=== PATIENT | female | born 1940 | race Caucasian/White ===

== ENCOUNTER 2016-06-05 07:55 | Day surgery (SDC) | payer MEDICARE, BC ==
[~2016-06-05] VITALS: Ht 157.5 cm; Wt 59.1 kg
[~2016-06-05 07:55] MED LIST: ADVA250A INH; ALBU0.08 NEB; ALPR1TAB3 PO; AMLO5TAB2 PO; BUPR150T3 PO; CILO100T PO; ESZO1TAB4 PO; MIRTA15 PO; NEBULIZER1 MI1; OXYC-395 PO; PRED10PA PO; SYMB160A INH; VENTAER INH; WOMETAB5 PO; ZITH250T PO
[2016-06-05 08:30] VITALS: BP 146/83; PULSE 117; RESP 20; TEMP 97.9; O2SAT 91
[2016-06-05] MEDS ORDERED: QUET5TAB PO (08:38)
[2016-06-05] MEDS ORDERED: ceFAZolin 2 GM PREMIX 50 ML - implanted port/tunneled catheter insertion IV SCH (09:00)
[2016-06-05] MEDS ORDERED: SODIUM CHLORIDE 0.9% 1000 ML IV SCH (09:00)
[2016-06-05] MEDS ORDERED: CHLORHEXIDINE GLUCONATE 2 % 1 PACK (2 CLOTHS) TOPICAL SCH (09:00)
[2016-06-05] MEDS ORDERED: VANCOMYCIN 1000 MG/NS 250 ML - implanted port/tunneled catheter IV SCH ×2 (09:00)
[2016-06-05] MEDS ORDERED: POVIDONE IODINE 5% (ANTISEPSIS KIT) 4 APPLICATIONS EACH NARE SCH (09:00)
[2016-06-05] MEDS ORDERED: fentaNYL CITRATE 250 MCG/5 ML AMP ONE (10:23)
[2016-06-05] MEDS ORDERED: MIDAZOLAM HCL 5 MG/5 ML VIAL ONE (10:23)
[2016-06-05] MEDS ORDERED: LIDOCAINE 1%/EPINEPHrine 1:100,000 SOLN 20 ML VIAL ONE (10:47)
--- NOTE | 2016-06-05 11:29 | PD.RAD ---
Post Procedure Progress Note Pre Procedure Diagnosis: (1) Ovarian cancer Post Procedure Diagnosis: (1) Ovarian cancer Procedure Date: Jun 05, 2016 Supervising Radiologist: Lucio Camarena Anesthesia: Local, Conscious Sedation Plan of Activity Patient to Unit: ROPU Patient Condition: Fair Additional Comments: Port placed via the right IJ. Port in good position OK for use See PACS Report for procedural detail/treatment Lucio Camarena MD Jun 05, 2016 11:29
[2016-06-05] MEDS ORDERED: SODIUM CHLORIDE 0.9% FLUSH 5 ML FLUSH IVF PRN (11:30)
[2016-06-05 11:40] VITALS: BP 111/91; PULSE 90; RESP 16; TEMP 98; O2SAT 94
[2016-06-05 11:55] VITALS: BP 117/70; PULSE 101; RESP 18; O2SAT 96
[2016-06-05 12:25] VITALS: BP 108/70; PULSE 100; RESP 18; O2SAT 92
[2016-06-05 12:55] VITALS: BP 113/70; PULSE 98; RESP 18; O2SAT 90
[2016-06-05] MEDS ORDERED: ONDANSETRON HCL 4 MG/2 ML VIAL IV PUSH ONE (13:00)
[2016-06-05 13:25] VITALS: BP 116/70; PULSE 98; RESP 18; O2SAT 90
--- NOTE | 2016-06-05 13:26 | RADRPT ---
EXAM DATE/TIME: 06/05/2016 10:45 [facility] COMPARISON: No previous studies available for comparison. INDICATIONS : Patient with history of ovarian cancer in need of port placement. MEDICAL HISTORY : Hypertension Anxiety/depression COPD Stage I ovarian cancer-on conservative management with her [employer] doctor. Opted not to undergo exten sive surgical staging/chemotherapy/radiation therapy. Status post bilateral salpingo-oophorectomy on September 07, 2015. History of incarcerated hernia post bilateral izgbtxsp-pkhbwpmzczgn-eigiwg post surgical repair SURGICAL HISTORY : Left elbow surgery Shoulder surgery Cataract surgery Hernia repair Bilateral salpingo-oophorectomy Hysterectomy ENCOUNTER: Initial ACUITY: 7-11 months PAIN SCORE: 0/10 FLUORO TIME: 0.5 minutes SEDATION TIME: 30 minutes ACCESS: Right internal jugular vein SEDATION: 1.) 5 mg midazolam (Versed) IV 2.) 250 mcg fentanyl (Sublimaze) IV Prophylactic antibiotics were administered with appropriate pre-procedure timing. Vancomycin within 2 hours of procedure, Ancef (or alternative) within 1 hour of procedure. DEVICE: 1. 8 Slovenian single lumen Bard Power Port PROCEDURE : 1. Continuous pulse oximetry and EKG monitoring. 2. Intravenous conscious sedation. 3. Ultrasound guidance for venous access. 4. Fluoroscopic guided implantable central venous port placement. The patient was placed supine. The neck was prepped in sterile fashion. Full sterile technique was u sed, including cap, mask, sterile gloves and gown, and a large sterile sheet. Hand hygiene and 2% ch lorhexidine Betadine was utilized per protocol for cutaneous antisepsis with appropriate dry time for site. The skin and subcutaneous tissues were infiltrated with local anesthetic solution. Under direct ultrasound guidance, central venous access was accomplished in the targeted vessel. The ultrasound images depicting access guidance were stored and saved to PACS for permanent record. A s ubcutaneous pocket was created using blunt dissection. The port was introduced to the pocket. The c atheter tubing was fed through a subcutaneous tunnel to the venotomy site. The catheter tubing was c ut to a suitable length and then was introduced through a valved Peel-Away sheath and positioned with catheter tubing tip at the cavo-atrial junction level. The pocket incision was closed with subcutic ular Vicryl suture. Steri-Strips were applied. The port was flushed and locked with heparin solutio n per protocol. Sterile dressing was applied to the site. The patient tolerated the procedure well. Conscious sedation was performed with the prescribed dosages and duration as above. The patient gisselle ated the procedure well and there were no complications. EKG and oximetry remained stable throughout the procedure. The patient was sent to post anesthesia recovery in stable condition. CONCLUSION: Uncomplicated ultrasound and fluoroscopic guided implanted central venous port catheter placement as described in detail above. An 8 Slovenian Power port was placed. Lucio Camarena MD on June 05, 2016 at 13:25 Board Certified Radiologist. This report was verified electronically.
== END 2016-06-05 13:55 | disposition home or self-care (01) ==
LOC: HROP 07:55 → HRIP 07:56 → HROP 13:55
PROVIDERS: ATTEND Obstetrics & Gynecology Gynecologic Oncology
DX: Z45.2 Encounter for adjustment and management of vascular access device (principal); C56.9 Malignant neoplasm of unspecified ovary; Z90.722 Acquired absence of ovaries, bilateral; Z90.710 Acquired absence of both cervix and uterus
CPT/HCPCS: 36561; 76937; 77001; 99152; 99153; C1788; J0690; J1642; J2250; J3010; J3370; J7030; J7050

== ENCOUNTER 2016-06-25 14:00 | Inpatient (IN) | payer MEDICARE, BC ==
[~2016-06-25] VITALS: Ht 157.5 cm; Wt 58.4 kg
[~2016-06-25 14:00] MED LIST changes: +QUET5TAB PO; -ZITH250T PO
[2016-06-25 14:03] VITALS: BP 110/56; PULSE 103; RESP 14; TEMP 97.7; O2SAT 88
--- NOTE | 2016-06-25 18:42 | PD ---
HPI Chief Complaint: Respiratory Symptoms Time Seen by Provider: 18:36 Travel History International Travel<30 days: No Contact w/Intl Traveler<30days: No Traveled to known affect area: No History of Present Illness HPI 75-year-old female presents to the emergency department for evaluation of shortness of breath. Patient states her shortness of breath started on Thursday. It did improve yesterday, but worsened again last night. The patient is undergoing chemotherapy for ovarian cancer by Dr. Arevalo. She reports congestion, no cough. No known fevers. Patient states she has been very fatigued and weak. She states that she was anemic and received 2 units of PRBCs on Thursday. She states she heard, hemoglobin was up to 10. The patient denies any history of congestive heart failure. She denies any abdominal pain. No vomiting. PFSH Past Medical History Arthritis: Yes (Neck, shoulder, back) Anxiety: Yes Depression: Yes Cancer: Yes (Ovarian Cancer) Chemotherapy: Yes COPD: Yes (mild) Diminished Hearing: No Gastrointestinal Disorders: Yes Headaches: Yes Hypertension: Yes Psychiatric: Yes Reproductive: No Respiratory: Yes Migraines: Yes Radiation Therapy: No Renal Failure: Yes (elevated labs) Sickle Cell Disease: No : 3 Para: 3 Past Surgical History Abdominal Surgery: Yes (ruptured stomach) AICD: No Appendectomy: Yes Arteriovenous Shunt: No Eye Surgery: Yes (cataract monica) Gynecologic Surgery: Yes (hysterectomy, tubes tied, ovaries removed) Hysterectomy: Yes Insulin Pump: No Joint Replacement: No Pacemaker: No Other Surgery: Yes Social History Alcohol Use: Yes (OCCASIONALLY) Tobacco Use: No (QUIT 7 MONTHS AGO) Substance Use: No Allergies-Medications (Allergen,Severity, Reaction): Coded Allergies: Motrin (Verified Adverse Reaction, Intermediate, Nausea/Vomiting, 03/24/16 ) Reported Meds & Prescriptions Reported Meds & Active Scripts Active Ventolin Hfa 18 GM Inh (Albuterol Sulfate) 90 Mcg/Act Aer 2 Puff INH Q6H PRN Albuterol Neb (Albuterol Sulfate) 2.5 Mg/3 Ml Neb 2.5 Mg NEB Q4HR NEB PRN Nebulizer 1 Mis Mis 1 Ea .ROUTE DIRECTED Advair Diskus Inh (Fluticasone-Salmeterol Inh) 250-50 Mcg/Blist Aer 1 Puff INH BID Rinse mouth after use. Prednisone (21) 10 mg tab Dose Pack (Prednisone) 10 Mg Pack 10 Mg PO DIRECTED Ventolin Hfa 18 GM Inh (Albuterol Sulfate) 90 Mcg/Act Aer 2 Puff INH Q6H PRN Symbicort Inh (Budesonide/Formoterol Fumarate) 160-4.5 Mcg/Act Aero 2 Puff INH Q12HR Reported Quetiapine (Quetiapine Fumarate) 50 Mg Tab 50 Mg PO BID Oxycodone (Oxycodone HCl) 10 Mg Tab 10 Mg PO Q8H PRN Eszopiclone 3 Mg Tab 3 Mg PO HS PRN Mirtazapine 15 Mg Tab 15 Mg PO HS Alprazolam 1 Mg Tab 1 Mg PO Q8H PRN Womens One Daily (Multiple Vitamins W/ Minerals) 1 Tab Tab 1 Tab PO DAILY Amlodipine (Amlodipine Besylate) 5 Mg Tab 5 Mg PO DAILY Bupropion HCl ER 24 HR (Bupropion HCl) 150 Mg Tab 150 Mg PO DAILY Cilostazol 100 Mg Tab 100 Mg PO BID Review of Systems Except as stated in HPI: all other systems reviewed are Neg Physical Exam Narrative GENERAL: Well-developed well-nourished elderly female patient, afebrile. Patient is pale. SKIN: Warm and dry. HEAD: Normocephalic. Atraumatic. EYES: No scleral icterus. No injection or drainage. NECK: Supple, trachea midline. No JVD or lymphadenopathy. CARDIOVASCULAR: Regular rate and rhythm without murmurs, gallops, or rubs. RESPIRATORY: Breath sounds equal bilaterally. No accessory muscle use. Lungs sounds are diminished, but clear. GASTROINTESTINAL: Abdomen soft, non-tender, nondistended. MUSCULOSKELETAL: No cyanosis, or edema. BACK: Nontender without obvious deformity. No CVA tenderness. Data Data Last Documented VS Vital Signs Date Time Temp Pulse Resp B/P Pulse Ox O2 Delivery O2 Flow Rate FiO2 06/25/16 19:23 Room Air 06/25/16 14:03 97.7 103 14 110/56 88 Orders Complete Blood Count With Diff (06/25/16 18:33) Magnesium (Mg) (06/25/16 18:33) Ckmb (Isoenzyme) Profile (06/25/16 18:33) Troponin I (06/25/16 18:33) Urinalysis - C+S If Indicated (06/25/16 18:33) Blood Culture (06/25/16 18:33) Electrocardiogram (06/25/16 18:33) Chest, Single Ap (06/25/16 18:33) Sodium Chloride 0.9% Flush (Ns Flush) (06/25/16 18:45) Lactic Acid Sepsis Protocol (06/25/16 18:33) Type And Screen (06/25/16 18:33) Comprehensive Metabolic Panel (06/25/16 18:33) Vancomycin Inj (Vancomycin Inj) (06/25/16 20:00) Piperacil-Tazo 3.375 Gm Premix (Zosyn 3. (06/25/16 20:00) Ct Pulmonary Angiogram (06/25/16 ) Arterial Blood Gas (Abg) (06/25/16 19:46) Methylprednisolone So Succ Inj (Solumedr (06/25/16 20:00) Albuterol-Ipratropium Neb (Duoneb Neb) (06/25/16 20:00) Labs Laboratory Tests Test 06/25/16 18:50 White Blood Count 6.5 TH/MM3 Red Blood Count 3.61 MIL/MM3 Hemoglobin 9.5 GM/DL Hematocrit 29.1 % Mean Corpuscular Volume 80.6 FL Mean Corpuscular Hemoglobin 26.4 PG Mean Corpuscular Hemoglobin 32.7 % Concent Red Cell Distribution Width 18.2 % Platelet Count 234 TH/MM3 Mean Platelet Volume 6.8 FL Neutrophils (%) (Auto) 78.0 % Lymphocytes (%) (Auto) 11.6 % Monocytes (%) (Auto) 10.0 % Eosinophils (%) (Auto) 0.3 % Basophils (%) (Auto) 0.1 % Neutrophils # (Auto) 5.1 TH/MM3 Lymphocytes # (Auto) 0.8 TH/MM3 Monocytes # (Auto) 0.7 TH/MM3 Eosinophils # (Auto) 0.0 TH/MM3 Basophils # (Auto) 0.0 TH/MM3 CBC Comment DIFF FINAL Differential Comment MDM Medical Decision Making Medical Screen Exam Complete: Yes Emergency Medical Condition: Yes Medical Record Reviewed: Yes Differential Diagnosis Symptomatic anemia versus COPD exacerbation versus pneumonia versus sepsis versus UTI versus electrolyte abnormality Narrative Course 75-year-old female undergoing chemotherapy for ovarian cancer presents to the emergency department for evaluation of weakness, fatigue, shortness of breath. Oxygen saturation is rechecked in the triage room she is found to be 92% on room air. EKG, CBC, CMP, CK-MB, troponin, magnesium, blood cultures 2, lactic acid, UA, type and screen, chest x-ray are ordered and pending. Workup is initiated in triage. Once a medical bed becomes available, patient will be transferred and care assumed by that provider. Iwona Rhodes Jun 25, 2016 18:42
[2016-06-25] MEDS ORDERED: SODIUM CHLORIDE 0.9% FLUSH 5 ML FLUSH IVF PRN (18:45)
[2016-06-25 19:23] VITALS: BP 113/64; PULSE 95; RESP 18; O2SAT 95
[2016-06-25 19:25] LABS: AUTOMATED NEUTROPHIL # 5.1 TH/MM3 (1.8-7.7); BASOPHIL % 0.1 % (0.0-2.0); EOSINOPHIL % 0.3 % (0.0-4.0); HEMATOCRIT 29.1 % (35.0-46.0); HEMO FLAGS DIFF FINAL; LYMPH % 11.6 % (9.0-44.0); LYMPHOCYTE # 0.8 TH/MM3 (1.0-4.8); MEAN CELL VOLUME 80.6 FL (80.0-100.0); MEAN CORPUSCULAR HEMOGLOBIN 26.4 PG (27.0-34.0); MEAN CORPUSCULAR HGB CONC 32.7 % (32.0-36.0); PLATELET COUNT 234 TH/MM3 (150-450); RED BLOOD COUNT 3.61 MIL/MM3 (4.00-5.30); RED CELL DISTRIBUTION WIDTH 18.2 % (11.6-17.2); WHITE BLOOD COUNT 6.5 TH/MM3 (4.0-11.0)
--- NOTE | 2016-06-25 19:29 | RADRPT ---
EXAM DATE/TIME: 06/25/2016 19:00 [facility] COMPARISON: CHEST SINGLE AP, March 24, 2016, 16:28. INDICATIONS : Weakness and short of breath for a few days. MEDICAL HISTORY : Chronic obstructive pulmonary disease. Hypertension. Ovarian cancer. Chemotherapy. SURGICAL HISTORY : Appendectomy. Hysterectomy. Zchtut-F-Ryim. ENCOUNTER: Initial ACUITY: 3 days PAIN SCORE: 0/10 LOCATION: Bilateral chest FINDINGS: There is a CT compatible Nfimzu-b-Hcyd in place from the right internal jugular approach with the tip overlying the SVC. The heart size is normal. There is some mild increased density at the left base . The right lung appears clear. A pneumothorax is not seen. There is a dextrocurvature of the thor acic spine. CONCLUSION: Suspected mild area of consolidation or atelectasis at the left lung base. Sal Hurst MD on June 25, 2016 at 19:13 Board Certified Radiologist. This report was verified electronically.
--- NOTE | 2016-06-25 19:51 | PD ---
Physical Exam Narrative I, Dr. Handy, have reviewed the advance practice practitioner's documentation and am in agreement, met with the patient face to face, made the diagnosis, and the medical decision making was done by me. *My assessment and Findings: electrolyte abnormality vs. UTI vs. PE vs. COPD exacerbation vs. Pneumonia vs. symptomatic anemia 75yo F with PMH of ovarian cancer on chemotherapy (follows with Dr. Arevalo) presents to the ED with c/o sob for 2 days. Pt states walking makes the breathing worst. Pt is saturating at 93% on RA. Pt is not wheezing on exam but has history of COPD so will give duonebs and methylprednisolone. Pt is also complaining of generalized weakness. Pt had 2 units of blood transfusion about 5 days ago at oncology center. Denies any chest pain, fever, cough, n/v, focal weakness or numbness. Labs reviewed, no leukocytosis. H/H 9.5/29.1 at baseline. Hypokalemia at 2.8. Replaced with 20mEq IV KCl and 60mEq KCl PO. BUN/creatinine is acutely elevated at 40/2.67 from 24/1.78 on 06/23/16. Troponin negative. CXR showed suspected mild area of consolidation or atelectasis at the left lung base. Empirically given vancomycin and zosyn. Although I have a low suspicion for PE, will still obtain VQ scan since unable to do CTA due to acute kidney injury. VQ scan show low probability for PE. Discussed with Dr. Romo and accepted. Data Data Last Documented VS Vital Signs Date Time Temp Pulse Resp B/P Pulse Ox O2 Delivery O2 Flow Rate FiO2 06/25/16 20:34 95 Nasal Cannula 2.00 06/25/16 19:23 95 18 113/64 06/25/16 14:03 97.7 Orders Complete Blood Count With Diff (06/25/16 18:33) Magnesium (Mg) (06/25/16 18:33) Ckmb (Isoenzyme) Profile (06/25/16 18:33) Troponin I (06/25/16 18:33) Urinalysis - C+S If Indicated (06/25/16 18:33) Blood Culture (06/25/16 18:33) Electrocardiogram (06/25/16 18:33) Chest, Single Ap (06/25/16 18:33) Sodium Chloride 0.9% Flush (Ns Flush) (06/25/16 18:45) Lactic Acid Sepsis Protocol (06/25/16 18:33) Type And Screen (06/25/16 18:33) Comprehensive Metabolic Panel (06/25/16 18:33) Vancomycin Inj (Vancomycin Inj) (06/25/16 20:00) Piperacil-Tazo 3.375 Gm Premix (Zosyn 3. (06/25/16 20:00) Arterial Blood Gas (Abg) (06/25/16 19:46) Methylprednisolone So Succ Inj (Solumedr (06/25/16 20:00) Albuterol-Ipratropium Neb (Duoneb Neb) (06/25/16 20:00) Ventilation & Perfusion Scan (06/25/16 ) Potassium Chlor 20 Meq Premix (Kcl 20 Me (06/25/16 20:15) Potassium Chloride (Kcl) (06/25/16 20:15) Sodium Chlorid 0.9% 500 Ml Inj (Ns 500 M (06/25/16 20:15) Admit Order (Ed Use Only) (06/25/16 20:58) Labs Laboratory Tests Test 06/25/16 06/25/16 06/25/16 18:45 18:50 20:00 Lactic Acid Level 1.2 mmol/L White Blood Count 6.5 TH/MM3 Red Blood Count 3.61 MIL/MM3 Hemoglobin 9.5 GM/DL Hematocrit 29.1 % Mean Corpuscular Volume 80.6 FL Mean Corpuscular Hemoglobin 26.4 PG Mean Corpuscular Hemoglobin 32.7 % Concent Red Cell Distribution Width 18.2 % Platelet Count 234 TH/MM3 Mean Platelet Volume 6.8 FL Neutrophils (%) (Auto) 78.0 % Lymphocytes (%) (Auto) 11.6 % Monocytes (%) (Auto) 10.0 % Eosinophils (%) (Auto) 0.3 % Basophils (%) (Auto) 0.1 % Neutrophils # (Auto) 5.1 TH/MM3 Lymphocytes # (Auto) 0.8 TH/MM3 Monocytes # (Auto) 0.7 TH/MM3 Eosinophils # (Auto) 0.0 TH/MM3 Basophils # (Auto) 0.0 TH/MM3 CBC Comment DIFF FINAL Differential Comment Sodium Level 131 MEQ/L Potassium Level 2.8 MEQ/L Chloride Level 98 MEQ/L Carbon Dioxide Level 20.6 MEQ/L Anion Gap 12 MEQ/L Blood Urea Nitrogen 40 MG/DL Creatinine 2.67 MG/DL Estimat Glomerular Filtration 17 ML/MIN Rate Random Glucose 115 MG/DL Calcium Level 8.4 MG/DL Magnesium Level 2.0 MG/DL Total Bilirubin 0.3 MG/DL Aspartate Amino Transf 58 U/L (AST/SGOT) Alanine Aminotransferase 48 U/L (ALT/SGPT) Alkaline Phosphatase 102 U/L Total Creatine Kinase 79 U/L Troponin I LESS THAN 0.02 NG/ML Total Protein 7.3 GM/DL Albumin 2.9 GM/DL Blood Type O NEGATIVE Antibody Screen NEGATIVE Blood Gas Puncture Site RT RADIAL Blood Gas Patient Temperature 98.6 Blood Gas HCO3 17 mmol/L Blood Gas Base Excess -6.2 mmol/L Blood Gas Oxygen Saturation 92 % Arterial Blood pH 7.44 Arterial Blood Partial 25 mmHg Pressure CO2 Arterial Blood Partial 65 mmHG Pressure O2 Arterial Blood Oxygen Content 11.6 Vol % Arterial Blood 2.3 % Carboxyhemoglobin Arterial Blood Methemoglobin 1.4 % Blood Gas Hemoglobin 8.9 G/DL Oxygen Delivery Device ROOM AIR Blood Gas Inspired Oxygen 21 % MDM Supervised Visit with PATI: Yes Interpretation(s) EKG: Sinus tachycardia at 100bpm. Normal axis. No ST segment elevation or depression. Diagnosis Primary Impression: COPD (chronic obstructive pulmonary disease) Qualified Code: J42 - Chronic bronchitis, unspecified chronic bronchitis type Additional Impression: PNA (pneumonia) Qualified Code: J18.1 - Pneumonia of left lower lobe due to infectious organism Admitting Information Admitting Physician Requests: Admit Marisol Handy DO Jun 25, 2016 19:51
[2016-06-25] MEDS ORDERED: methylPREDNISolone SOD SUCC 125 MG/2 ML VIAL IVP ONE (20:00)
[2016-06-25] MEDS ORDERED: PIPERACIL-TAZO 3.375 GM PREMIX 50 ML IV ONE (20:00)
[2016-06-25] MEDS ORDERED: VANCOMYCIN INJ 1,000 MG in SODIUM CHLOR 0.9% 250 ML INJ 250 ML IV ONE (20:00)
[2016-06-25 20:11] LABS: ALKALINE PHOSPHATASE 102 U/L (45-117); ALT (GPT) 48 U/L (10-53); ANION GAP 12 MEQ/L (5-15); AST (GOT) 58 U/L (15-37); BICARBONATE 20.6 MEQ/L (21.0-32.0); BLOOD UREA NITROGEN 40 MG/DL (7-18); CHLORIDE 98 MEQ/L (98-107); CREATINE KINASE 79 U/L (26-192); GLOMERULAR FILTRATION RATE 17 ML/MIN (>89); SODIUM (NA) 131 MEQ/L (136-145); TOTAL BILIRUBIN ADULT 0.3 MG/DL (0.2-1.0)
[2016-06-25 20:12] LABS: POTASSIUM 2.8 MEQ/L (3.5-5.1)
[2016-06-25] MEDS ORDERED: POTASSIUM CHLOR 20 MEQ PREMIX 100 ML IV ONE (20:15)
[2016-06-25] MEDS ORDERED: POTASSIUM CHLORIDE 20 MEQ CONTROLLED RELEASE TAB PO ONE (20:15)
[2016-06-25] MEDS ORDERED: SODIUM CHLORID 0.9% 500 ML INJ 500 ML IV ONE (20:15)
[2016-06-25 20:21] LABS: BLOOD GAS BASE EXCESS -6.2 mmol/L (-2-2); BLOOD GAS CARBOXYHEMOGLOBIN 2.3 % (0-4); BLOOD GAS HCO3 17 mmol/L (22-26); BLOOD GAS METHEMOGLOBIN 1.4 % (0-2); BLOOD GAS O2 HGB SATURATION 92 % (90-100); BLOOD GAS OXYGEN CONTENT 11.6 Vol % (12.0-20.0); BLOOD GAS PCO2 25 mmHg (38-42); BLOOD GAS PO2 65 mmHG (61-120); BLOOD GAS TOTAL HGB 8.9 G/DL (12.0-16.0); CRITICAL VALUE NO; DRAW SITE RT RADIAL; FIO2 21 %; NUMBER OF ARTERIAL PUNCTURES 1; OXYGEN DEVICE ROOM AIR; STAT YES; TEMP CORR TO 98.6; ULNAR PULSE PRESENT
[2016-06-25 20:34] VITALS: O2SAT 95
[2016-06-25] MEDS: RESP: ALBUTEROL 2.5 MG/IPRATROPIUM 0.5 MG NEB (SCH) INH (20:36)
[2016-06-25] MEDS ORDERED: ONDANSETRON HCL 4 MG/2 ML VIAL IVP PRN (21:15)
[2016-06-25] MEDS ORDERED: BISACODYL 10 MG SUPP PR PRN (21:15)
[2016-06-25] MEDS ORDERED: SODIUM CHLORIDE 0.9% FLUSH 5 ML FLUSH FLUSH PRN (21:15)
[2016-06-25] MEDS ORDERED: RESP: ALBUTEROL 2.5 MG/IPRATROPIUM 0.5 MG NEB (PRN) NEB (21:15)
[2016-06-25] MEDS ORDERED: Vancomycin Consult Pharmacy 1 EA OTHER SCH (21:15)
[2016-06-25] MEDS ORDERED: ACETAMINOPHEN 325 MG TAB PO PRN (21:15)
--- NOTE | 2016-06-25 21:17 | HHI.HP ---
[facility] Diana Salgado MD Admission Diagnosis KAMRYN Diagnoses: (1) COPD (chronic obstructive pulmonary disease) Diagnosis: Principal (2) PNA (pneumonia) Diagnosis: Principal (3) Hypoxia Diagnosis: Principal (4) KAMRYN (acute kidney injury) Diagnosis: Principal (5) Hypokalemia Diagnosis: Principal (6) Ovarian cancer Diagnosis: Principal Travel History International Travel<30 Days: No Contact w/Intl Traveler <30 Da: No Traveled to Known Affected Are: No History of Present Illness This is a 75-year-old female with PMH of HTN, Anxiety, Depression, COPD, Ovarian CA on Chemotherapy and Chronic Pain who was brought to the ER for c/o SOB x2 days. Recent transfusion of 2u pRBC on 06/18/16 for Hgb 7.7, currently Hgb 9.5. Reports associated non-productive cough and generalized weakness but denies fever, chills, nausea, vomiting or diarrhea. On arrival, BP 110/56, HR 103, O2 sat 88% on RA, Afebrile. WBC 6.5. K+ 2.8. Creatinine 2.67, previously 1.78 on 06/23/16. U/a pending. CXR w/ LLL consolidation. V/Q Scan low probability for PE. S/p Blood Cultures, Vanc/Zosyn in ER. ABG w/ pH 7.44, PCO2 25, PO2 65, O2 sat 92% on RA. Review of Systems Except as stated in HPI: all other systems reviewed are Neg ROS: 14 point review of systems otherwise negative. Past Family Social History Past Medical History PMH: HTN, Anxiety, Depression, COPD, Ovarian CA on Chemotherapy and Chronic Pain Past Surgical History PAST SURGICAL HISTORY: Appendectomy, Bilateral Cataract Surgery, Hysterectomy Allergies: Coded Allergies: Motrin (Verified Adverse Reaction, Intermediate, Nausea/Vomiting, 03/24/16 ) Family History PAST FAMILY HISTORY: Reviewed. No h/o DM or CAD Social History PAST SOCIAL HISTORY: Occasional alcohol. History of tobacco abuse, quit 7 months ago. Negative for substance abuse. Physical Exam Vital Signs Vital Signs Date Time Temp Pulse Resp B/P Pulse Ox O2 Delivery O2 Flow Rate FiO2 06/25/16 20:34 95 Nasal Cannula 2.00 06/25/16 19:23 Room Air 06/25/16 14:03 97.7 103 14 110/56 88 Room Air Physical Exam PE: GENERAL: Elderly white female in no acute distress. HEENT: PERRLA, EOMI. No scleral icterus or conjunctival pallor. No lid lag or facial droop. CARDIOVASCULAR: Regular rate and rhythm. No obvious murmurs to auscultation. No chest tenderness to palpation. RESPIRATORY: No obvious rhonchi or wheezing. Clear to auscultation. Decreased at bases bilaterally. GASTROINTESTINAL: Abdomen soft, non-tender, nondistended. BS normal. MUSCULOSKELETAL: Extremities without clubbing, cyanosis, or edema. No obvious deformities. NEUROLOGICAL: Awake, alert and oriented x4. No focal neurologic deficits. Moving both upper and lower extremities spontaneously. Laboratory Laboratory Tests Test 06/25/16 06/25/16 06/25/16 18:45 18:50 20:00 Lactic Acid Level 1.2 White Blood Count 6.5 Red Blood Count 3.61 Hemoglobin 9.5 Hematocrit 29.1 Mean Corpuscular Volume 80.6 Mean Corpuscular Hemoglobin 26.4 Mean Corpuscular Hemoglobin 32.7 Concent Red Cell Distribution Width 18.2 Platelet Count 234 Mean Platelet Volume 6.8 Neutrophils (%) (Auto) 78.0 Lymphocytes (%) (Auto) 11.6 Monocytes (%) (Auto) 10.0 Eosinophils (%) (Auto) 0.3 Basophils (%) (Auto) 0.1 Neutrophils # (Auto) 5.1 Lymphocytes # (Auto) 0.8 Monocytes # (Auto) 0.7 Eosinophils # (Auto) 0.0 Basophils # (Auto) 0.0 CBC Comment DIFF FINAL Differential Comment Sodium Level 131 Potassium Level 2.8 Chloride Level 98 Carbon Dioxide Level 20.6 Anion Gap 12 Blood Urea Nitrogen 40 Creatinine 2.67 Estimat Glomerular Filtration 17 Rate Random Glucose 115 Calcium Level 8.4 Magnesium Level 2.0 Total Bilirubin 0.3 Aspartate Amino Transf 58 (AST/SGOT) Alanine Aminotransferase 48 (ALT/SGPT) Alkaline Phosphatase 102 Total Creatine Kinase 79 Troponin I LESS THAN 0.02 Total Protein 7.3 Albumin 2.9 Blood Type O NEGATIVE Antibody Screen NEGATIVE Blood Gas Puncture Site RT RADIAL Blood Gas Patient Temperature 98.6 Blood Gas HCO3 17 Blood Gas Base Excess -6.2 Blood Gas Oxygen Saturation 92 Arterial Blood pH 7.44 Arterial Blood Partial 25 Pressure CO2 Arterial Blood Partial 65 Pressure O2 Arterial Blood Oxygen Content 11.6 Arterial Blood 2.3 Carboxyhemoglobin Arterial Blood Methemoglobin 1.4 Blood Gas Hemoglobin 8.9 Oxygen Delivery Device ROOM AIR Blood Gas Inspired Oxygen 21 Date/Time Procedure Status Source Growth 06/25/16 18:50 Aerobic Blood Culture Received Blood Peripheral Pending 06/25/16 18:50 Anaerobic Blood Culture Received Blood Peripheral Pending Result Diagram: 06/25/[id number]/25/161849 Assessment and Plan Problem List: (1) COPD (chronic obstructive pulmonary disease) ICD Code: J44.9 Status: Acute (2) PNA (pneumonia) ICD Code: J18.9 Status: Acute (3) Hypoxia ICD Code: R09.02 Status: Acute (4) KAMRYN (acute kidney injury) ICD Code: N17.9 Status: Acute (5) Hypokalemia ICD Code: E87.6 Status: Acute (6) Ovarian cancer ICD Code: C56.9 Status: Acute Assessment and Plan A/P: 1. COPD: Chronic Respiratory Failure w/ Acute Exacerbation. O2 sat 88% on RA upon arrival, currently 95% on RA. S/p Solu-Medrol and DuoNeb in ER, will continue w/ Solu-Medrol, DuoNeb q4h and q2h prn, Mucinex, Symbicort, continue O2 as needed. 2. PNA: CXR w/ LLL consolidation, images reviewed by me. S/p Blood Cultures, Vanc/Zosyn in ER, immunocompromised on Chemotherapy, will continue broad spectrum antibiotics. Follow up cultures. 3. Hypoxia: O2 sat 88% on arrival, now resolved after Solu-Medrol and DuoNeb. Continue to monitor. 4. KAMRYN: Acute on Chronic Renal Insufficiency. Creatinine 2.67, previous and 1.78 on 06/23/16. U/a pending. IVF, repeat labs in am. 5. Hypokalemia: K+ 2.8, s/p replacement in ER. Will recheck and replace in am as needed. 6. Ovarian CA: Currently on Chemotherapy, following w/ Dr. Arevalo, will consult for further recommendations. 7. DVT Prophylaxis: SCD/Teds. 8. Social work for d/c planning as needed. 9. Case discussed w/ ER physician at length. Physician Certification 2 Midnight Certification Type: Admission for Inpatient Services Order for Inpatient Services The services are ordered in accordance with Medicare regulations or non- Medicare payer requirements, as applicable. In the case of services not specified as inpatient-only, they are appropriately provided as inpatient services in accordance with the 2-midnight benchmark. Estimated LOS (days): 2 days is the estimated time the patient will need to remain in the hospital, assuming treatment plan goals are met and no additional complications. Post-Hospital Plan: Not yet determined Cecily Romo MD Jun 25, 2016 21:17
--- NOTE | 2016-06-25 22:50 | RADRPT ---
EXAM DATE/TIME: 06/25/2016 21:56 [facility] COMPARISON: CHEST SINGLE AP, June 25, 2016, 19:00. LUNG VENTILATION & PERFUSION SCAN, March 24, 2016, 18: 15. INDICATIONS : Shortness of breath for two days. DOSE: 8.7 mCi Tc99m MAA IV 0.62 mCi Tc99m DTPA aerosol MEDICAL HISTORY : Chronic obstructive pulmonary disease. Hypertension. Ovarian cancer. SURGICAL HISTORY : Hysterectomy. Appendectomy. Tubal ligation. ENCOUNTER: Initial ACUITY: 2 days PAIN SCALE: 0/10 LOCATION: chest TECHNIQUE: Following five minutes of tidal breathing of DTPA aerosol, planar images of the lungs were performed in eight projections. The patient was then injected with MAA, and eight-view perfusion scan was perf ormed. FINDINGS: There is a homogeneous pattern of aerosol delivery to the periphery of both lungs. No focal ventilat ory defects are seen. The perfusion lung scan demonstrates a homogenous pattern of uptake in both lungs. No segmental or s ubsegmental defects are seen. CONCLUSION: Low probability for pulmonary embolus. Sal Hurst MD on June 25, 2016 at 22:48 Board Certified Radiologist. This report was verified electronically.
[2016-06-25] MEDS: SODIUM CHLOR 0.9% 1000 ML INJ 1,000 ML IV SCH (23:18)
[2016-06-25 23:30] VITALS: BP 126/75; PULSE 107; RESP 18; TEMP 97; O2SAT 94
[2016-06-26] VITALS (8 sets, daily range): BP systolic 108–142; BP diastolic 68–82; PULSE 87–109; RESP 17–24; TEMP 95.6–97.8; O2SAT 93–98
[2016-06-26] MEDS: ALPRAZolam 0.5 MG TAB PO PRN ×2 (00:16→21:05)
[2016-06-26] MEDS: methylPREDNISolone SOD SUCC 40 MG/1 ML VIAL IV PUSH SCH ×4 (02:00→21:05)
[2016-06-26] MEDS: SODIUM CHLOR 0.9% 1000 ML INJ 1,000 ML IV SCH ×2 (07:14→21:12)
[2016-06-26 08:02] LABS: AUTOMATED NEUTROPHIL # 3.3 TH/MM3 (1.8-7.7); BASOPHIL % 0.2 % (0.0-2.0); HEMATOCRIT 25.6 % (35.0-46.0); HEMO FLAGS DIFF FINAL; LYMPH % 8.3 % (9.0-44.0); LYMPHOCYTE # 0.3 TH/MM3 (1.0-4.8); MEAN CELL VOLUME 79.4 FL (80.0-100.0); MEAN CORPUSCULAR HEMOGLOBIN 26.5 PG (27.0-34.0); MEAN CORPUSCULAR HGB CONC 33.4 % (32.0-36.0); MONO % 1.5 % (0.0-8.0); PLATELET COUNT 241 TH/MM3 (150-450); RED BLOOD COUNT 3.22 MIL/MM3 (4.00-5.30); RED CELL DISTRIBUTION WIDTH 17.6 % (11.6-17.2); WHITE BLOOD COUNT 3.6 TH/MM3 (4.0-11.0)
--- NOTE | 2016-06-26 08:44 | EKG ---
Date Performed: 06/25/2016 Time Performed: 18:44:42 PTAGE: 75 years EKG: SINUS TACHYCARDIA POSSIBLE LEFT ATRIAL ENLARGEMENT NONSPECIFIC ST & T-WAVE ABNORMALITY ABNO RMAL RHYTHM ECG PREVIOUS TRACING : 03/24/2016 22.37 DOCTOR: Jason Varghese Interpretating Date/Time 06/26/2016 08:41:09
[2016-06-26] MEDS: QUEtiapine FUMARATE 25 MG TAB PO SCH ×2 (08:46→21:05)
[2016-06-26] MEDS: CEFEPIME INJ 1,000 MG in SODIUM CHLORIDE 0.9% INJ 100 ML IV SCH (08:46)
[2016-06-26] MEDS: guaiFENesin E.R. 600 MG TAB PO SCH ×2 (08:46→21:05)
[2016-06-26] MEDS: buPROPion HCL 150 MG EXTENDED RELEASE TAB PO SCH (08:46)
[2016-06-26] MEDS: CILOSTAZOL 100 MG TAB PO SCH ×2 (08:46→21:05)
[2016-06-26 08:50] LABS: ALKALINE PHOSPHATASE 95 U/L (45-117); ALT (GPT) 46 U/L (10-53); ANION GAP 10 MEQ/L (5-15); AST (GOT) 46 U/L (15-37); BICARBONATE 17.1 MEQ/L (21.0-32.0); BLOOD UREA NITROGEN 38 MG/DL (7-18); CHLORIDE 108 MEQ/L (98-107); GLOMERULAR FILTRATION RATE 22 ML/MIN (>89); SODIUM (NA) 135 MEQ/L (136-145); TOTAL BILIRUBIN ADULT 0.3 MG/DL (0.2-1.0)
[2016-06-26] MEDS: ACETAMINOPHEN/HYDROcodone 325 MG/5 MG TAB PO PRN ×2 (08:55→15:30)
[2016-06-26] MEDS: SODIUM CHLORIDE 0.9% FLUSH 5 ML FLUSH FLUSH SCH ×2 (08:58→21:00)
[2016-06-26] MEDS ORDERED: VANCOMYCIN 500 MG/NS 100 ML IV ONE ×2 (10:00)
--- NOTE | 2016-06-26 11:26 | HHI.PR ---
Subjective Remarks Patient in bed. Says sob and wheezing improving. No fever or chills. Doesn't have any pain at this time. No cp, sob, n/v/d/c. Objective Vitals Vital Signs Date Time Temp Pulse Resp B/P Pulse Ox O2 Delivery O2 Flow Rate FiO2 06/26/16 07:39 96.8 87 17 108/68 96 06/26/16 04:00 90 17 119/73 93 06/25/16 23:30 97.0 107 18 126/75 94 06/25/16 20:34 95 Nasal Cannula 2.00 06/25/16 19:23 95 18 113/64 95 Nasal Cannula 2 06/25/16 19:23 Room Air 06/25/16 14:03 97.7 103 14 110/56 88 Room Air Result Diagram: 06/26/16 0650 06/26/16 0630 Imaging Last Impressions Chest X-Ray 06/25/16 1833 Signed Impressions: Service Date/Time: Saturday, June 25, 2016 19:00 - CONCLUSION: Suspected mild area of consolidation or atelectasis at the left lung base. Sal Hurst MD Lung Scan-V Nuclear Medicine 06/25/16 0000 Signed Impressions: Service Date/Time: Saturday, June 25, 2016 21:56 - CONCLUSION: Low probability for pulmonary embolus. Sal Hurst MD Objective Remarks GENERAL: Elderly white female in no acute distress. HEENT: PERRLA, EOMI. No scleral icterus or conjunctival pallor. No lid lag or facial droop. CARDIOVASCULAR: Regular rate and rhythm. No obvious murmurs to auscultation. No chest tenderness to palpation. RESPIRATORY: No obvious rhonchi or wheezing. Clear to auscultation. Decreased at bases bilaterally. GASTROINTESTINAL: Abdomen soft, non-tender, nondistended. BS normal. MUSCULOSKELETAL: Extremities without clubbing, cyanosis, or edema. No obvious deformities. NEUROLOGICAL: Awake, alert and oriented x4. No focal neurologic deficits. Moving both upper and lower extremities spontaneously. A/P Problem List: (1) COPD (chronic obstructive pulmonary disease) ICD Code: J44.9 Status: Acute (2) PNA (pneumonia) ICD Code: J18.9 Status: Acute (3) Hypoxia ICD Code: R09.02 Status: Acute (4) KAMRYN (acute kidney injury) ICD Code: N17.9 Status: Acute (5) Hypokalemia ICD Code: E87.6 Status: Acute (6) Ovarian cancer ICD Code: C56.9 Status: Acute Assessment and Plan 1. COPD: Chronic Respiratory Failure w/ Acute Exacerbation. O2 sat 88% on RA upon arrival, currently 95% on RA. S/p Solu-Medrol and DuoNeb in ER Taper Solu-Medrol to 40 mg IV Q8 hrs, and, DuoNeb q6 h and q2h prn. Continue to taper as tolerated. Mucinex, Symbicort, continue O2 as needed. 2. PNA: CXR w/ LLL consolidation, images reviewed by me. S/p Blood Cultures, Vanc/Zosyn in ER, immunocompromised on Chemotherapy, will continue broad spectrum antibiotics. Follow up cultures. NTD. 3. Acute respiratory failure, patient is requiring O2 supplement at this time. At baseline she did not require O2 . Hypoxia: O2 sat 88% on arrival, satting well on 2L NC. Solu-Medrol and DuoNeb. Continue to monitor. Will need O2 wal; jean test at discharge. 4. KMARYN: Acute on Chronic Renal Insufficiency. Creatinine 2.67, previous and 1.78 on 06/23/16. U/a pending. IVF, repeat labs in am. 5. Hypokalemia: K+ 2.8, s/p replacement in ER. Will recheck and replace in am as needed. 6. Ovarian CA: Currently on Chemotherapy, following w/ Dr. Arevalo, will consult for further recommendations. DVT Prophylaxis: SCD/Teds. Social work for d/c planning as needed. Discussed with the Problem Qualifiers (1) Ovarian cancer: Qualified Code: C56.9 - Ovarian cancer, unspecified laterality Serena Carpenter MD Jun 26, 2016 11:26
[2016-06-26] MEDS ORDERED: RESP: ALBUTEROL 2.5 MG/IPRATROPIUM 0.5 MG NEB (PRN) NEB (11:30)
--- NOTE | 2016-06-26 11:43 | PD.CONS ---
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 Romo Reason for Consult Pt known to you. 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 She is currently receiving IV chemotherapy with single agent Carboplatin AUC 5 given every 21 days. She received her first cycle on 06/10/16. Her hemiglobin dropped to 7.7 on 06/18/16 she received 2 units of PRBCs and on 02/20/17 her hem had improved to 10.2. She called our office yesterday complaining of fatigue, SOA and pain. She was told to go to ER for further evaluation. She presented to ER and was found to have O2 sats of 88%, creat 2.67 and hypokalemia. Imaging obtained shown LLL with consolidation. V/Q scan was low probability for PE. She was admitted for exacerbation of COPD, KAMRYN, and PNA. Review of Systems Constitutional: COMPLAINS OF: Fatigue Respiratory: COMPLAINS OF: Shortness of breath Musculoskeletal: COMPLAINS OF: Joint pain, Muscle aches Past Family Social History Allergies: Coded Allergies: Motrin (Verified Adverse Reaction, Intermediate, Nausea/Vomiting, 03/24/16 ) Past Medical History HTN anxiety depression COPD ovarian cancer chronic pain Past Surgical History appy, cataract hysterectomy Reported Medications per EMR Active Ordered Medications Current Medications IV Flush 2 ml 2 ml UNSCH PRN IVF FLUSH AFTER USING IV ACCESS; Start 06/25/16 at 18:45 Vancomycin HCl 1000 mg/Sodium Chloride 250 ml @ 250 mls/hr ONCE ONCE IV Last administered on 06/25/16 21:11; Start 06/25/16 at 20:00; Stop 06/25/16 at 20:59 ; Status DC Piperacillin Sod/ Tazobactam Sod (Zosyn 3.375 Gm Premix) 50 ml @ 100 mls/hr ONCE ONCE IV Last administered on 06/25/16 20:11; Start 06/25/16 at 20:00; Stop 06/25/16 at 20:29; Status DC Methylprednisolone Sodium Succinate (SoluMEDROL INJ) 125 mg ONCE ONCE IVP Last administered on 06/25/16 20:11; Start 06/25/16 at 20:00; Stop 06/25/16 at 20:01; Status DC Albuterol/ Ipratropium 1 ampule 1 ampule Q15M INH Last administered on 20:36; Start 06/25/16 at 20:00; Stop 06/25/16 at 20:31; Status DC Potassium Chloride (KCl 20 Meq Premix Inj) 100 ml @ 50 mls/hr ONCE ONCE IV Last administered on 06/25/16 23:18; Start 06/25/16 at 20:15; Stop 06/25/16 at 22:14; Status DC Potassium Chloride 60 meq 60 meq ONCE ONCE PO Last administered on 06/25/16 21:11; Start 06/25/16 at 20:15; Stop 06/25/16 at 20:17; Status DC Sodium Chloride 500 ml @ 500 mls/hr BOLUS ONCE IV Last administered on 21:12; Start 06/25/16 at 20:15; Stop 06/25/16 at 21:14; Status DC Pharmacy Profile Note 0 ml @ 0 mls/hr UNSCH OTHER ; Start 06/25/16 at 21:15 Cefepime HCl/ Sodium Chloride (Maxipime Inj/NS Inj) 100 ml @ 200 mls/hr DAILY IV Last administered on 06/26/16 08:46; Start 06/26/16 at 09:00 Methylprednisolone Sodium Succinate (SoluMEDROL INJ) 40 mg Q6HR IV PUSH Last administered on 06/26/16 02:00; Start 06/26/16 at 02:00 Budesonide/ Formoterol Fumarate (Symbicort 160-4.5 Inh) 2 puff Q12HR INH ; Start 06/26/16 at 09:00 Guaifenesin (Mucinex Er) 600 mg BID PO Last administered on 06/26/16 08:46; Start 06/26/16 at 09:00 Albuterol/ Ipratropium 1 ampule 1 ampule Q4HR NEB PRN NEB SOB/WHEEZING; Start 06/25/16 at 21:15 Sodium Chloride (NS 1000 ml Inj) 1,000 ml @ 100 mls/hr Q10H IV Last administered on 06/25/16 23:18; Start 06/25/16 at 21:14 IV Flush (NS Flush) 2 ml UNSCH PRN FLUSH FLUSH AFTER USING IV ACCESS; Start at 21:15 IV Flush (NS Flush) 2 ml BID FLUSH ; Start 06/26/16 at 09:00 Ondansetron HCl (Zofran Inj) 4 mg Q6H PRN IVP NAUSEA OR VOMITING; Start at 21:15 Bisacodyl (Dulcolax Supp) 10 mg DAILY PRN NE CONSTIPATION; Start 06/25/16 at 21 :15 Acetaminophen (Tylenol) 650 mg Q6H PRN PO FEVER/PAIN SCALE 1 TO 2; Start at 21:15 Acetaminophen/ Hydrocodone Bitart (Tucker 5-325 Mg) 1 tab Q4H PRN PO PAIN SCALE 3 TO 5 Last administered on 06/26/16 08:55; Start 06/25/16 at 21:15 Hydromorphone HCl (Dilaudid Pf Inj) 0.5 mg Q3H PRN IV Pain 6-10; Start at 21:15 Alprazolam (Xanax) 0.5 mg Q8H PRN PO ANXIETY Last administered on 06/26/16 00: 16; Start 06/25/16 at 23:45 Bupropion HCl (Wellbutrin Xl 24 Hr) 150 mg DAILY PO Last administered on 08:46; Start 06/26/16 at 09:00 Cilostazol (Pletal) 100 mg BID PO Last administered on 06/26/16 08:46; Start 06/26/16 at 09:00 Mirtazapine (Remeron) 15 mg HS PO ; Start 06/26/16 at 21:00 Quetiapine Fumarate 50 mg 50 mg BID PO Last administered on 06/26/16 08:46; Start 06/26/16 at 09:00 Vancomycin HCl/ Sodium Chloride (Vancomycin Inj/ NS Inj) 100 ml @ 200 mls/hr ONCE ONCE IV ; Start 06/26/16 at 10:00; Stop 06/26/16 at 10:29; Status DC Social History past tobacco occasional ETOH Physical Exam Vital Signs Vital Signs Date Time Temp Pulse Resp B/P Pulse Ox O2 Delivery O2 Flow Rate FiO2 06/26/16 07:39 96.8 87 17 108/68 96 06/26/16 04:00 90 17 119/73 93 06/25/16 23:30 97.0 107 18 126/75 94 06/25/16 20:34 95 Nasal Cannula 2.00 06/25/16 19:23 95 18 113/64 95 Nasal Cannula 2 06/25/16 19:23 Room Air 06/25/16 14:03 97.7 103 14 110/56 88 Room Air Physical Exam GENERAL: Frail, in no apparent distress. SKIN: No rashes, Cool and dry. HEAD: Atraumatic. Normocephalic. EYES: Pupils equal round and reactive. Extraocular motions intact. CARDIOVASCULAR: Regular rate and rhythm without murmurs, gallops, or rubs. RESPIRATORY: Clear to auscultation. Breath sounds equal bilaterally. No wheezes , rales, or rhonchi. MUSCULOSKELETAL: Extremities without clubbing, cyanosis, or edema. NEUROLOGICAL: Normal speech, pt is sleepy Laboratory Laboratory Tests Test 06/25/16 06/25/16 06/25/16 06/26/16 18:45 18:50 20:00 06:30 Lactic Acid Level 1.2 White Blood Count 6.5 Red Blood Count 3.61 Hemoglobin 9.5 Hematocrit 29.1 Mean Corpuscular Volume 80.6 Mean Corpuscular Hemoglobin 26.4 Mean Corpuscular Hemoglobin 32.7 Concent Red Cell Distribution Width 18.2 Platelet Count 234 Mean Platelet Volume 6.8 Neutrophils (%) (Auto) 78.0 Lymphocytes (%) (Auto) 11.6 Monocytes (%) (Auto) 10.0 Eosinophils (%) (Auto) 0.3 Basophils (%) (Auto) 0.1 Neutrophils # (Auto) 5.1 Lymphocytes # (Auto) 0.8 Monocytes # (Auto) 0.7 Eosinophils # (Auto) 0.0 Basophils # (Auto) 0.0 CBC Comment DIFF FINAL Differential Comment Sodium Level 131 135 Potassium Level 2.8 5.0 Chloride Level 98 108 Carbon Dioxide Level 20.6 17.1 Anion Gap 12 10 Blood Urea Nitrogen 40 38 Creatinine 2.67 2.21 Estimat Glomerular Filtration 17 22 Rate Random Glucose 115 149 Calcium Level 8.4 8.6 Magnesium Level 2.0 Total Bilirubin 0.3 0.3 Aspartate Amino Transf 58 46 (AST/SGOT) Alanine Aminotransferase 48 46 (ALT/SGPT) Alkaline Phosphatase 102 95 Total Creatine Kinase 79 Troponin I LESS THAN 0.02 Total Protein 7.3 6.6 Albumin 2.9 2.6 Blood Type O NEGATIVE Antibody Screen NEGATIVE Blood Gas Puncture Site RT RADIAL Blood Gas Patient Temperature 98.6 Blood Gas HCO3 17 Blood Gas Base Excess -6.2 Blood Gas Oxygen Saturation 92 Arterial Blood pH 7.44 Arterial Blood Partial 25 Pressure CO2 Arterial Blood Partial 65 Pressure O2 Arterial Blood Oxygen Content 11.6 Arterial Blood 2.3 Carboxyhemoglobin Arterial Blood Methemoglobin 1.4 Blood Gas Hemoglobin 8.9 Oxygen Delivery Device ROOM AIR Blood Gas Inspired Oxygen 21 Test 06/26/16 06:50 White Blood Count 3.6 Red Blood Count 3.22 Hemoglobin 8.5 Hematocrit 25.6 Mean Corpuscular Volume 79.4 Mean Corpuscular Hemoglobin 26.5 Mean Corpuscular Hemoglobin 33.4 Concent Red Cell Distribution Width 17.6 Platelet Count 241 Mean Platelet Volume 7.2 Neutrophils (%) (Auto) 90.0 Lymphocytes (%) (Auto) 8.3 Monocytes (%) (Auto) 1.5 Eosinophils (%) (Auto) 0.0 Basophils (%) (Auto) 0.2 Neutrophils # (Auto) 3.3 Lymphocytes # (Auto) 0.3 Monocytes # (Auto) 0.1 Eosinophils # (Auto) 0.0 Basophils # (Auto) 0.0 CBC Comment DIFF FINAL Differential Comment Date/Time Procedure Status Source Growth 06/25/16 18:50 Aerobic Blood Culture Received Blood Peripheral Pending 06/25/16 18:50 Anaerobic Blood Culture Received Blood Peripheral Pending Result Diagram: 06/26/16 0650 06/26/16 0630 Imaging Last Impressions Chest X-Ray 06/25/16 1833 Signed Impressions: Service Date/Time: Saturday, June 25, 2016 19:00 - CONCLUSION: Suspected mild area of consolidation or atelectasis at the left lung base. Sal Hurst MD Lung Scan- Nuclear Medicine 06/25/16 0000 Signed Impressions: Service Date/Time: Saturday, June 25, 2016 21:56 - CONCLUSION: Low probability for pulmonary embolus. Sal Hurst MD Assessment and Plan Problem List: (1) KAMRYN (acute kidney injury) Status: Acute Plan: IVF improving creat 2.67 to 2.21 monitor daily labs (2) COPD exacerbation Status: Resolved Plan: improved with neb tx, steroids and oxygen Hospitalist team is following and we appreciate their assistance. (3) PNA (pneumonia) Status: Acute Plan: IV ABX O2 via NC (4) Ovarian cancer Status: Acute Plan: will continue with IV Carboplatin AUC 5 once she is discharged from hospital, as long as her performance status returns to baseline and her kidney function improves. Discussed Condition With Dr. Arevalo is in agreement with this plan and further orders to follow. Problem Qualifiers (1) Ovarian cancer: Qualified Code: C56.9 - Ovarian cancer, unspecified laterality (2) PNA (pneumonia): Qualified Code: J18.1 - Pneumonia of left lower lobe due to infectious organism Tomasa Maldonado Jun 26, 2016 11:43
[2016-06-26] MEDS: BUDESONIDE-FORMOTEROL 160/4.5 MCG INHALER INH SCH ×2 (12:28→21:05)
[2016-06-26] MEDS: RESP: ALBUTEROL 2.5 MG/IPRATROPIUM 0.5 MG NEB (SCH) NEB ×2 (12:57→20:34)
[2016-06-26] MEDS ORDERED: MIRTAZAPINE 15 MG TAB PO SCH (21:00)
[2016-06-26] MEDS: HYDROmorphone HCL PF 1 MG/ML VIAL IV PRN (22:58)
[2016-06-27] VITALS: BP 131/75; PULSE 102; RESP 18; TEMP 97; O2SAT 97
[2016-06-27 04:00] VITALS: BP 127/70; PULSE 96; RESP 18; TEMP 96.9; O2SAT 94
[2016-06-27] MEDS: HYDROmorphone HCL PF 1 MG/ML VIAL IV PRN (05:41)
[2016-06-27] MEDS: methylPREDNISolone SOD SUCC 40 MG/1 ML VIAL IV PUSH SCH (05:41)
[2016-06-27] MEDS: ALPRAZolam 0.5 MG TAB PO PRN ×2 (05:41→15:01)
[2016-06-27] MEDS: SODIUM CHLOR 0.9% 1000 ML INJ 1,000 ML IV SCH (05:42)
[2016-06-27] MEDS: RESP: ALBUTEROL 2.5 MG/IPRATROPIUM 0.5 MG NEB (SCH) NEB ×2 (07:25→12:05)
[2016-06-27 07:27] VITALS: O2SAT 94
--- NOTE | 2016-06-27 07:35 | MB ---
cc: BHAVIN LOPEZ MD,KAYLYNN GRANT,JC MATHUR,IRENE CARPENTER,SERENA FRAUSTO DATE OF CONSULTATION 06/27/2016 PHYSICIAN REQUESTING CONSULT Drs. Grant and Serena Carpenter REASON FOR CONSULTATION The specific objectives of this consult request were not stated and were not communicated to me. She is seen, findings and history are reviewed by me in conjunction with our nurse practitioner (Tomasa Maldonado) I agree with her findings, assessment and plan of care. This is a 75-year-old female who has recently come under our care again. She was seen in initial consult after surgical resection of a pelvic mass showing ovarian cancer. This was in October of last year. We recommended chemotherapy and extensive discussion was held with her and her family. At that time, she was undergoing recovery in a rehab facility. They were concerned about her performance status, her underlying medical issues and she was uncertain whether or not to consider chemotherapy. She did not follow up and was not seen in our office again until May 30, 2016 where the aforementioned findings, concerns, and issues were discussed at length. Even at that time, she remained undecided about chemotherapy. Subsequently, she agreed to chemotherapy was started on a dose reduced single-agent carboplatin in an effort to try to provide benefit and minimize side effects. She received her first cycle of single-agent carboplatin dosed at an AUC of 5. She received her first cycle on June 10, 2016. She is admitted to the hospital now for what seems to be exacerbation of her preexisting medical problems. She has a baseline elevated creatinine and has some dehydration and further elevation of her creatinine likely secondarily related to exacerbation of her COPD, decreased oral intake. She has been evaluated for possible pneumonia. PAST MEDICAL, SURGICAL HISTORY, MEDICATIONS, FAMILY HISTORY All reviewed and are as documented in the chart. She is seen in consultation. Given that she was just examined by us and followed up in our office recently, she is not reexamined. OBJECTIVE DATA H&H yesterday 8.5, 25.6, white count 3.6, 90% neutrophils such that she is not neutropenic, platelet count 241. Electrolytes notable for a BUN and creatinine of 38 and 2.21. This has improved from 24 hours prior of 40 and 2.67. Other electrolytes have been abnormal and are being addressed by the medicine team. DISCUSSION Time is spent in discussion with her reviewing the findings in her case to date. I reiterated all of the previous points discussed in our office. I am sorry she is feeling poorly. Our oncology recommendations and plan have not changed. We would still recommend chemotherapy at dose reduction in an effort to try to suppress the ovarian cancer that has certainly progressed and become even more problematic without treatment. If her kidney function remains elevated, we may decide to change to single-agent treatment such as single-agent Taxol and perhaps lower dose weekly Taxol alternative treatments could be single-agent Doxil or single-agent gemcitabine as possibilities that are discussed. Given that she just started on her treatment and has only received one cycle of carboplatin chemotherapy, it is too soon to make any assessment regarding efficacy and our recommendation now is to continue present management. I am grateful for medical care. We have no further recommendations at that time from an oncology standpoint. MD ARLIN Ewing/LEORA /7:07 AM /7:20 AM
[2016-06-27 08:00] VITALS: BP 111/65; PULSE 95; RESP 18; TEMP 96.2; O2SAT 93
[2016-06-27] MEDS: SODIUM CHLORIDE 0.9% FLUSH 5 ML FLUSH FLUSH SCH (09:00)
[2016-06-27] MEDS: CILOSTAZOL 100 MG TAB PO SCH (09:24)
[2016-06-27] MEDS: guaiFENesin E.R. 600 MG TAB PO SCH (09:24)
[2016-06-27] MEDS: buPROPion HCL 150 MG EXTENDED RELEASE TAB PO SCH (09:24)
[2016-06-27] MEDS: QUEtiapine FUMARATE 25 MG TAB PO SCH (09:25)
[2016-06-27] MEDS: CEFEPIME INJ 1,000 MG in SODIUM CHLORIDE 0.9% INJ 100 ML IV SCH (09:25)
[2016-06-27] MEDS: BUDESONIDE-FORMOTEROL 160/4.5 MCG INHALER INH SCH (09:28)
[2016-06-27 10:06] LABS: AUTOMATED NEUTROPHIL # 7.2 TH/MM3 (1.8-7.7); BASOPHIL % 0.1 % (0.0-2.0); HEMATOCRIT 24.5 % (35.0-46.0); HEMO FLAGS DIFF FINAL; LYMPH % 4.4 % (9.0-44.0); LYMPHOCYTE # 0.3 TH/MM3 (1.0-4.8); MEAN CELL VOLUME 80.8 FL (80.0-100.0); MEAN CORPUSCULAR HEMOGLOBIN 26.1 PG (27.0-34.0); MEAN CORPUSCULAR HGB CONC 32.4 % (32.0-36.0); MONO % 1.9 % (0.0-8.0); NEUT % 93.6 % (16.0-70.0); PLATELET COUNT 248 TH/MM3 (150-450); RED BLOOD COUNT 3.03 MIL/MM3 (4.00-5.30); RED CELL DISTRIBUTION WIDTH 18.1 % (11.6-17.2); WHITE BLOOD COUNT 7.7 TH/MM3 (4.0-11.0)
--- NOTE | 2016-06-27 10:11 | HHI.PR ---
Subjective Remarks Follow-up COPD exacerbation 06/27/16-patient seen and examined, reports significant improvement or shortness of breath. Denies any febrile episode. Was seen by [facility] oncology Objective Vitals Vital Signs Date Time Temp Pulse Resp B/P Pulse Ox O2 Delivery O2 Flow Rate FiO2 06/27/16 08:00 96.2 95 18 111/65 93 06/27/16 07:27 94 Nasal Cannula 2.00 06/27/16 04:00 96.9 96 18 127/70 94 06/27/16 00:00 97.0 102 18 131/75 97 06/26/16 20:34 96 Nasal Cannula 2.00 06/26/16 20:00 109 06/26/16 20:00 97.0 107 18 142/82 96 06/26/16 15:56 97.8 103 19 125/72 95 06/26/16 15:00 103 06/26/16 12:00 95.6 93 24 110/71 97 06/26/16 11:35 98 Nasal Cannula 2.00 I/O 06/26/16 06/26/16 06/26/16 06/27/16 06/27/16 06/27/16 07:00 15:00 23:00 07:00 15:00 23:00 Intake Total 743 ml 1274 ml Output Total 240 ml Balance 743 ml 1034 ml Intake Oral 360 ml IV Total 383 ml 1274 ml Output Urine Total 240 ml # Voids 2 1 1 Result Diagram: 06/27/16 0910 06/26/16 0630 Imaging Last Impressions Chest X-Ray 06/25/16 1833 Signed Impressions: Service Date/Time: Saturday, June 25, 2016 19:00 - CONCLUSION: Suspected mild area of consolidation or atelectasis at the left lung base. Sal Hurst MD Lung Scan-V Nuclear Medicine 06/25/16 0000 Signed Impressions: Service Date/Time: Saturday, June 25, 2016 21:56 - CONCLUSION: Low probability for pulmonary embolus. Sal Hurst MD Objective Remarks GENERAL: NAD SKIN: Warm and dry. HEAD: Normocephalic. EYES: No scleral icterus. No injection or drainage. NECK: Supple, trachea midline. No JVD or lymphadenopathy. CARDIOVASCULAR: Regular rate and rhythm without murmurs, gallops, or rubs. RESPIRATORY: Breath sounds equal bilaterally. No accessory muscle use. GASTROINTESTINAL: Abdomen soft, non-tender, nondistended. MUSCULOSKELETAL: No cyanosis, or edema. BACK: Nontender without obvious deformity. No CVA tenderness. A/P Problem List: (1) COPD (chronic obstructive pulmonary disease) ICD Code: J44.9 Status: Acute (2) PNA (pneumonia) ICD Code: J18.9 Status: Acute (3) Hypoxia ICD Code: R09.02 Status: Acute (4) KAMRYN (acute kidney injury) ICD Code: N17.9 Status: Acute (5) Hypokalemia ICD Code: E87.6 Status: Acute (6) Ovarian cancer ICD Code: C56.9 Status: Acute (7) Hypoxemia ICD Code: R09.02 Status: Acute Assessment and Plan 75-year-old female with 1. COPD: Chronic Respiratory Failure w/ Acute Exacerbation. O2 sat 88% on RA upon arrival, currently 95% on RA. D/C Solu-Medrol 40 mg IV Q8 hrs, start prednisone 20 mg by mouth daily 06/28/16 and continue DuoNeb q6 h and q2h prn. Mucinex, Symbicort, continue O2 as needed. 2. PNA: CXR w/ LLL consolidation. S/p Blood Cultures, Vanc/Zosyn in ER, immunocompromised on Chemotherapy. Follow up cultures. NTD. 3. Acute respiratory failure, patient is requiring O2 supplement at this time. At baseline she did not require O2 . Hypoxia: O2 sat 88% on arrival, satting well on 2L NC. . Continue to monitor. Perform walk test today 4. KAMRYN: Acute on Chronic Renal Insufficiency. Improving on IVF, BMP pending 5. Hypokalemia: Resolved 6. Ovarian CA: Currently on Chemotherapy, following w/ Dr. Arevalo, and appreciate input from [facility] 7. Acute hypoxia/hypoxemia with respiratory failure: Patient will be requiring home oxygen on discharge as other alternative measures were tried and were ineffective as patient failed respiratory walk test today 06/27/16 DVT Prophylaxis: SCD/Teds. Discharge Planning Discharged today pending BMP and walk test Problem Qualifiers (1) COPD (chronic obstructive pulmonary disease): Qualified Code: J42 - Chronic bronchitis, unspecified chronic bronchitis type (2) PNA (pneumonia): Qualified Code: J18.1 - Pneumonia of left lower lobe due to infectious organism (3) Ovarian cancer: Qualified Code: C56.9 - Ovarian cancer, unspecified laterality Sharif Spaulding MD Jun 27, 2016 10:11
[2016-06-27 10:40] LABS: BICARBONATE 15.4 MEQ/L (21.0-32.0); POTASSIUM 3.7 MEQ/L (3.5-5.1)
[2016-06-27 12:00] VITALS: BP 137/71; PULSE 103; RESP 20; TEMP 96; O2SAT 100
--- NOTE | 2016-06-27 12:26 | HHI.FF ---
Face to Face Verification Diagnosis: (1) PNA (pneumonia) (2) Hypoxemia (3) Hypoxia (4) COPD exacerbation Home Health Nursing Order: Signs/symptoms of disease process I have seen patient Doris Bojorquez on 06/27/16. My clinical findings support the need for the requested home health care services because: Patient has SOB I certify that my clinical findings support that this patient is homebound because: Poor cardiac reserve Sharif Spaulding MD Jun 27, 2016 12:26
[2016-06-27] MEDS ORDERED: MUCI600T PO (12:32)
[2016-06-27] MEDS ORDERED: PRED20 PO (12:32)
[2016-06-27] MEDS ORDERED: VENTAER INH (12:32)
[2016-06-27] MEDS ORDERED: AZIT250T3 PO (12:32)
[2016-06-27] MEDS ORDERED: SYMB160A INH (12:32)
[2016-06-27] MEDS ORDERED: OXYGENTANK NAS.CANULA (12:34)
--- NOTE | 2016-06-27 12:35 | HHI.DS ---
Discharge Summary Admission Date Jun 25, 2016 at 20:59 Discharge Date: Jun 27, 2016 Admitting Diagnosis KAMRYN (1) COPD (chronic obstructive pulmonary disease) ICD Code: J44.9 (2) PNA (pneumonia) ICD Code: J18.9 (3) Hypoxia ICD Code: R09.02 (4) KAMRYN (acute kidney injury) ICD Code: N17.9 (5) Hypokalemia ICD Code: E87.6 (6) Ovarian cancer ICD Code: C56.9 (7) Hypoxemia ICD Code: R09.02 Procedures none Brief History - From Admission This is a 75-year-old female with PMH of HTN, Anxiety, Depression, COPD, Ovarian CA on Chemotherapy and Chronic Pain who was brought to the ER for c/o SOB x2 days. Recent transfusion of 2u pRBC on 06/18/16 for Hgb 7.7, currently Hgb 9.5. Reports associated non-productive cough and generalized weakness but denies fever, chills, nausea, vomiting or diarrhea. On arrival, BP 110/56, HR 103, O2 sat 88% on RA, Afebrile. WBC 6.5. K+ 2.8. Creatinine 2.67, previously 1.78 on 06/23/16. U/a pending. CXR w/ LLL consolidation. V/Q Scan low probability for PE. S/p Blood Cultures, Vanc/Zosyn in ER. ABG w/ pH 7.44, PCO2 25, PO2 65, O2 sat 92% on RA. CBC/BMP: 06/27/16 0910 06/27/16 0910 Significant Findings Laboratory Tests Test 06/25/16 06/25/16 06/26/16 06/26/16 18:50 20:00 06:30 06:50 Red Blood Count 3.61 MIL/MM3 3.22 MIL/MM3 (4.00-5.30) (4.00-5.30) Hemoglobin 9.5 GM/DL 8.5 GM/DL (11.6-15.3) (11.6-15.3) Hematocrit 29.1 % 25.6 % (35.0-46.0) (35.0-46.0) Mean Corpuscular Hemoglobin 26.4 PG 26.5 PG (27.0-34.0) (27.0-34.0) Red Cell Distribution Width 18.2 % 17.6 % (11.6-17.2) (11.6-17.2) Mean Platelet Volume 6.8 FL (7.0-11.0) Neutrophils (%) (Auto) 78.0 % 90.0 % (16.0-70.0) (16.0-70.0) Monocytes (%) (Auto) 10.0 % (0.0-8.0) Lymphocytes # (Auto) 0.8 TH/MM3 0.3 TH/MM3 (1.0-4.8) (1.0-4.8) Sodium Level 131 MEQ/L 135 MEQ/L (136-145) (136-145) Potassium Level 2.8 MEQ/L (3.5-5.1) Carbon Dioxide Level 20.6 MEQ/L 17.1 MEQ/L (21.0-32.0) (21.0-32.0) Blood Urea Nitrogen 40 MG/DL (7-18) 38 MG/DL (7-18) Creatinine 2.67 MG/DL 2.21 MG/DL (0.50-1.00) (0.50-1.00) Estimat Glomerular Filtration 17 ML/MIN (>89) 22 ML/MIN (>89) Rate Random Glucose 115 MG/DL 149 MG/DL (74-106) (74-106) Calcium Level 8.4 MG/DL (8.5-10.1) Aspartate Amino Transf 58 U/L (15-37) 46 U/L (15-37) (AST/SGOT) Troponin I LESS THAN 0.02 NG/ML (0.02-0.05) Albumin 2.9 GM/DL 2.6 GM/DL (3.4-5.0) (3.4-5.0) Blood Gas HCO3 17 mmol/L (22-26) Blood Gas Base Excess -6.2 mmol/L (-2-2) Arterial Blood pH 7.44 (7.380-7.420) Arterial Blood Partial 25 mmHg (38-42) Pressure CO2 Arterial Blood Oxygen Content 11.6 Vol % (12.0-20.0) Blood Gas Hemoglobin 8.9 G/DL (12.0-16.0) Chloride Level 108 MEQ/L (98-107) White Blood Count 3.6 TH/MM3 (4.0-11.0) Mean Corpuscular Volume 79.4 FL (80.0-100.0) Lymphocytes (%) (Auto) 8.3 % (9.0-44.0) Test 06/27/16 09:10 Red Blood Count 3.03 MIL/MM3 (4.00-5.30) Hemoglobin 7.9 GM/DL (11.6-15.3) Hematocrit 24.5 % (35.0-46.0) Mean Corpuscular Hemoglobin 26.1 PG (27.0-34.0) Red Cell Distribution Width 18.1 % (11.6-17.2) Neutrophils (%) (Auto) 93.6 % (16.0-70.0) Lymphocytes (%) (Auto) 4.4 % (9.0-44.0) Lymphocytes # (Auto) 0.3 TH/MM3 (1.0-4.8) Chloride Level 114 MEQ/L (98-107) Carbon Dioxide Level 15.4 MEQ/L (21.0-32.0) Blood Urea Nitrogen 34 MG/DL (7-18) Creatinine 1.69 MG/DL (0.50-1.00) Estimat Glomerular Filtration 30 ML/MIN (>89) Rate Random Glucose 157 MG/DL (74-106) Calcium Level 8.3 MG/DL (8.5-10.1) PE at Discharge GENERAL: NAD SKIN: Warm and dry. HEAD: Normocephalic. EYES: No scleral icterus. No injection or drainage. NECK: Supple, trachea midline. No JVD or lymphadenopathy. CARDIOVASCULAR: Regular rate and rhythm without murmurs, gallops, or rubs. RESPIRATORY: Breath sounds equal bilaterally. No accessory muscle use. GASTROINTESTINAL: Abdomen soft, non-tender, nondistended. MUSCULOSKELETAL: No cyanosis, or edema. BACK: Nontender without obvious deformity. No CVA tenderness. Hospital Course 1. COPD: Chronic Respiratory Failure w/ Acute Exacerbation. O2 sat 88% on RA upon arrival, currently 95% on RA. D/C Solu-Medrol 40 mg IV Q8 hrs, start prednisone 20 mg by mouth daily 06/28/16 and continue DuoNeb q6 h and q2h prn. Mucinex, Symbicort, continue O2 as needed. 2. PNA: CXR w/ LLL consolidation. S/p Blood Cultures, Vanc/Zosyn in ER, immunocompromised on Chemotherapy. Follow up cultures. NTD. 3. Acute respiratory failure, patient is requiring O2 supplement at this time. At baseline she did not require O2 . Hypoxia: O2 sat 88% on arrival, satting well on 2L NC. . Continue to monitor. Perform walk test today 4. KAMRYN: Acute on Chronic Renal Insufficiency. Improving on IVF, BMP pending 5. Hypokalemia: Resolved 6. Ovarian CA: Currently on Chemotherapy, following w/ Dr. Arevalo, and appreciate input from CLIMATOLOGIST oncology 7. Acute hypoxia/hypoxemia with respiratory failure: Patient will be requiring home oxygen on discharge as other alternative measures were tried and were ineffective as patient failed respiratory walk test today 06/27/16 DVT Prophylaxis: SCD/Teds. Pt Condition on Discharge: Fair Discharge Disposition: Disch w/ Home Health Serv Discharge Time: > 30 minutes Discharge Instructions DIET: Follow Instructions for: Heart Healthy Diet Activities you can perform: Regular-No Restrictions Follow up Referrals: Oncology PCP Follow-up - 1 Week New Medications: Albuterol 18 GM Inh (Ventolin Hfa 18 GM Inh) 90 Mcg/Act Aer 2 PUFF INH Q4H PRN SHORTNESS OF BREATH #1 Ref 1 INHALER Azithromycin (Azithromycin) 250 Mg Tab 250 MG PO DAILY Infection #3 Ref 0 TAB Oxygen tank (Oxygen tank) 1 Ea Tank 2 LITER DARIANA.CANULA CONTINUOUS Oxygen Concentrator Portable Gaseous 2 L/min via Nasal Cannula Continuous For 99 months HYPOXEMIA PREVENTION #2 CYLINDER Prednisone (Prednisone) 20 Mg Tab 20 MG PO DIRECTED 40 MG twice a day x 3 days, then 20 MG daily x 3 days, then 10 MG daily x 3 days Inflammation #11 Ref 0 TAB Budesonide-Formoterol Inh (Symbicort Inh) 160-4.5 Mcg/Act Aero 2 PUFF INH Q12HR Breathing Treatment #60 INHALER Guaifenesin ER 12 HR (Mucinex ER 12 HR) 600 Mg Sil 600 MG PO BID Breathing Treatment #20 TAB Continued Medications: Albuterol 18 GM Inh (Ventolin Hfa 18 GM Inh) 90 Mcg/Act Aer 2 PUFF INH Q6H PRN SHORTNESS OF BREATH #1 Ref 0 INHALER Albuterol 18 GM Inh (Ventolin Hfa 18 GM Inh) 90 Mcg/Act Aer 2 PUFF INH Q6H PRN SHORTNESS OF BREATH #1 Ref 0 INHALER Albuterol Neb (Albuterol Neb) 2.5 Mg/3 Ml Neb 2.5 MG NEB Q4HR NEB PRN SHORTNESS OF BREATH #60 Ref 0 NEBULE Alprazolam (Alprazolam) 1 Mg Tab 0.5 MG PO Q8H PRN ANXIETY Ref 0 TAB Amlodipine (Amlodipine) 5 Mg Tab 5 MG PO DAILY Blood Pressure Management #30 Ref 0 TAB Bupropion HCl ER 24 HR (Bupropion HCl ER 24 HR) 150 Mg Tab 150 MG PO DAILY Control Depression Ref 0 TAB Cilostazol (Cilostazol) 100 Mg Tab 100 MG PO BID INTERMITTENT CLAUDICATION Ref 0 TAB Eszopiclone (Eszopiclone) 3 Mg Tab 3 MG PO HS PRN INSOMNIA #30 Ref 0 TAB Mirtazapine (Mirtazapine) 15 Mg Tab 15 MG PO HS Depression Control #30 Ref 0 TAB Multiple Vitamins W/ Minerals (Womens One Daily) 1 Tab Tab 1 TAB PO DAILY Oxycodone (Oxycodone) 10 Mg Tab 10 MG PO Q8H PRN PAIN Ref 0 TAB Quetiapine (Quetiapine) 50 Mg Tab 50 MG PO BID #60 Ref 0 TAB Sharif Spaulding MD Jun 27, 2016 12:35
[2016-06-27] MEDS ORDERED: VANCOMYCIN INJ 750 MG in SODIUM CHLOR 0.9% 250 ML INJ 250 ML IV ONE (17:00)
[2016-06-28] MEDS ORDERED: predniSONE 20 MG TAB PO SCH (09:00)
== END 2016-06-27 17:25 | disposition home health service (06) | DRG 190 ==
LOC: NEPC 14:00 → NEDA 20:59 → OBSVTOIN 20:59 → HOCA 22:46
PROVIDERS: ADMIT Family Medicine; ATTEND Family Medicine
DX: J44.0 Chronic obstructive pulmonary disease with (acute) lower respiratory infection (principal); J18.9 Pneumonia, unspecified organism; J96.21 Acute and chronic respiratory failure with hypoxia; N17.9 Acute kidney failure, unspecified; C56.1 Malignant neoplasm of right ovary; C56.2 Malignant neoplasm of left ovary; J44.1 Chronic obstructive pulmonary disease with (acute) exacerbation; I12.9 Hypertensive chronic kidney disease with stage 1 through stage 4 chronic kidney disease, or unspecified chronic kidney disease; N18.9 Chronic kidney disease, unspecified; E87.6 Hypokalemia; Z92.21 Personal history of antineoplastic chemotherapy; G89.29 Other chronic pain; F32.9 Major depressive disorder, single episode, unspecified; F41.9 Anxiety disorder, unspecified; M19.90 Unspecified osteoarthritis, unspecified site; Z87.891 Personal history of nicotine dependence
CPT/HCPCS: 36600; 71010; 78582; 80048; 80053; 80202; 82550; 82805; 83605; 83735; 84484; 85025; 86850; 86900; 86901; 87040; 93005; 94620; 94640; 94664; 96374; 96375; A9540; A9567; J0692; J1170; J2543; J2920; J2930; J3370; J3480; J7030; J7040; J7050

== ENCOUNTER 2016-07-17 14:15 | Emergency (ER) | payer MEDICARE, BC ==
[~2016-07-17] VITALS: Ht 160 cm; Wt 55.0 kg
[~2016-07-17 14:15] MED LIST changes: -ADVA250A INH; +AZIT250T3 PO; +MUCI600T PO; +OXYGENTANK NAS.CANULA; -PRED10PA PO; +PRED20 PO
[2016-07-17 14:19] VITALS: BP 136/79; PULSE 117; RESP 11; TEMP 98.5; O2SAT 86
[2016-07-17 14:34] VITALS: BP 120/65; PULSE 105; RESP 18; TEMP 98.6; O2SAT 94
[2016-07-17] MEDS ORDERED: SODIUM CHLOR 0.9% 1000 ML INJ 1,000 ML IV ONE ×2 (14:45→17:00)
[2016-07-17] MEDS ORDERED: SODIUM CHLORIDE 0.9% FLUSH 5 ML FLUSH IVF PRN (14:45)
--- NOTE | 2016-07-17 14:48 | PD ---
HPI . Weakness Chief Complaint: General Weakness Time Seen by Provider: 14:40 Travel History International Travel<30 days: No Contact w/Intl Traveler<30days: No Traveled to known affect area: No History of Present Illness HPI Patient is brought in by her for generalized weakness. The reports that she has a history of ovarian cancer and is on chemotherapy. He states that her health has been steadily declining asked. He states that she just had fusion of 2 units of blood 2 days ago. Despite that, she continues to be very weak. She is so weak that she cannot walk. The patient denies any other symptoms. Specifically, she denies fever, pain, vomiting or diarrhea, urinary tract symptoms. This patient does have home health and home PT. The physical therapist came to see her today and suggested to the that she be brought to the emergency department for evaluation and treatment of the profound weakness. PFSH Past Medical History Arthritis: Yes (Neck, shoulder, back) Anxiety: Yes Depression: Yes Cancer: Yes (Ovarian Cancer) Chemotherapy: Yes COPD: Yes (mild) Diminished Hearing: No Endocrine: No Gastrointestinal Disorders: Yes Headaches: Yes Heparin Induced Thrombocytopen: No Hypertension: Yes Immune Disorder: No Implanted Vascular Access Dvce: No Psychiatric: Yes Reproductive: No Respiratory: Yes Migraines: Yes Radiation Therapy: No Renal Failure: Yes (elevated labs) Sickle Cell Disease: No : 3 Para: 3 Past Surgical History Abdominal Surgery: Yes (ruptured stomach) AICD: No Appendectomy: Yes Arteriovenous Shunt: No Eye Surgery: Yes (cataract monica) Gynecologic Surgery: Yes (hysterectomy, tubes tied, ovaries removed) Hysterectomy: Yes Insulin Pump: No Joint Replacement: No Pacemaker: No Other Surgery: Yes Social History Alcohol Use: No Tobacco Use: No (QUIT) Substance Use: No Allergies-Medications (Allergen,Severity, Reaction): Coded Allergies: Motrin (Verified Adverse Reaction, Intermediate, Nausea/Vomiting, 07/17/16) Reported Meds & Prescriptions Reported Meds & Active Scripts Active Oxygen tank (Oxygen) 1 Ea Tank 2 Liter DARIANA.CANULA CONTINUOUS Oxygen Concentrator Portable Gaseous 2 L/min via Nasal Cannula Continuous For 99 months Prednisone 20 Mg Tab 20 Mg PO DIRECTED 40 MG twice a day x 3 days, then 20 MG daily x 3 days, then 10 MG daily x 3 days Ventolin Hfa 18 GM Inh (Albuterol Sulfate) 90 Mcg/Act Aer 2 Puff INH Q4H PRN Symbicort Inh (Budesonide/Formoterol Fumarate) 160-4.5 Mcg/Act Aero 2 Puff INH Q12HR Mucinex ER 12 HR (Guaifenesin) 600 Mg Sil 600 Mg PO BID Ventolin Hfa 18 GM Inh (Albuterol Sulfate) 90 Mcg/Act Aer 2 Puff INH Q6H PRN Albuterol Neb (Albuterol Sulfate) 2.5 Mg/3 Ml Neb 2.5 Mg NEB Q4HR NEB PRN Nebulizer 1 Mis Mis 1 Ea .ROUTE DIRECTED Ventolin Hfa 18 GM Inh (Albuterol Sulfate) 90 Mcg/Act Aer 2 Puff INH Q6H PRN Reported Quetiapine (Quetiapine Fumarate) 50 Mg Tab 50 Mg PO BID Oxycodone (Oxycodone HCl) 10 Mg Tab 10 Mg PO Q8H PRN Eszopiclone 3 Mg Tab 3 Mg PO HS PRN Mirtazapine 15 Mg Tab 15 Mg PO HS Alprazolam 1 Mg Tab 0.5 Mg PO Q8H PRN Womens One Daily (Multiple Vitamins W/ Minerals) 1 Tab Tab 1 Tab PO DAILY Amlodipine (Amlodipine Besylate) 5 Mg Tab 5 Mg PO DAILY Bupropion HCl ER 24 HR (Bupropion HCl) 150 Mg Tab 150 Mg PO DAILY Cilostazol 100 Mg Tab 100 Mg PO BID Review of Systems Except as stated in HPI: all other systems reviewed are Neg General / Constitutional: No: Fever, Chills HENT: No: Headaches Cardiovascular: No: Chest Pain or Discomfort Respiratory: No: Shortness of Breath Gastrointestinal: No: Nausea, Vomiting, Diarrhea, Abdominal Pain Genitourinary: No: Urgency, Frequency, Dysuria Musculoskeletal: Positive: Weakness, No: Myalgias Psychiatric: No: Depression, Suicidal Ideations Physical Exam Narrative GENERAL: This is a chronically ill-appearing woman who is in no acute distress. SKIN: Warm and dry. HEAD: Atraumatic. Normocephalic. EYES: Pupils equal and round. ENT: No nasal bleeding or discharge. Mucous membranes pink but dry. NECK: Trachea midline. Neck is supple. CARDIOVASCULAR: Regular rate and rhythm. Heart sounds are normal. RESPIRATORY: No accessory muscle use. Lungs have diffuse expiratory wheezing. She is not having any respiratory distress. GASTROINTESTINAL: Abdomen soft, non-tender, nondistended. MUSCULOSKELETAL: No obvious deformities. No edema. NEUROLOGICAL: Awake and alert. No obvious cranial nerve deficits. Motor grossly within normal limits. Normal speech. PSYCHIATRIC: Appropriate mood and affect; insight and judgment normal. Data Data Last Documented VS Vital Signs Date Time Temp Pulse Resp B/P Pulse Ox O2 Delivery O2 Flow Rate FiO2 07/17/16 14:34 98.6 105 18 120/65 94 Orders Electrocardiogram (07/17/16 14:40) Ckmb (Isoenzyme) Profile (07/17/16 14:40) Complete Blood Count With Diff (07/17/16 14:40) Comprehensive Metabolic Panel (07/17/16 14:40) Magnesium (Mg) (07/17/16 14:40) Troponin I (07/17/16 14:40) Ecg Monitoring (07/17/16 14:40) Iv Access Insert/Monitor (07/17/16 14:40) Oximetry (07/17/16 14:40) Sodium Chloride 0.9% Flush (Ns Flush) (07/17/16 14:45) Cath For Specimen (07/17/16 14:40) Urinalysis - C+S If Indicated (07/17/16 14:40) Sodium Chlor 0.9% 1000 Ml Inj (Ns 1000 M (07/17/16 14:45) Urine Culture (07/17/16 15:50) CKMB (07/17/16 15:26) CKMB% (07/17/16 15:26) Ns (Bolus) Inj (07/17/16 17:00) Ceftriaxone Inj (Rocephin Inj) (07/17/16 17:00) Labs Laboratory Tests Test 07/17/16 07/17/16 15:26 15:50 White Blood Count 5.4 TH/MM3 Red Blood Count 4.12 MIL/MM3 Hemoglobin 11.7 GM/DL Hematocrit 34.2 % Mean Corpuscular Volume 82.9 FL Mean Corpuscular Hemoglobin 28.5 PG Mean Corpuscular Hemoglobin 34.3 % Concent Red Cell Distribution Width 18.8 % Platelet Count 152 TH/MM3 Mean Platelet Volume 7.3 FL Neutrophils (%) (Auto) 72.5 % Lymphocytes (%) (Auto) 18.9 % Monocytes (%) (Auto) 7.9 % Eosinophils (%) (Auto) 0.1 % Basophils (%) (Auto) 0.6 % Neutrophils # (Auto) 3.9 TH/MM3 Lymphocytes # (Auto) 1.0 TH/MM3 Monocytes # (Auto) 0.4 TH/MM3 Eosinophils # (Auto) 0.0 TH/MM3 Basophils # (Auto) 0.0 TH/MM3 CBC Comment DIFF FINAL Differential Comment Sodium Level 135 MEQ/L Potassium Level 3.7 MEQ/L Chloride Level 99 MEQ/L Carbon Dioxide Level 24.5 MEQ/L Anion Gap 12 MEQ/L Blood Urea Nitrogen 29 MG/DL Creatinine 2.03 MG/DL Estimat Glomerular Filtration 24 ML/MIN Rate Random Glucose 87 MG/DL Calcium Level 9.2 MG/DL Magnesium Level 1.6 MG/DL Total Bilirubin 0.6 MG/DL Aspartate Amino Transf 37 U/L (AST/SGOT) Alanine Aminotransferase 28 U/L (ALT/SGPT) Alkaline Phosphatase 104 U/L Total Creatine Kinase 438 U/L Creatine Kinase MB 2.4 NG/ML Creatine Kinase MB % 0.5 % Troponin I LESS THAN 0.02 NG/ML Total Protein 7.9 GM/DL Albumin 3.4 GM/DL Urine Color YELLOW Urine Turbidity HAZY Urine pH 7.5 Urine Specific [place] 1.014 Urine Protein 100 mg/dL Urine Glucose (UA) NEG mg/dL Urine Ketones NEG mg/dL Urine Occult Blood SMALL Urine Nitrite NEG Urine Bilirubin NEG Urine Urobilinogen LESS THAN 2.0 MG/DL Urine Leukocyte Esterase LARGE Urine RBC 4 /hpf Urine WBC /hpf Urine WBC Clumps FEW Urine Bacteria MOD /hpf Urine Mucus FEW /lpf Microscopic Urinalysis Comment CATH-CULTURE IND MDM Medical Decision Making Medical Screen Exam Complete: Yes Emergency Medical Condition: Yes Medical Record Reviewed: Yes (medical history significant for hypertension, COPD and ovarian cancer.) Interpretation(s) EKG shows a sinus rhythm with ventricular rate of 96. No acute ischemic change. No change from previous EKG. Differential Diagnosis Differential diagnosis of weakness includes but is not limited to infection, CVA , electrolyte disturbance, renal failure, hypoglycemia, UTI, ACS, acute blood loss Narrative Course Patient presents for evaluation and treatment of weakness. Clinically, she appears dehydrated. CBC & BMP Diagram 07/17/16 15:26 UA shows a UTI. The patient thinks that she will be okay to be treated as an outpatient. I will give her another liter of fluid along with a dose of IV Rocephin prior to discharge. Diagnosis Primary Impression: Weakness Additional Impressions: UTI (urinary tract infection) Qualified Code: N30.00 - Acute cystitis without hematuria Renal insufficiency Patient Instructions: Dehydration (DC), General Instructions, Urinary Tract Infection in Women (ED) Med/Other Pt SpecificInfo: Prescription(s) given Scripts Sulfamethoxazole-Trimethoprim (Bactrim DS)800-160 Mg Tab1 Tab PO BID #20 TAB Ref 0 Prov:Denice Sweeney MD 07/17/16 Disposition: 01 DISCHARGE HOME Condition: Stable Denice Sweeney MD Jul 17, 2016 14:48
[2016-07-17 16:00] VITALS: RESP 16; O2SAT 94
[2016-07-17 16:03] LABS: AUTOMATED NEUTROPHIL # 3.9 TH/MM3 (1.8-7.7); BASOPHIL % 0.6 % (0.0-2.0); EOSINOPHIL % 0.1 % (0.0-4.0); HEMATOCRIT 34.2 % (35.0-46.0); HEMO FLAGS DIFF FINAL; LYMPH % 18.9 % (9.0-44.0); MEAN CELL VOLUME 82.9 FL (80.0-100.0); MEAN CORPUSCULAR HEMOGLOBIN 28.5 PG (27.0-34.0); MEAN CORPUSCULAR HGB CONC 34.3 % (32.0-36.0); MONO % 7.9 % (0.0-8.0); NEUT % 72.5 % (16.0-70.0); PLATELET COUNT 152 TH/MM3 (150-450); RED BLOOD COUNT 4.12 MIL/MM3 (4.00-5.30); RED CELL DISTRIBUTION WIDTH 18.8 % (11.6-17.2); WHITE BLOOD COUNT 5.4 TH/MM3 (4.0-11.0)
[2016-07-17 16:36] LABS: BACTERIA, URINE MOD /hpf; BLOOD, URINE SMALL (NEG); COMMENT (UR) CATH-CULTURE IND; CULTURE IF INDICATED CATH CULTURE IND; GLUCOSE,URINE NEG (NEG); KETONE, URINE NEG (NEG); MUCUS URINE FEW /lpf (OCC); NITRITE,URINE NEG (NEG); PH, URINE 7.5 (5.0-8.5); URINE COLOR YELLOW (YELLW/STRAW)
[2016-07-17 16:38] LABS: ALKALINE PHOSPHATASE 104 U/L (45-117); ALT (GPT) 28 U/L (10-53); ANION GAP 12 MEQ/L (5-15); AST (GOT) 37 U/L (15-37); BICARBONATE 24.5 MEQ/L (21.0-32.0); BLOOD UREA NITROGEN 29 MG/DL (7-18); CHLORIDE 99 MEQ/L (98-107); CREATINE KINASE 438 U/L (26-192); GLOMERULAR FILTRATION RATE 24 ML/MIN (>89); MAGNESIUM 1.6 MG/DL (1.5-2.5); POTASSIUM 3.7 MEQ/L (3.5-5.1); SODIUM (NA) 135 MEQ/L (136-145); TOTAL BILIRUBIN ADULT 0.6 MG/DL (0.2-1.0)
[2016-07-17 16:55] LABS: CKMB 2.4 NG/ML (0.5-3.6)
[2016-07-17] MEDS ORDERED: cefTRIAXone INJ 1,000 MG in SODIUM CHLORIDE 0.9% INJ 100 ML IV ONE (17:00)
[2016-07-17] MEDS ORDERED: BACT800T5 PO (17:03)
[2016-07-17 17:24] VITALS: BP 134/66; PULSE 96; RESP 16; O2SAT 93
--- NOTE | 2016-07-18 19:59 | EKG ---
Date Performed: 07/17/2016 Time Performed: 14:50:05 PTAGE: 75 years EKG: Sinus rhythm POSSIBLE LEFT ATRIAL ENLARGEMENT BORDERLINE ECG PREVIOUS TRACING : 06/25/2016 18.44 Compared to prior tracing no significant change DOCTOR: Jairo Cortes Interpretating Date/Time 07/18/2016 19:59:00
== END 2016-07-17 18:28 | disposition home or self-care (01) ==
LOC: NEPA 14:15
DX: N39.0 Urinary tract infection, site not specified (principal); R53.1 Weakness; M19.019 Primary osteoarthritis, unspecified shoulder; M47.892 Other spondylosis, cervical region; M47.899 Other spondylosis, site unspecified; J44.9 Chronic obstructive pulmonary disease, unspecified; I10 Essential (primary) hypertension; B96.4 Proteus (mirabilis) (morganii) as the cause of diseases classified elsewhere
CPT/HCPCS: 80053; 81001; 82550; 82552; 83735; 84484; 85025; 87077; 87086; 87186; 93005; 96361; 96365; 99285; J0696; J7030; P9612

== ENCOUNTER 2016-10-23 18:28 | Inpatient (IN) | payer MEDICARE, BC ==
[~2016-10-23] VITALS: Ht 162.6 cm; Wt 60.6 kg
[2016-10-23] VITALS (9 sets, daily range): BP systolic 143–157; BP diastolic 65–85; PULSE 109–120; RESP 18–48; TEMP 98.6–102.7; O2SAT 94–100
[~2016-10-23 18:28] MED LIST changes: -AZIT250T3 PO; +BACT800T5 PO
[2016-10-23] MEDS ORDERED: SODIUM CHLOR 0.9% 1000 ML INJ 1,000 ML IV ONE (18:44)
[2016-10-23] MEDS ORDERED: SODIUM CHLOR 0.9% 1000 ML INJ 800 ML IV ONE (18:44)
--- NOTE | 2016-10-23 18:58 | PD ---
HPI Chief Complaint: Altered Mental Status Time Seen by Provider: 18:58 Travel History International Travel<30 days: No Contact w/Intl Traveler<30days: No Traveled to known affect area: No History of Present Illness HPI 75-year-old female with history of COPD, hypertension, anemia, migraine headache , anxiety, ovarian cancer currently undergoing chemotherapy, followed by Dr. Arevalo, presents to the emergency department for evaluation of generalized weakness, worsening throughout the day, body aches, and tremors. Patient has since states that she has been having worsening abdominal pain over the last 2 weeks. She had a CT done yesterday outpatient with and without contrast. He states that after her test, she is tired but felt overall okay. He states this morning she was very tired and weak and this is only worsened throughout the day. She then began to become tremulous. Patient states that she does not feel well. Denies any significant pain and states that her abdominal pain has actually been less throughout today when it typically is. Mild nausea without vomiting. Diarrhea yesterday. Nonbloody. Unknown fever but patient has been chilled. Patient denies chest pain or tightness. She does feel short of breath however. Patient did have lab work drawn on October 21 where her hemoglobin was 8.4. She had transfusion ordered for October 24. She has no other symptoms to report. PFSH Past Medical History Arthritis: Yes (Neck, shoulder, back) Anxiety: Yes Depression: Yes Cancer: Yes (Ovarian Cancer) Chemotherapy: Yes COPD: Yes (mild) Diminished Hearing: No Endocrine: No Gastrointestinal Disorders: Yes Headaches: Yes Heparin Induced Thrombocytopen: No Hypertension: Yes Immune Disorder: No Implanted Vascular Access Dvce: No Psychiatric: Yes Reproductive: No Respiratory: Yes Migraines: Yes Radiation Therapy: No Renal Failure: Yes (elevated labs) Sickle Cell Disease: No : 3 Para: 3 Past Surgical History Abdominal Surgery: Yes (ruptured stomach) AICD: No Appendectomy: Yes Arteriovenous Shunt: No Eye Surgery: Yes (cataract monica) Gynecologic Surgery: Yes (hysterectomy, tubes tied, ovaries removed) Hysterectomy: Yes Insulin Pump: No Joint Replacement: No Pacemaker: No Other Surgery: Yes Social History Alcohol Use: No Tobacco Use: No (QUIT) Substance Use: No Allergies-Medications (Allergen,Severity, Reaction): Coded Allergies: Motrin (Verified Adverse Reaction, Intermediate, Nausea/Vomiting, 10/23/16) Reported Meds & Prescriptions Reported Meds & Active Scripts Active Oxygen tank (Oxygen) 1 Ea Tank 2 Liter DARIANA.CANULA CONTINUOUS Oxygen Concentrator Portable Gaseous 2 L/min via Nasal Cannula Continuous For 99 months Ventolin Hfa 18 GM Inh (Albuterol Sulfate) 90 Mcg/Act Aer 2 Puff INH Q4H PRN Symbicort Inh (Budesonide/Formoterol Fumarate) 160-4.5 Mcg/Act Aero 2 Puff INH Q12HR Albuterol Neb (Albuterol Sulfate) 2.5 Mg/3 Ml Neb 2.5 Mg NEB Q4HR NEB PRN Nebulizer 1 Mis Mis 1 Ea .ROUTE DIRECTED Reported Atenolol 50 Mg Tab 75 Mg PO DAILY Quetiapine (Quetiapine Fumarate) 50 Mg Tab 50 Mg PO DAILY Oxycodone (Oxycodone HCl) 10 Mg Tab 10 Mg PO Q8H PRN Eszopiclone 3 Mg Tab 3 Mg PO HS PRN Mirtazapine 15 Mg Tab 15 Mg PO HS Alprazolam 1 Mg Tab 0.5 Mg PO Q8H PRN Womens One Daily (Multiple Vitamins W/ Minerals) 1 Tab Tab 1 Tab PO DAILY Bupropion HCl ER 24 HR (Bupropion HCl) 150 Mg Tab 150 Mg PO DAILY Cilostazol 100 Mg Tab 100 Mg PO BID Review of Systems Except as stated in HPI: all other systems reviewed are Neg Physical Exam Narrative GENERAL: Chronically ill-appearing female patient, lying in bed, tachypneic and tremulous but appears without distress. SKIN: Focused skin assessment warm/dry. Pallor. Anterior chest wall port in place. No significant erythema or edema surrounding the area. HEAD: Atraumatic. Normocephalic. EYES: Pupils equal and round. No scleral icterus. No injection or drainage. ENT: No nasal bleeding or discharge. Mucous membranes pink and moist. NECK: Trachea midline. No JVD. CARDIOVASCULAR: Tachycardic rate and rhythm. RESPIRATORY: No accessory muscle use. Tachypneic, diminished bilateral bases. Breath sounds equal bilaterally. GASTROINTESTINAL: Abdomen soft, nondistended. Suprapubic tenderness to palpation.. Hepatic and splenic margins not palpable. MUSCULOSKELETAL: No obvious deformities. No clubbing. No cyanosis. No edema. NEUROLOGICAL: Awake and alert. No obvious cranial nerve deficits. Motor grossly within normal limits. Normal speech. PSYCHIATRIC: Appropriate mood and affect; insight and judgment normal. Data Data Last Documented VS Vital Signs Date Time Temp Pulse Resp B/P Pulse Ox O2 Delivery O2 Flow Rate FiO2 10/23/16 20:44 99.0 118 39 144/69 97 Nasal Cannula 4 Orders Electrocardiogram (10/23/16 18:44) Complete Blood Count With Diff (10/23/16 18:44) Comprehensive Metabolic Panel (10/23/16 18:44) Prothrombin Time / Inr (Pt) (10/23/16 18:44) Act Partial Throm Time (Ptt) (10/23/16 18:44) Lactic Acid Sepsis Protocol (10/23/16 18:44) Magnesium (Mg) (10/23/16 18:44) Lipase (10/23/16 18:44) Ckmb (Isoenzyme) Profile (10/23/16 18:44) Urinalysis - C+S If Indicated (10/23/16 18:44) Blood Culture (10/23/16 18:44) Chest, Single Ap (10/23/16 18:44) Blood Glucose (10/23/16 18:44) Ecg Monitoring (10/23/16 18:44) Iv Access Insert/Monitor (10/23/16 18:44) Oximetry (10/23/16 18:44) Oxygen Administration (10/23/16 18:44) Sodium Chlor 0.9% 1000 Ml Inj (Ns 1000 M (10/23/16 18:44) Sodium Chlor 0.9% 1000 Ml Inj (Ns 1000 M (10/23/16 18:44) Red Blood Cells (Rbc) (10/23/16 18:55) Blood Product Administration .UPON TRANSFUSION (10/23/16 18:55) Sodium Chlor 0.9% 250 Ml Inj (Ns 250 Ml (10/23/16 19:00) Cefepime Inj (Maxipime Inj) (10/23/16 19:18) Acetaminophen Supp (Tylenol Supp) (10/23/16 19:45) Urine Culture (10/23/16 20:00) Morphine Inj (Morphine Inj) (10/23/16 20:45) Vancomycin Inj (Vancomycin Inj) (10/23/16 21:00) Admit Order (Ed Use Only) (10/23/16 21:14) Admit To Inpatient (10/23/16 ) Vital Signs (Adult) Q4H (10/23/16 21:16) Activity Oob With Assistance (10/23/16 21:16) Licensed Clinical Psychologist / Telemetry .CONTINUOUS (10/23/16 21:16) Intake + Output ANTONIO.QSHIFT (10/23/16 21:16) Diet Npo (10/24/16 Breakfast) Sodium Chloride 0.9% Flush (Ns Flush) (10/23/16 21:30) Sodium Chloride 0.9% Flush (Ns Flush) (10/24/16 09:00) Ondansetron Inj (Zofran Inj) (10/23/16 21:30) Basic Metabolic Panel (Bmp) (10/24/16 06:00) Complete Blood Count With Diff (10/24/16 06:00) Naloxone Inj (Narcan Inj) (10/23/16 21:30) Inpatient Certification (10/23/16 ) Labs Laboratory Tests Test 10/23/16 10/23/16 10/23/16 18:55 19:05 20:00 Blood Type O NEGATIVE Crossmatch Leukocyte-Reduced Red Blood Cells Blood Bank Comment White Blood Count 3.3 TH/MM3 Red Blood Count 3.03 MIL/MM3 Hemoglobin 9.4 GM/DL Hematocrit 28.5 % Mean Corpuscular Volume 94.0 FL Mean Corpuscular Hemoglobin 31.0 PG Mean Corpuscular Hemoglobin 33.0 % Concent Red Cell Distribution Width 21.9 % Platelet Count 160 TH/MM3 Mean Platelet Volume 7.1 FL Neutrophils (%) (Auto) % Lymphocytes (%) (Auto) % Monocytes (%) (Auto) % Eosinophils (%) (Auto) % Basophils (%) (Auto) % Neutrophils # (Auto) TH/MM3 Lymphocytes # (Auto) TH/MM3 Monocytes # (Auto) TH/MM3 Eosinophils # (Auto) TH/MM3 Basophils # (Auto) TH/MM3 CBC Comment AUTO DIFF Differential Total Cells 100 Counted Neutrophils % (Manual) 69 % Band Neutrophils % 20 % Lymphocytes % 6 % Monocytes % 2 % Basophils % 1 % Neutrophils # (Manual) 3.0 TH/MM3 Metamyelocytes 2 % Differential Comment FINAL DIFF MANUAL Platelet Estimate LOW Platelet Morphology Comment NORMAL Red Cell Morphology Comment NORMAL Prothrombin Time 10.8 SEC Prothromb Time International 1.0 RATIO Ratio Activated Partial 24.5 SEC Thromboplast Time Sodium Level 142 MEQ/L Potassium Level 3.6 MEQ/L Chloride Level 107 MEQ/L Carbon Dioxide Level 21.8 MEQ/L Anion Gap 13 MEQ/L Blood Urea Nitrogen 17 MG/DL Creatinine 1.51 MG/DL Estimat Glomerular Filtration 34 ML/MIN Rate Random Glucose 125 MG/DL Lactic Acid Level 3.7 mmol/L Calcium Level 7.8 MG/DL Magnesium Level 1.3 MG/DL Total Bilirubin 0.2 MG/DL Aspartate Amino Transf 21 U/L (AST/SGOT) Alanine Aminotransferase 17 U/L (ALT/SGPT) Alkaline Phosphatase 85 U/L Total Creatine Kinase 37 U/L Total Protein 6.4 GM/DL Albumin 3.0 GM/DL Lipase 67 U/L Urine Color YELLOW Urine Turbidity CLEAR Urine pH 5.5 Urine Specific Rowena 1.013 Urine Protein TRACE mg/dL Urine Glucose (UA) NEG mg/dL Urine Ketones NEG mg/dL Urine Occult Blood NEG Urine Nitrite NEG Urine Bilirubin NEG Urine Urobilinogen LESS THAN 2.0 MG/DL Urine Leukocyte Esterase NEG Urine RBC LESS THAN 1 /hpf Urine WBC LESS THAN 1 /hpf Urine Squamous Epithelial <1 /hpf Cells Urine Bacteria RARE /hpf Microscopic Urinalysis Comment CATH-CULTURE IND MDM Medical Decision Making Medical Screen Exam Complete: Yes Emergency Medical Condition: Yes Medical Record Reviewed: Yes Differential Diagnosis Sepsis versus bacteremia versus pneumonia versus electrolyte abnormality versus metastatic disease versus symptomatic anemia Narrative Course 75-year-old female presents to emergency department for evaluation. Patient appears ill. She is tachycardic and tachypneic. She is febrile 102.7. Sepsis workup was initiated and she is given cefepime IV. She is given Tylenol rectally. I discussed the patient with my attending physician who recommends adding vancomycin. Initially 2 units packed red blood cells were ordered however after CBC results with hemoglobin 9.4, 1 unit is administered. Blood bank is aware. Laboratory Tests Test 10/23/16 10/23/16 10/23/16 18:55 19:05 20:00 Blood Type O NEGATIVE Crossmatch Leukocyte-Reduced Red Blood Cells Blood Bank Comment White Blood Count 3.3 TH/MM3 Red Blood Count 3.03 MIL/MM3 Hemoglobin 9.4 GM/DL Hematocrit 28.5 % Mean Corpuscular Volume 94.0 FL Mean Corpuscular Hemoglobin 31.0 PG Mean Corpuscular Hemoglobin 33.0 % Concent Red Cell Distribution Width 21.9 % Platelet Count 160 TH/MM3 Mean Platelet Volume 7.1 FL Neutrophils (%) (Auto) % Lymphocytes (%) (Auto) % Monocytes (%) (Auto) % Eosinophils (%) (Auto) % Basophils (%) (Auto) % Neutrophils # (Auto) TH/MM3 Lymphocytes # (Auto) TH/MM3 Monocytes # (Auto) TH/MM3 Eosinophils # (Auto) TH/MM3 Basophils # (Auto) TH/MM3 CBC Comment AUTO DIFF Differential Total Cells 100 Counted Neutrophils % (Manual) 69 % Band Neutrophils % 20 % Lymphocytes % 6 % Monocytes % 2 % Basophils % 1 % Neutrophils # (Manual) 3.0 TH/MM3 Metamyelocytes 2 % Differential Comment FINAL DIFF MANUAL Platelet Estimate LOW Platelet Morphology Comment NORMAL Red Cell Morphology Comment NORMAL Prothrombin Time 10.8 SEC Prothromb Time International 1.0 RATIO Ratio Activated Partial 24.5 SEC Thromboplast Time Sodium Level 142 MEQ/L Potassium Level 3.6 MEQ/L Chloride Level 107 MEQ/L Carbon Dioxide Level 21.8 MEQ/L Anion Gap 13 MEQ/L Blood Urea Nitrogen 17 MG/DL Creatinine 1.51 MG/DL Estimat Glomerular Filtration 34 ML/MIN Rate Random Glucose 125 MG/DL Lactic Acid Level 3.7 mmol/L Calcium Level 7.8 MG/DL Magnesium Level 1.3 MG/DL Total Bilirubin 0.2 MG/DL Aspartate Amino Transf 21 U/L (AST/SGOT) Alanine Aminotransferase 17 U/L (ALT/SGPT) Alkaline Phosphatase 85 U/L Total Creatine Kinase 37 U/L Total Protein 6.4 GM/DL Albumin 3.0 GM/DL Lipase 67 U/L Urine Color YELLOW Urine Turbidity CLEAR Urine pH 5.5 Urine Specific Rowena 1.013 Urine Protein TRACE mg/dL Urine Glucose (UA) NEG mg/dL Urine Ketones NEG mg/dL Urine Occult Blood NEG Urine Nitrite NEG Urine Bilirubin NEG Urine Urobilinogen LESS THAN 2.0 MG/DL Urine Leukocyte Esterase NEG Urine RBC LESS THAN 1 /hpf Urine WBC LESS THAN 1 /hpf Urine Squamous Epithelial <1 /hpf Cells Urine Bacteria RARE /hpf Microscopic Urinalysis Comment CATH-CULTURE IND I discussed the patient with Dr. Quintanilla. [facility]. Sepsis Criteria SIRS Criteria (2 or more): Temp > 100.9 or < 96.8, Heart rate over 90, RR > 20 or PaCO2 < 32, WBC > 69049, < 4000 or > 10% bands Sepsis Criteria (SIRS+source): Infect source susp/known Severe Sepsis (+one): Lactate >2 Diagnosis Primary Impression: Sepsis Qualified Code: A41.9 - Sepsis, due to unspecified organism Additional Impressions: Ovarian cancer Qualified Code: C56.9 - Ovarian cancer, unspecified laterality Leukocytosis Qualified Code: D72.825 - Bandemia Renal insufficiency Admitting Information Admitting Physician Requests: Admit Syeda Oneill Oct 23, 2016 18:58
[2016-10-23] MEDS ORDERED: SODIUM CHLOR 0.9% 250 ML INJ 250 ML IV ONE (19:00)
[2016-10-23] MEDS ORDERED: CEFEPIME INJ 2,000 MG in SODIUM CHLORIDE 0.9% INJ 100 ML IV STA (19:18)
--- NOTE | 2016-10-23 19:34 | RADRPT ---
EXAM DATE/TIME: 10/23/2016 19:09 [facility] COMPARISON: CHEST SINGLE AP, June 25, 2016, 19:00. INDICATIONS : Syncope MEDICAL HISTORY : Anemia, Ovarian CA, altered mental status SURGICAL HISTORY : [id number] ENCOUNTER: Initial ACUITY: 1 day PAIN SCORE: Non-responsive. LOCATION: Bilateral chest FINDINGS: Trace basilar atelectasis noted, mainly on the left. No effusion seen. No pneumothorax. Heart size st able, within normal limits. There is a right IJ [id number] catheter with tip at the atriocaval junction again noted. CONCLUSION: Trace bibasilar atelectasis. Sal Heredia MD on October 23, 2016 at 19:31 Board Certified Radiologist. This report was verified electronically.
[2016-10-23] MEDS ORDERED: ACETAMINOPHEN 650 MG SUPP RECTAL ONE (19:45)
[2016-10-23 20:04] LABS: HEMATOCRIT 28.5 % (35.0-46.0); PLATELET COUNT 160 TH/MM3 (150-450); RED BLOOD COUNT 3.03 MIL/MM3 (4.00-5.30); RED CELL DISTRIBUTION WIDTH 21.9 % (11.6-17.2); WHITE BLOOD COUNT 3.3 TH/MM3 (4.0-11.0)
[2016-10-23] MEDS ORDERED: ATEN50TA PO (20:13)
[2016-10-23] MEDS ORDERED: QUET5TAB PO (20:13)
[2016-10-23 20:18] LABS: APTT (PATIENT) 24.5 SEC (24.3-30.1); PROTHROMBIN TIME - PATIENT 10.8 SEC (9.8-11.6)
[2016-10-23 20:20] LABS: HEMO FLAGS AUTO DIFF
[2016-10-23 20:21] LABS: BACTERIA, URINE RARE /hpf; BLOOD, URINE NEG (NEG); COMMENT (UR) CATH-CULTURE IND; CULTURE IF INDICATED CATH CULTURE IND; GLUCOSE,URINE NEG (NEG); KETONE, URINE NEG (NEG); NITRITE,URINE NEG (NEG); PH, URINE 5.5 (5.0-8.5); SQUAMOUS EPITHELIAL CELL URINE <1 /hpf (0-5); URINE COLOR YELLOW (YELLW/STRAW)
[2016-10-23 20:24] LABS: ALT (GPT) 17 U/L (10-53); ANION GAP 13 MEQ/L (5-15); AST (GOT) 21 U/L (15-37); BICARBONATE 21.8 MEQ/L (21.0-32.0); BLOOD UREA NITROGEN 17 MG/DL (7-18); CHLORIDE 107 MEQ/L (98-107); GLOMERULAR FILTRATION RATE 34 ML/MIN (>89); MAGNESIUM 1.3 MG/DL (1.5-2.5); POTASSIUM 3.6 MEQ/L (3.5-5.1); SODIUM (NA) 142 MEQ/L (136-145)
[2016-10-23 20:27] LABS: ALKALINE PHOSPHATASE 85 U/L (45-117); TOTAL BILIRUBIN ADULT 0.2 MG/DL (0.2-1.0)
[2016-10-23 20:43] LABS: CREATINE KINASE 37 U/L (26-192)
[2016-10-23] MEDS ORDERED: MORPHINE SULFATE 8 MG/ML INJ IV PUSH ONE (20:45)
[2016-10-23 20:56] LABS: BANDS 20 % (0-6); BASOPHILS 1 % (0-2); METAMYELOCYTES 2 % (0-1); POLYS (SEG NEUTROPHILS) 69 % (16-70); WBC DIFF SAMPLE 100
[2016-10-23 20:57] LABS: PLATELET ESTIMATE SMEAR LOW (NORMAL); PLATELET MORPHOLOGY NORMAL (NORMAL); SCAN/DIFF FINAL DIFF MANUAL
[2016-10-23] MEDS ORDERED: VANCOMYCIN INJ 1,000 MG in SODIUM CHLOR 0.9% 250 ML INJ 250 ML IV ONE (21:00)
[2016-10-23] MEDS ORDERED: NALOXONE HCL 0.4 MG/ML AMP IV PRN (21:30)
[2016-10-23] MEDS ORDERED: SODIUM CHLORIDE 0.9% FLUSH 10 ML FLUSH IV FLUSH PRN (21:30)
[2016-10-23 21:33] LABS: LACTIC ACID GHOST NOT REPORTABLE
--- NOTE | 2016-10-23 22:22 | HHI.HP ---
[facility] Diana Salgado MD Admission Diagnosis SEPSIS; NEUTROPENIA/BANDEMIA; CHEMO PT Diagnoses: (1) Sepsis (2) Ovarian cancer (3) Acute on chronic renal insufficiency Chief Complaint: disorientation, fever, chills, weakness Travel History International Travel<30 Days: No Contact w/Intl Traveler <30 Da: No Traveled to Known Affected Are: No History of Present Illness Written by Melisa Gallagher, acting as scribe for Dr. Quintanilla on 10/23/16 at 22:22. Yesterday (10/22/16), [facility] and was very tired afterwards. The patient had no fever at noon, vitals were good per visiting home nurse. Today, she developed chills, then became incoherent and disoriented. The patient had some diarrhea yesterday but was resolved today - last episode around 9 - 10 p.m. The patient is on chemo for ovarian cancer with last treatment 2.5 weeks ago. Oncologist is Dr. Arevalo. Denies radiation therapy. Oophorectomy 08/2015 but had subsequent bowel incarceration and wasn't strong enough to start chemotherapy. In January, a new CT was done for abdominal pain and a new mass was found. The patient reports severe abdominal pain that is not relieved with morphine 6 mg IV push and is worse with palpation. Denies syncope, cp, sob, n/v, black or red stools. . Review of Systems Except as stated in HPI: all other systems reviewed are Neg Past Family Social History Past Medical History Hypertension Anxiety/depression COPD Stage I ovarian cancer- on chemotherapy and status post bilateral salpingo- oophorectomy on September 07, 2015. History of incarcerated hernia post bilateral salpingo-oophorectomystatus post surgical repair . Past Surgical History Left elbow surgery Shoulder surgery Cataract surgery Hernia repair Bilateral salpingo-oophorectomy Incarcerated small bowel repair Hysterectomy . Reported Medications Reported Meds & Active Scripts Active Oxygen tank (Oxygen) 1 Ea Tank 2 Liter DARIANA.[employer]avas CONTINUOUS Oxygen Concentrator Portable Gaseous 2 L/min via Nasal Cannula Continuous For 99 months Ventolin Hfa 18 GM Inh (Albuterol Sulfate) 90 Mcg/Act Aer 2 Puff INH Q4H PRN Symbicort Inh (Budesonide/Formoterol Fumarate) 160-4.5 Mcg/Act Aero 2 Puff INH Q12HR Albuterol Neb (Albuterol Sulfate) 2.5 Mg/3 Ml Neb 2.5 Mg NEB Q4HR NEB PRN Nebulizer 1 Mis Mis 1 Ea .ROUTE DIRECTED Reported Atenolol 50 Mg Tab 75 Mg PO DAILY Quetiapine (Quetiapine Fumarate) 50 Mg Tab 50 Mg PO DAILY Oxycodone (Oxycodone HCl) 10 Mg Tab 10 Mg PO Q8H PRN Eszopiclone 3 Mg Tab 3 Mg PO HS PRN Mirtazapine 15 Mg Tab 15 Mg PO HS Alprazolam 1 Mg Tab 0.5 Mg PO Q8H PRN Womens One Daily (Multiple Vitamins W/ Minerals) 1 Tab Tab 1 Tab PO DAILY Bupropion HCl ER 24 HR (Bupropion HCl) 150 Mg Tab 150 Mg PO DAILY Cilostazol 100 Mg Tab 100 Mg PO BID . Allergies: Coded Allergies: Motrin (Verified Adverse Reaction, Intermediate, Nausea/Vomiting, 10/23/16) Active Ordered Medications Current Medications Sodium Chloride 1,000 ml @ 1,000 mls/hr Q1H ONCE IV Last administered on 19:11; Start 10/23/16 at 18:44; Stop 10/23/16 at 19:43; Status DC Sodium Chloride 800 ml @ 1,000 mls/hr Q48M ONCE IV Last administered on 19:11; Start 10/23/16 at 18:44; Stop 10/23/16 at 19:31; Status DC Sodium Chloride 250 ml @ 15 mls/hr ONCE ONCE IV Last administered on 20:32; Start 10/23/16 at 19:00; Stop 10/24/16 at 11:39 Cefepime HCl/ Sodium Chloride (Maxipime Inj/NS Inj) 100 ml @ 200 mls/hr ONCE STAT IV Last administered on 10/23/16 20:08; Start 10/23/16 at 19:18; Stop at 19:47; Status DC Acetaminophen (Tylenol Supp) 650 mg ONCE ONCE RECTAL Last administered on 10/23 19:57; Start 10/23/16 at 19:45; Stop 10/23/16 at 19:46; Status DC Morphine Sulfate 6 mg 6 mg ONCE ONCE IV PUSH Last administered on 10/23/16 20 :53; Start 10/23/16 at 20:45; Stop 10/23/16 at 20:46; Status DC Vancomycin HCl/ Sodium Chloride (Vancomycin Inj/ NS 250 ml Inj) 250 ml @ 250 mls/hr ONCE ONCE IV Last administered on 10/23/16 21:09; Start 10/23/16 at 21 :00; Stop 10/23/16 at 21:59; Status DC Sodium Chloride (NS Flush) 2 ml UNSCH PRN IV FLUSH FLUSH AFTER USING IV ACCESS ; Start 10/23/16 at 21:30 Sodium Chloride (NS Flush) 2 ml BID IV FLUSH ; Start 10/24/16 at 09:00 Ondansetron HCl (Zofran Inj) 4 mg Q6H PRN IVP NAUSEA OR VOMITING; Start at 21:30 Naloxone HCl (Narcan Inj) 0.4 mg UNSCH PRN IV SEE LABEL COMMENTS; Start at 21:30 Oxycodone HCl (Roxicodone) 10 mg Q8H PRN PO PAIN Last administered on 00:01; Start 10/23/16 at 22:30 Hydromorphone HCl (Dilaudid Pf Inj) 1 mg Q4H PRN IV PUSH breakthrough pain Last administered on 10/23/16 22:39; Start 10/23/16 at 22:30 Albuterol Sulfate (Albuterol Neb) 2.5 mg Q4HR NEB PRN NEB SHORTNESS OF BREATH; Start 10/23/16 at 22:30 Alprazolam (Xanax) 0.5 mg Q8H PRN PO ANXIETY; Start 10/23/16 at 22:30; Stop at 22:35; Status DC Atenolol (Tenormin) 75 mg DAILY PO ; Start 10/24/16 at 09:00 Budesonide/ Formoterol Fumarate (Symbicort 160-4.5 Inh) 2 puff Q12HR INH ; Start 10/24/16 at 09:00 Bupropion HCl (Wellbutrin Sr) 150 mg DAILY PO ; Start 10/24/16 at 09:00 Cilostazol (Pletal) 100 mg BID PO ; Start 10/24/16 at 09:00 Eszopiclone (Lunesta) 3 mg HS PRN PO INSOMNIA; Start 10/23/16 at 22:30 Mirtazapine (Remeron) 15 mg HS PO ; Start 10/24/16 at 21:00 Multivitamins/ Minerals Therapeutic (Theragran M Tab) 1 tab DAILY PO ; Start at 09:00 Quetiapine Fumarate (SEROquel) 50 mg DAILY PO ; Start 10/24/16 at 09:00 Alprazolam 0.5 mg 0.5 mg Q8H PRN PO ANXIETY; Start 10/23/16 at 22:45 Cefepime HCl/ Sodium Chloride (Maxipime Inj/NS Inj) 100 ml @ 200 mls/hr Q12H IV ; Start 10/24/16 at 08:00 Acetaminophen (Tylenol) 650 mg Q4H PRN PO fever >101; Start 10/24/16 at 00:30 . Family History Denies any family history of any medical issues. . Social History Used to smoke cigarettes a pack a day for about 57 years. Quit Denies any alcohol abuse or drug abuse. . Physical Exam Vital Signs Vital Signs Date Time Temp Pulse Resp B/P Pulse Ox O2 Delivery O2 Flow Rate FiO2 10/23/16 20:44 99.0 118 39 144/69 97 Nasal Cannula 4 10/23/16 20:31 98.6 120 18 146/69 100 Nasal Cannula 4 10/23/16 19:03 94 Nasal Cannula 4 10/23/16 19:03 Nasal Cannula 4 10/23/16 19:02 102.7 113 48 143/85 94 4 10/23/16 18:34 99.5 143/65 Physical Exam GENERAL: This is a pale, thin female patient, in no apparent distress. SKIN: No rashes, ecchymoses or lesions. Cool and dry. HEAD: Atraumatic. Normocephalic. EYES: No scleral icterus. No injection or drainage. ENT: Nose without bleeding, purulent drainage. NECK: Trachea midline. No JVD or lymphadenopathy. CARDIOVASCULAR: Regular rate and rhythm without murmurs, gallops, or rubs. RESPIRATORY: Clear to auscultation. Breath sounds equal bilaterally. No wheezes , rales, or rhonchi. GASTROINTESTINAL: Abdomen soft, tender to palpation, nondistended. No guarding. MUSCULOSKELETAL: Extremities without clubbing, cyanosis, or edema. No calf tenderness. NEUROLOGICAL: Awake and alert. Motor and sensory grossly within normal limits. Normal speech. . Laboratory Laboratory Tests Test 10/23/16 10/23/16 10/23/16 18:55 19:05 20:00 Blood Type O NEGATIVE Crossmatch Leukocyte-Reduced Red Blood Cells Blood Bank Comment White Blood Count 3.3 Red Blood Count 3.03 Hemoglobin 9.4 Hematocrit 28.5 Mean Corpuscular Volume 94.0 Mean Corpuscular Hemoglobin 31.0 Mean Corpuscular Hemoglobin 33.0 Concent Red Cell Distribution Width 21.9 Platelet Count 160 Mean Platelet Volume 7.1 Neutrophils (%) (Auto) Lymphocytes (%) (Auto) Monocytes (%) (Auto) Eosinophils (%) (Auto) Basophils (%) (Auto) Neutrophils # (Auto) Lymphocytes # (Auto) Monocytes # (Auto) Eosinophils # (Auto) Basophils # (Auto) CBC Comment AUTO DIFF Differential Total Cells 100 Counted Neutrophils % (Manual) 69 Band Neutrophils % 20 Lymphocytes % 6 Monocytes % 2 Basophils % 1 Neutrophils # (Manual) 3.0 Metamyelocytes 2 Differential Comment FINAL DIFF MANUAL Platelet Estimate LOW Platelet Morphology Comment NORMAL Red Cell Morphology Comment NORMAL Prothrombin Time 10.8 Prothromb Time International 1.0 Ratio Activated Partial 24.5 Thromboplast Time Sodium Level 142 Potassium Level 3.6 Chloride Level 107 Carbon Dioxide Level 21.8 Anion Gap 13 Blood Urea Nitrogen 17 Creatinine 1.51 Estimat Glomerular Filtration 34 Rate Random Glucose 125 Lactic Acid Level 3.7 Calcium Level 7.8 Magnesium Level 1.3 Total Bilirubin 0.2 Aspartate Amino Transf 21 (AST/SGOT) Alanine Aminotransferase 17 (ALT/SGPT) Alkaline Phosphatase 85 Total Creatine Kinase 37 Total Protein 6.4 Albumin 3.0 Lipase 67 Urine Color YELLOW Urine Turbidity CLEAR Urine pH 5.5 Urine Specific [place] 1.013 Urine Protein TRACE Urine Glucose (UA) NEG Urine Ketones NEG Urine Occult Blood NEG Urine Nitrite NEG Urine Bilirubin NEG Urine Urobilinogen LESS THAN 2.0 Urine Leukocyte Esterase NEG Urine RBC LESS THAN 1 Urine WBC LESS THAN 1 Urine Squamous Epithelial <1 Cells Urine Bacteria RARE Microscopic Urinalysis Comment CATH-CULTURE IND Date/Time Procedure Status Source Growth 10/23/16 20:00 Urine Culture Received Urine Catheterized Urine Pending 10/23/16 19:25 Aerobic Blood Culture Received Blood Peripheral Pending 10/23/16 19:25 Anaerobic Blood Culture Received Blood Peripheral Pending Result Diagram: 10/23/16 1905 10/23/16 1905 Imaging Last Impressions Chest X-Ray 10/23/16 1844 Signed Impressions: Service Date/Time: , October 23, 2016 19:09 - CONCLUSION: Trace bibasilar atelectasis. Sal Heredia MD . Assessment and Plan Problem List: (1) Sepsis ICD Code: A41.9 Status: Acute (2) Ovarian cancer ICD Code: C56.9 Status: Acute (3) Acute on chronic renal insufficiency ICD Code: N28.9 Status: Acute Assessment and Plan Mrs. Bojorquez is a 75-year-old female with a history of ovarian cancer receiving chemotherapy who presented to the emergency room on 10/23/2016 for evaluation of disorientation, fever, chills, and weakness. She is admitted for management of sepsis. Sepsis - source uncertain the patient has had recent diarrhea - in a chemotherapy patient with leukopenia and bandemia/left shift - Initial lactic acid 3.7, fever with MAXIMUM TEMPERATURE 102.7, tachycardia - we'll recheck lactic acid level and follow results - Blood cultures 2 and urine culture done - await results - Chest x-ray with trace bibasilar atelectasis - Cefepime 2 g IV every 12 hours - Tylenol 650 mg by mouth every 4 hours as needed for fever - Check Stool culture and stool for C. difficile - follow results Ovarian cancer - Consult Dr. Arevalo [employer]/ONC - Discontinue when necessary morphine and start oxycodone 10 mg by mouth every 8 hours when necessary pain with Dilaudid 1 mg IV push every 4 hours as needed for breakthrough pain Acute on chronic renal insufficiency - likely related to dehydration and sepsis - BUN 17, creatinine 1.51, estimated GFR 34 - slightly worse when compared to prior labs - IV normal saline boluses given in the ED - avoid nephrotoxins - Recheck BMP in a.m. and follow trends in renal indices DVT prophylaxis - SCDs/TEDs . Discussed Condition With Patient, ER physician, patient's , ER nurse . Physician Certification 2 Midnight Certification Type: Admission for Inpatient Services Order for Inpatient Services The services are ordered in accordance with Medicare regulations or non- Medicare payer requirements, as applicable. In the case of services not specified as inpatient-only, they are appropriately provided as inpatient services in accordance with the 2-midnight benchmark. Estimated LOS (days): 3 days is the estimated time the patient will need to remain in the hospital, assuming treatment plan goals are met and no additional complications. Post-Hospital Plan: Home Problem Qualifiers (1) Sepsis: Qualified Code: A41.9 - Sepsis, due to unspecified organism (2) Ovarian cancer: Qualified Code: C56.9 - Ovarian cancer, unspecified laterality Melisa Gallagher Oct 23, 2016 22:22
[2016-10-23] MEDS ORDERED: ALPRAZolam 1 MG TAB PO PRN (22:30)
[2016-10-23] MEDS ORDERED: RESP: ALBUTEROL 2.5 MG/3 ML NEB (PRN) NEB (22:30)
[2016-10-23] MEDS: HYDROmorphone HCL PF 1 MG/ML VIAL IV PUSH PRN (22:39)
[2016-10-24] VITALS (7 sets, daily range): BP systolic 91–119; BP diastolic 54–78; PULSE 94–107; RESP 18–20; TEMP 96.9–99.6; O2SAT 95–100
[2016-10-24] MEDS ORDERED: ACETAMINOPHEN 325 MG TAB PO PRN (00:30)
[2016-10-24] MEDS: HYDROmorphone HCL PF 1 MG/ML VIAL IV PUSH PRN ×2 (06:06→21:54)
[2016-10-24] MEDS: CEFEPIME INJ 2,000 MG in SODIUM CHLORIDE 0.9% INJ 100 ML IV SCH ×2 (08:14→19:50)
[2016-10-24] MEDS: ATENOLOL 25 MG TAB PO SCH ×2 (08:14→08:42)
[2016-10-24] MEDS: MULTIVITAMINS/MINERALS THERAPEUTIC TAB PO SCH (08:14)
[2016-10-24] MEDS: CILOSTAZOL 100 MG TAB PO SCH ×2 (08:15→19:48)
[2016-10-24] MEDS: QUEtiapine FUMARATE 25 MG TAB PO SCH (08:15)
[2016-10-24] MEDS: buPROPion HCL 150 MG SUSTAINED RELEASE TAB PO SCH (08:16)
[2016-10-24] MEDS: SODIUM CHLORIDE 0.9% FLUSH 10 ML FLUSH IV FLUSH SCH ×2 (08:26→19:49)
[2016-10-24] MEDS: BUDESONIDE-FORMOTEROL 160/4.5 MCG INHALER INH SCH ×2 (08:30→19:48)
--- NOTE | 2016-10-24 08:37 | MB ---
cc: BHAVIN LOPEZ MD, SOUHEIL MOLPUS, KELLY L. MD WHITE, ALEXANDER J. M.D. DATE OF CONSULTATION 10/24/2016 REASON FOR CONSULTATION Ovarian cancer REASON FOR ADMISSION Neutropenia, failure to thrive, abdominal pain. This patient is seen, her findings are reviewed by me. She is counseled and examined by me in conjunction with our nurse practitioner (Tomasa Maldonado). I agree with her findings, assessment, and plan of care. HISTORY This is a 75-year-old female with recurrent high-grade clinical stage I ovarian cancer who is receiving first-line carboplatin chemotherapy after some delay between her initial diagnostic surgery and initiation of chemotherapy. The delay was due to her own preference, concerns expressed by her and her family regarding her overall performance status and her prolonged recovery in a rehab facility. She has now completed, I believe, six cycles of single-agent carboplatin. She had an outpatient CT scan that was scheduled with plans for follow-up in our office. This was recently completed at [place]. She reports that she has just had progressive weakness. She has diffuse abdominal discomfort, although she denies any vaginal bleeding. She denies any difficulty in urinating or having bowel movements. She has had no bright red blood or melanotic stool change. No hematuria and she denies any fever. She has had decreased energy, decreased appetite. As her symptoms progressed, she is presented to the emergency room and admitted now for further evaluation and management. PAST MEDICAL HISTORY, PAST SURGICAL HISTORY, MEDICATIONS, REVIEW OF SYSTEMS, ALLERGIES Reviewed and are documented in the chart with nothing further to add to those details. CT scan imaging previously had suggested possible subcapsular metastasis in the liver and a small area adjacent to the spleen. These are not clearly visualized on recent CT scan, however, the tumor in the pelvis has neither regressed nor progressed significantly, although overall the diameter of the tumor is approximately 1 cm greater and the radiology impression is that of progressive disease with the tumor burden predominantly filling the pelvis. There is mild to moderate hydronephrosis. OBJECTIVE Her white count is 3.3, neutrophil count is 69, so that she is not profoundly neutropenic. Her absolute neutrophil count is approximately 3. H&H 9.4 and 28.5, platelet count 160. She has a known baseline elevation of creatinine. Currently the BUN and creatinine are 17 and 1.51. Electrolytes are otherwise normal. Magnesium low at 1.3. EXAMINATION She did have a temperature to 100.3 degrees at 11 o'clock last night, current temperature 99.1, pulse ranging 103-114, respirations 20-24, blood pressure 119-146/75-83, O2 saturations 95% or greater. GENERAL: She is alert and oriented x3, appears chronically ill and she has mildly rate labored respirations at rest and with minor activity. LYMPH NODE SURVEY: Negative. LUNGS: Clear at the apices. There is decreased air exchange at the base with mild rales. CARDIOVASCULAR: Distant S1 and S2, regular rate and rhythm. ABDOMEN: In the right and right left upper quadrants are soft, nontender. No overt mass, but in the lower pelvis and abdomen below the umbilicus. There is a mass effect palpable essentially across the lower abdomen whereas she does not have an acute abdomen, it is uncomfortable. On exam there is some diffuse tenderness with palpation. EXTREMITIES: There are no palpable cords. NEUROVASCULAR: Intact. DISCUSSION Time is spent in discussion with her reviewing the findings in her case to date. I am sorry that she is feeling poorly. Chemotherapy may have helped stabilize disease as there has not been profound progression. Whether or not there has been some retraction of the subcapsular hepatic disease and perisplenic disease or whether or not these are within the margins of diagnostic measurement from one CT scan to the next is unclear, but the main tumor burden is perhaps 1 cm larger in greatest dimension such that overall chemotherapy may be providing some stabilization of disease, but no overall retraction or response to treatment. I am sorry she is feeling poorly. Philosophically, she believes she still is in favor of continuing chemotherapy. We may need to consider a change in therapy, although if it is not responsive to mcgrath based chemotherapy, the likelihood of response to other treatment is probably less, although could be considered and concerns about her overall health and poor performance status are such that I do not believe she could tolerate a more toxic regimen, cannot tolerate combination chemotherapy. Discussion ensued, questions were answered, she expressed a good understanding. ASSESSMENT 1. Recurrent high-grade clinical stage I ovarian cancer. 2. Completed six cycles of single-agent carboplatin chemotherapy with findings as described above at best showing stabilization of disease with neither significant progression nor significant regression 3. Fatigue, weakness, febrile, low grade fever, failure to progress. 4. Not profoundly neutropenic as her absolute neutrophil count is three. 5. Discussion. PLAN 1. Continue supportive care with evaluation and management of febrile illness, correction of fluid and electrolytes. 2. From an oncology standpoint, no immediate change in Recommendations. We will see her back in our office in follow up as an outpatient to further discuss her situation and any treatment and/or follow up recommendations. Thank for the consultation. We will follow along in her care. MD ARLIN Ewing/LEORA /7:55 AM /8:23 AM
[2016-10-24 08:41] LABS: AUTOMATED NEUTROPHIL # 8.8 TH/MM3 (1.8-7.7); BASOPHIL % 0.2 % (0.0-2.0); HEMATOCRIT 28.3 % (35.0-46.0); LYMPH % 5.9 % (9.0-44.0); LYMPHOCYTE # 0.6 TH/MM3 (1.0-4.8); MEAN CELL VOLUME 94.4 FL (80.0-100.0); MEAN CORPUSCULAR HEMOGLOBIN 32.6 PG (27.0-34.0); MEAN CORPUSCULAR HGB CONC 34.5 % (32.0-36.0); MONO % 6.7 % (0.0-8.0); NEUT % 87.2 % (16.0-70.0); PLATELET COUNT 113 TH/MM3 (150-450); RED BLOOD COUNT 2.99 MIL/MM3 (4.00-5.30); RED CELL DISTRIBUTION WIDTH 20.5 % (11.6-17.2); WHITE BLOOD COUNT 10.1 TH/MM3 (4.0-11.0)
[2016-10-24 08:49] LABS: HEMO FLAGS AUTO DIFF
[2016-10-24 09:13] LABS: BICARBONATE 19.4 MEQ/L (21.0-32.0); POTASSIUM 3.3 MEQ/L (3.5-5.1)
[2016-10-24 09:31] LABS: BANDS 51 % (0-6); METAMYELOCYTES 5 % (0-1); POLYS (SEG NEUTROPHILS) 33 % (16-70); WBC DIFF SAMPLE 100
[2016-10-24 09:32] LABS: PLATELET ESTIMATE SMEAR LOW (NORMAL); PLATELET MORPHOLOGY NORMAL (NORMAL)
[2016-10-24 09:33] LABS: CALCIUM-PROTEIN CORRECTED 7.9 MG/DL (8.5-10.1); DOHLE BODIES PRESENT (NONE SEEN); SCAN/DIFF FINAL DIFF MANUAL
--- NOTE | 2016-10-24 12:29 | HHI.PR ---
Subjective Remarks Patient reports feeling weak. Still having abdominal pain. No nausea or vomiting. Blood pressure is borderline low. She denies lightheadedness, shortness of breath or chest pain. Objective Vitals Vital Signs Date Time Temp Pulse Resp B/P Pulse Ox O2 Delivery O2 Flow Rate FiO2 10/24/16 08:00 98.9 98 18 98/61 96 10/24/16 04:00 99.1 103 20 119/78 95 10/24/16 01:30 107 10/23/16 23:00 100.3 109 20 146/83 95 10/23/16 22:43 98.6 114 24 143/75 100 Nasal Cannula 4 10/23/16 22:40 100 Nasal Cannula 4.00 10/23/16 21:30 114 24 157/74 100 Nasal Cannula 4 10/23/16 20:44 99.0 118 39 144/69 97 Nasal Cannula 4 10/23/16 20:31 98.6 120 18 146/69 100 Nasal Cannula 4 10/23/16 19:03 94 Nasal Cannula 4 10/23/16 19:03 Nasal Cannula 4 10/23/16 19:02 102.7 113 48 143/85 94 4 10/23/16 18:34 99.5 143/65 I/O 10/23/16 10/23/16 10/23/16 10/24/16 10/24/16 10/24/16 07:00 15:00 23:00 07:00 15:00 23:00 Intake Total 0 ml Balance 0 ml Intake Oral 0 ml # Voids 1 # Bowel Movements 1 Result Diagram: 10/24/16 0600 10/24/16 0600 Imaging Last Impressions Chest X-Ray 10/23/16 1844 Signed Impressions: Service Date/Time: October 19:09 - CONCLUSION: Trace bibasilar atelectasis. Sal Heredia MD Objective Remarks GENERAL: Elderly female in no acute distress. CARDIOVASCULAR: Normal rate and regular rhythm without murmurs, gallops, or rubs. RESPIRATORY: Good respiratory efforts. Breath sounds equal and clear to auscultation bilaterally. GASTROINTESTINAL: Abdomen soft, diffusely tender to palpation. Normal active bowel sounds MUSCULOSKELETAL: Extremities without cyanosis, or edema. NEURO: Alert & Oriented x4 to person, place, time, situation. Moves all ext x4 PSYCH: Appropriate mood and affect. A/P Problem List: (1) Sepsis ICD Code: A41.9 Status: Acute (2) Ovarian cancer ICD Code: C56.9 Status: Acute (3) Acute on chronic renal insufficiency ICD Code: N28.9 Status: Acute Assessment and Plan Maryellen is a 75-year-old female with a history of ovarian cancer receiving chemotherapy who presented to the emergency room on 10/23/2016 for evaluation of disorientation, fever, chills, and weakness. She is admitted for management of sepsis. Sepsis - source uncertain the patient has had recent diarrhea - is a chemotherapy patient with leukopenia and bandemia/left shift - Initial lactic acid 3.7, fever with MAXIMUM TEMPERATURE 102.7, tachycardia - - Blood cultures 2 and urine culture done -preliminary cultures showing gram variable rods. Urine culture pending - Chest x-ray with trace bibasilar atelectasis - Cefepime 2 g IV every 12 hours - Consult ID for assistance. - Tylenol 650 mg by mouth every 4 hours as needed for fever - Check Stool culture and stool for C. difficile - follow results High-grade recurrent Ovarian cancer: Patient has been seen by [employer] oncologist, Dr Arevalo. There has been no regression or progression of the pelvic tumor. Recommend supportive care and outpatient follow-up to decide whether or not she can continue treatment. - Continue pain control. Add Oramorph schedule, oxycodone as needed, Dilaudid for breakthrough. Acute on chronic renal insufficiency - likely related to dehydration and sepsis - Every 5oo cc ns bolus. Continue IV fluid. - avoid nephrotoxins - Recheck BMP in a.m. and follow trends in renal indices Continue home medications for her chronic conditions as indicated. DVT prophylaxis - SCDs/TEDs Problem Qualifiers (1) Sepsis: Qualified Code: A41.9 - Sepsis, due to unspecified organism (2) Ovarian cancer: Qualified Code: C56.9 - Ovarian cancer, unspecified laterality Gina Armenta MD Oct 24, 2016 12:29
[2016-10-24] MEDS ORDERED: SODIUM CHLORID 0.9% 500 ML INJ 500 ML IV ONE (12:30)
--- NOTE | 2016-10-24 13:34 | PD.ID.CON ---
History of Present Illness Service ID Consult Requested By Dr Armenta Reason for Consult Gram variable aniceto bactermeia Primary Care Physician Diana Salgado MD Diagnoses: History of Present Illness Pt is a poor historian Unable to give a detailed hisory I obtained her history from the chart She is a 75 yo female with ovarian cancer stage 1 grade 3, currently being treated with single agent carboplatin at AUC 6. Her contacted pt's [employer] [employer] office concerning that his was not getting out of bed, not communicating and not eating much at all. She was seen by a [facility] RN that morning and her was instructed to bring pt into the ER for further evaluation. Reports mention nausea/vomiting, abdominal pain, decreased appetite and fatigue. Patient was found to have neutropenia with prominent bandemia and low grade fevers. Her repeat CBC with nl WBC and bands 50% She also co diarrhea, but could not quantify amount of BMs/day or duration of diarrhea. @ BMs documented today She left most of her lunch today. No appetite Her blood clx are growing gram-variable rods in both anaerobic bottles dw Micro, not looking like Bacillus Review of Systems ROS Limitations: Poor Historian Constitutional: COMPLAINS OF: Fatigue, Fever Gastrointestinal: COMPLAINS OF: Abdominal pain, Diarrhea Except as stated in HPI: all other systems reviewed are Neg Past Family Social History Allergies: Coded Allergies: Motrin (Verified Adverse Reaction, Intermediate, Nausea/Vomiting, 10/23/16) Past Medical History Hypertension Anxiety/depression COPD Ovarian cancer stage 1 grade 3 Past Surgical History Left elbow surgery Shoulder surgery Cataract surgery Hernia repair Bilateral salpingo-oophorectomy Incarcerated small bowel repair Hysterectomy Active Ordered Medications Medications where reviewed in EMR Antibiotics Include: cefepime vancomycion Family History Non-Contributory. Social History remote tobacco No ETOH no IVDU Physical Exam Vital Signs Vital Signs Date Time Temp Pulse Resp B/P Pulse Ox O2 Delivery O2 Flow Rate FiO2 10/24/16 12:00 99.6 96 18 94/63 96 10/24/16 08:00 98.9 98 18 98/61 96 10/24/16 04:00 99.1 103 20 119/78 95 10/24/16 01:30 107 10/23/16 23:00 100.3 109 20 146/83 95 10/23/16 22:43 98.6 114 24 143/75 100 Nasal Cannula 4 10/23/16 22:40 100 Nasal Cannula 4.00 10/23/16 21:30 114 24 157/74 100 Nasal Cannula 4 10/23/16 20:44 99.0 118 39 144/69 97 Nasal Cannula 4 10/23/16 20:31 98.6 120 18 146/69 100 Nasal Cannula 4 10/23/16 19:03 94 Nasal Cannula 4 10/23/16 19:03 Nasal Cannula 4 10/23/16 19:02 102.7 113 48 143/85 94 4 10/23/16 18:34 99.5 143/65 Physical Exam CONSTITUTIONAL/GENERAL: This is an adequately nourished patient, in no apparent distress. TUBES/LINES/DRAINS:L chest PORT in place w/o e/o infx SKIN: No jaundice, rashes, or lesions. Ecchymoses on upper extremities. No wounds seen anteriorly. Skin temperature appropriate. Not diaphoretic. HEAD: Atraumatic. Normocephalic. EYES: Pupils equal and round and reactive. No scleral icterus. No injection or drainage. Fundi not examined. ENT: Hearing grossly normal. Nose without bleeding or purulent drainage. Throat without visible erythema, exudates, masses, or lesions. Edentulous NECK: Trachea midline. Supple, nontender. No palpable thyroid enlargement or nodularity. CARDIOVASCULAR: Regular rate and rhythm without murmurs, gallops, or rubs. No JVD. RESPIRATORY/CHEST: Symmetric, unlabored respirations. Clear to auscultation. Breath sounds equal bilaterally. No wheezes, rales, or rhonchi. GASTROINTESTINAL: Abdomen soft, diffusely moderatelky tender, quite distended. No hepato-splenomegaly, or palpable masses. No guarding. Bowel sounds present. GENITOURINARY: Without palpable bladder distension. MUSCULOSKELETAL: Extremities without clubbing, cyanosis, or edema. No joint tenderness or effusion noted. No calf tenderness. No mottling or clubbing. LYMPHATICS: No palpable cervical or supraclavicular adenopathy. NEUROLOGICAL: Awake and alert. Motor and sensory grossly within normal limits. Follows commands. Clear speech. Moves all extremities. PSYCHIATRIC: No obvious anxiety/depression. no apparent hallucinations or other psychotic thought process. Laboratory Laboratory Tests Test 10/23/16 10/23/16 10/23/16 10/24/16 18:55 19:05 20:00 00:00 Blood Type O NEGATIVE Crossmatch Leukocyte-Reduced Red Blood Cells Blood Bank Comment White Blood Count 3.3 Red Blood Count 3.03 Hemoglobin 9.4 Hematocrit 28.5 Mean Corpuscular Volume 94.0 Mean Corpuscular Hemoglobin 31.0 Mean Corpuscular Hemoglobin 33.0 Concent Red Cell Distribution Width 21.9 Platelet Count 160 Mean Platelet Volume 7.1 Neutrophils (%) (Auto) Lymphocytes (%) (Auto) Monocytes (%) (Auto) Eosinophils (%) (Auto) Basophils (%) (Auto) Neutrophils # (Auto) Lymphocytes # (Auto) Monocytes # (Auto) Eosinophils # (Auto) Basophils # (Auto) CBC Comment AUTO DIFF Differential Total Cells 100 Counted Neutrophils % (Manual) 69 Band Neutrophils % 20 Lymphocytes % 6 Monocytes % 2 Basophils % 1 Neutrophils # (Manual) 3.0 Metamyelocytes 2 Differential Comment FINAL DIFF MANUAL Platelet Estimate LOW Platelet Morphology Comment NORMAL Red Cell Morphology Comment NORMAL Prothrombin Time 10.8 Prothromb Time International 1.0 Ratio Activated Partial 24.5 Thromboplast Time Sodium Level 142 Potassium Level 3.6 Chloride Level 107 Carbon Dioxide Level 21.8 Anion Gap 13 Blood Urea Nitrogen 17 Creatinine 1.51 Estimat Glomerular Filtration 34 Rate Random Glucose 125 Lactic Acid Level 3.7 1.7 Calcium Level 7.8 Magnesium Level 1.3 Total Bilirubin 0.2 Aspartate Amino Transf 21 (AST/SGOT) Alanine Aminotransferase 17 (ALT/SGPT) Alkaline Phosphatase 85 Total Creatine Kinase 37 Total Protein 6.4 Albumin 3.0 Lipase 67 Urine Color YELLOW Urine Turbidity CLEAR Urine pH 5.5 Urine Specific [place] 1.013 Urine Protein TRACE Urine Glucose (UA) NEG Urine Ketones NEG Urine Occult Blood NEG Urine Nitrite NEG Urine Bilirubin NEG Urine Urobilinogen LESS THAN 2.0 Urine Leukocyte Esterase NEG Urine RBC LESS THAN 1 Urine WBC LESS THAN 1 Urine Squamous Epithelial <1 Cells Urine Bacteria RARE Microscopic Urinalysis Comment CATH-CULTURE IND Test 10/24/16 06:00 White Blood Count 10.1 Red Blood Count 2.99 Hemoglobin 9.8 Hematocrit 28.3 Mean Corpuscular Volume 94.4 Mean Corpuscular Hemoglobin 32.6 Mean Corpuscular Hemoglobin 34.5 Concent Red Cell Distribution Width 20.5 Platelet Count 113 Mean Platelet Volume 7.6 Neutrophils (%) (Auto) 87.2 Lymphocytes (%) (Auto) 5.9 Monocytes (%) (Auto) 6.7 Eosinophils (%) (Auto) 0.0 Basophils (%) (Auto) 0.2 Neutrophils # (Auto) 8.8 Lymphocytes # (Auto) 0.6 Monocytes # (Auto) 0.7 Eosinophils # (Auto) 0.0 Basophils # (Auto) 0.0 CBC Comment AUTO DIFF Differential Total Cells 100 Counted Neutrophils % (Manual) 33 Band Neutrophils % 51 Lymphocytes % 10 Monocytes % 1 Neutrophils # (Manual) 9.0 Metamyelocytes 5 Differential Comment FINAL DIFF MANUAL Dohle Bodies PRESENT Platelet Estimate LOW Platelet Morphology Comment NORMAL Red Cell Morphology Comment NORMAL Sodium Level 143 Potassium Level 3.3 Chloride Level 111 Carbon Dioxide Level 19.4 Anion Gap 13 Blood Urea Nitrogen 23 Creatinine 1.58 Estimat Glomerular Filtration 32 Rate Random Glucose 73 Calcium Level 7.3 Protein Corrected Calcium 7.9 Total Protein 6.0 Date/Time Procedure Status Source Growth 10/23/16 20:00 Urine Culture Received Urine Catheterized Urine Pending 10/23/16 19:25 Aerobic Blood Culture - Preliminary Resulted Blood Peripheral NO GROWTH IN 1 DAY 10/23/16 19:25 Anaerobic Blood Culture - Preliminary Resulted Gram Variable Aniceto Result Diagram: 10/24/16 0600 10/24/16 0600 Imaging Last Impressions Chest X-Ray 10/23/16 1844 Signed Impressions: Service Date/Time: October 19:09 - CONCLUSION: Trace bibasilar atelectasis. Sal Heredia MD Assessment and Plan Assessment and Plan Ovarian ca, sp chemo Gram viariable rods bactermeia ? PORT infection fever , leukocytosis Diarrhea - add vancomycin chanfe cefepime to zoyn - chk stool for C.diff - fu final ID of the organism Jaylene Patel MD Oct 24, 2016 13:34
[2016-10-24] MEDS: NS + KCL 20 MEQ INJ 1,000 ML IV SCH ×2 (13:41→21:52)
[2016-10-24] MEDS: MORPHINE SULFATE 15 MG CONTROLLED RELEASE TAB PO SCH ×2 (13:41→21:51)
--- NOTE | 2016-10-24 14:36 | PD.CONS ---
History of Present Illness Service medical screener/onc Consult Requested By Dr. Armenta Reason for Consult neutropenia abdominal pain/ovarian cancer Primary Care Physician Diana Salgado MD Diagnoses: (1) Leukocytosis (2) Renal insufficiency (3) Ovarian cancer History of Present Illness This is a 75 year old know to medical screener/onc clinic for ovarian cancer stage 1 grade 3 , currently being treated with single agent carboplatin at AUC 6. Mr. Bojorquez contacted our office yesterday stating that his was not getting out of bed , not communicating and not eating much at all. She was seen by a HH RN that morning and v/s were Ok, per Mr. Bojorquez. He was instructed to bring Mrs. Bojorquez into the ER for further evaluation. Patient reports to me that she has been having some nausea/vomiting at home ( none in the hospital), she is having abdominal pain. She also reports decreased appetite and fatigue. Patient was found to have neutropenia and low grade fevers. She was admitted to hospital for further evaluation. Review of Systems Constitutional: COMPLAINS OF: Fatigue, Fever, Change in appetite Gastrointestinal: COMPLAINS OF: Abdominal pain, Nausea, Vomiting Past Family Social History Allergies: Coded Allergies: Motrin (Verified Adverse Reaction, Intermediate, Nausea/Vomiting, 10/23/16) Past Medical History Hypertension Anxiety/depression COPD Ovarian cancer stage 1 grade 3 Past Surgical History Left elbow surgery Shoulder surgery Cataract surgery Hernia repair Bilateral salpingo-oophorectomy Incarcerated small bowel repair Hysterectomy Reported Medications Per EMR Active Ordered Medications Current Medications Sodium Chloride 1,000 ml @ 1,000 mls/hr Q1H ONCE IV Last administered on 19:11; Start 10/23/16 at 18:44; Stop 10/23/16 at 19:43; Status DC Sodium Chloride 800 ml @ 1,000 mls/hr Q48M ONCE IV Last administered on 19:11; Start 10/23/16 at 18:44; Stop 10/23/16 at 19:31; Status DC Sodium Chloride 250 ml @ 15 mls/hr ONCE ONCE IV Last administered on 20:32; Start 10/23/16 at 19:00; Stop 10/24/16 at 13:45; Status DC Cefepime HCl/ Sodium Chloride (Maxipime Inj/NS Inj) 100 ml @ 200 mls/hr ONCE STAT IV Last administered on 10/23/16 20:08; Start 10/23/16 at 19:18; Stop at 19:47; Status DC Acetaminophen (Tylenol Supp) 650 mg ONCE ONCE RECTAL Last administered on 10/23 19:57; Start 10/23/16 at 19:45; Stop 10/23/16 at 19:46; Status DC Morphine Sulfate 6 mg 6 mg ONCE ONCE IV PUSH Last administered on 10/23/16 20 :53; Start 10/23/16 at 20:45; Stop 10/23/16 at 20:46; Status DC Vancomycin HCl/ Sodium Chloride (Vancomycin Inj/ NS 250 ml Inj) 250 ml @ 250 mls/hr ONCE ONCE IV Last administered on 10/23/16 21:09; Start 10/23/16 at 21 :00; Stop 10/23/16 at 21:59; Status DC Sodium Chloride (NS Flush) 2 ml UNSCH PRN IV FLUSH FLUSH AFTER USING IV ACCESS ; Start 10/23/16 at 21:30 Sodium Chloride (NS Flush) 2 ml BID IV FLUSH Last administered on 10/24/16 08: 26; Start 10/24/16 at 09:00 Ondansetron HCl (Zofran Inj) 4 mg Q6H PRN IVP NAUSEA OR VOMITING; Start at 21:30 Naloxone HCl (Narcan Inj) 0.4 mg UNSCH PRN IV SEE LABEL COMMENTS; Start at 21:30 Oxycodone HCl (Roxicodone) 10 mg Q8H PRN PO PAIN Last administered on 08:16; Start 10/23/16 at 22:30 Hydromorphone HCl (Dilaudid Pf Inj) 1 mg Q4H PRN IV PUSH breakthrough pain Last administered on 10/24/16 06:06; Start 10/23/16 at 22:30 Albuterol Sulfate (Albuterol Neb) 2.5 mg Q4HR NEB PRN NEB SHORTNESS OF BREATH; Start 10/23/16 at 22:30 Alprazolam (Xanax) 0.5 mg Q8H PRN PO ANXIETY; Start 10/23/16 at 22:30; Stop at 22:35; Status DC Atenolol (Tenormin) 75 mg DAILY PO ; Start 10/24/16 at 09:00 Budesonide/ Formoterol Fumarate (Symbicort 160-4.5 Inh) 2 puff Q12HR INH ; Start 10/24/16 at 09:00 Bupropion HCl (Wellbutrin Sr) 150 mg DAILY PO Last administered on 10/24/16 08 :16; Start 10/24/16 at 09:00 Cilostazol (Pletal) 100 mg BID PO Last administered on 10/24/16 08:15; Start 10/24/16 at 09:00 Eszopiclone (Lunesta) 3 mg HS PRN PO INSOMNIA; Start 10/23/16 at 22:30 Mirtazapine (Remeron) 15 mg HS PO ; Start 10/24/16 at 21:00 Multivitamins/ Minerals Therapeutic (Theragran M Tab) 1 tab DAILY PO Last administered on 10/24/16 08:14; Start 10/24/16 at 09:00 Quetiapine Fumarate (SEROquel) 50 mg DAILY PO Last administered on 10/24/16 08 :15; Start 10/24/16 at 09:00 Alprazolam 0.5 mg 0.5 mg Q8H PRN PO ANXIETY; Start 10/23/16 at 22:45 Cefepime HCl/ Sodium Chloride (Maxipime Inj/NS Inj) 100 ml @ 200 mls/hr Q12H IV Last administered on 10/24/16 08:14; Start 10/24/16 at 08:00 Acetaminophen 650 mg 650 mg Q4H PRN PO fever >101; Start 10/24/16 at 00:30 Sodium Chloride 500 ml @ 500 mls/hr BOLUS ONCE IV Last administered on 12:30; Start 10/24/16 at 12:30; Stop 10/24/16 at 13:46; Status DC Potassium Chloride/Sodium Chloride (NS + KCl 20 Meq Inj) 1,000 ml @ 100 mls/hr Q10H IV Last administered on 10/24/16 13:41; Start 10/24/16 at 12:30 Morphine Sulfate (Oramorph Sr) 15 mg Q8HR PO Last administered on 10/24/16 13: 41; Start 10/24/16 at 14:00 Social History past smoker denies alcohol Physical Exam Vital Signs Vital Signs Date Time Temp Pulse Resp B/P Pulse Ox O2 Delivery O2 Flow Rate FiO2 10/24/16 12:00 99.6 96 18 94/63 96 10/24/16 08:00 98.9 98 18 98/61 96 10/24/16 04:00 99.1 103 20 119/78 95 10/24/16 01:30 107 10/23/16 23:00 100.3 109 20 146/83 95 10/23/16 22:43 98.6 114 24 143/75 100 Nasal Cannula 4 10/23/16 22:40 100 Nasal Cannula 4.00 10/23/16 21:30 114 24 157/74 100 Nasal Cannula 4 10/23/16 20:44 99.0 118 39 144/69 97 Nasal Cannula 4 10/23/16 20:31 98.6 120 18 146/69 100 Nasal Cannula 4 10/23/16 19:03 94 Nasal Cannula 4 10/23/16 19:03 Nasal Cannula 4 10/23/16 19:02 102.7 113 48 143/85 94 4 10/23/16 18:34 99.5 143/65 Physical Exam GENERAL: frail SKIN: No rashes, ecchymoses or lesions. Cool and dry. HEAD: Atraumatic. Normocephalic. No temporal or scalp tenderness. EYES: Pupils equal round and reactive. Extraocular motions intact. NECK: Trachea midline. CARDIOVASCULAR: Regular rate and rhythm without murmurs, gallops, or rubs. RESPIRATORY: Clear to auscultation. Breath sounds equal bilaterally. No wheezes , rales, or rhonchi. GASTROINTESTINAL: Abdomen firm and tender with palpable mass to lower pelvis, below umbilicus MUSCULOSKELETAL: Extremities without clubbing, cyanosis, or edema. NEUROLOGICAL: Awake and alert. Normal speech. Laboratory Laboratory Tests Test 10/23/16 10/23/16 10/23/16 10/24/16 18:55 19:05 20:00 00:00 Blood Type O NEGATIVE Crossmatch Leukocyte-Reduced Red Blood Cells Blood Bank Comment White Blood Count 3.3 Red Blood Count 3.03 Hemoglobin 9.4 Hematocrit 28.5 Mean Corpuscular Volume 94.0 Mean Corpuscular Hemoglobin 31.0 Mean Corpuscular Hemoglobin 33.0 Concent Red Cell Distribution Width 21.9 Platelet Count 160 Mean Platelet Volume 7.1 Neutrophils (%) (Auto) Lymphocytes (%) (Auto) Monocytes (%) (Auto) Eosinophils (%) (Auto) Basophils (%) (Auto) Neutrophils # (Auto) Lymphocytes # (Auto) Monocytes # (Auto) Eosinophils # (Auto) Basophils # (Auto) CBC Comment AUTO DIFF Differential Total Cells 100 Counted Neutrophils % (Manual) 69 Band Neutrophils % 20 Lymphocytes % 6 Monocytes % 2 Basophils % 1 Neutrophils # (Manual) 3.0 Metamyelocytes 2 Differential Comment FINAL DIFF MANUAL Platelet Estimate LOW Platelet Morphology Comment NORMAL Red Cell Morphology Comment NORMAL Prothrombin Time 10.8 Prothromb Time International 1.0 Ratio Activated Partial 24.5 Thromboplast Time Sodium Level 142 Potassium Level 3.6 Chloride Level 107 Carbon Dioxide Level 21.8 Anion Gap 13 Blood Urea Nitrogen 17 Creatinine 1.51 Estimat Glomerular Filtration 34 Rate Random Glucose 125 Lactic Acid Level 3.7 1.7 Calcium Level 7.8 Magnesium Level 1.3 Total Bilirubin 0.2 Aspartate Amino Transf 21 (AST/SGOT) Alanine Aminotransferase 17 (ALT/SGPT) Alkaline Phosphatase 85 Total Creatine Kinase 37 Total Protein 6.4 Albumin 3.0 Lipase 67 Urine Color YELLOW Urine Turbidity CLEAR Urine pH 5.5 Urine Specific [place] 1.013 Urine Protein TRACE Urine Glucose (UA) NEG Urine Ketones NEG Urine Occult Blood NEG Urine Nitrite NEG Urine Bilirubin NEG Urine Urobilinogen LESS THAN 2.0 Urine Leukocyte Esterase NEG Urine RBC LESS THAN 1 Urine WBC LESS THAN 1 Urine Squamous Epithelial <1 Cells Urine Bacteria RARE Microscopic Urinalysis Comment CATH-CULTURE IND Test 10/24/16 06:00 White Blood Count 10.1 Red Blood Count 2.99 Hemoglobin 9.8 Hematocrit 28.3 Mean Corpuscular Volume 94.4 Mean Corpuscular Hemoglobin 32.6 Mean Corpuscular Hemoglobin 34.5 Concent Red Cell Distribution Width 20.5 Platelet Count 113 Mean Platelet Volume 7.6 Neutrophils (%) (Auto) 87.2 Lymphocytes (%) (Auto) 5.9 Monocytes (%) (Auto) 6.7 Eosinophils (%) (Auto) 0.0 Basophils (%) (Auto) 0.2 Neutrophils # (Auto) 8.8 Lymphocytes # (Auto) 0.6 Monocytes # (Auto) 0.7 Eosinophils # (Auto) 0.0 Basophils # (Auto) 0.0 CBC Comment AUTO DIFF Differential Total Cells 100 Counted Neutrophils % (Manual) 33 Band Neutrophils % 51 Lymphocytes % 10 Monocytes % 1 Neutrophils # (Manual) 9.0 Metamyelocytes 5 Differential Comment FINAL DIFF MANUAL Dohle Bodies PRESENT Platelet Estimate LOW Platelet Morphology Comment NORMAL Red Cell Morphology Comment NORMAL Sodium Level 143 Potassium Level 3.3 Chloride Level 111 Carbon Dioxide Level 19.4 Anion Gap 13 Blood Urea Nitrogen 23 Creatinine 1.58 Estimat Glomerular Filtration 32 Rate Random Glucose 73 Calcium Level 7.3 Protein Corrected Calcium 7.9 Total Protein 6.0 Date/Time Procedure Status Source Growth 10/23/16 20:00 Urine Culture Received Urine Catheterized Urine Pending 10/23/16 19:25 Aerobic Blood Culture - Preliminary Resulted Blood Peripheral NO GROWTH IN 1 DAY 10/23/16 19:25 Anaerobic Blood Culture - Preliminary Resulted Gram Variable Aniceto Result Diagram: 10/24/16 0600 10/24/16 0600 Imaging Last Impressions Chest X-Ray 10/23/16 1844 Signed Impressions: Service Date/Time: October 19:09 - CONCLUSION: Trace bibasilar atelectasis. Sal Heredia MD Assessment and Plan Problem List: (1) Ovarian cancer Status: Acute Plan: s/p 6 cycles carboplatin at AUC 6 pt had follow up ct scan 2 days ago any treatment recommendations will be discussed based on the imaging results and pt's performance status (2) Leukocytosis Status: Acute Plan: daily labs blood cultures pending urine culture pending CXR Medicine team is follow and we appreciate input. (3) Acute on chronic renal insufficiency Status: Acute Plan: contributing factor could be dehydration hydration monitor labs Problem Qualifiers (1) Leukocytosis: Qualified Code: D72.825 - Bandemia (2) Ovarian cancer: Qualified Code: C56.9 - Ovarian cancer, unspecified laterality Tomasa Maldonado Oct 24, 2016 14:36
[2016-10-24] MEDS: MIRTAZAPINE 15 MG TAB PO SCH (19:49)
[2016-10-24] MEDS: ESZOPICLONE 3 MG TAB PO PRN (21:58)
--- NOTE | 2016-10-24 22:40 | EKG ---
Date Performed: 10/23/2016 Time Performed: 19:31:25 PTAGE: 75 years EKG: SINUS TACHYCARDIA POSSIBLE LEFT ATRIAL ENLARGEMENT NONSPECIFIC ST & T-WAVE ABNORMALITY ABNO RMAL RHYTHM ECG PREVIOUS TRACING : 10/23/2016 19.27 DOCTOR: Jazlyn Rodgers Interpretating Date/Time 10/27/2016 07:08:58
[2016-10-24] MEDS ORDERED: Vancomycin Consult Pharmacy 1 EA OTHER SCH (23:15)
[2016-10-24] MEDS ORDERED: VANCOMYCIN 1,000 MG/NS 250 ML IV ONE ×2 (23:59)
[2016-10-25] VITALS (10 sets, daily range): BP systolic 96–132; BP diastolic 54–66; PULSE 78–97; RESP 18–19; TEMP 96.9–98.2; O2SAT 94–97
[2016-10-25] MEDS: PIPERACIL-TAZO 3.375 GM PREMIX 50 ML IV SCH ×4 (01:44→17:28)
[2016-10-25] MEDS: HYDROmorphone HCL PF 1 MG/ML VIAL IV PUSH PRN (04:37)
[2016-10-25] MEDS ORDERED: SODIUM CHLORIDE 0.9% FLUSH 10 ML FLUSH IV FLUSH PRN (05:15)
[2016-10-25] MEDS: MORPHINE SULFATE 15 MG CONTROLLED RELEASE TAB PO SCH ×3 (05:44→22:00)
[2016-10-25] MEDS: ONDANSETRON HCL 4 MG/2 ML VIAL IVP PRN ×2 (06:32→13:55)
[2016-10-25 07:11] LABS: HEMATOCRIT 22.9 % (35.0-46.0); MEAN CELL VOLUME 94.7 FL (80.0-100.0); MEAN CORPUSCULAR HGB CONC 33.8 % (32.0-36.0); PLATELET COUNT 63 TH/MM3 (150-450); RED BLOOD COUNT 2.42 MIL/MM3 (4.00-5.30); RED CELL DISTRIBUTION WIDTH 21.7 % (11.6-17.2); WHITE BLOOD COUNT 11.2 TH/MM3 (4.0-11.0)
[2016-10-25 07:15] LABS: BICARBONATE 19.4 MEQ/L (21.0-32.0); POTASSIUM 3.9 MEQ/L (3.5-5.1)
[2016-10-25 07:37] LABS: CALCIUM-PROTEIN CORRECTED 7.9 MG/DL (8.5-10.1)
[2016-10-25 08:12] LABS: REVIEW FLAG FINAL
[2016-10-25] MEDS: BUDESONIDE-FORMOTEROL 160/4.5 MCG INHALER INH SCH ×2 (09:44→20:05)
[2016-10-25] MEDS: CILOSTAZOL 100 MG TAB PO SCH ×2 (09:44→20:05)
[2016-10-25] MEDS: buPROPion HCL 150 MG SUSTAINED RELEASE TAB PO SCH (09:45)
[2016-10-25] MEDS: MULTIVITAMINS/MINERALS THERAPEUTIC TAB PO SCH (09:45)
[2016-10-25] MEDS: QUEtiapine FUMARATE 25 MG TAB PO SCH (09:46)
[2016-10-25] MEDS: SODIUM CHLORIDE 0.9% FLUSH 10 ML FLUSH IV FLUSH SCH ×2 (09:49→20:07)
--- NOTE | 2016-10-25 09:52 | HHI.PR ---
Subjective Remarks Patient is still not eating much. No appetite. Her pain is much better controlled with oral morphine. No nausea or vomiting. Objective Vitals Vital Signs Date Time Temp Pulse Resp B/P Pulse Ox O2 Delivery O2 Flow Rate FiO2 10/25/16 04:00 96.9 87 18 101/54 96 10/25/16 02:12 86 10/25/16 00:00 97.1 97 19 122/58 97 10/24/16 20:00 98.8 94 18 93/54 98 10/24/16 16:00 96.9 97 20 91/54 100 10/24/16 12:00 99.6 96 18 94/63 96 I/O 10/24/16 10/24/16 10/24/16 10/25/16 10/25/16 10/25/16 07:00 15:00 23:00 07:00 15:00 23:00 Intake Total 0 ml 480 ml 2090 ml Output Total 500 ml 350 ml Balance 0 ml -20 ml 1740 ml Intake Oral 0 ml 480 ml 240 ml IV Total 1850 ml Output Urine Total 500 ml 350 ml # Voids 1 3 # Bowel Movements 1 2 Result Diagram: 10/25/16 0440 10/25/16 0440 Objective Remarks GENERAL: Elderly female in no acute distress. CARDIOVASCULAR: Normal rate and regular rhythm without murmurs, gallops, or rubs. RESPIRATORY: Good respiratory efforts. Breath sounds equal and clear to auscultation bilaterally. GASTROINTESTINAL: Abdomen soft, diffusely tender to palpation. Normal active bowel sounds MUSCULOSKELETAL: Extremities without cyanosis, or edema. NEURO: Alert & Oriented x4 to person, place, time, situation. Moves all ext x4 PSYCH: Appropriate mood and affect. A/P Problem List: (1) Sepsis ICD Code: A41.9 Status: Acute (2) Ovarian cancer ICD Code: C56.9 Status: Acute (3) Acute on chronic renal insufficiency ICD Code: N28.9 Status: Acute Assessment and Plan Maryellen is a 75-year-old female with a history of ovarian cancer receiving chemotherapy who presented to the emergency room on 10/23/2016 for evaluation of disorientation, fever, chills, and weakness. She is admitted for management of sepsis. Sepsis - source uncertain the patient has had recent diarrhea - is a chemotherapy patient with leukopenia and bandemia/left shift - Initial lactic acid 3.7, fever with MAXIMUM TEMPERATURE 102.7, tachycardia - - Blood cultures 2 and urine culture done -preliminary cultures showing gram variable rods. Urine culture negative - Chest x-ray with trace bibasilar atelectasis -ID following, currently on vancomycin and Zosyn - Tylenol 650 mg by mouth every 4 hours as needed for fever - Check Stool culture and stool for C. difficile - follow results High-grade recurrent Ovarian cancer: Patient has been seen by [facility] oncologist, Dr Arevalo. There has been no regression or progression of the pelvic tumor. Recommend supportive care and outpatient follow-up to decide whether or not she can continue treatment. - Continue pain control. Continue Oramorph scheduled, oxycodone as needed, Dilaudid for breakthrough. Acute on chronic renal insufficiency - likely related to dehydration and sepsis -Stable today. Continue IV fluid. - avoid nephrotoxins - Recheck BMP in a.m. and follow trends in renal indices Anemia: Chronic Continue to monitor. Continue home medications for her chronic conditions as indicated. DVT prophylaxis - SCDs/TEDs Problem Qualifiers (1) Sepsis: Qualified Code: A41.9 - Sepsis, due to unspecified organism (2) Ovarian cancer: Qualified Code: C56.9 - Ovarian cancer, unspecified laterality Gina Armenta MD Oct 25, 2016 09:52
[2016-10-25] MEDS: NS + KCL 20 MEQ INJ 1,000 ML IV SCH (13:59)
[2016-10-25] MEDS: ATENOLOL 25 MG TAB PO SCH (17:28)
[2016-10-25] MEDS: MIRTAZAPINE 15 MG TAB PO SCH (20:07)
[2016-10-26] VITALS (8 sets, daily range): BP systolic 116–147; BP diastolic 63–76; PULSE 81–98; RESP 17–19; TEMP 97.1–99.2; O2SAT 94–98
[2016-10-26] MEDS: PIPERACIL-TAZO 3.375 GM PREMIX 50 ML IV SCH ×4 (00:42→18:23)
[2016-10-26] MEDS: MORPHINE SULFATE 15 MG CONTROLLED RELEASE TAB PO SCH ×2 (00:45→06:20)
[2016-10-26] MEDS: NS + KCL 20 MEQ INJ 1,000 ML IV SCH ×3 (00:45→21:09)
[2016-10-26] MEDS: ONDANSETRON HCL 4 MG/2 ML VIAL IVP PRN (06:57)
[2016-10-26 08:38] LABS: HEMATOCRIT 22.9 % (35.0-46.0); MEAN CELL VOLUME 96.1 FL (80.0-100.0); MEAN CORPUSCULAR HEMOGLOBIN 31.8 PG (27.0-34.0); MEAN CORPUSCULAR HGB CONC 33.1 % (32.0-36.0); PLATELET COUNT 50 TH/MM3 (150-450); RED BLOOD COUNT 2.38 MIL/MM3 (4.00-5.30); RED CELL DISTRIBUTION WIDTH 22.4 % (11.6-17.2); WHITE BLOOD COUNT 11.3 TH/MM3 (4.0-11.0)
[2016-10-26 08:41] LABS: REVIEW FLAG FINAL
[2016-10-26] MEDS: buPROPion HCL 150 MG SUSTAINED RELEASE TAB PO SCH (08:52)
[2016-10-26] MEDS: ATENOLOL 25 MG TAB PO SCH (08:53)
[2016-10-26] MEDS: BUDESONIDE-FORMOTEROL 160/4.5 MCG INHALER INH SCH ×2 (08:54→21:08)
[2016-10-26] MEDS: SODIUM CHLORIDE 0.9% FLUSH 10 ML FLUSH IV FLUSH SCH ×2 (08:55→21:08)
[2016-10-26] MEDS: MULTIVITAMINS/MINERALS THERAPEUTIC TAB PO SCH (08:55)
[2016-10-26] MEDS: CILOSTAZOL 100 MG TAB PO SCH ×2 (08:55→21:07)
[2016-10-26] MEDS: QUEtiapine FUMARATE 25 MG TAB PO SCH (09:00)
[2016-10-26 09:26] LABS: BICARBONATE 16.6 MEQ/L (21.0-32.0); POTASSIUM 4.1 MEQ/L (3.5-5.1)
--- NOTE | 2016-10-26 09:54 | RADRPT ---
EXAM DATE/TIME: 10/26/2016 09:21 [place] COMPARISON: No previous studies available for comparison. INDICATIONS : Altered mental status. RADIATION DOSE: 34.34 CTDIvol (mGy) MEDICAL HISTORY : Carcinoma, not otherwise specified. Hypertension. SURGICAL HISTORY : None. ENCOUNTER: Initial ACUITY: 1 day PAIN SCALE: 0/10 LOCATION: cranial TECHNIQUE: Multiple contiguous axial images were obtained of the head. Using automated exposure control and adj ustment of the mA and/or kV according to patient size, radiation dose was kept as low as reasonably a chievable to obtain optimal diagnostic quality images. FINDINGS: CEREBRUM: The ventricles are normal for age. No evidence of midline shift, mass lesion, hemorrhage or acute in farction. No extra-axial fluid collections are seen. POSTERIOR FOSSA: The cerebellum and brainstem are intact. The 4th ventricle is midline. The cerebellopontine angle i s unremarkable. EXTRACRANIAL: The visualized portion of the orbits is intact. SKULL: The calvaria is intact. No evidence of skull fracture. CONCLUSION: Normal examination for a patient of this age. Merrick Chairez MD on October 26, 2016 at 9:46 Board Certified Radiologist. This report was verified electronically.
[2016-10-26] MEDS ORDERED: VANCOMYCIN 1,000 MG/NS 250 ML IV ONE ×2 (10:00)
--- NOTE | 2016-10-26 10:32 | HHI.PR ---
Subjective Remarks Family is concerned that the patient is more confused today. They attributed this to Oramorph. Patient reports she is feeling okay. No appetite. She is not eating much. Her pain is controlled. I reviewed all of the patient's medication with her family at the bedside. They now feel more comfortable. Objective Vitals Vital Signs Date Time Temp Pulse Resp B/P Pulse Ox O2 Delivery O2 Flow Rate FiO2 10/26/16 08:00 97.1 85 18 121/68 96 10/26/16 07:32 19 10/26/16 04:00 99.2 97 18 133/71 97 10/26/16 00:00 98.2 98 19 129/69 96 10/25/16 21:00 92 10/25/16 20:30 20 10/25/16 20:00 98.2 94 19 132/66 94 10/25/16 16:00 98.0 89 18 109/65 95 10/25/16 11:41 97.5 10/25/16 11:17 85 18 96/61 95 I/O 10/25/16 10/25/16 10/25/16 10/26/16 10/26/16 10/26/16 07:00 15:00 23:00 07:00 15:00 23:00 Intake Total 2090 ml 736 ml 1200 ml 2015 ml Output Total 350 ml 1175 ml 300 ml Balance 1740 ml 736 ml 25 ml 1715 ml Intake Oral 240 ml 1200 ml 240 ml IV Total 1850 ml 736 ml 1775 ml Output Urine Total 350 ml 1175 ml 300 ml Result Diagram: 10/26/16 0624 10/26/16 0624 Objective Remarks GENERAL: Elderly female in no acute distress. CARDIOVASCULAR: Normal rate and regular rhythm without murmurs, gallops, or rubs. RESPIRATORY: Good respiratory efforts. Breath sounds equal and clear to auscultation bilaterally. GASTROINTESTINAL: Abdomen soft, diffusely tender to palpation. Normal active bowel sounds MUSCULOSKELETAL: Extremities without cyanosis, or edema. NEURO: Alert & Oriented x4 to person, place, time, situation. Moves all ext x4 PSYCH: Appropriate mood and affect. A/P Problem List: (1) Sepsis ICD Code: A41.9 Status: Acute (2) Ovarian cancer ICD Code: C56.9 Status: Acute (3) Acute on chronic renal insufficiency ICD Code: N28.9 Status: Acute Assessment and Plan Maryellen is a 75-year-old female with a history of ovarian cancer receiving chemotherapy who presented to the emergency room on 10/23/2016 for evaluation of disorientation, fever, chills, and weakness. She is admitted for management of sepsis. Sepsis - source uncertain the patient has had recent diarrhea - is a chemotherapy patient with leukopenia and bandemia/left shift - Initial lactic acid 3.7, fever with MAXIMUM TEMPERATURE 102.7, tachycardia - - Blood cultures 2 and urine culture done -preliminary cultures showing gram variable rods. Urine culture negative - Chest x-ray with trace bibasilar atelectasis - ID following, currently on vancomycin and Zosyn - Tylenol 650 mg by mouth every 4 hours as needed for fever -Stool for C. difficile was ordered but the patient hasn't had anymore diarrhea. High-grade recurrent Ovarian cancer: Patient has been seen by [facility] oncologist, Dr Arevalo. There has been no regression or progression of the pelvic tumor. Recommend supportive care and outpatient follow-up to decide whether or not she can continue treatment. - Continue pain control. Discontinue Oramorph, oxycodone as needed. Acute on chronic renal insufficiency - likely related to dehydration and sepsis - Stable today. Increase IV fluid 125 cc/h - avoid nephrotoxins - Recheck BMP in a.m. and follow trends in renal indices Anemia/thrombocytopenia: Continue to monitor closely. Psychiatric disorders: Continue Seroquel, Remeron, Wellbutrin. Malnutrition secondary to inadequate oral intake: No appetite. We'll try Megace. Anemia: Chronic Continue to monitor. Continue home medications for her chronic conditions as indicated. DVT prophylaxis - SCDs/TEDs Problem Qualifiers (1) Sepsis: Qualified Code: A41.9 - Sepsis, due to unspecified organism (2) Ovarian cancer: Qualified Code: C56.9 - Ovarian cancer, unspecified laterality Gina Armenta MD Oct 26, 2016 10:32
[2016-10-26] MEDS ORDERED: PILL SPLITTER OTHER PRN (11:30)
[2016-10-26] MEDS: FAMOTIDINE 20 MG TAB PO SCH ×2 (11:50→21:07)
[2016-10-26] MEDS: MEGESTROL ACETATE SUSP 400 MG/10 ML CUP PO SCH (13:42)
[2016-10-26] MEDS: MIRTAZAPINE 15 MG TAB PO SCH (21:07)
[2016-10-26] MEDS: ESZOPICLONE 3 MG TAB PO PRN (21:07)
[2016-10-27] VITALS (10 sets, daily range): BP systolic 92–170; BP diastolic 57–87; PULSE 77–91; RESP 16–20; TEMP 96.6–99.5; O2SAT 92–98
[2016-10-27] MEDS: PIPERACIL-TAZO 3.375 GM PREMIX 50 ML IV SCH ×4 (00:11→19:46)
[2016-10-27] MEDS: NS + KCL 20 MEQ INJ 1,000 ML IV SCH ×3 (04:58→19:46)
[2016-10-27 05:50] LABS: HEMATOCRIT 21.5 % (35.0-46.0); MEAN CELL VOLUME 96.1 FL (80.0-100.0); MEAN CORPUSCULAR HEMOGLOBIN 32.2 PG (27.0-34.0); MEAN CORPUSCULAR HGB CONC 33.6 % (32.0-36.0); PLATELET COUNT 36 TH/MM3 (150-450); RED BLOOD COUNT 2.23 MIL/MM3 (4.00-5.30); RED CELL DISTRIBUTION WIDTH 22.6 % (11.6-17.2); WHITE BLOOD COUNT 7.9 TH/MM3 (4.0-11.0)
[2016-10-27 06:16] LABS: BICARBONATE 16.4 MEQ/L (21.0-32.0); POTASSIUM 4.4 MEQ/L (3.5-5.1)
[2016-10-27 06:23] LABS: REVIEW FLAG FINAL
[2016-10-27] MEDS ORDERED: SODIUM CHLOR 0.9% 250 ML INJ 250 ML IV ONE (08:15)
--- NOTE | 2016-10-27 08:27 | PD.ONC.PN ---
Subjective Subjective Remarks Pt is resting in bed confused only oriented to person states she has had pain Objective Data Date Time Temp Pulse Resp B/P Pulse Ox O2 Delivery O2 Flow Rate FiO2 10/27/16 06:00 98.0 90 17 155/87 97 10/27/16 00:00 97.0 80 16 128/65 98 10/26/16 20:13 81 10/26/16 20:00 97.6 82 17 116/63 98 10/26/16 16:00 98.0 83 18 125/67 96 10/26/16 12:00 98.2 89 18 147/76 94 10/26/16 10:23 Nasal Cannula 3.00 10/27/16 10/27/16 10/27/16 07:00 15:00 23:00 Intake Total 1090 ml Output Total 150 ml Balance 940 ml Result Diagram: 10/27/16 0500 10/27/16 0500 Laboratory Results Laboratory Tests Test 10/27/16 05:00 White Blood Count 7.9 TH/MM3 Red Blood Count 2.23 MIL/MM3 Hemoglobin 7.2 GM/DL Hematocrit 21.5 % Mean Corpuscular Volume 96.1 FL Mean Corpuscular Hemoglobin 32.2 PG Mean Corpuscular Hemoglobin 33.6 % Concent Red Cell Distribution Width 22.6 % Platelet Count 36 TH/MM3 Mean Platelet Volume 8.8 FL Sodium Level 142 MEQ/L Potassium Level 4.4 MEQ/L Chloride Level 117 MEQ/L Carbon Dioxide Level 16.4 MEQ/L Anion Gap 9 MEQ/L Blood Urea Nitrogen 24 MG/DL Creatinine 1.31 MG/DL Estimat Glomerular Filtration 40 ML/MIN Rate Random Glucose 74 MG/DL Calcium Level 8.2 MG/DL Random Vancomycin Level 18.1 COMMENT Culture Results Microbiology Date/Time Procedure Status Source Growth 10/24/16 14:00 Aerobic Blood Culture - Preliminary Resulted Blood Other NO GROWTH IN 2 DAYS 10/24/16 14:00 Anaerobic Blood Culture - Preliminary Resulted Blood Other NO GROWTH IN 2 DAYS 10/24/16 14:23 Aerobic Blood Culture - Preliminary Resulted Blood Other NO GROWTH IN 2 DAYS 10/24/16 14:23 Anaerobic Blood Culture - Preliminary Resulted Blood Other NO GROWTH IN 2 DAYS Imaging Studies Last Impressions Head CT 10/26/16 0000 Signed Impressions: Service Date/Time: Wednesday, October 26, 2016 09:21 - CONCLUSION: Normal examination for a patient of this age. Merrick Chairez MD Chest X-Ray 10/23/16 3129 Signed Impressions: Service Date/Time: October 19:09 - CONCLUSION: Trace bibasilar atelectasis. Sal Heredia MD Administered Medications Medications (Trade) Dose Ordered Sig/Melissa Route PRN Reason Start Time Stop Time Status Last Admin Dose Admin Sodium Chloride (NS Flush) 2 ml BID IV FLUSH 10/24/16 09:00 10/26/16 08:55 Ondansetron HCl (Zofran Inj) 4 mg Q6H PRN IVP NAUSEA OR VOMITING 10/23/16 21:30 10/26/16 06:57 Oxycodone HCl (Roxicodone) 10 mg Q8H PRN PO PAIN SCALE 1 TO 10 10/23/16 22:30 10/25/16 17:29 Atenolol (Tenormin) 75 mg DAILY PO 10/24/16 09:00 10/26/16 08:53 Budesonide/ Formoterol Fumarate (Symbicort 160-4.5 Inh) 2 puff Q12HR INH 10/24/16 09:00 10/26/16 21:08 Bupropion HCl (Wellbutrin Sr) 150 mg DAILY PO 10/24/16 09:00 10/26/16 08:52 Cilostazol (Pletal) 100 mg BID PO 10/24/16 09:00 10/26/16 21:07 Eszopiclone (Lunesta) 3 mg HS PRN PO INSOMNIA 10/23/16 22:30 10/26/16 21:07 Mirtazapine (Remeron) 15 mg HS PO 10/24/16 21:00 10/26/16 21:07 Multivitamins/ Minerals Therapeutic (Theragran M Tab) 1 tab DAILY PO 10/24/16 09:00 10/25/16 09:45 Quetiapine Fumarate 50 mg 50 mg DAILY PO 10/24/16 09:00 Hold 10/25/16 09:46 Potassium Chloride/Sodium Chloride 1,000 ml @ 125 mls/hr Q8H IV 10/24/16 12:30 10/27/16 04:58 Piperacillin Sod/ Tazobactam Sod (Zosyn 3.375 Gm Premix) 50 ml @ 100 mls/hr Q6H IV 10/25/16 00:00 10/27/16 05:00 Famotidine (Pepcid) 10 mg BID PO 10/26/16 11:11 10/26/16 21:07 Megestrol Acetate (Megace Liq) 400 mg DAILY PO 10/26/16 11:14 10/26/16 13:42 Objective Remarks GENERAL: frail SKIN: Warm and dry. HEAD: Normocephalic. EYES: No scleral icterus. No injection or drainage. CARDIOVASCULAR: Regular rate and rhythm without murmurs. RESPIRATORY: Breath sounds equal bilaterally. No accessory muscle use. EXTREMITIES: TEDs and SCDs NEUROLOGICAL: confused Assessment/Plan Problem List: (1) Ovarian cancer Status: Acute Plan: s/p carboplatin AUC [address] scan shown mostly stabilization of disease future treatment based on pt's performance status will follow up at outpt (2) Anemia Status: Acute Plan: will transfuse 2 unit PRBCs continue to monitor daily labs (3) Leukocytosis Status: Acute Plan: improving continue ABX, blood culture gram - rods ID following Problem Qualifiers (1) Ovarian cancer: Qualified Code: C56.9 - Ovarian cancer, unspecified laterality (2) Anemia: (3) Leukocytosis: Qualified Code: D72.825 - Bandemia Tomasa Maldonado Oct 27, 2016 08:26
[2016-10-27] MEDS ORDERED: diphenhydrAMINE HCL 25 MG CAP PO PRN ×2 (08:30→17:00)
[2016-10-27] MEDS ORDERED: FUROSEMIDE 20 MG/2 ML VIAL IV ONE (08:30)
[2016-10-27] MEDS ORDERED: ACETAMINOPHEN 325 MG TAB PO PRN (08:30)
[2016-10-27] MEDS: ATENOLOL 25 MG TAB PO SCH (10:04)
[2016-10-27] MEDS: MEGESTROL ACETATE SUSP 400 MG/10 ML CUP PO SCH (10:04)
[2016-10-27] MEDS: QUEtiapine FUMARATE 25 MG TAB PO SCH ×2 (10:05→10:06)
[2016-10-27] MEDS: CILOSTAZOL 100 MG TAB PO SCH ×2 (10:05→21:39)
[2016-10-27] MEDS: MULTIVITAMINS/MINERALS THERAPEUTIC TAB PO SCH (10:05)
[2016-10-27] MEDS: FAMOTIDINE 20 MG TAB PO SCH ×2 (10:05→21:39)
[2016-10-27] MEDS: BUDESONIDE-FORMOTEROL 160/4.5 MCG INHALER INH SCH ×2 (10:06→21:45)
[2016-10-27] MEDS: buPROPion HCL 150 MG SUSTAINED RELEASE TAB PO SCH (10:06)
[2016-10-27] MEDS: SODIUM CHLORIDE 0.9% FLUSH 10 ML FLUSH IV FLUSH SCH ×2 (10:06→21:00)
[2016-10-27] MEDS ORDERED: VANCOMYCIN 1,000 MG/NS 250 ML IV ONE ×2 (11:00)
--- NOTE | 2016-10-27 14:05 | HHI.PR ---
Subjective Remarks H&H continued to trend down today. Blood transfusion has been ordered per oncology. Patient still having periods of confusions. Otherwise no significant change. Objective Vitals Vital Signs Date Time Temp Pulse Resp B/P Pulse Ox O2 Delivery O2 Flow Rate FiO2 10/27/16 12:20 97.9 91 20 170/83 97 10/27/16 08:34 99.5 89 20 163/86 95 10/27/16 06:00 98.0 90 17 155/87 97 10/27/16 00:00 97.0 80 16 128/65 98 10/26/16 20:13 81 10/26/16 20:00 97.6 82 17 116/63 98 10/26/16 16:00 98.0 83 18 125/67 96 I/O 10/26/16 10/26/16 10/26/16 10/27/16 10/27/16 10/27/16 07:00 15:00 23:00 07:00 15:00 23:00 Intake Total 2015 ml 2300 ml 1090 ml Output Total 300 ml 500 ml 250 ml 150 ml Balance 1715 ml -500 ml 2050 ml 940 ml Intake Oral 240 ml 480 ml 240 ml IV Total 1775 ml 1820 ml 850 ml Output Urine Total 300 ml 500 ml 250 ml 150 ml # Voids 2 Result Diagram: 10/27/16 0500 10/27/16 0500 Imaging Last Impressions Head CT 10/26/16 0000 Signed Impressions: Service Date/Time: Wednesday, October 26, 2016 09:21 - CONCLUSION: Normal examination for a patient of this age. Merrick Chairez MD Chest X-Ray 10/23/16 1844 Signed Impressions: Service Date/Time: October 19:09 - CONCLUSION: Trace bibasilar atelectasis. Sal Heredia MD Objective Remarks GENERAL: Elderly female in no acute distress. CARDIOVASCULAR: Normal rate and regular rhythm without murmurs, gallops, or rubs. RESPIRATORY: Good respiratory efforts. Diminished breath sounds at the bases otherwise clear to auscultation bilaterally. GASTROINTESTINAL: Abdomen soft, diffusely tender to palpation. Normal active bowel sounds MUSCULOSKELETAL: Extremities without cyanosis, or edema. NEURO: Alert & Oriented to self. Moves all ext x4 PSYCH: Appropriate mood and affect. A/P Problem List: (1) Sepsis ICD Code: A41.9 Status: Acute (2) Ovarian cancer ICD Code: C56.9 Status: Acute (3) Acute on chronic renal insufficiency ICD Code: N28.9 Status: Acute Assessment and Plan Maryellen is a 75-year-old female with a history of ovarian cancer receiving chemotherapy who presented to the emergency room on 10/23/2016 for evaluation of disorientation, fever, chills, and weakness. She is admitted for management of sepsis. Sepsis - source uncertain the patient has had recent diarrhea - is a chemotherapy patient with leukopenia and bandemia/left shift - Initial lactic acid 3.7, fever with MAXIMUM TEMPERATURE 102.7, tachycardia - - Blood cultures 2 and urine culture done -preliminary cultures showing gram variable rods. Urine culture negative - Chest x-ray with trace bibasilar atelectasis - ID following, currently on vancomycin and Zosyn. Repeat blood cultures negative so far. - Tylenol 650 mg by mouth every 4 hours as needed for fever - Stool for C. difficile was ordered but the patient hasn't had anymore diarrhea. High-grade recurrent Ovarian cancer: Patient has been seen by [facility] oncologist, Dr Arevalo. There has been no regression or progression of the pelvic tumor. Recommend supportive care and outpatient follow-up to decide whether or not she can continue treatment. - Continue pain control. Oxycodone as needed. Acute on chronic renal insufficiency - likely related to dehydration and sepsis -Improving. Continue IV fluid 125 cc/h - avoid nephrotoxins - Recheck BMP in a.m. and follow trends in renal indices Anemia/thrombocytopenia: Chronic, worsening PRBC transfusion per oncology today. Continue to monitor closely. Psychiatric disorders: Continue Seroquel, Remeron, Wellbutrin. Malnutrition secondary to inadequate oral intake: No appetite. We'll try Megace. Anemia: Chronic Continue to monitor. Continue home medications for her chronic conditions as indicated. DVT prophylaxis - SCDs/TEDs Problem Qualifiers (1) Sepsis: Qualified Code: A41.9 - Sepsis, due to unspecified organism (2) Ovarian cancer: Qualified Code: C56.9 - Ovarian cancer, unspecified laterality Gina Armenta MD Oct 27, 2016 14:05
[2016-10-27] MEDS: cloNIDine HCL 0.1 MG TAB PO PRN (15:10)
[2016-10-27] MEDS: ACETAMINOPHEN 325 MG TAB PO PRN ×2 (15:55→21:39)
--- NOTE | 2016-10-27 20:30 | HHI.IDPN ---
Subjective Subjective Remarks lethargic, confused appetie is poor Antibiotics zosyn vancomycin Allergies: Coded Allergies: Motrin (Verified Adverse Reaction, Intermediate, Nausea/Vomiting, 10/23/16) Objective . Vital Signs Date Time Temp Pulse Resp B/P Pulse Ox O2 Delivery O2 Flow Rate FiO2 10/27/16 19:25 96.6 81 17 122/78 97 10/27/16 17:35 97.3 80 17 92/57 97 10/27/16 16:44 98.0 80 20 97/57 98 10/27/16 16:00 97.6 88 20 100/64 92 10/27/16 12:20 97.9 91 20 170/83 97 10/27/16 08:34 99.5 89 20 163/86 95 10/27/16 06:00 98.0 90 17 155/87 97 10/27/16 00:00 97.0 80 16 128/65 98 10/26/16 10/26/16 10/27/16 15:00 23:00 07:00 Intake Total 2300 ml 1090 ml Output Total 500 ml 250 ml 150 ml Balance -500 ml 2050 ml 940 ml Intake Oral 480 ml 240 ml IV Total 1820 ml 850 ml Output Urine Total 500 ml 250 ml 150 ml # Voids 2 . Laboratory Tests Test 10/26/16 10/27/16 06:24 05:00 White Blood Count 11.3 TH/MM3 7.9 TH/MM3 Red Blood Count 2.38 MIL/MM3 2.23 MIL/MM3 Hemoglobin 7.6 GM/DL 7.2 GM/DL Hematocrit 22.9 % 21.5 % Mean Corpuscular Volume 96.1 FL 96.1 FL Mean Corpuscular Hemoglobin 31.8 PG 32.2 PG Mean Corpuscular Hemoglobin 33.1 % 33.6 % Concent Red Cell Distribution Width 22.4 % 22.6 % Platelet Count 50 TH/MM3 36 TH/MM3 Mean Platelet Volume 8.6 FL 8.8 FL Laboratory Tests Test 10/26/16 10/27/16 06:24 05:00 Sodium Level 141 MEQ/L 142 MEQ/L Potassium Level 4.1 MEQ/L 4.4 MEQ/L Chloride Level 112 MEQ/L 117 MEQ/L Carbon Dioxide Level 16.6 MEQ/L 16.4 MEQ/L Anion Gap 12 MEQ/L 9 MEQ/L Blood Urea Nitrogen 32 MG/DL 24 MG/DL Creatinine 1.54 MG/DL 1.31 MG/DL Estimat Glomerular Filtration 33 ML/MIN 40 ML/MIN Rate Random Glucose 176 MG/DL 74 MG/DL Calcium Level 7.9 MG/DL 8.2 MG/DL Imaging Last Impressions Head CT 10/26/16 0000 Signed Impressions: Service Date/Time: Wednesday, October 26, 2016 09:21 - CONCLUSION: Normal examination for a patient of this age. Merrick Chairez MD Chest X-Ray 10/23/16 1844 Signed Impressions: Service Date/Time: October 19:09 - CONCLUSION: Trace bibasilar atelectasis. Sal Heredia MD Physical Exam CONSTITUTIONAL/GENERAL: This is an adequately nourished patient, in no apparent distress. TUBES/LINES/DRAINS:L chest PORT in place w/o e/o infx SKIN: No jaundice, rashes, or lesions. No wounds seen anteriorly. Skin temperature appropriate. Not diaphoretic. EYES: No scleral icterus. No injection or drainage. Fundi not examined. CARDIOVASCULAR: Regular rate and rhythm without murmurs, gallops, or rubs. No JVD. RESPIRATORY/CHEST: Symmetric, unlabored respirations. Clear to auscultation. Breath sounds equal bilaterally. No wheezes, rales, or rhonchi. GASTROINTESTINAL: Abdomen soft, quite tender diffusely especially in RLQ quite distended. No hepato-splenomegaly, or palpable masses. No guarding. Bowel sounds present. GENITOURINARY: Without palpable bladder distension. MUSCULOSKELETAL: Extremities without clubbing, cyanosis, or edema. No joint tenderness or effusion noted. No calf tenderness. No mottling or clubbing. LYMPHATICS: No palpable cervical or supraclavicular adenopathy. NEUROLOGICAL: Lethargic, arousable. Oriened x 2 Motor and sensory grossly within normal limits. Follows commands. Clear speech. Moves all extremities. PSYCHIATRIC: calm, confused. Flat affect Assessment & Plan Remarks Ovarian ca, sp chemo Gram viariable rods bactermeia ? PORT infection - repeat BC neg @ 3 days fever , leukocytosis Diarrhea - resoloved - cont vancomycin cont zoyn - fu final ID of the organism Jaylene Patel MD Oct 27, 2016 20:30
[2016-10-27] MEDS: MIRTAZAPINE 15 MG TAB PO SCH (21:39)
[2016-10-28] VITALS (8 sets, daily range): BP systolic 107–142; BP diastolic 61–81; PULSE 76–85; RESP 14–18; TEMP 96.7–98.9; O2SAT 95–98
[2016-10-28] MEDS: ONDANSETRON HCL 4 MG/2 ML VIAL IVP PRN (00:27)
[2016-10-28] MEDS: ESZOPICLONE 3 MG TAB PO PRN ×2 (01:28→21:22)
[2016-10-28] MEDS: NS + KCL 20 MEQ INJ 1,000 ML IV SCH ×3 (03:00→21:23)
[2016-10-28] MEDS: PIPERACIL-TAZO 3.375 GM PREMIX 50 ML IV SCH ×3 (03:00→11:41)
[2016-10-28 07:19] LABS: HEMATOCRIT 29.7 % (35.0-46.0); MEAN CELL VOLUME 92.3 FL (80.0-100.0); MEAN CORPUSCULAR HEMOGLOBIN 30.7 PG (27.0-34.0); MEAN CORPUSCULAR HGB CONC 33.3 % (32.0-36.0); PLATELET COUNT 21 TH/MM3 (150-450); RED BLOOD COUNT 3.22 MIL/MM3 (4.00-5.30); RED CELL DISTRIBUTION WIDTH 20.2 % (11.6-17.2); WHITE BLOOD COUNT 7.4 TH/MM3 (4.0-11.0)
[2016-10-28 07:29] LABS: REVIEW FLAG FINAL
[2016-10-28 07:42] LABS: BICARBONATE 17.7 MEQ/L (21.0-32.0); POTASSIUM 4.2 MEQ/L (3.5-5.1)
[2016-10-28] MEDS: BUDESONIDE-FORMOTEROL 160/4.5 MCG INHALER INH SCH ×2 (09:36→21:24)
[2016-10-28] MEDS: ATENOLOL 25 MG TAB PO SCH (09:37)
[2016-10-28] MEDS: CILOSTAZOL 100 MG TAB PO SCH ×2 (09:37→21:22)
[2016-10-28] MEDS: QUEtiapine FUMARATE 25 MG TAB PO SCH (09:37)
[2016-10-28] MEDS: FAMOTIDINE 20 MG TAB PO SCH ×2 (09:37→21:22)
[2016-10-28] MEDS: MULTIVITAMINS/MINERALS THERAPEUTIC TAB PO SCH (09:37)
[2016-10-28] MEDS: buPROPion HCL 150 MG SUSTAINED RELEASE TAB PO SCH (09:37)
[2016-10-28] MEDS: MEGESTROL ACETATE SUSP 400 MG/10 ML CUP PO SCH (09:38)
[2016-10-28] MEDS: SODIUM CHLORIDE 0.9% FLUSH 10 ML FLUSH IV FLUSH SCH ×2 (09:38→21:00)
--- NOTE | 2016-10-28 10:02 | HHI.PR ---
Subjective Remarks Doing better with eating. She eat breakfast. Family requesting restarting breathing treatments. Objective Vitals Vital Signs Date Time Temp Pulse Resp B/P Pulse Ox O2 Delivery O2 Flow Rate FiO2 10/28/16 09:00 96.8 81 18 142/72 10/28/16 04:10 78 10/28/16 03:04 96.7 76 14 115/68 97 10/27/16 23:46 98.0 77 16 122/65 96 10/27/16 23:20 98.2 77 16 114/72 95 10/27/16 20:45 Nasal Cannula 3.00 10/27/16 19:25 96.6 81 17 122/78 97 10/27/16 17:35 97.3 80 17 92/57 97 10/27/16 16:44 98.0 80 20 97/57 98 10/27/16 16:00 97.6 88 20 100/64 92 10/27/16 12:20 97.9 91 20 170/83 97 I/O 10/27/16 10/27/16 10/27/16 10/28/16 10/28/16 10/28/16 07:00 15:00 23:00 07:00 15:00 23:00 Intake Total 1090 ml 480 ml 120 ml 240 ml Output Total 150 ml Balance 940 ml 480 ml 120 ml 240 ml Intake Oral 240 ml 480 ml 120 ml 240 ml IV Total 850 ml Output Urine Total 150 ml # Voids 2 5 1 2 Result Diagram: 10/28/16 0635 10/28/16 0635 Objective Remarks GENERAL: Elderly female in no acute distress. CARDIOVASCULAR: Normal rate and regular rhythm without murmurs, gallops, or rubs. RESPIRATORY: Good respiratory efforts. Diminished breath sounds at the bases otherwise clear to auscultation bilaterally. GASTROINTESTINAL: Abdomen soft, diffusely tender to palpation. Normal active bowel sounds MUSCULOSKELETAL: Extremities without cyanosis, or edema. NEURO: Alert & Oriented to self. Moves all ext x4 PSYCH: Appropriate mood and affect. A/P Problem List: (1) Sepsis ICD Code: A41.9 Status: Acute (2) Ovarian cancer ICD Code: C56.9 Status: Acute (3) Acute on chronic renal insufficiency ICD Code: N28.9 Status: Acute Assessment and Plan Maryellen is a 75-year-old female with a history of ovarian cancer receiving chemotherapy who presented to the emergency room on 10/23/2016 for evaluation of disorientation, fever, chills, and weakness. She is admitted for management of sepsis. Sepsis - source uncertain the patient has had recent diarrhea - is a chemotherapy patient with leukopenia and bandemia/left shift - Initial lactic acid 3.7, fever with MAXIMUM TEMPERATURE 102.7, tachycardia - - Blood cultures 2 and urine culture done -preliminary cultures showing gram variable rods. Urine culture negative - Chest x-ray with trace bibasilar atelectasis - ID following, currently on vancomycin and Zosyn. Repeat blood cultures negative so far. - Tylenol 650 mg by mouth every 4 hours as needed for fever -Follow-up final ID of micro High-grade recurrent Ovarian cancer: Patient has been seen by [facility] oncologist, Dr Arevalo. There has been no regression or progression of the pelvic tumor. Recommend supportive care and outpatient follow-up to decide whether or not she can continue treatment. - Continue pain control. Oxycodone as needed. Acute on chronic renal insufficiency - likely related to dehydration and sepsis -Improving. Continue IV fluid 125 cc/h - avoid nephrotoxins - Recheck BMP in a.m. and follow trends in renal indices Anemia/thrombocytopenia: Chronic, worsening PRBC transfusion per oncology today. Continue to monitor closely. Psychiatric disorders: Continue Seroquel, Remeron, Wellbutrin. Malnutrition secondary to inadequate oral intake: No appetite. Megace seems to be helping. Anemia: Chronic Continue to monitor. Continue home medications for her chronic conditions as indicated. DVT prophylaxis - SCDs/TEDs Problem Qualifiers (1) Sepsis: Qualified Code: A41.9 - Sepsis, due to unspecified organism (2) Ovarian cancer: Qualified Code: C56.9 - Ovarian cancer, unspecified laterality Gina Armenta MD Oct 28, 2016 10:02 Gina Armenta MD Oct 28, 2016 10:02
--- NOTE | 2016-10-28 11:22 | PD.CONS ---
Consult Service Palliative Care . Consult Requested By Dr. Maldonado . Primary Care Physician Diana Salgado MD . Reason for Consultation a. To assist with evaluation and management of symptoms including: pain, decreased appetite, weakness b. To assist medical decision maker(s) with: better understanding of current medical conditions; weighing benefits/burdens of medical treatment options; making medical treatment decisions. . HPI History of Present Illness Mrs. Bojorquez is a 75-year-old female who presented to [facility] ED on 2016 for evaluation of disorientation, fever, chills and generalized weakness. The patient had a CT scan with and without contrast at [facility] on and reported feeling tired afterwards. She was afebrile and hemodynamically stable later that day per home health nurse. The patient also had some diarrhea that day that has since resolved. Upon presentation to the ED , the patient was tachycardic and tachypneic with an axillary temperature of 102.7. Mrs. Bojorquez's past medical history is significant for COPD, hypertension, anemia, migraines, anxiety/depression, and is ovarian cancer. Dr. Arevalo is her oncologist. She is receiving chemotherapy with her last treatment 2.5 weeks prior to this episode. Denies radiation therapy. Patient had an oophorectomy in August, but had a subsequent bowel incarceration and was not strong enough to begin chemotherapy at that time. A follow-up CT of the abdomen was done in January and revealed a new mass. Additional diagnostic findings while in the ED include: * Vital signs: Pulse 113, respirations 48, BP 143/85, oxygen saturation 94% on 4 L via nasal cannula, axillary temperature of 102.7. * WBC: 3.3, hemoglobin 9.4, hematocrit 28.5, platelets 160, neutrophils # ( manual) 3.0 * Sodium: 142, potassium 3.6, chloride 107, carbon dioxide 21.8, glucose 125, calcium 7.8, magnesium 1.3 * BUN: 17, creatinine 1.51, GFR 34 * Lactic acid: 3.7 * Total bilirubin: 0.2, AST 21, ALT 17, alkaline phosphatase 85 * Total creatine kinase: 37 * Total protein: 6.4, albumin 3.0 * Lipase: 67 * PT: 10.8, INR 1.0, APTT 24.5 * Negative urine culture * Chest x-ray showed trace bibasilar atelectasis Patient was admitted for further evaluation and medical management of sepsis, unknown etiology. She was started on Cefepime 2 g IV every [address] Arevalo (DIE TRY OUT WORKER/ONC) was consulted. Patient's hemoglobin was 9.4; patient was subsequently transfused with 1 unit packed red blood cells. Kidney functioning is slightly worse in comparison to baseline (BUN 17, creatinine 1.51, estimated GFR 34), likely related to dehydration and sepsis. Patient received IVF while in the ED, will follow lab work. Patient has completed 6 cycles of single agent carboplatin. She has had a decline in performance status with weakness, diffuse abdominal discomfort with decreased appetite. Dr. Arevalo is concerned about the patient's overall health and functional decline, however the patient has indicated she would like to continue chemotherapy. A follow-up CT scan was completed on 10/22/2016. Further treatment options/recommendations will be based on these imaging results and patient's performance status. Infectious disease was consulted for recommendations on management of gram variable charu bacteremia. Cefepime was discontinued and the patient was started on Vancomycin and Zosyn. Patient did have a recent episode of diarrhea but was unable to quantify the number of bowel movements daily or duration of diarrhea - recommendations were made to check stool for C. difficile. Repeat blood culture on 10/24/16, negative on day 4. CT of the head on 10/26/2016 secondary to increasing confusion was normal. . Function/Cognitive Trajectory Patient was initially diagnosed diagnosed with ovarian cancer in October, after surgical resection of a pelvic mass showed ovarian cancer. The patient was referred to Dr. Arevalo (DIE TRY OUT WORKER/ONC). Chemotherapy was recommended, but medical treatment goals were unclear at that time. The patient did not follow up with Dr. Arevalo and was not seen in their office again until 05/30/2016; she remained on decided about chemotherapy. The patient was started on a dose of single agent carboplatin on 06/10/2016; she completed her sixth round of chemotherapy in late Sep, 2016. In the past 6 months, the patient has had a decline in performance status with increasing weakness, pain and decreased appetite. She reports weight loss of an unknown amount. Review of EMR revealed a 35 pound weight loss in the past year. . Review of Systems ROS Limitations: Clinical Condition (ROS obtained through review of documentation and report.), Altered Mental Status, Poor Historian Constitutional: COMPLAINS OF: Fatigue, Fever (on admission, axillary temperature of 102.7), Weight loss (patient reports weight loss of unknown amount. 35 pound weight loss in the past 12 months per EMR), Change in appetite (poor appetite), Pain (sharp, intermittent abdominal pain), Generalized weakness Endocrine: DENIES: Polydipsia, Polyuria, Polyphagia Ears, nose, mouth, throat: DENIES: Hearing loss, Oral lesions, Epistaxis Respiratory: DENIES: Cough, Shortness of breath Cardiovascular: DENIES: Dyspnea on Exertion, Lower Extremity Edema Gastrointestinal: COMPLAINS OF: Abdominal pain, Diarrhea (prior to admission, now resolved), DENIES: Black stools, Bloody stools, Anorexia, Vomiting blood Genitourinary: DENIES: Abnormal vaginal bleeding, Vaginal discharge Hematologic/Lymphatics: COMPLAINS OF: History of transfusions (hemoglobin of 9.4 on admission, subsequently transfused with 1 unit packed red blood cells.) Neurologic: COMPLAINS OF: Poor Balance Psychiatric: COMPLAINS OF: Confusion Past Family Social History Coded Allergies: Motrin (Verified Adverse Reaction, Intermediate, Nausea/Vomiting, 10/23/16) Past Medical History Hypertension Anxiety/depression COPD Stage I ovarian cancer- on chemotherapy and status post bilateral salpingo- oophorectomy on September 07, 2015. History of incarcerated hernia post bilateral salpingo-oophorectomystatus post surgical repair . Past Surgical History Left elbow surgery Shoulder surgery Cataract surgery Hernia repair Bilateral salpingo-oophorectomy Incarcerated small bowel repair Hysterectomy . Reported Medications Atenolol 50 Mg Tab 75 Mg PO DAILY Quetiapine (Quetiapine Fumarate) 50 Mg Tab 50 Mg PO DAILY Oxycodone (Oxycodone HCl) 10 Mg Tab 10 Mg PO Q8H PRN Eszopiclone 3 Mg Tab 3 Mg PO HS PRN Mirtazapine 15 Mg Tab 15 Mg PO HS Alprazolam 1 Mg Tab 0.5 Mg PO Q8H PRN Womens One Daily (Multiple Vitamins W/ Minerals) 1 Tab; 1 Tab PO DAILY Bupropion HCl ER 24 HR (Bupropion HCl) 150 Mg Tab; 150 Mg PO DAILY Cilostazol 100 Mg Tab 100 Mg PO BID . Current Medications Medications (Trade) Dose Ordered Sig/Melissa Route Start Time Stop Time Status Last Admin (NS Flush) 2 ml UNSCH PRN IV FLUSH 10/23/16 21:30 (NS Flush) 2 ml BID IV FLUSH 10/24/16 09:00 10/28/16 09:38 (Zofran Inj) 4 mg Q6H PRN IVP 10/23/16 21:30 10/28/16 00:27 (Narcan Inj) 0.4 mg UNSCH PRN IV 10/23/16 21:30 (Roxicodone) 10 mg Q8H PRN PO 10/23/16 22:30 10/28/16 00:25 (Tenormin) 75 mg DAILY PO 10/24/16 09:00 10/28/16 09:37 (Symbicort 160-4.5 Inh) 2 puff Q12HR INH 10/24/16 09:00 10/28/16 09:36 (Wellbutrin Sr) 150 mg DAILY PO 10/24/16 09:00 10/28/16 09:37 (Pletal) 100 mg BID PO 10/24/16 09:00 10/28/16 09:37 (Lunesta) 3 mg HS PRN PO 10/23/16 22:30 10/28/16 01:28 (Remeron) 15 mg HS PO 10/24/16 21:00 10/27/16 21:39 (Theragran M Tab) 1 tab DAILY PO 10/24/16 09:00 10/28/16 09:37 (SEROquel) 50 mg DAILY PO 10/24/16 09:00 10/28/16 09:37 (Xanax) 0.5 mg Q8H PRN PO 10/23/16 22:45 Acetaminophen 650 mg 650 mg Q4H PRN PO 10/24/16 00:30 Potassium Chloride/Sodium Chloride 1,000 ml @ 125 mls/hr Q8H IV 10/24/16 12:30 10/28/16 03:00 Pharmacy Profile Note 0 ml @ 0 mls/hr UNSCH OTHER 10/24/16 23:15 (Zosyn 3.375 Gm Premix) 50 ml @ 100 mls/hr Q6H IV 10/25/16 00:00 10/28/16 06:38 (Heparin Central Flush) 250 units UNSCH PRN IV FLUSH 10/25/16 05:15 (Heparin Central Flush) 500 units UNSCH IV FLUSH 10/25/16 05:15 (NS Flush) 5 ml UNSCH PRN IV FLUSH 10/25/16 05:15 (Pepcid) 10 mg BID PO 10/26/16 11:11 10/28/16 09:37 (Megace Liq) 400 mg DAILY PO 10/26/16 11:14 10/28/16 09:38 (Pill Splitter) 1 ea UNSCH PRN OTHER 10/26/16 11:30 (Catapres) 0.1 mg Q6H PRN PO 10/27/16 15:00 10/27/16 15:10 . Family History Per patient's : Patient's mother is 93 years old, reportedly living independently in her own home in [place], possible dementia. Familial history of heart disease. . Substance Use Tobacco: Previous smoker, [id number] smoking history. Alcohol: Patient does not consume alcohol Prescription med abuse: None known Illicits: None known . Psychosocial History Patient was born in [place]. She has been to her ([place]) for approximately 50 years; they moved to [place] approximately 10 years ago after retiring. Patient worked "here and there" while her children were growing up. After moving to [place], the patient worked at [employer] (unknown capacity). The patient and her have 2 adult sons and 1 adult daughter. Carol lives in [place], [place]. Both sons (Jadiel and Sal ) live in [place]. They have 8 grandchildren. . Spiritual/Cultural Factors Anabaptist reagan, unknown denomination. Patient's spouse declined spiritual support stating "she will think we've given up on her and she is dying". . Documented care wishes: No known documented care wishes have been completed . Today's verbally stated goals: Patient was confused on exam. Per notes, patient previously reported aggressive goals and a desire to continue chemotherapy. . Family/friends goals: Patient's (Jadiel) verbalizes support of his 's verbalized medical treatment goals. . Ethical and Legal Issues No known ethical or legal issues at this time. . Physical Exam Vital Signs Date Time Temp Pulse Resp B/P Pulse Ox O2 Delivery O2 Flow Rate FiO2 10/28/16 09:00 96.8 81 18 142/72 10/28/16 04:10 78 10/28/16 03:04 96.7 76 14 115/68 97 10/27/16 23:46 98.0 77 16 122/65 96 10/27/16 23:20 98.2 77 16 114/72 95 10/27/16 20:45 Nasal Cannula 3.00 10/27/16 19:25 96.6 81 17 122/78 97 10/27/16 17:35 97.3 80 17 92/57 97 10/27/16 16:44 98.0 80 20 97/57 98 10/27/16 16:00 97.6 88 20 100/64 92 10/27/16 12:20 97.9 91 20 170/83 97 . 10/27/16 10/28/16 19:00 07:00 Intake Total 480 ml 360 ml Balance 480 ml 360 ml Intake Oral 480 ml 360 ml # Voids 5 3 . Exam CONSTITUTIONAL/GENERAL: This is a frail, elderly female who appears chronically ill but is in no acute distress at this time TUBES/LINES/DRAINS: [id number] (right chest wall), CDs SKIN: Ashen color Ecchymoses on upper extremities. Skin temperature appropriate. Not diaphoretic. HEAD: Atraumatic. Normocephalic. EYES: Pupils equal and round and reactive. Extraocular motions intact. No scleral icterus. No injection or drainage. Fundi not examined. ENT: Hearing grossly normal. Nose without bleeding or purulent drainage. Throat without visible erythema, exudates, masses, or lesions. NECK: Trachea midline. Supple, nontender. No palpable thyroid enlargement or nodularity. CARDIOVASCULAR: Regular rate and rhythm without murmurs, gallops, or rubs. No JVD. Peripheral pulses symmetric. RESPIRATORY/CHEST: Symmetric, unlabored respirations. Breath sounds diminished at bases bilaterally. GASTROINTESTINAL: Abdomen soft, slightly distended. Tender to palpation. GENITOURINARY: Bladder was not palpated per patient's request. MUSCULOSKELETAL: Extremities without clubbing, cyanosis, or edema. LYMPHATICS: No palpable cervical or supraclavicular adenopathy. NEUROLOGICAL: Awake, lethargic. Patient falling asleep during exam. She is able to respond to some simple questions appropriately but remains intermittently confused. PSYCHIATRIC: No obvious anxiety/depression. no apparent hallucinations or other psychotic thought process. . Diagnostic Tests Laboratory Laboratory Tests Test 10/26/16 10/27/16 10/27/16 10/27/16 06:24 05:00 13:00 14:59 White Blood Count 11.3 TH/MM3 7.9 TH/MM3 (4.0-11.0) (4.0-11.0) Red Blood Count 2.38 MIL/MM3 2.23 MIL/MM3 (4.00-5.30) (4.00-5.30) Hemoglobin 7.6 GM/DL 7.2 GM/DL (11.6-15.3) (11.6-15.3) Hematocrit 22.9 % 21.5 % (35.0-46.0) (35.0-46.0) Mean Corpuscular Volume 96.1 FL 96.1 FL (80.0-100.0) (80.0-100.0) Mean Corpuscular Hemoglobin 31.8 PG 32.2 PG (27.0-34.0) (27.0-34.0) Mean Corpuscular Hemoglobin 33.1 % 33.6 % Concent (32.0-36.0) (32.0-36.0) Red Cell Distribution Width 22.4 % 22.6 % (11.6-17.2) (11.6-17.2) Platelet Count 50 TH/MM3 36 TH/MM3 (150-450) (150-450) Mean Platelet Volume 8.6 FL 8.8 FL (7.0-11.0) (7.0-11.0) Sodium Level 141 MEQ/L 142 MEQ/L (136-145) (136-145) Potassium Level 4.1 MEQ/L 4.4 MEQ/L (3.5-5.1) (3.5-5.1) Chloride Level 112 MEQ/L 117 MEQ/L (98-107) (98-107) Carbon Dioxide Level 16.6 MEQ/L 16.4 MEQ/L (21.0-32.0) (21.0-32.0) Anion Gap 12 MEQ/L (5-15) 9 MEQ/L (5-15) Blood Urea Nitrogen 32 MG/DL (7-18) 24 MG/DL (7-18) Creatinine 1.54 MG/DL 1.31 MG/DL (0.50-1.00) (0.50-1.00) Estimat Glomerular Filtration 33 ML/MIN (>89) 40 ML/MIN (>89) Rate Random Glucose 176 MG/DL 74 MG/DL (74-106) (74-106) Calcium Level 7.9 MG/DL 8.2 MG/DL (8.5-10.1) (8.5-10.1) Random Vancomycin Level 11.5 COMMENT 18.1 COMMENT Blood Type O NEGATIVE Antibody Screen NEGATIVE Crossmatch Leukocyte-Reduced Red Blood Cells Blood Bank Comment Test 10/28/16 06:35 White Blood Count 7.4 TH/MM3 (4.0-11.0) Red Blood Count 3.22 MIL/MM3 (4.00-5.30) Hemoglobin 9.9 GM/DL (11.6-15.3) Hematocrit 29.7 % (35.0-46.0) Mean Corpuscular Volume 92.3 FL (80.0-100.0) Mean Corpuscular Hemoglobin 30.7 PG (27.0-34.0) Mean Corpuscular Hemoglobin 33.3 % Concent (32.0-36.0) Red Cell Distribution Width 20.2 % (11.6-17.2) Platelet Count 21 TH/MM3 (150-450) Mean Platelet Volume 8.9 FL (7.0-11.0) Sodium Level 141 MEQ/L (136-145) Potassium Level 4.2 MEQ/L (3.5-5.1) Chloride Level 113 MEQ/L (98-107) Carbon Dioxide Level 17.7 MEQ/L (21.0-32.0) Anion Gap 10 MEQ/L (5-15) Blood Urea Nitrogen 22 MG/DL (7-18) Creatinine 1.41 MG/DL (0.50-1.00) Estimat Glomerular Filtration 36 ML/MIN (>89) Rate Random Glucose 70 MG/DL (74-106) Calcium Level 8.1 MG/DL (8.5-10.1) Random Vancomycin Level 23.3 COMMENT . Result Diagram: 10/28/16 0635 10/28/16 0635 Imaging Last [address] 10/26/16 0000 Signed Impressions: Service Date/Time: Wednesday, October 26, 2016 09:21 - CONCLUSION: Normal examination for a patient of this age. Merrick Chairez MD . Patient/Family Conference Present at Family Conference: Met with patient's privately and again at patient's bedside. Spoke with patient's daughter (Carol) via telephone. . Family Conference Location: Bedside, Consult Room, Telephone Issues Discussed: * Palliative care role, purpose, approach * Additional medical, psychosocial, and spiritual history * Patients general health, functional status, and cognitive changes in the months leading up to the current hospitalization * Patient/family understanding of the current medical problems * Patient/family understanding of prognosis * Patients goals of care as best understood from advance directives and/or conversations and/or values * Current medical treatment options and benefits/burdens of those options * Likely scenarios comparing ongoing aggressive care with a transition to comfort measures only * Questions answered to the best of my ability * Palliative care contact information provided . Assessment and Plan Disease Oriented Problem List: (1) COPD (chronic obstructive pulmonary disease) (2) Ovarian cancer Comment: = Diagnosed with ovarian cancer in October, after surgical resection of a pelvic mass showed ovarian cancer. = Chemotherapy was recommended by Dr. Arevalo (DIE TRY OUT WORKER/ONC), but medical treatment goals were unclear at that time. = Patient did not follow up with DIE TRY OUT WORKER/ONC until 05/30/2016 = Patient has completed 6 cycles of single agent carboplatin, last treatment completed 09/2016. . (3) HTN (hypertension) (4) Acute on chronic renal insufficiency Comment: = Likely secondary to dehydration and sepsis. = BUN 17, creatinine 1.51, estimated GFR 35 (on admission) - slightly increased from baseline . (5) Probable sepsis Comment: = On admission: HR 113; RR 48, MAXIMUM TEMPERATURE 102.7 (axillary). = Initial lactic acid 3.7 = Chest x-ray with trace bibasilar atelectasis = ID following, currently on vancomycin and Zosyn = Blood culture growing clostridium species . Symptom Scale: (1) Decreased appetite (2) Pain (3) Weakness Pertinent Non-Medical Issues Psychosocial: Patient was born in [place]. She has been to her ([place]) for approximately 50 years; they moved to [place] approximately 10 years ago after retiring. Patient worked "here and there" while her children were growing up. After moving to [place], the patient worked at [employer] (unknown capacity). The patient and her have 2 adult sons and 1 adult daughter. Carol lives in [place], [place]. Both sons (Jadiel and Sal) live in [place]. They have 8 grandchildren. Spiritual: Anabaptist reagan, unknown denomination. Patient's spouse declined spiritual support stating "she will think we've given up on her and she is dying ". Legal: Per [place] statutes, in the absence of written advanced directives healthcare proxy decision making falls to the patient's . Ethical issues impacting care: No known ethical or legal issues impacting care at this time. . Important Contacts Jadiel Bojorquez, spouse: [phone] Carol Bojorquez, daughter: [phone] . Prognosis Patient is a 75-year-old female who was initially diagnosed diagnosed with ovarian cancer in October, after surgical resection of a pelvic mass showed ovarian cancer. Chemotherapy was recommended by Dr. Arevalo (DIE TRY OUT WORKER/ONC), but the patient's medical treatment goals were unclear at that time. She did not follow -up with Dr. Arevalo again until May,. Single agent carboplatin on started on 06/10/2016; she completed her sixth round of chemotherapy in late September. Per DIE TRY OUT WORKER/ONC notes, recent CT scan showed stabilization of disease. However, the patient's functional status has declined in the past 6 months with increased weakness, severe abdominal pain and decreased appetite (documented weight loss of 35 pounds in the past year). Further treatment will be based on the patient's performance status which is currently poor. . Code Status: No Code Plan * NO CODE-DNR/DNI * Patient is confused, unable to participate in establishment of medical treatment goals. Discussed CODE STATUS with patient's spouse who indicates he and his have had multiple conversations regarding cardiopulmonary resuscitation. He states CPR doesn't always work the way you think it would; they have seen a family member "stuck on life support" and neither one of them wanted that. He requests if the patient should experience cardiopulmonary arrest, she be allowed to pass peacefully and naturally without aggressive interventions. Discussed case with ADRIANE Morales (DIE TRY OUT WORKER/ONC), who states this decision coincides with previous conversations she has had with the patient and her . * Decision-making: Per [place] statutes, in the absence of written advanced directives healthcare proxy decision-making falls to the patient's . * Goals: Goals remain aggressive up to the point of cardiopulmonary resuscitation. * Recent CT scan showed stabilization of disease per DIE TRY OUT WORKER/ONC. However, the patient's functional status has declined in the past 6 months with increased weakness, severe abdominal pain and decreased appetite (documented weight loss of 35 pounds in the past year). Further treatment will be based on the patient' s performance status. * Symptom managementdecreased appetite: Patient reports poor appetite; she has had a documented weight loss of 35 pounds in the past year. Started on Megace 400mg PO daily on 10/26/2016. * Symptom managementweakness: PT is following. Discussed with patient's , recommendations were made for SNF placement upon discharge for rehabilitation. Patient's is refusing SNF placement at this time stating he can do what ever is necessary for his in the home setting. * Symptom managementpain: Patient reporting ongoing severe, intermittent abdominal pain that is characterized as sharp. Current orders for Oxycodone 10 mg PO q8 hours PRN which is what the patient was using at home for his pain management, sparingly used with 1 dose administered in the past 24 hours. * Palliative care contact information was provided to the patient and her . * Palliative care will continue to follow this patient throughout his/her hospitaization to build rapport, assist with symptom managment and goal clarification. . Thank you for the opportunity to participate in the care of Ms. Bojorquez. Jessica Mckeon Oct 28, 2016 11:22
[2016-10-28] MEDS: metroNIDAZOLE 500 MG INJ 100 ML IV SCH (17:15)
--- NOTE | 2016-10-28 19:30 | RADRPT ---
EXAM DATE/TIME: 10/28/2016 18:51 [facility] COMPARISON: CT ABDOMEN & PELVIS W/O CONTRAST, March 25, 2016, 1:30. INDICATIONS : Diffuse lower abdomen pain for the past year. ORAL CONTRAST: Prescribed oral contrast ingested. RADIATION DOSE: 9.96 CTDIvol (mGy) MEDICAL HISTORY : Hypertension. Chronic obstructive pulmonary disease. Carcinoma, ovarian. SURGICAL HISTORY : Hysterectomy. Appendectomy.Tubal ligation. ENCOUNTER: Initial ACUITY: >1 yr PAIN SCALE: 7/10 LOCATION: Bilateral lower quadrant TECHNIQUE: Volumetric scanning of the abdomen and pelvis was performed. Using automated exposure control and ad justment of the mA and/or kV according to patient size, radiation dose was kept as low as reasonably achievable to obtain optimal diagnostic quality images. FINDINGS: There is now a mass in the lower central pelvis measuring about 8.9 cm in diameter. An additional sof t tissue mass in the upper central pelvis measures about 5 cm in diameter. Given the history of ovari an cancer finding is suspicious for tumor recurrence. There is also a 1.6 cm soft tissue nodule in the lower anterior abdominal wall on the right suspiciou s for metastatic disease. Multiple borderline and mildly enlarged retroperitoneal lymph nodes are not ed. Lung bases demonstrate trace pleural fluid. There is mild anasarca. No acute findings in the liver, spleen, adrenals, kidneys or pancreas. There is mural thickening of the sigmoid colon and rectum as it passes over the larger central pelvic mass. This raises the possibility of tumor infiltration or possibly inflammatory change of the recto sigmoid. CONCLUSION: 1. Pelvic masses measuring up to 8.9 and 5 cm in diameter. There is also a 1.6 cm subcutaneous nodule in the lower right anterior abdominal wall. Primary differential diagnosis is tumor recurrence given the reported history of ovarian carcinoma. 2. Mild anasarca and trace pleural effusions. 3. Borderline and mildly enlarged retroperitoneal lymph nodes. 4. Mural thickening of the sigmoid colon and rectum near the larger pelvic mass, possibly from tumor infiltration or inflammatory change. Merrick Chairez MD on October 28, 2016 at 19:18 Board Certified Radiologist. This report was verified electronically.
[2016-10-28] MEDS: MIRTAZAPINE 15 MG TAB PO SCH (21:23)
[2016-10-28] MEDS: RESP: ALBUTEROL 2.5 MG/IPRATROPIUM 0.5 MG NEB (SCH) NEB (22:05)
[2016-10-29] VITALS (9 sets, daily range): BP systolic 131–179; BP diastolic 67–104; PULSE 78–102; RESP 17–20; TEMP 96.2–98.2; O2SAT 94–98
[2016-10-29] MEDS: metroNIDAZOLE 500 MG INJ 100 ML IV SCH ×3 (01:20→18:26)
[2016-10-29] MEDS: cloNIDine HCL 0.1 MG TAB PO PRN (04:09)
[2016-10-29] MEDS: RESP: ALBUTEROL 2.5 MG/IPRATROPIUM 0.5 MG NEB (SCH) NEB ×3 (07:27→20:55)
[2016-10-29] MEDS: QUEtiapine FUMARATE 25 MG TAB PO SCH (08:49)
[2016-10-29] MEDS: MEGESTROL ACETATE SUSP 400 MG/10 ML CUP PO SCH (08:49)
[2016-10-29] MEDS: BUDESONIDE-FORMOTEROL 160/4.5 MCG INHALER INH SCH ×2 (08:49→19:54)
[2016-10-29] MEDS: SODIUM CHLORIDE 0.9% FLUSH 10 ML FLUSH IV FLUSH SCH ×2 (08:49→19:47)
[2016-10-29] MEDS: buPROPion HCL 150 MG SUSTAINED RELEASE TAB PO SCH (08:49)
[2016-10-29] MEDS: CILOSTAZOL 100 MG TAB PO SCH ×2 (08:49→19:45)
[2016-10-29] MEDS: MULTIVITAMINS/MINERALS THERAPEUTIC TAB PO SCH (08:49)
[2016-10-29] MEDS: ATENOLOL 25 MG TAB PO SCH (08:49)
[2016-10-29] MEDS: FAMOTIDINE 20 MG TAB PO SCH ×2 (08:49→19:45)
[2016-10-29 10:15] LABS: AUTOMATED NEUTROPHIL # 8.3 TH/MM3 (1.8-7.7); BASOPHIL % 0.2 % (0.0-2.0); EOSINOPHIL % 0.1 % (0.0-4.0); HEMATOCRIT 31.8 % (35.0-46.0); LYMPH % 8.3 % (9.0-44.0); LYMPHOCYTE # 0.8 TH/MM3 (1.0-4.8); MEAN CELL VOLUME 91.7 FL (80.0-100.0); MEAN CORPUSCULAR HEMOGLOBIN 31.2 PG (27.0-34.0); MONO % 8.5 % (0.0-8.0); NEUT % 82.9 % (16.0-70.0); PLATELET COUNT 24 TH/MM3 (150-450); RED BLOOD COUNT 3.47 MIL/MM3 (4.00-5.30); RED CELL DISTRIBUTION WIDTH 20.4 % (11.6-17.2); WHITE BLOOD COUNT 10.1 TH/MM3 (4.0-11.0)
[2016-10-29 10:17] LABS: HEMO FLAGS AUTO DIFF
[2016-10-29 10:41] LABS: BICARBONATE 17.1 MEQ/L (21.0-32.0); POTASSIUM 3.6 MEQ/L (3.5-5.1)
[2016-10-29 10:47] LABS: BANDS 11 % (0-6); EOSINOPHILS 1 % (0-4); NEUTROPHIL # MANUAL DIFF 9.3 TH/MM3 (1.8-7.7); POLYS (SEG NEUTROPHILS) 81 % (16-70); TOXIC GRANULATION 1+ (NORMAL); WBC DIFF SAMPLE 100
[2016-10-29 10:48] LABS: PLATELET ESTIMATE SMEAR LOW (NORMAL); PLATELET MORPHOLOGY NORMAL (NORMAL)
[2016-10-29 10:49] LABS: SCAN/DIFF FINAL DIFF MANUAL
--- NOTE | 2016-10-29 12:52 | HHI.PR ---
Subjective Remarks Patient has been having diarrhea. She reports some abdominal discomfort. Appetite is poor. Objective Vitals Vital Signs Date Time Temp Pulse Resp B/P Pulse Ox O2 Delivery O2 Flow Rate FiO2 10/29/16 08:47 Nasal Cannula 2.00 10/29/16 08:00 97.9 79 20 168/89 98 10/29/16 07:27 95 Nasal Cannula 2.00 10/29/16 04:00 97.0 88 18 179/95 94 10/29/16 00:00 96.2 83 17 157/83 95 10/28/16 22:07 98 Nasal Cannula 2.00 10/28/16 21:23 98 Nasal Cannula 2.00 10/28/16 20:30 85 10/28/16 20:00 97.1 80 17 141/81 96 10/28/16 16:00 98.9 84 16 133/71 97 I/O 10/28/16 10/28/16 10/28/16 10/29/16 10/29/16 10/29/16 07:00 15:00 23:00 07:00 15:00 23:00 Intake Total 240 ml 120 ml Output Total 300 ml 200 ml Balance 240 ml -180 ml -200 ml Intake Oral 240 ml 120 ml Output Urine Total 300 ml 200 ml # Voids 2 5 1 # Bowel Movements 2 3 2 Result Diagram: 10/29/16 1002 10/29/16 1002 Objective Remarks GENERAL: Elderly female in no acute distress. CARDIOVASCULAR: Normal rate and regular rhythm without murmurs, gallops, or rubs. RESPIRATORY: Good respiratory efforts. Diminished breath sounds at the bases otherwise clear to auscultation bilaterally. GASTROINTESTINAL: Abdomen soft, diffusely tender to palpation. Normal active bowel sounds MUSCULOSKELETAL: Extremities without cyanosis, or edema. NEURO: Alert & Oriented to self. Moves all ext x4 PSYCH: Appropriate mood and affect. A/P Problem List: (1) Sepsis ICD Code: A41.9 Status: Acute (2) Ovarian cancer ICD Code: C56.9 Status: Acute (3) Acute on chronic renal insufficiency ICD Code: N28.9 Status: Acute Assessment and Plan 75-year-old female with a history of ovarian cancer receiving chemotherapy who presented to the emergency room on 10/23/2016 for evaluation of disorientation, fever, chills, and weakness. She is admitted for management of sepsis. Sepsis -possible source is clostridium in the blood- is a chemotherapy patient with leukopenia and bandemia/left shift - Initial lactic acid 3.7, fever with MAXIMUM TEMPERATURE 102.7, tachycardia - -Blood cultures growing Clostridium species. Urine culture negative - ID following, status post vancomycin and Zosyn. Patient started on IV Flagyl on 10/28/16. Repeat blood cultures negative so far. - Tylenol 650 mg by mouth every 4 hours as needed for fever -Discussed with ID, Dr. Patel will follow up today. High-grade recurrent Ovarian cancer: Patient has been seen by [facility] [employer] oncologist, Dr Arevalo. There has been no regression or progression of the pelvic tumor. Recommend supportive care and outpatient follow-up to decide whether or not she can continue treatment. - Continue pain control. Oxycodone as needed. Acute on chronic renal insufficiency - likely related to dehydration and sepsis -Improving. Continue IV fluid 125 cc/h - avoid nephrotoxins - Recheck BMP in a.m. and follow trends in renal indices Anemia/thrombocytopenia: Chronic, worsening Status post PRBC transfusion. H&H stable Continue to monitor closely. Psychiatric disorders: Continue Seroquel, Remeron, Wellbutrin. Malnutrition secondary to inadequate oral intake: No appetite. Megace seems to be helping. Anemia: Chronic Continue to monitor. Continue home medications for her chronic conditions as indicated. DVT prophylaxis - SCDs/TEDs Problem Qualifiers (1) Sepsis: Qualified Code: A41.9 - Sepsis, due to unspecified organism (2) Ovarian cancer: Qualified Code: C56.9 - Ovarian cancer, unspecified laterality Gina Armenta MD Oct 29, 2016 12:52
[2016-10-29 13:26] LABS: C. DIFF EPI 027 PRESUMPTIVE NEGATIVE (NEGATIVE)
[2016-10-29 13:58] LABS: C. DIFF TOXIN PCR POSITIVE (NEGATIVE)
--- NOTE | 2016-10-29 14:25 | HHI.IDPN ---
Subjective Subjective Remarks much better Awake and alert and talking takuing PO Had 2-5 BMs a day very liquid co diarrhea CT showed mural thickening of the sigmoid Antibiotics flagyl Allergies: Coded Allergies: Motrin (Verified Adverse Reaction, Intermediate, Nausea/Vomiting, 10/23/16) Objective . Vital Signs Date Time Temp Pulse Resp B/P Pulse Ox O2 Delivery O2 Flow Rate FiO2 10/29/16 12:00 98.2 78 18 131/67 97 10/29/16 08:47 Nasal Cannula 2.00 10/29/16 08:00 97.9 79 20 168/89 98 10/29/16 07:27 95 Nasal Cannula 2.00 10/29/16 04:00 97.0 88 18 179/95 94 10/29/16 00:00 96.2 83 17 157/83 95 10/28/16 22:07 98 Nasal Cannula 2.00 10/28/16 21:23 98 Nasal Cannula 2.00 10/28/16 20:30 85 10/28/16 20:00 97.1 80 17 141/81 96 10/28/16 16:00 98.9 84 16 133/71 97 10/28/16 10/28/16 10/29/16 15:00 23:00 07:00 Intake Total 120 ml Output Total 300 ml 200 ml Balance -180 ml -200 ml Intake Oral 120 ml Output Urine Total 300 ml 200 ml # Voids 5 # Bowel Movements 2 3 . Laboratory Tests Test 10/28/16 10/29/16 06:35 10:02 White Blood Count 7.4 TH/MM3 10.1 TH/MM3 Red Blood Count 3.22 MIL/MM3 3.47 MIL/MM3 Hemoglobin 9.9 GM/DL 10.8 GM/DL Hematocrit 29.7 % 31.8 % Mean Corpuscular Volume 92.3 FL 91.7 FL Mean Corpuscular Hemoglobin 30.7 PG 31.2 PG Mean Corpuscular Hemoglobin 33.3 % 34.0 % Concent Red Cell Distribution Width 20.2 % 20.4 % Platelet Count 21 TH/MM3 24 TH/MM3 Mean Platelet Volume 8.9 FL 7.8 FL Neutrophils (%) (Auto) 82.9 % Lymphocytes (%) (Auto) 8.3 % Monocytes (%) (Auto) 8.5 % Eosinophils (%) (Auto) 0.1 % Basophils (%) (Auto) 0.2 % Neutrophils # (Auto) 8.3 TH/MM3 Lymphocytes # (Auto) 0.8 TH/MM3 Monocytes # (Auto) 0.9 TH/MM3 Eosinophils # (Auto) 0.0 TH/MM3 Basophils # (Auto) 0.0 TH/MM3 CBC Comment AUTO DIFF Differential Total Cells 100 Counted Neutrophils % (Manual) 81 % Band Neutrophils % 11 % Lymphocytes % 5 % Monocytes % 2 % Eosinophils % 1 % Neutrophils # (Manual) 9.3 TH/MM3 Differential Comment FINAL DIFF MANUAL Atypical Lymphocytes % Toxic Granulation 1+ Platelet Estimate LOW Platelet Morphology Comment NORMAL Laboratory Tests Test 10/28/16 10/29/16 06:35 10:02 Sodium Level 141 MEQ/L 143 MEQ/L Potassium Level 4.2 MEQ/L 3.6 MEQ/L Chloride Level 113 MEQ/L 114 MEQ/L Carbon Dioxide Level 17.7 MEQ/L 17.1 MEQ/L Anion Gap 10 MEQ/L 12 MEQ/L Blood Urea Nitrogen 22 MG/DL 16 MG/DL Creatinine 1.41 MG/DL 1.21 MG/DL Estimat Glomerular Filtration 36 ML/MIN 43 ML/MIN Rate Random Glucose 70 MG/DL 84 MG/DL Calcium Level 8.1 MG/DL 8.1 MG/DL Imaging Last Impressions Abdomen/Pelvis CT 10/28/16 0000 Signed Impressions: Service Date/Time: Friday, October 28, 2016 18:51 - CONCLUSION: 1. Pelvic masses measuring up to 8.9 and 5 cm in diameter. There is also a 1.6 cm subcutaneous nodule in the lower right anterior abdominal wall. Primary differential diagnosis is tumor recurrence given the reported history of ovarian carcinoma. 2. Mild anasarca and trace pleural effusions. 3. Borderline and mildly enlarged retroperitoneal lymph nodes. 4. Mural thickening of the sigmoid colon and rectum near the larger pelvic mass, possibly from tumor infiltration or inflammatory change. Merrick Chairez MD Head CT 10/26/16 0000 Signed Impressions: Service Date/Time: Wednesday, October 26, 2016 09:21 - CONCLUSION: Normal examination for a patient of this age. Merrick Chairez MD Chest X-Ray 10/23/16 1844 Signed Impressions: Service Date/Time: October 19:09 - CONCLUSION: Trace bibasilar atelectasis. Sal Heredia MD Physical Exam CONSTITUTIONAL/GENERAL: This is an adequately nourished patient, in no apparent distress. TUBES/LINES/DRAINS:L chest PORT in place w/o e/o infx SKIN: No jaundice, rashes, or lesions. No wounds seen anteriorly. Skin temperature appropriate. Not diaphoretic. CARDIOVASCULAR: Regular rate and rhythm without murmurs, gallops, or rubs. No JVD. RESPIRATORY/CHEST: Symmetric, unlabored respirations. Clear to auscultation. Breath sounds equal bilaterally. No wheezes, rales, or rhonchi. GASTROINTESTINAL: Abdomen soft, very tender to palpation in RLQ quite distended. No hepato-splenomegaly, or palpable masses. No guarding. Bowel sounds present. GENITOURINARY: Without palpable bladder distension. MUSCULOSKELETAL: Extremities without clubbing, cyanosis, or edema. No joint tenderness or effusion noted. No calf tenderness. No mottling or clubbing. LYMPHATICS: No palpable cervical or supraclavicular adenopathy. NEUROLOGICAL: awake fully alert abnd ooriented Motor and sensory grossly within normal limits. Follows commands. Clear speech. Moves all extremities. PSYCHIATRIC: calm, confused. Flat affect Assessment & Plan Remarks Ovarian ca, sp chemo Colitis, C.diff Clostridia dificile sepsi - start oral vancomycin cont flagyl dw Jaylene Young MD Oct 29, 2016 14:25
[2016-10-29] MEDS: VANCOMYCIN 500 MG VIAL (FOR ORAL USE ONLY) PO SCH ×2 (15:48→19:47)
[2016-10-29] MEDS: NS + KCL 20 MEQ INJ 1,000 ML IV SCH ×3 (15:49→19:55)
--- NOTE | 2016-10-29 16:04 | PD.ONC.PN ---
Subjective Subjective Remarks pt is resting in bed with daughter at bedside diarrhea with C-diff on Vaco and Flagyl, Zosyn has been stopped per ID a little more oriented to self, recognized me and her daughter denies pain. Objective Data Date Time Temp Pulse Resp B/P Pulse Ox O2 Delivery O2 Flow Rate FiO2 10/29/16 12:00 98.2 78 18 131/67 97 10/29/16 08:47 Nasal Cannula 2.00 10/29/16 08:00 97.9 79 20 168/89 98 10/29/16 07:27 95 Nasal Cannula 2.00 10/29/16 04:00 97.0 88 18 179/95 94 10/29/16 00:00 96.2 83 17 157/83 95 10/28/16 22:07 98 Nasal Cannula 2.00 10/28/16 21:23 98 Nasal Cannula 2.00 10/28/16 20:30 85 10/28/16 20:00 97.1 80 17 141/81 96 10/28/16 16:00 98.9 84 16 133/71 97 10/29/16 10/29/16 10/29/16 07:00 15:00 23:00 Intake Total 596 ml Balance 596 ml Result Diagram: 10/29/16 1002 10/29/16 1002 Laboratory Results Laboratory Tests Test 10/29/16 10/29/16 08:35 10:02 Stool C. difficile Toxin (PCR) POSITIVE Stl C. difficile Toxin PRESUMPTIVE Epiderm 027 NEGATIVE White Blood Count 10.1 TH/MM3 Red Blood Count 3.47 MIL/MM3 Hemoglobin 10.8 GM/DL Hematocrit 31.8 % Mean Corpuscular Volume 91.7 FL Mean Corpuscular Hemoglobin 31.2 PG Mean Corpuscular Hemoglobin 34.0 % Concent Red Cell Distribution Width 20.4 % Platelet Count 24 TH/MM3 Mean Platelet Volume 7.8 FL Neutrophils (%) (Auto) 82.9 % Lymphocytes (%) (Auto) 8.3 % Monocytes (%) (Auto) 8.5 % Eosinophils (%) (Auto) 0.1 % Basophils (%) (Auto) 0.2 % Neutrophils # (Auto) 8.3 TH/MM3 Lymphocytes # (Auto) 0.8 TH/MM3 Monocytes # (Auto) 0.9 TH/MM3 Eosinophils # (Auto) 0.0 TH/MM3 Basophils # (Auto) 0.0 TH/MM3 CBC Comment AUTO DIFF Differential Total Cells 100 Counted Neutrophils % (Manual) 81 % Band Neutrophils % 11 % Lymphocytes % 5 % Monocytes % 2 % Eosinophils % 1 % Neutrophils # (Manual) 9.3 TH/MM3 Differential Comment FINAL DIFF MANUAL Atypical Lymphocytes % Toxic Granulation 1+ Platelet Estimate LOW Platelet Morphology Comment NORMAL Sodium Level 143 MEQ/L Potassium Level 3.6 MEQ/L Chloride Level 114 MEQ/L Carbon Dioxide Level 17.1 MEQ/L Anion Gap 12 MEQ/L Blood Urea Nitrogen 16 MG/DL Creatinine 1.21 MG/DL Estimat Glomerular Filtration 43 ML/MIN Rate Random Glucose 84 MG/DL Calcium Level 8.1 MG/DL Administered Medications Medications (Trade) Dose Ordered Sig/Melissa Route PRN Reason Start Time Stop Time Status Last Admin Dose Admin Sodium Chloride (NS Flush) 2 ml BID IV FLUSH 10/24/16 09:00 10/28/16 09:38 Ondansetron HCl (Zofran Inj) 4 mg Q6H PRN IVP NAUSEA OR VOMITING 10/23/16 21:30 10/28/16 00:27 Oxycodone HCl (Roxicodone) 10 mg Q8H PRN PO PAIN SCALE 1 TO 10 10/23/16 22:30 10/29/16 09:07 Atenolol (Tenormin) 75 mg DAILY PO 10/24/16 09:00 10/29/16 08:49 Budesonide/ Formoterol Fumarate (Symbicort 160-4.5 Inh) 2 puff Q12HR INH 10/24/16 09:00 10/29/16 08:49 Bupropion HCl (Wellbutrin Sr) 150 mg DAILY PO 10/24/16 09:00 10/29/16 08:49 Cilostazol (Pletal) 100 mg BID PO 10/24/16 09:00 10/29/16 08:49 Eszopiclone (Lunesta) 3 mg HS PRN PO INSOMNIA 10/23/16 22:30 10/28/16 21:22 Mirtazapine (Remeron) 15 mg HS PO 10/24/16 21:00 10/28/16 21:23 Multivitamins/ Minerals Therapeutic (Theragran M Tab) 1 tab DAILY PO 10/24/16 09:00 10/29/16 08:49 Quetiapine Fumarate 50 mg 50 mg DAILY PO 10/24/16 09:00 10/29/16 08:49 Potassium Chloride/Sodium Chloride (NS + KCl 20 Meq Inj) 1,000 ml @ 125 mls/hr Q8H IV 10/24/16 12:30 10/29/16 15:49 Famotidine (Pepcid) 10 mg BID PO 10/26/16 11:11 10/29/16 08:49 Megestrol Acetate (Megace Liq) 400 mg DAILY PO 10/26/16 11:14 10/29/16 08:49 Clonidine 0.1 mg 0.1 mg Q6H PRN PO SBP> OR = 170, DBP> OR = 100 10/27/16 15:00 10/29/16 04:09 Metronidazole (Flagyl 500 Mg Inj) 100 ml @ 100 mls/hr Q8H IV 10/28/16 17:00 10/29/16 08:48 Vancomycin HCl (VANCOMYCIN for oral use only) 500 mg Q6H PO 10/29/16 15:00 10/29/16 15:48 Objective Remarks GENERAL: Well-nourished, well-developed patient. SKIN: Warm and dry. HEAD: Normocephalic. EXTREMITIES: teds and scds MUSCULOSKELETAL: Adequate muscle tone. NEUROLOGICAL: No obvious focal deficit, confused to place and time PSYCHIATRIC: confused Assessment/Plan Problem List: (1) Ovarian cancer Status: Acute Plan: s/p carboplatin AUC [address] scan shown mostly stabilization of disease future treatment based on pt's performance status will follow up at outpt 10/29/16: palliative care is following, family still wishing for aggressive care but she is a DNR/DNI (2) Anemia Status: Acute Plan: s/p 2 units PRBCs continue to monitor labs daily (3) Leukocytosis Status: Acute Plan: improving continue ABX, blood culture no growth in 5 days urine negative 10/29/16: + c-dff pt on isolation, Flagyl and Vanco per ID (4) Thrombocytopenia Status: Acute Plan: yael appeared to be 21,000 (10/28/16) trending up currently 24,000 will continue to monitor with daily labs Problem Qualifiers (1) Ovarian cancer: Qualified Code: C56.9 - Ovarian cancer, unspecified laterality (2) Anemia: (3) Leukocytosis: Qualified Code: D72.825 - Bandemia Tomasa Maldonado [facility] Oct 29, 2016 16:04
[2016-10-29] MEDS: MIRTAZAPINE 15 MG TAB PO SCH (19:46)
[2016-10-29] MEDS: ALPRAZolam 0.5 MG TAB PO PRN (23:31)
[2016-10-29] MEDS: ESZOPICLONE 3 MG TAB PO PRN (23:33)
[2016-10-30] VITALS (8 sets, daily range): BP systolic 135–172; BP diastolic 79–90; PULSE 77–104; RESP 17–18; TEMP 97–98.3; O2SAT 95–100
[2016-10-30] MEDS: metroNIDAZOLE 500 MG INJ 100 ML IV SCH ×3 (00:52→17:32)
[2016-10-30] MEDS: VANCOMYCIN 500 MG VIAL (FOR ORAL USE ONLY) PO SCH ×4 (03:26→20:40)
[2016-10-30] MEDS: cloNIDine HCL 0.1 MG TAB PO PRN ×2 (03:32→18:37)
[2016-10-30] MEDS: NS + KCL 20 MEQ INJ 1,000 ML IV SCH ×2 (05:42→10:01)
[2016-10-30 07:54] LABS: HEMATOCRIT 26.9 % (35.0-46.0); MEAN CELL VOLUME 91.9 FL (80.0-100.0); MEAN CORPUSCULAR HEMOGLOBIN 31.5 PG (27.0-34.0); MEAN CORPUSCULAR HGB CONC 34.3 % (32.0-36.0); PLATELET COUNT 28 TH/MM3 (150-450); RED BLOOD COUNT 2.93 MIL/MM3 (4.00-5.30); RED CELL DISTRIBUTION WIDTH 20.4 % (11.6-17.2); WHITE BLOOD COUNT 9.7 TH/MM3 (4.0-11.0)
[2016-10-30 07:58] LABS: REVIEW FLAG FINAL
[2016-10-30] MEDS: RESP: ALBUTEROL 2.5 MG/IPRATROPIUM 0.5 MG NEB (SCH) NEB ×3 (08:02→19:58)
[2016-10-30 08:22] LABS: BICARBONATE 17.2 MEQ/L (21.0-32.0); POTASSIUM 3.7 MEQ/L (3.5-5.1)
--- NOTE | 2016-10-30 09:13 | HHI.PR ---
Subjective Remarks Patient reports she is feeling better today compared to yesterday. She had diarrhea yesterday. No diarrhea yet this morning. Stool C. difficile came back positive. She reports abdominal pain has improved. She was able to eat yesterday and planning to eat today. She is more alert today and oriented 4. Objective Vitals Vital Signs Date Time Temp Pulse Resp B/P Pulse Ox O2 Delivery O2 Flow Rate FiO2 10/30/16 08:37 97.8 77 18 172/90 100 10/30/16 08:04 97 Nasal Cannula 2.00 10/30/16 04:00 97.0 104 18 135/85 95 10/29/16 22:57 97.1 102 18 178/104 95 10/29/16 20:55 97 Nasal Cannula 2.00 10/29/16 20:00 97.5 91 18 163/83 98 10/29/16 16:00 98.0 82 18 143/84 97 10/29/16 12:00 98.2 78 18 131/67 97 I/O 10/29/16 10/29/16 10/29/16 10/30/16 10/30/16 10/30/16 07:00 15:00 23:00 07:00 15:00 23:00 Intake Total 1316 ml 1523 ml Output Total 120 ml Balance 1196 ml 1523 ml Intake Oral 720 ml IV Total 596 ml 1523 ml Output Urine Total 120 ml # Voids 5 1 5 2 # Bowel Movements 2 1 Result Diagram: 10/30/16 0600 10/30/16 0600 Objective Remarks GENERAL: Elderly female in no acute distress. CARDIOVASCULAR: Normal rate and regular rhythm without murmurs, gallops, or rubs. RESPIRATORY: Good respiratory efforts. Diminished breath sounds at the bases otherwise clear to auscultation bilaterally. GASTROINTESTINAL: Abdomen soft, diffusely tender to palpation. Normal active bowel sounds MUSCULOSKELETAL: Extremities without cyanosis, or edema. NEURO: Alert & Oriented 4. Moves all ext x4. Normal speech PSYCH: Appropriate mood and affect. A/P Problem List: (1) Sepsis ICD Code: A41.9 Status: Acute (2) Ovarian cancer ICD Code: C56.9 Status: Acute (3) Acute on chronic renal insufficiency ICD Code: N28.9 Status: Acute Assessment and Plan 75-year-old female with a history of ovarian cancer receiving chemotherapy who presented to the emergency room on 10/23/2016 for evaluation of disorientation, fever, chills, and weakness. She is admitted for management of sepsis. Sepsis -secondary to C. difficile colitis, clostridium in the blood- is a chemotherapy patient with leukopenia and bandemia/left shift. Patient initially was not having any stool to test for C. difficile. - Initial lactic acid 3.7, fever with MAXIMUM TEMPERATURE 102.7, tachycardia - -Blood cultures growing Clostridium species. Urine culture negative - ID following, status post vancomycin and Zosyn. Patient started on IV Flagyl on 10/28/16. Oral vancomycin started on 10/29/16. Repeat blood cultures negative so far. - Tylenol 650 mg by mouth every 4 hours as needed for fever High-grade recurrent Ovarian cancer: Patient has been seen by [facility] oncologist, Dr Arevalo. There has been no regression or progression of the pelvic tumor. Recommend supportive care and outpatient follow-up to decide whether or not she can continue treatment. - Continue pain control. Oxycodone as needed. Acute on chronic renal insufficiency - likely related to dehydration and sepsis -Improving. We'll continue IV fluid. Decrease rate to 100 cc per hour - avoid nephrotoxins - Recheck BMP in a.m. and follow trends in renal indices Anemia/thrombocytopenia: Chronic, stable Status post PRBC transfusion. H&H stable Continue to monitor closely. Psychiatric disorders: Continue Seroquel, Remeron, Wellbutrin. Malnutrition secondary to inadequate oral intake: No appetite. Megace seems to be helping. Anemia: Chronic Continue to monitor. Continue home medications for her chronic conditions as indicated. DVT prophylaxis - SCDs/TEDs Problem Qualifiers (1) Sepsis: Qualified Code: A41.9 - Sepsis, due to unspecified organism (2) Ovarian cancer: Qualified Code: C56.9 - Ovarian cancer, unspecified laterality Gina Armenta MD Oct 30, 2016 09:13
[2016-10-30] MEDS: FAMOTIDINE 20 MG TAB PO SCH ×2 (09:54→20:40)
[2016-10-30] MEDS: ATENOLOL 25 MG TAB PO SCH (09:54)
[2016-10-30] MEDS: MULTIVITAMINS/MINERALS THERAPEUTIC TAB PO SCH (09:54)
[2016-10-30] MEDS: CILOSTAZOL 100 MG TAB PO SCH ×2 (09:55→20:40)
[2016-10-30] MEDS: MEGESTROL ACETATE SUSP 400 MG/10 ML CUP PO SCH (09:55)
[2016-10-30] MEDS: QUEtiapine FUMARATE 25 MG TAB PO SCH (09:55)
[2016-10-30] MEDS: buPROPion HCL 150 MG SUSTAINED RELEASE TAB PO SCH (09:55)
[2016-10-30] MEDS: SODIUM CHLORIDE 0.9% FLUSH 10 ML FLUSH IV FLUSH SCH ×2 (09:56→20:41)
[2016-10-30] MEDS: BUDESONIDE-FORMOTEROL 160/4.5 MCG INHALER INH SCH ×2 (09:57→20:40)
[2016-10-30] MEDS: ALPRAZolam 0.5 MG TAB PO PRN ×2 (09:59→18:37)
--- NOTE | 2016-10-30 10:34 | HHI.HCPN ---
Reason for visit a. To assist with evaluation and management of symptoms including: pain, decreased appetite, weakness b. To assist medical decision maker(s) with: better understanding of current medical conditions; weighing benefits/burdens of medical treatment options; making medical treatment decisions. . Subjective/Interval History Mrs. Bojorquez is a 75-year-old female who presented to [facility] ED on 2016 for evaluation of disorientation, fever, chills and generalized weakness. Initially diagnosed ovarian s/p oophorectomy in August,. Patient is did not proceed with chemotherapy as recommended or follow up with [facility] until May,. At that time she was started on single agent carboplatin, completing her sixth cycle in September 2016. Pulse 77, respirations 18, BP 172/90, axillary temperature 97.8. 10/30/2016 lab work: = WBC 9.7, hemoglobin 9.2, hematocrit 26.9, platelets 28 = Sodium: 143, potassium 3.7, chloride 1:15, carbon dioxide 17.2, glucose 91, calcium 7.6 = BUN: 13, creatinine 1.14, GFR 47 Patient resting with eyes closed on exam, arouses to verbal stimuli. More alert today, oriented to person place and time. Patient denies shortness of breath, respirations are unlabored, oxygen saturation at 100% on 2 L via nasal cannula. Stool culture: + C. difficile positive, on Vancomycin and Flagyl. Infectious disease is following. Patient continues to have episodes of diarrhea, decreased frequency reported. Abdominal discomfort in lower quadrants slightly improved. On oxycodone 10mg PO q8 hours PRN which is effectively managing pain; patient has received 2 doses in the past 24 hours. Appetite seems to be improving with Megace. Patient's states the patient ate most of her breakfast including a double order of scrambled eggs. Physical therapy is following. Patient refused PT yesterday secondary to fatigue and "not feeling well". Plan to return home with [facility] upon discharge; patient's goals remain aggressive at this time. Patient' s is optimistic that he will be able to help his get stronger once she is back at home and she will be able to continue aggressive treatment. . Advance Directives Advance Directive Specifics Documented care wishes: No known documented care wishes have been completed . Objective Vital Signs Date Time Temp Pulse Resp B/P Pulse Ox O2 Delivery O2 Flow Rate FiO2 10/30/16 08:37 97.8 77 18 172/90 100 10/30/16 08:04 97 Nasal Cannula 2.00 10/30/16 04:00 97.0 104 18 135/85 95 10/29/16 22:57 97.1 102 18 178/104 95 10/29/16 20:55 97 Nasal Cannula 2.00 10/29/16 20:00 97.5 91 18 163/83 98 10/29/16 16:00 98.0 82 18 143/84 97 10/29/16 12:00 98.2 78 18 131/67 97 Intake & Output 10/30/16 10/30/16 07:00 19:00 Intake Total 1523 ml Output Total 120 ml Balance 1403 ml IV Total 1523 ml Output Urine Total 120 ml # Voids 6 # Bowel Movements 1 . Physical Exam CONSTITUTIONAL/GENERAL: This is a frail, elderly female who appears to be resting peacefully in no acute distressS TUBES/LINES/DRAINS: [id number] (right chest wall), CDs SKIN: Ecchymoses on upper extremities. Skin temperature appropriate. Not diaphoretic. HEAD: Atraumatic. Normocephalic. EYES: Pupils equal and round and reactive. Extraocular motions intact. No scleral icterus. No injection or drainage. Fundi not examined. ENT: Hearing grossly normal. Nose without bleeding or purulent drainage. NECK: Trachea midline. CARDIOVASCULAR: Regular rate and rhythm without murmurs, gallops, or rubs. No JVD. Peripheral pulses symmetric. RESPIRATORY/CHEST: Symmetric, unlabored respirations on 2L via nasal cannula Breath sounds diminished at bases bilaterally. GASTROINTESTINAL: Abdomen soft, slightly distended. Tender to palpation. GENITOURINARY: Bladder was not palpated per patient's request. MUSCULOSKELETAL: Extremities without clubbing, cyanosis, or edema. LYMPHATICS: No palpable cervical or supraclavicular adenopathy. NEUROLOGICAL: Awake, oriented to person place and time. Normal speech. Follows commands. PSYCHIATRIC: No obvious anxiety/depression. no apparent hallucinations or other psychotic thought process. . Diagnostic Tests Laboratory Laboratory Tests Test 10/27/16 10/27/16 10/28/16 10/29/16 13:00 14:59 06:35 08:35 Blood Type O NEGATIVE Antibody Screen NEGATIVE Crossmatch Leukocyte-Reduced Red Blood Cells Blood Bank Comment White Blood Count 7.4 TH/MM3 (4.0-11.0) Red Blood Count 3.22 MIL/MM3 (4.00-5.30) Hemoglobin 9.9 GM/DL (11.6-15.3) Hematocrit 29.7 % (35.0-46.0) Mean Corpuscular Volume 92.3 FL (80.0-100.0) Mean Corpuscular Hemoglobin 30.7 PG (27.0-34.0) Mean Corpuscular Hemoglobin 33.3 % Concent (32.0-36.0) Red Cell Distribution Width 20.2 % (11.6-17.2) Platelet Count 21 TH/MM3 (150-450) Mean Platelet Volume 8.9 FL (7.0-11.0) Sodium Level 141 MEQ/L (136-145) Potassium Level 4.2 MEQ/L (3.5-5.1) Chloride Level 113 MEQ/L (98-107) Carbon Dioxide Level 17.7 MEQ/L (21.0-32.0) Anion Gap 10 MEQ/L (5-15) Blood Urea Nitrogen 22 MG/DL (7-18) Creatinine 1.41 MG/DL (0.50-1.00) Estimat Glomerular Filtration 36 ML/MIN (>89) Rate Random Glucose 70 MG/DL (74-106) Calcium Level 8.1 MG/DL (8.5-10.1) Random Vancomycin Level 23.3 COMMENT Stool C. difficile Toxin (PCR) POSITIVE (NEGATIVE) Stl C. difficile Toxin PRESUMPTIVE Epiderm 027 NEGATIVE (NEGATIVE) Test 10/29/16 10/30/16 10:02 06:00 White Blood Count 10.1 TH/MM3 9.7 TH/MM3 (4.0-11.0) (4.0-11.0) Red Blood Count 3.47 MIL/MM3 2.93 MIL/MM3 (4.00-5.30) (4.00-5.30) Hemoglobin 10.8 GM/DL 9.2 GM/DL (11.6-15.3) (11.6-15.3) Hematocrit 31.8 % 26.9 % (35.0-46.0) (35.0-46.0) Mean Corpuscular Volume 91.7 FL 91.9 FL (80.0-100.0) (80.0-100.0) Mean Corpuscular Hemoglobin 31.2 PG 31.5 PG (27.0-34.0) (27.0-34.0) Mean Corpuscular Hemoglobin 34.0 % 34.3 % Concent (32.0-36.0) (32.0-36.0) Red Cell Distribution Width 20.4 % 20.4 % (11.6-17.2) (11.6-17.2) Platelet Count 24 TH/MM3 28 TH/MM3 (150-450) (150-450) Mean Platelet Volume 7.8 FL 9.4 FL (7.0-11.0) (7.0-11.0) Neutrophils (%) (Auto) 82.9 % (16.0-70.0) Lymphocytes (%) (Auto) 8.3 % (9.0-44.0) Monocytes (%) (Auto) 8.5 % (0.0-8.0) Eosinophils (%) (Auto) 0.1 % (0.0-4.0) Basophils (%) (Auto) 0.2 % (0.0-2.0) Neutrophils # (Auto) 8.3 TH/MM3 (1.8-7.7) Lymphocytes # (Auto) 0.8 TH/MM3 (1.0-4.8) Monocytes # (Auto) 0.9 TH/MM3 (0-0.9) Eosinophils # (Auto) 0.0 TH/MM3 (0-0.4) Basophils # (Auto) 0.0 TH/MM3 (0-0.2) CBC Comment AUTO DIFF Differential Total Cells 100 Counted Neutrophils % (Manual) 81 % (16-70) Band Neutrophils % 11 % (0-6) Lymphocytes % 5 % (9-44) Monocytes % 2 % (0-8) Eosinophils % 1 % (0-4) Neutrophils # (Manual) 9.3 TH/MM3 (1.8-7.7) Differential Comment FINAL DIFF MANUAL Atypical Lymphocytes % (0-0) Toxic Granulation 1+ (NORMAL) Platelet Estimate LOW (NORMAL) Platelet Morphology Comment NORMAL (NORMAL) Sodium Level 143 MEQ/L 143 MEQ/L (136-145) (136-145) Potassium Level 3.6 MEQ/L 3.7 MEQ/L (3.5-5.1) (3.5-5.1) Chloride Level 114 MEQ/L 115 MEQ/L (98-107) (98-107) Carbon Dioxide Level 17.1 MEQ/L 17.2 MEQ/L (21.0-32.0) (21.0-32.0) Anion Gap 12 MEQ/L (5-15) 11 MEQ/L (5-15) Blood Urea Nitrogen 16 MG/DL (7-18) 13 MG/DL (7-18) Creatinine 1.21 MG/DL 1.14 MG/DL (0.50-1.00) (0.50-1.00) Estimat Glomerular Filtration 43 ML/MIN (>89) 47 ML/MIN (>89) Rate Random Glucose 84 MG/DL 91 MG/DL (74-106) (74-106) Calcium Level 8.1 MG/DL 7.6 MG/DL (8.5-10.1) (8.5-10.1) . Result Diagram: 10/30/16 0600 10/30/16 0600 Imaging Last 72 hours Impressions Abdomen/Pelvis CT 10/28/16 0000 Signed Impressions: Service Date/Time: Friday, October 28, 2016 18:51 - CONCLUSION: 1. Pelvic masses measuring up to 8.9 and 5 cm in diameter. There is also a 1.6 cm subcutaneous nodule in the lower right anterior abdominal wall. Primary differential diagnosis is tumor recurrence given the reported history of ovarian carcinoma. 2. Mild anasarca and trace pleural effusions. 3. Borderline and mildly enlarged retroperitoneal lymph nodes. 4. Mural thickening of the sigmoid colon and rectum near the larger pelvic mass, possibly from tumor infiltration or inflammatory change. Merrick Chairez MD . Assessment and Plan Disease Oriented Problem List: (1) COPD (chronic obstructive pulmonary disease) (2) Ovarian cancer Comment: = Initially diagnosed ovarian s/p oophorectomy in August,. = Patient is did not proceed with chemotherapy as recommended or follow up with [facility] (Dr. Arevalo) until May,. = Patient has completed 6 cycles of single agent carboplatin, last treatment completed 09/2016. . (3) HTN (hypertension) (4) Acute on chronic renal insufficiency Comment: = Likely secondary to dehydration and sepsis. = BUN 17, creatinine 1.51, estimated GFR 35 (on admission) - slightly increased from baseline = Kidney functioning slowly improving. 10/30/16: BUN 13, creatinine 1.14, GFR 47 . (5) Probable sepsis (6) Clostridium difficile infection Comment: = Blood cultures growing Clostridium species; repeat cultures negative to date. = Stool culture: + C. difficile = ID following, status post Vancomycin and Zosyn. Patient started on IV Flagyl on 10/28/2016; oral Vancomycin started on 10/29/2016 Symptom Scale: (1) Decreased appetite (2) Pain (3) Weakness Pertinent Non-Medical Issues Psychosocial: Patient was born in [place]. She has been to her ([place]) for approximately 50 years; they moved to [place] approximately 10 years ago after retiring. Patient worked "here and there" while her children were growing up. After moving to [place], the patient worked at [employer] (unknown capacity). The patient and her have 2 adult sons and 1 adult daughter. Carol lives in [place], [place]. Both sons (Jadiel and Sal) live in [place]. They have 8 grandchildren. Spiritual: Roman Catholic reagan, unknown denomination. Patient's spouse declined spiritual support stating "she will think we've given up on her and she is dying ". Legal: Per [place] statutes, in the absence of written advanced directives healthcare proxy decision making falls to the patient's . Ethical issues impacting care: No known ethical or legal issues impacting care at this time. . Important Contacts Jadiel Bojorquez, spouse: [phone] Carol Bojorquez, daughter: [phone] . Prognosis Patient is a 75-year-old female who was initially diagnosed diagnosed with ovarian cancer in October, after surgical resection of a pelvic mass showed ovarian cancer. Chemotherapy was recommended by Dr. Arevalo ([facility]), but the patient's medical treatment goals were unclear at that time. She did not follow -up with Dr. Arevalo again until May,. Single agent carboplatin on started on 06/10/2016; she completed her sixth round of chemotherapy in late September. Per C[facility]TING [facility]PER[facility] notes, recent CT scan showed stabilization of disease. However, the patient's functional status has declined in the past 6 months with increased weakness, severe abdominal pain and decreased appetite (documented weight loss of 35 pounds in the past year). Further treatment will be based on the patient's performance status which is currently poor. . Code Status: No Code Plan * NO CODE-DNR/DNI * Decision-making: Per [place] statutes, in the absence of written advanced directives healthcare proxy decision-making falls to the patient's . * Goals aggressive up to the point of cardiopulmonary resuscitation; patient is hopeful she will be able to continue aggressive treatment once she becomes stronger. * Symptom managementdecreased appetite: Patient reports poor appetite; she has had a documented weight loss of 35 pounds in the past year. Megace appears to be effective, improved appetite reported. He is states the patient ate most of her breakfast this morning, including a double order of scrambled eggs. * Symptom managementweakness: PT is following; patient refused PT yesterday secondary to lethargy and not feeling well in general. SNF placement for rehabilitation was recommended at discharge, but patient/family are refusing. Plan to return home with [facility] upon discharge. * Symptom managementpain: Patient reporting ongoing severe, intermittent abdominal pain that is characterized as sharp. Current orders for Oxycodone 10 mg PO q8 hours PRN which is what the patient was using at home for his pain management, sparingly used with 1 dose administered in the past 24 hours. * Stool culture: + C. difficile positive, on Vancomycin and Flagyl. Infectious disease is following. Patient continues to have episodes of diarrhea, decreased frequency reported. * Palliative care will continue to follow this patient throughout his/her hospitalization to build rapport, assist with symptom managment and goal clarification. . Attestation To help prompt me to consider important information that might be impacting today's encounter and assessment, information from prior notes written by myself or my colleagues may have been "brought forward" into today's note. My signature on this note, however, is an attestation that I personally performed the exam, history, and/or decision-making noted today, and, unless otherwise indicated, the interactions with patient, family, and staff as well as the review of records all occurred today. I also attest that the listed assessment and stated plan reflect my best clinical judgment today based on the combination of historical information, prior notes, and today's exam/ interactions. When time spent is documented, it refers only to time spent today by the signer, or if indicated, combined time spent today by collaborating physician/nurse practitioner. . Jessica Mckeon Oct 30, 2016 10:33 combination of historical information, prior notes, and today's exam/ interactions. When time spent is documented, it refers only to time spent today by the signer, or if indicated, combined time spent today by collaborating physician/nurse practitioner. . Jessica Mckeon Oct 30, 2016 10:33 Jessica Mckeon Oct 30, 2016 10:33
[2016-10-30] MEDS: MIRTAZAPINE 15 MG TAB PO SCH (20:40)
[2016-10-30] MEDS: ESZOPICLONE 3 MG TAB PO PRN (20:40)
[2016-10-31] VITALS (9 sets, daily range): BP systolic 142–162; BP diastolic 76–96; PULSE 78–90; RESP 17–18; TEMP 97.3–98.2; O2SAT 96–100
[2016-10-31] MEDS: metroNIDAZOLE 500 MG INJ 100 ML IV SCH ×3 (00:18→16:28)
[2016-10-31] MEDS: NS + KCL 20 MEQ INJ 1,000 ML IV SCH ×2 (00:49→15:04)
[2016-10-31] MEDS: VANCOMYCIN 500 MG VIAL (FOR ORAL USE ONLY) PO SCH ×4 (03:37→20:29)
[2016-10-31] MEDS: ALPRAZolam 0.5 MG TAB PO PRN ×2 (03:46→15:00)
[2016-10-31 04:40] LABS: HEMATOCRIT 27.8 % (35.0-46.0); MEAN CORPUSCULAR HEMOGLOBIN 31.6 PG (27.0-34.0); MEAN CORPUSCULAR HGB CONC 34.3 % (32.0-36.0); PLATELET COUNT 37 TH/MM3 (150-450); RED BLOOD COUNT 3.02 MIL/MM3 (4.00-5.30); RED CELL DISTRIBUTION WIDTH 20.3 % (11.6-17.2); WHITE BLOOD COUNT 9.7 TH/MM3 (4.0-11.0)
[2016-10-31 04:44] LABS: REVIEW FLAG FINAL
[2016-10-31 05:16] LABS: BICARBONATE 19.4 MEQ/L (21.0-32.0); POTASSIUM 3.9 MEQ/L (3.5-5.1)
[2016-10-31] MEDS: RESP: ALBUTEROL 2.5 MG/IPRATROPIUM 0.5 MG NEB (SCH) NEB ×3 (08:00→20:38)
--- NOTE | 2016-10-31 09:47 | HHI.PR ---
Subjective Remarks Pt states she feels better. some abdominal pain on and off but currently doesn' t have any. doesn't remember how many BMs today. RN states that her BM frequency has improved. Per RN, she had no BMs throughout the day yesterday, she had 2 overnight and none this morning. Pt is also eating better. Objective Vitals Vital Signs Date Time Temp Pulse Resp B/P Pulse Ox O2 Delivery O2 Flow Rate FiO2 10/31/16 08:48 100 Nasal Cannula 2.00 10/31/16 08:00 97.7 82 18 157/96 100 162/91 10/31/16 06:27 19 10/31/16 04:00 97.7 90 17 160/92 96 10/31/16 00:00 97.3 80 17 153/86 96 10/30/16 21:00 93 10/30/16 21:00 98 Nasal Cannula 2.00 28 10/30/16 20:00 98 Nasal Cannula 2.00 10/30/16 20:00 98.0 89 17 141/79 98 10/30/16 16:20 97.8 86 18 171/90 98 10/30/16 12:56 98.3 83 18 148/84 98 10/30/16 09:55 95 Nasal Cannula 2.00 I/O 10/30/16 10/30/16 10/30/16 10/31/16 10/31/16 10/31/16 07:00 15:00 23:00 07:00 15:00 23:00 Intake Total 1523 ml 1079 ml 1121 ml Balance 1523 ml 1079 ml 1121 ml Intake Oral 220 ml IV Total 1523 ml 859 ml 1121 ml # Voids 2 2 4 # Bowel Movements 1 2 2 Result Diagram: 10/31/16 0341 10/31/16 0341 Imaging Last Impressions Abdomen/Pelvis CT 10/28/16 0000 Signed Impressions: Service Date/Time: Friday, October 28, 2016 18:51 - CONCLUSION: 1. Pelvic masses measuring up to 8.9 and 5 cm in diameter. There is also a 1.6 cm subcutaneous nodule in the lower right anterior abdominal wall. Primary differential diagnosis is tumor recurrence given the reported history of ovarian carcinoma. 2. Mild anasarca and trace pleural effusions. 3. Borderline and mildly enlarged retroperitoneal lymph nodes. 4. Mural thickening of the sigmoid colon and rectum near the larger pelvic mass, possibly from tumor infiltration or inflammatory change. Merrick Chairez MD Head CT 10/26/16 0000 Signed Impressions: Service Date/Time: Wednesday, October 26, 2016 09:21 - CONCLUSION: Normal examination for a patient of this age. Merrick Chairez MD Chest X-Ray 10/23/16 1844 Signed Impressions: Service Date/Time: October 19:09 - CONCLUSION: Trace bibasilar atelectasis. Sal Heredia MD Objective Remarks GENERAL: Elderly female in no acute distress.laying in bed CARDIOVASCULAR: Normal rate and regular rhythm without murmurs. RESPIRATORY: Good respiratory efforts. Diminished breath sounds at the bases otherwise clear to auscultation bilaterally. no guarding or rebound GASTROINTESTINAL: Abdomen soft, diffusely uncomfortable to palpation. Normal active bowel sounds MUSCULOSKELETAL: Extremities without cyanosis, or edema. NEURO: Alert & Oriented 4. Moves all ext x4. Normal speech PSYCH: Appropriate mood and affect. A/P Problem List: (1) Sepsis ICD Code: A41.9 Status: Acute (2) Ovarian cancer ICD Code: C56.9 Status: Acute (3) Acute on chronic renal insufficiency ICD Code: N28.9 Status: Acute Assessment and Plan 75-year-old female with a history of ovarian cancer receiving chemotherapy who presented to the emergency room on 10/23/2016 for evaluation of disorientation, fever, chills, and weakness. She is admitted for management of sepsis. Sepsis -secondary to C. difficile colitis, clostridium in the blood- is a chemotherapy patient with leukopenia and bandemia/left shift. Patient initially was not having any stool to test for C. difficile. Initial lactic acid 3.7, fever with MAXIMUM TEMPERATURE 102.7, tachycardia -Blood cultures growing Clostridium species. Urine culture negative - ID following, status post vancomycin and Zosyn. Patient started on IV Flagyl on 10/28/16. Oral vancomycin started on 10/29/16. Repeat blood cultures negative so far. Pt will be discharged on oral vanco and flagyl. awaiting final recs on length of time of abx. - Tylenol 650 mg by mouth every 4 hours as needed for fever High-grade recurrent Ovarian cancer: Patient has been seen by [facility] oncologist, Dr Arevalo. There has been no regression or progression of the pelvic tumor. Recommend supportive care and outpatient follow-up to decide whether or not she can continue treatment. - Continue pain control. Oxycodone as needed. palliative care did evaluate the patient, her goals are aggressive up to the point of cardiopulmonary resuscitation Acute on chronic renal insufficiency - likely related to dehydration and sepsis -Cr 1.09 today. HLIV Anemia/thrombocytopenia: Chronic, stable Status post PRBC transfusion. H&H stable Psychiatric disorders: Continue Seroquel, Remeron, Wellbutrin. Malnutrition secondary to inadequate oral intake: Not much appetite but somewhat improved. Megace seems to be helping. Anemia: Chronic Continue to monitor. Continue home medications for her chronic conditions as indicated. DVT prophylaxis - SCDs/TEDs Discharge Planning awaiting final recs from [facility] d/c home w home health Problem Qualifiers (1) Sepsis: Qualified Code: A41.9 - Sepsis, due to unspecified organism (2) Ovarian cancer: Qualified Code: C56.9 - Ovarian cancer, unspecified laterality Marilu Mcdowell MD Oct 31, 2016 09:47
[2016-10-31] MEDS: MULTIVITAMINS/MINERALS THERAPEUTIC TAB PO SCH (09:56)
[2016-10-31] MEDS: CILOSTAZOL 100 MG TAB PO SCH ×2 (09:56→20:29)
[2016-10-31] MEDS: FAMOTIDINE 20 MG TAB PO SCH ×2 (09:56→20:29)
[2016-10-31] MEDS: ATENOLOL 25 MG TAB PO SCH (09:56)
[2016-10-31] MEDS: SODIUM CHLORIDE 0.9% FLUSH 10 ML FLUSH IV FLUSH SCH ×2 (09:57→20:30)
[2016-10-31] MEDS: buPROPion HCL 150 MG SUSTAINED RELEASE TAB PO SCH (09:57)
[2016-10-31] MEDS: BUDESONIDE-FORMOTEROL 160/4.5 MCG INHALER INH SCH ×2 (09:57→20:30)
[2016-10-31] MEDS: MEGESTROL ACETATE SUSP 400 MG/10 ML CUP PO SCH (09:57)
[2016-10-31] MEDS: QUEtiapine FUMARATE 25 MG TAB PO SCH (09:57)
--- NOTE | 2016-10-31 15:43 | HHI.FF ---
Face to Face Verification Diagnosis: (1) Weakness (2) Clostridium difficile diarrhea (3) Clostridium difficile infection Physical Therapy Order: Evaluate and Treat Home Health Nursing Order: Medical education Medication education-adverse effect Nursing assessment with vital signs I have seen patient Doris Bojorquez on 10/31/16. My clinical findings support the need for the requested home health care services because: Pt requires home health PT as per our PT eval. Deconditioned w/ increased weakness I certify that my clinical findings support that this patient is homebound because: Pt requires home health PT as per our PT eval. Unsteady gait/balance Marilu Mcdowell MD Oct 31, 2016 15:43
--- NOTE | 2016-10-31 17:45 | HHI.IDPN ---
Subjective Subjective Remarks Doing better takes PO No diarrhea Antibiotics flagyl vanco po Allergies: Coded Allergies: Motrin (Verified Adverse Reaction, Intermediate, Nausea/Vomiting, 10/23/16) Objective . Vital Signs Date Time Temp Pulse Resp B/P Pulse Ox O2 Delivery O2 Flow Rate FiO2 10/31/16 16:00 97.5 88 18 151/87 96 10/31/16 14:18 98 Nasal Cannula 2.00 10/31/16 12:00 98.2 78 18 143/76 98 10/31/16 09:57 100 Nasal Cannula 2.00 10/31/16 08:48 100 Nasal Cannula 2.00 10/31/16 08:00 97.7 82 18 157/96 100 162/91 10/31/16 06:27 19 10/31/16 04:00 97.7 90 17 160/92 96 10/31/16 00:00 97.3 80 17 153/86 96 10/30/16 21:00 93 10/30/16 21:00 98 Nasal Cannula 2.00 28 10/30/16 20:00 98 Nasal Cannula 2.00 10/30/16 20:00 98.0 89 17 141/79 98 10/30/16 10/30/16 10/31/16 14:59 22:59 06:59 Intake Total 1079 ml Balance 1079 ml Intake Oral 220 ml IV Total 859 ml # Voids 2 4 # Bowel Movements 2 2 . Laboratory Tests Test 10/30/16 10/31/16 06:00 03:41 White Blood Count 9.7 TH/MM3 9.7 TH/MM3 Red Blood Count 2.93 MIL/MM3 3.02 MIL/MM3 Hemoglobin 9.2 GM/DL 9.5 GM/DL Hematocrit 26.9 % 27.8 % Mean Corpuscular Volume 91.9 FL 92.0 FL Mean Corpuscular Hemoglobin 31.5 PG 31.6 PG Mean Corpuscular Hemoglobin 34.3 % 34.3 % Concent Red Cell Distribution Width 20.4 % 20.3 % Platelet Count 28 TH/MM3 37 TH/MM3 Mean Platelet Volume 9.4 FL 8.8 FL Laboratory Tests Test 10/30/16 10/31/16 06:00 03:41 Sodium Level 143 MEQ/L 146 MEQ/L Potassium Level 3.7 MEQ/L 3.9 MEQ/L Chloride Level 115 MEQ/L 119 MEQ/L Carbon Dioxide Level 17.2 MEQ/L 19.4 MEQ/L Anion Gap 11 MEQ/L 8 MEQ/L Blood Urea Nitrogen 13 MG/DL 11 MG/DL Creatinine 1.14 MG/DL 1.09 MG/DL Estimat Glomerular Filtration 47 ML/MIN 49 ML/MIN Rate Random Glucose 91 MG/DL 101 MG/DL Calcium Level 7.6 MG/DL 7.5 MG/DL Imaging Last Impressions Abdomen/Pelvis CT 10/28/16 0000 Signed Impressions: Service Date/Time: Friday, October 28, 2016 18:51 - CONCLUSION: 1. Pelvic masses measuring up to 8.9 and 5 cm in diameter. There is also a 1.6 cm subcutaneous nodule in the lower right anterior abdominal wall. Primary differential diagnosis is tumor recurrence given the reported history of ovarian carcinoma. 2. Mild anasarca and trace pleural effusions. 3. Borderline and mildly enlarged retroperitoneal lymph nodes. 4. Mural thickening of the sigmoid colon and rectum near the larger pelvic mass, possibly from tumor infiltration or inflammatory change. Merrick Chairez MD Head CT 10/26/16 0000 Signed Impressions: Service Date/Time: Wednesday, October 26, 2016 09:21 - CONCLUSION: Normal examination for a patient of this age. Merrick Chairez MD Chest X-Ray 10/23/16 1844 Signed Impressions: Service Date/Time: October 19:09 - CONCLUSION: Trace bibasilar atelectasis. Sal Heredia MD Physical Exam CONSTITUTIONAL/GENERAL: This is an adequately nourished patient, in no apparent distress. TUBES/LINES/DRAINS:L chest PORT in place w/o e/o infx SKIN: No jaundice, rashes, or lesions. No wounds seen anteriorly. Skin temperature appropriate. Not diaphoretic. CARDIOVASCULAR: Regular rate and rhythm without murmurs, gallops, or rubs. No JVD. RESPIRATORY/CHEST: Symmetric, unlabored respirations. Clear to auscultation. Breath sounds equal bilaterally. No wheezes, rales, or rhonchi. GASTROINTESTINAL: Abdomen soft, minimally tender to palpation in RLQ less distended. No hepato-splenomegaly, or palpable masses. No guarding. Bowel sounds present. GENITOURINARY: Without palpable bladder distension. MUSCULOSKELETAL: Extremities without clubbing, cyanosis, or edema. No joint tenderness or effusion noted. No calf tenderness. No mottling or clubbing. NEUROLOGICAL: awake fully alert abnd ooriented Motor and sensory grossly within normal limits. Follows commands. Clear speech. Moves all extremities. PSYCHIATRIC: calm, confused. Flat affect Assessment & Plan Remarks Ovarian ca, sp chemo Colitis, C.diff Clostridia dificile sepsis, clinically resolving - oral vancomycin 125 mg PO q 6 hrs x 14 days - [place] with vanco alone x 14 days if smx recurr cont flagyl PO x 1 more week OK to dc from [facility] Jaylene Zavala MD Oct 31, 2016 17:45
[2016-10-31] MEDS ORDERED: METR-1 PO (17:57)
[2016-10-31] MEDS ORDERED: VANC500I3 PO (17:57)
--- NOTE | 2016-10-31 18:01 | HHI.DS ---
Discharge Summary Admission Date Oct 23, 2016 at 21:17 Discharge Date: Oct 31, 2016 Admitting Diagnosis SEPSIS; NEUTROPENIA/BANDEMIA; CHEMO PT (1) Sepsis ICD Code: A41.9 Diagnosis: Principal (2) Ovarian cancer ICD Code: C56.9 Diagnosis: Secondary (3) Acute on chronic renal insufficiency ICD Code: N28.9 Diagnosis: Principal Procedures none Brief History - From Admission Written by Melisa Gallagher, acting as scribe for Dr. Quintanilla on 10/23/16 at 22:22. Yesterday (10/22/16), the patient had a CT scan with and without contrast at [facility] and was very tired afterwards. The patient had no fever at noon, vitals were good per visiting home nurse. Today, she developed chills, then became incoherent and disoriented. The patient had some diarrhea yesterday but was resolved today - last episode around 9 - 10 p.m. The patient is on chemo for ovarian cancer with last treatment 2.5 weeks ago. Oncologist is Dr. Arevalo. Denies radiation therapy. Oophorectomy 08/2015 but had subsequent bowel incarceration and wasn't strong enough to start chemotherapy. In January, a new CT was done for abdominal pain and a new mass was found. The patient reports severe abdominal pain that is not relieved with morphine 6 mg IV push and is worse with palpation. Denies syncope, cp, sob, n/v, black or red stools. . CBC/BMP: 10/31/16 0341 10/31/16 0341 Significant Findings Laboratory Tests Test 10/29/16 10/29/16 10/30/16 10/31/16 08:35 10:02 06:00 03:41 Stool C. difficile Toxin (PCR) POSITIVE (NEGATIVE) Red Blood Count 3.47 MIL/MM3 2.93 MIL/MM3 3.02 MIL/MM3 (4.00-5.30) (4.00-5.30) (4.00-5.30) Hemoglobin 10.8 GM/DL 9.2 GM/DL 9.5 GM/DL (11.6-15.3) (11.6-15.3) (11.6-15.3) Hematocrit 31.8 % 26.9 % 27.8 % (35.0-46.0) (35.0-46.0) (35.0-46.0) Red Cell Distribution Width 20.4 % 20.4 % 20.3 % (11.6-17.2) (11.6-17.2) (11.6-17.2) Platelet Count 24 TH/MM3 28 TH/MM3 37 TH/MM3 (150-450) (150-450) (150-450) Neutrophils (%) (Auto) 82.9 % (16.0-70.0) Lymphocytes (%) (Auto) 8.3 % (9.0-44.0) Monocytes (%) (Auto) 8.5 % (0.0-8.0) Neutrophils # (Auto) 8.3 TH/MM3 (1.8-7.7) Lymphocytes # (Auto) 0.8 TH/MM3 (1.0-4.8) Neutrophils % (Manual) 81 % (16-70) Band Neutrophils % 11 % (0-6) Lymphocytes % 5 % (9-44) Neutrophils # (Manual) 9.3 TH/MM3 (1.8-7.7) Toxic Granulation 1+ (NORMAL) Platelet Estimate LOW (NORMAL) Chloride Level 114 MEQ/L 115 MEQ/L 119 MEQ/L (98-107) (98-107) (98-107) Carbon Dioxide Level 17.1 MEQ/L 17.2 MEQ/L 19.4 MEQ/L (21.0-32.0) (21.0-32.0) (21.0-32.0) Creatinine 1.21 MG/DL 1.14 MG/DL 1.09 MG/DL (0.50-1.00) (0.50-1.00) (0.50-1.00) Estimat Glomerular Filtration 43 ML/MIN (>89) 47 ML/MIN (>89) 49 ML/MIN (>89) Rate Calcium Level 8.1 MG/DL 7.6 MG/DL 7.5 MG/DL (8.5-10.1) (8.5-10.1) (8.5-10.1) Sodium Level 146 MEQ/L (136-145) Imaging Last Impressions Abdomen/Pelvis CT 10/28/16 0000 Signed Impressions: Service Date/Time: Friday, October 28, 2016 18:51 - CONCLUSION: 1. Pelvic masses measuring up to 8.9 and 5 cm in diameter. There is also a 1.6 cm subcutaneous nodule in the lower right anterior abdominal wall. Primary differential diagnosis is tumor recurrence given the reported history of ovarian carcinoma. 2. Mild anasarca and trace pleural effusions. 3. Borderline and mildly enlarged retroperitoneal lymph nodes. 4. Mural thickening of the sigmoid colon and rectum near the larger pelvic mass, possibly from tumor infiltration or inflammatory change. Merrick Chairez MD Head CT 10/26/16 0000 Signed Impressions: Service Date/Time: Wednesday, October 26, 2016 09:21 - CONCLUSION: Normal examination for a patient of this age. Merrick Chairez MD Chest X-Ray 10/23/16 1844 Signed Impressions: Service Date/Time: October 19:09 - CONCLUSION: Trace bibasilar atelectasis. Sal Heredia MD PE at Discharge GENERAL: Elderly female in no acute distress.laying in bed CARDIOVASCULAR: Normal rate and regular rhythm without murmurs. RESPIRATORY: Good respiratory efforts. Diminished breath sounds at the bases otherwise clear to auscultation bilaterally. no guarding or rebound GASTROINTESTINAL: Abdomen soft, diffusely uncomfortable to palpation. Normal active bowel sounds MUSCULOSKELETAL: Extremities without cyanosis, or edema. NEURO: Alert & Oriented 4. Moves all ext x4. Normal speech PSYCH: Appropriate mood and affect. Hospital Course 75-year-old female with a history of ovarian cancer receiving chemotherapy who presented to the emergency room on 10/23/2016 for evaluation of disorientation, fever, chills, and weakness. She is admitted for management of sepsis. Sepsis -secondary to C. difficile colitis, clostridium in the blood- is a chemotherapy patient with leukopenia and bandemia/left shift. Patient initially was not having any stool to test for C. difficile. Initial lactic acid 3.7, fever with MAXIMUM TEMPERATURE 102.7, tachycardia -Blood cultures growing Clostridium species. Urine culture negative - ID following, status post vancomycin and Zosyn. Patient started on IV Flagyl on 10/28/16. Oral vancomycin started on 10/29/16. Repeat blood cultures negative so far. Pt will be discharged on oral vanco 125 mg PO q 6 hrs x 14 days and flagyl 500mg po q8hrs x 1 more week. If recurrence of symptoms, treat w vanco only x 14 days per ID resc. High-grade recurrent Ovarian cancer: Patient has been seen by [facility] oncologist, Dr Arevalo. There has been no regression or progression of the pelvic tumor. Recommend supportive care and outpatient follow-up to decide whether or not she can continue treatment. - Continue pain control. Oxycodone as needed. palliative care did evaluate the patient, her goals are aggressive up to the point of cardiopulmonary resuscitation Acute on chronic renal insufficiency - likely related to dehydration and sepsis -Cr down to 1.09 today. Pt Condition on Discharge: Stable Discharge Disposition: Disch w/ Home Health Serv Discharge Time: > 30 minutes Discharge Instructions DIET: Follow Instructions for: Heart Healthy Diet Activities you can perform: Regular-No Restrictions Follow up Referrals: PCP Follow-up - 1 Week New Medications: Metronidazole (Flagyl) 500 Mg Tab 500 MG PO TID Infection Days 7 Ref 0 TAB Vancomycin Inj (Vancomycin Inj) 500 Mg Inj 500 MG PO Q6H Days 14 INJECTION Continued Medications: Albuterol 18 GM Inh (Ventolin Hfa 18 GM Inh) 90 Mcg/Act Aer 2 PUFF INH Q4H PRN SHORTNESS OF BREATH #1 Ref 1 INHALER Albuterol Neb (Albuterol Neb) 2.5 Mg/3 Ml Neb 2.5 MG NEB Q4HR NEB PRN SHORTNESS OF BREATH #60 Ref 0 NEBULE Alprazolam (Alprazolam) 1 Mg Tab 0.5 MG PO Q8H PRN ANXIETY Ref 0 TAB Atenolol (Atenolol) 50 Mg Tab 75 MG PO DAILY Blood Pressure Management #30 Ref 0 TAB Budesonide-Formoterol Inh (Symbicort Inh) 160-4.5 Mcg/Act Aero 2 PUFF INH Q12HR Breathing Treatment #60 INHALER Bupropion HCl ER 24 HR (Bupropion HCl ER 24 HR) 150 Mg Tab 150 MG PO DAILY Control Depression Ref 0 TAB Cilostazol (Cilostazol) 100 Mg Tab 100 MG PO BID INTERMITTENT CLAUDICATION Ref 0 TAB Eszopiclone (Eszopiclone) 3 Mg Tab 3 MG PO HS PRN INSOMNIA #30 Ref 0 TAB Mirtazapine (Mirtazapine) 15 Mg Tab 15 MG PO HS Depression Control #30 Ref 0 TAB Multiple Vitamins W/ Minerals (Womens One Daily) 1 Tab Tab 1 TAB PO DAILY Oxycodone (Oxycodone) 10 Mg Tab 10 MG PO Q8H PRN PAIN Ref 0 TAB Quetiapine (Quetiapine) 50 Mg Tab 50 MG PO DAILY #60 Ref 0 TAB Marilu Mcdowell MD Oct 31, 2016 18:01
[2016-10-31] MEDS: ESZOPICLONE 3 MG TAB PO PRN (20:29)
[2016-10-31] MEDS: MIRTAZAPINE 15 MG TAB PO SCH (20:30)
[2016-11-01] VITALS: BP 155/85; PULSE 91; RESP 19; TEMP 99.1; O2SAT 96
[2016-11-01] MEDS: metroNIDAZOLE 500 MG INJ 100 ML IV SCH ×2 (01:40→09:38)
[2016-11-01] MEDS: ALPRAZolam 0.5 MG TAB PO PRN (02:42)
[2016-11-01] MEDS: VANCOMYCIN 500 MG VIAL (FOR ORAL USE ONLY) PO SCH ×2 (02:42→09:36)
[2016-11-01 04:00] VITALS: BP 166/99; PULSE 91; RESP 18; TEMP 96.9; O2SAT 100
[2016-11-01 07:23] LABS: AUTOMATED NEUTROPHIL # 7.8 TH/MM3 (1.8-7.7); BASOPHIL % 0.2 % (0.0-2.0); EOSINOPHIL % 0.3 % (0.0-4.0); HEMATOCRIT 30.4 % (35.0-46.0); LYMPH % 10.5 % (9.0-44.0); MEAN CELL VOLUME 92.2 FL (80.0-100.0); MEAN CORPUSCULAR HEMOGLOBIN 31.7 PG (27.0-34.0); MEAN CORPUSCULAR HGB CONC 34.4 % (32.0-36.0); MONO % 7.3 % (0.0-8.0); NEUT % 81.7 % (16.0-70.0); PLATELET COUNT 57 TH/MM3 (150-450); RED BLOOD COUNT 3.29 MIL/MM3 (4.00-5.30); WHITE BLOOD COUNT 9.5 TH/MM3 (4.0-11.0)
[2016-11-01 07:30] LABS: HEMO FLAGS AUTO DIFF
[2016-11-01 07:52] LABS: BICARBONATE 15.9 MEQ/L (21.0-32.0); POTASSIUM 4.2 MEQ/L (3.5-5.1)
[2016-11-01 08:00] VITALS: BP 162/98; PULSE 91; RESP 20; TEMP 99.5; O2SAT 96
[2016-11-01 08:55] VITALS: O2SAT 99
[2016-11-01] MEDS: RESP: ALBUTEROL 2.5 MG/IPRATROPIUM 0.5 MG NEB (SCH) NEB (08:55)
[2016-11-01] MEDS: SODIUM CHLORIDE 0.9% FLUSH 10 ML FLUSH IV FLUSH SCH (09:00)
[2016-11-01] MEDS: BUDESONIDE-FORMOTEROL 160/4.5 MCG INHALER INH SCH (09:00)
[2016-11-01] MEDS: buPROPion HCL 150 MG SUSTAINED RELEASE TAB PO SCH (09:00)
[2016-11-01] MEDS: ATENOLOL 25 MG TAB PO SCH (09:36)
[2016-11-01] MEDS: MEGESTROL ACETATE SUSP 400 MG/10 ML CUP PO SCH (09:36)
[2016-11-01 09:37] LABS: PLATELET ESTIMATE SMEAR LOW (NORMAL); PLATELET MORPHOLOGY ENLARGED (NORMAL); SCAN/DIFF AUTO DIFF CONFIRMED
[2016-11-01] MEDS: MULTIVITAMINS/MINERALS THERAPEUTIC TAB PO SCH (09:37)
[2016-11-01] MEDS: FAMOTIDINE 20 MG TAB PO SCH (09:38)
[2016-11-01] MEDS: CILOSTAZOL 100 MG TAB PO SCH (09:38)
[2016-11-01] MEDS: QUEtiapine FUMARATE 25 MG TAB PO SCH (09:38)
== END 2016-11-01 12:48 | disposition home health service (06) | DRG 872 ==
LOC: NEPC 18:28 → NEDA 21:17 → HOCA 22:46
PROVIDERS: ADMIT Hospitalist; ATTEND Hospitalist
PROC: 30233N1 Transfusion of Nonautologous Red Blood Cells into Peripheral Vein, Percutaneous Approach (ICD-10-PCS; principal; 2016-10-23)
DX: A41.4 Sepsis due to anaerobes (principal); A04.7 Enterocolitis due to Clostridium difficile; E46 Unspecified protein-calorie malnutrition; D69.6 Thrombocytopenia, unspecified; J44.9 Chronic obstructive pulmonary disease, unspecified; E86.0 Dehydration; C56.9 Malignant neoplasm of unspecified ovary; N18.9 Chronic kidney disease, unspecified; N28.9 Disorder of kidney and ureter, unspecified; I12.9 Hypertensive chronic kidney disease with stage 1 through stage 4 chronic kidney disease, or unspecified chronic kidney disease; D64.9 Anemia, unspecified; R53.1 Weakness; F41.9 Anxiety disorder, unspecified; F32.9 Major depressive disorder, single episode, unspecified; Z87.891 Personal history of nicotine dependence; Z68.22 Body mass index [BMI] 22.0-22.9, adult; Z88.6 Allergy status to analgesic agent
CPT/HCPCS: 36430; 70450; 71010; 74176; 80048; 80053; 80202; 81001; 82550; 83605; 83690; 83735; 84155; 85007; 85025; 85027; 85610; 85730; 86850; 86900; 86901; 86920; 87040; 87076; 87086; 87185; 87205; 87493; 93005; 94150; 94640; 94664; 96361; 96365; 96367; 96374; J0692; J1170; J1642; J1940; J2270; J2405; J2543; J3370; J3480; J7030; J7040; J7050; J7613; P9016

== ENCOUNTER 2016-11-22 18:22 | Inpatient (IN) | payer MEDICARE, BC ==
[~2016-11-22] VITALS: Ht 157.5 cm; Wt 53.0 kg
[~2016-11-22 18:22] MED LIST changes: -AMLO5TAB2 PO; +ATEN50TA PO; -BACT800T5 PO; +METR-1 PO; -MUCI600T PO; -PRED20 PO; +VANC500I3 PO
[2016-11-22 18:24] VITALS: BP 127/61; PULSE 100; RESP 44; O2SAT 90
[2016-11-22 18:37] VITALS: BP 143/72; PULSE 100; RESP 28; TEMP 99.6; O2SAT 96
[2016-11-22] MEDS ORDERED: SODIUM CHLOR 0.9% 1000 ML INJ 1,000 ML IV SCH ×2 (18:37→21:27)
[2016-11-22 18:41] VITALS: O2SAT 97
[2016-11-22] MEDS ORDERED: FERR325T2 PO (18:59)
[2016-11-22] MEDS ORDERED: QUET1TAB7 PO (18:59)
[2016-11-22] MEDS ORDERED: ALPR0.5T3 PO (18:59)
[2016-11-22] MEDS ORDERED: [UNRECOGNIZED DRUG - CODE] PO (18:59)
[2016-11-22] MEDS ORDERED: OXYC-433 PO (18:59)
[2016-11-22 19:00] VITALS: BP 139/71; PULSE 95; RESP 22; O2SAT 97
[2016-11-22 19:03] LABS: AUTOMATED NEUTROPHIL # 15.3 TH/MM3 (1.8-7.7); BASOPHIL # 0.1 TH/MM3 (0-0.2); BASOPHIL % 0.8 % (0.0-2.0); EOSINOPHIL % 0.1 % (0.0-4.0); HEMATOCRIT 30.6 % (35.0-46.0); LYMPH % 5.2 % (9.0-44.0); LYMPHOCYTE # 0.9 TH/MM3 (1.0-4.8); MEAN CELL VOLUME 94.4 FL (80.0-100.0); MEAN CORPUSCULAR HEMOGLOBIN 31.7 PG (27.0-34.0); MEAN CORPUSCULAR HGB CONC 33.6 % (32.0-36.0); MONO % 7.6 % (0.0-8.0); NEUT % 86.3 % (16.0-70.0); PLATELET COUNT 367 TH/MM3 (150-450); RED BLOOD COUNT 3.25 MIL/MM3 (4.00-5.30); RED CELL DISTRIBUTION WIDTH 20.2 % (11.6-17.2); WHITE BLOOD COUNT 17.7 TH/MM3 (4.0-11.0)
[2016-11-22 19:08] LABS: HEMO FLAGS AUTO DIFF
--- NOTE | 2016-11-22 19:08 | PD ---
HPI Chief Complaint: Altered Mental Status Time Seen by Provider: 19:04 Travel History International Travel<30 days: No Contact w/Intl Traveler<30days: No Traveled to known affect area: No History of Present Illness HPI 75-year-old female that presents to the ED for evaluation of generalized weakness and altered mental status. Patient has a chronic history of COPD, previous sepsis with C. difficile on previous admission as well as ovarian cancer. Per patient she's had no chemotherapy or radiation for about 5 weeks. Patient follows with Dr. Arevalo. Patient had recent transfusion secondary to anemia. Per and patient she's been feeling weak and more lethargic. She's been more confused than usual. She denies any pain whenever I touch her lower abdomen she complains of pain. Per patient the pain is 6 out of 10. cannot really tell me this is new or old. From my understanding patient has a big mass in that area. Patient has slight to Motrin. Patient had a bowel movement about 2 days ago and was normal per . She has not had any nausea or vomiting. She was found to be septic and had bacteremia as well as C. difficile and has finished antibiotics. Per she appears more pale and is more dehydrated. Denies any chest pain or shortness of breath but she does have a history of COPD. PFSH Past Medical History Arthritis: Yes (Neck, shoulder, back) Anxiety: Yes Depression: Yes Cancer: Yes (Ovarian Cancer) Cardiovascular Problems: Yes Chemotherapy: Yes COPD: Yes Diminished Hearing: No Endocrine: No Gastrointestinal Disorders: Yes Headaches: Yes Heparin Induced Thrombocytopen: No Hypertension: Yes Immune Disorder: No Implanted Vascular Access Dvce: Yes Kidney Stones: No Psychiatric: Yes Respiratory: Yes Immunizations Current: Yes Migraines: No Radiation Therapy: No Renal Failure: Yes Sickle Cell Disease: No Menopausal: Yes : 3 Para: 3 Past Surgical History Abdominal Surgery: Yes (ruptured stomach) AICD: No Appendectomy: Yes Arteriovenous Shunt: No Cholecystectomy: Yes Eye Surgery: Yes (cataract monica) Gynecologic Surgery: Yes (hysterectomy, tubes tied, ovaries removed) Hysterectomy: Yes Insulin Pump: No Joint Replacement: No Pacemaker: No Other Surgery: Yes (PORT PLACEMENT- RIGHT) Social History Alcohol Use: No Tobacco Use: No Substance Use: No Allergies-Medications (Allergen,Severity, Reaction): Coded Allergies: Motrin (Verified Adverse Reaction, Intermediate, Nausea/Vomiting, 11/22/16) Reported Meds & Prescriptions Reported Meds & Active Scripts Active Oxygen tank (Oxygen) 1 Ea Tank 2 Liter DARIANA.CANULA CONTINUOUS Oxygen Concentrator Portable Gaseous 2 L/min via Nasal Cannula Continuous For 99 months Ventolin Hfa 18 GM Inh (Albuterol Sulfate) 90 Mcg/Act Aer 2 Puff INH Q4H PRN Symbicort Inh (Budesonide/Formoterol Fumarate) 160-4.5 Mcg/Act Aero 2 Puff INH Q12HR Albuterol Neb (Albuterol Sulfate) 2.5 Mg/3 Ml Neb 2.5 Mg NEB Q4HR NEB PRN Nebulizer 1 Mis Mis 1 Ea .ROUTE DIRECTED Reported Ferrous Sulfate DR (Ferrous Sulfate) 325 Mg Tabdr 325 Mg PO EVERY 3RD DAY B-12 Tr (Cyanocobalamin) 1,000 Mcg Tab 1,000 Mcg PO DAILY Quetiapine (Quetiapine Fumarate) 25 Mg Tab 25 Mg PO DAILY Oxycodone-Acetaminophen 10-325 mg Tab 1 Tab PO BID PRN Alprazolam 0.5 Mg Tab 0.5 Mg PO TID PRN Atenolol 50 Mg Tab 75 Mg PO DAILY Quetiapine (Quetiapine Fumarate) 50 Mg Tab 50 Mg PO HS Eszopiclone 3 Mg Tab 3 Mg PO HS PRN Mirtazapine 15 Mg Tab 15 Mg PO HS Bupropion HCl ER 24 HR (Bupropion HCl) 150 Mg Tab 150 Mg PO DAILY Cilostazol 100 Mg Tab 200 Mg PO DAILY Review of Systems Except as stated in HPI: all other systems reviewed are Neg Physical Exam Narrative GENERAL: SKIN: Warm and dry. HEAD: Atraumatic. Normocephalic. EYES: Pupils equal and round 4 mm reactive to light and accommodation. No scleral icterus. No injection or drainage. ENT: No nasal bleeding or discharge. Mucous membranes pink and moist. Tongue is midline. No uvula deviation. NECK: Trachea midline. No JVD. CARDIOVASCULAR: Regular rate and rhythm. RESPIRATORY: No accessory muscle use. Clear to auscultation. Breath sounds equal bilaterally. GASTROINTESTINAL: Abdomen soft, non-tender, nondistended. Hepatic and splenic margins not palpable. MUSCULOSKELETAL: Extremities without clubbing, cyanosis, or edema. No obvious deformities. Full range of motion of the upper and lower extremities bilaterally. 2+ pulses bilaterally. NEUROLOGICAL: Awake and alert. No obvious cranial nerve deficits. Motor grossly within normal limits. Five out of 5 muscle strength in the arms and legs. Normal speech. PSYCHIATRIC: Appropriate mood and affect; insight and judgment normal. Data Data Last Documented VS Vital Signs Date Time Temp Pulse Resp B/P Pulse Ox O2 Delivery O2 Flow Rate FiO2 11/22/16 18:41 97 Room Air 11/22/16 18:37 99.6 100 28 143/72 Orders Electrocardiogram (11/22/16 18:37) Complete Blood Count With Diff (11/22/16 18:37) Comprehensive Metabolic Panel (11/22/16 18:37) Prothrombin Time / Inr (Pt) (11/22/16 18:37) Act Partial Throm Time (Ptt) (11/22/16 18:37) Lactic Acid Sepsis Protocol (11/22/16 18:37) Lipase (11/22/16 18:37) Troponin I (11/22/16 18:37) Urinalysis - C+S If Indicated (11/22/16 18:37) Influenzae A/B Antigen (11/22/16 18:37) Blood Culture (11/22/16 18:37) Chest, Single Ap (11/22/16 18:37) Ecg Monitoring (11/22/16 18:37) Iv Access Insert/Monitor (11/22/16 18:37) Oximetry (11/22/16 18:37) C Diff Toxin Pcr (11/22/16 18:37) Sodium Chlor 0.9% 1000 Ml Inj (Ns 1000 M (11/22/16 18:37) Type And Screen (11/22/16 18:37) Ct Brain W/O Iv Contrast(Rout) (11/22/16 ) Ct Abd/Pel W/O Iv Contrast (11/22/16 ) Cath For Specimen (11/22/16 20:36) Vancomycin Inj (Vancomycin Inj) (11/22/16 21:30) Piperacil-Tazo 3.375 Gm Premix (Zosyn 3. (11/22/16 21:30) Sodium Chlor 0.9% 1000 Ml Inj (Ns 1000 M (11/22/16 21:27) Labs Laboratory Tests Test 11/22/16 18:40 White Blood Count 17.7 TH/MM3 Red Blood Count 3.25 MIL/MM3 Hemoglobin 10.3 GM/DL Hematocrit 30.6 % Mean Corpuscular Volume 94.4 FL Mean Corpuscular Hemoglobin 31.7 PG Mean Corpuscular Hemoglobin 33.6 % Concent Red Cell Distribution Width 20.2 % Platelet Count 367 TH/MM3 Mean Platelet Volume 7.9 FL Neutrophils (%) (Auto) 86.3 % Lymphocytes (%) (Auto) 5.2 % Monocytes (%) (Auto) 7.6 % Eosinophils (%) (Auto) 0.1 % Basophils (%) (Auto) 0.8 % Neutrophils # (Auto) 15.3 TH/MM3 Lymphocytes # (Auto) 0.9 TH/MM3 Monocytes # (Auto) 1.3 TH/MM3 Eosinophils # (Auto) 0.0 TH/MM3 Basophils # (Auto) 0.1 TH/MM3 CBC Comment AUTO DIFF Prothrombin Time 12.3 SEC Prothromb Time International 1.1 RATIO Ratio Activated Partial 35.9 SEC Thromboplast Time Sodium Level 133 MEQ/L Potassium Level 4.6 MEQ/L Chloride Level 104 MEQ/L Carbon Dioxide Level 19.4 MEQ/L Anion Gap 10 MEQ/L Blood Urea Nitrogen 21 MG/DL Creatinine 2.12 MG/DL Estimat Glomerular Filtration 23 ML/MIN Rate Random Glucose 106 MG/DL Lactic Acid Level 1.3 mmol/L Calcium Level 9.0 MG/DL Total Bilirubin 0.6 MG/DL Aspartate Amino Transf 49 U/L (AST/SGOT) Alanine Aminotransferase 22 U/L (ALT/SGPT) Alkaline Phosphatase 92 U/L Troponin I LESS THAN 0.02 NG/ML Total Protein 7.5 GM/DL Albumin 2.7 GM/DL Lipase 40 U/L Blood Type O NEGATIVE Antibody Screen NEGATIVE MDM Medical Decision Making Medical Screen Exam Complete: Yes Emergency Medical Condition: Yes Medical Record Reviewed: Yes Interpretation(s) CBC & BMP Diagram 11/22/16 18:40 LFTS and lipase WNL toponin negative EKG shows sinus tachycardia but no sign of ischemia or arrythmia. Read by me and attending. Last Impressions Chest X-Ray 11/22/16 1837 Signed Impressions: Service Date/Time: Tuesday, November 22, 2016 18:54 - CONCLUSION: No acute cardiopulmonary disease. Jessa Reyna MD Head CT 11/22/16 0000 Signed Impressions: Service Date/Time: Tuesday, November 22, 2016 20:01 - CONCLUSION: Chronic and small vessel ischemic changes without any evidence for acute hemorrhage or mass effect. Jessa Reyna MD Abdomen/Pelvis CT 11/22/16 0000 Signed Impressions: Service Date/Time: Tuesday, November 22, 2016 20:06 - CONCLUSION: 1. Enlargement of previously seen pelvic masses with development of moderate hydronephrosis in the right kidney and underlying metastatic disease is suspected. 2. The subcutaneous nodule in right lower anterior abdominal wall is also larger suspicious for metastatic disease. Jessa Reyna MD Differential Diagnosis Sepsis versus pneumonia versus COPD versus renal failure versus UTI versus altered mental status versus anemia versus bacteremia versus C. difficile Narrative Course 75-year-old female that presents to the ED for evaluation of altered mental status and weakness. Patient was properly examined and was found to have signs and symptoms of unclear etiology at this time. Recommend workup. She does appear to be possibly septic she is somewhat tachycardic and more weak. She does have a history of cancer and C. difficile in the past. Will do blood work and imaging. Family and patient agree with this. Patient was given 1 L of fluids here and we'll reassess. Labs and imaging did show a leukocytosis. Concerning for sepsis. Patient did have C. diff bacteremia as well as diarrhea. My attending Dr. Reza evaluated the patient with me and agrees with plan. Patient will be admitted to the hospital. Patient was started on vancomycin and Zosyn. Family agrees with admission. Case discussed with Dr. Romo who agrees to admission. Sepsis Criteria SIRS Criteria (2 or more): Heart rate over 90, WBC > 19009, < 4000 or > 10% bands Sepsis Criteria (SIRS+source): Infect source susp/known Criteria Outcome: Meets sepsis criteria Diagnosis Primary Impression: Sepsis Qualified Code: A41.9 - Sepsis, due to unspecified organism Additional Impressions: KAMRYN (acute kidney injury) Altered mental status Qualified Code: R41.0 - Delirium Admitting Information Admitting Physician Requests: Admit Massimo Osei Nov 22, 2016 19:08
[2016-11-22 19:19] LABS: INTERNATIONAL NORMALIZED RATIO 1.1 RATIO; PROTHROMBIN TIME - PATIENT 12.3 SEC (9.8-11.6)
[2016-11-22 19:23] LABS: ALT (GPT) 22 U/L (10-53); APTT (PATIENT) 35.9 SEC (24.3-30.1)
[2016-11-22 19:27] LABS: ALKALINE PHOSPHATASE 92 U/L (45-117); ANION GAP 10 MEQ/L (5-15); AST (GOT) 49 U/L (15-37); BICARBONATE 19.4 MEQ/L (21.0-32.0); BLOOD UREA NITROGEN 21 MG/DL (7-18); CHLORIDE 104 MEQ/L (98-107); GLOMERULAR FILTRATION RATE 23 ML/MIN (>89); POTASSIUM 4.6 MEQ/L (3.5-5.1); SODIUM (NA) 133 MEQ/L (136-145); TOTAL BILIRUBIN ADULT 0.6 MG/DL (0.2-1.0)
--- NOTE | 2016-11-22 19:33 | RADRPT ---
EXAM DATE/TIME: 11/22/2016 18:54 [facility] COMPARISON: CHEST SINGLE AP, October 23, 2016, 19:09. INDICATIONS : Fever and Weakness MEDICAL HISTORY : Carcinoma, not otherwise specified. Hypertension SURGICAL HISTORY : None. ENCOUNTER: Initial ACUITY: 1 day PAIN SCORE: 0/10 LOCATION: Bilateral chest FINDINGS: The lungs are clear without infiltrate, nodule, or mass. There is no appreciable pleural effusion fo r technique. Heart and mediastinum are unremarkable. Right IJ [id number] is present with tip over lapping the expected region of the SVC. No definite pneumothorax is seen for technique. There are ath erosclerotic calcifications of the aorta due to chronic atherosclerotic disease. CONCLUSION: No acute cardiopulmonary disease. Jessa Reyna MD on November 22, 2016 at 19:30 Board Certified Radiologist. This report was verified electronically.
--- NOTE | 2016-11-22 20:24 | RADRPT ---
EXAM DATE/TIME: 11/22/2016 20:01 [facility] COMPARISON: CT BRAIN W/O CONTRAST, October 26, 2016, 9:21. INDICATIONS : Altered mental status and increased weakness per family RADIATION DOSE: 41.74 CTDIvol (mGy) MEDICAL HISTORY : Cardiovascular disease. Hypertension. Renal failure, chronic.ovarian cancer / chemo SURGICAL HISTORY : Appendectomy. Hysterectomy. ENCOUNTER: Initial ACUITY: 3 weeks PAIN SCALE: Non-responsive LOCATION: cranial TECHNIQUE: Multiple contiguous axial images were obtained of the head. Using automated exposure control and adj ustment of the mA and/or kV according to patient size, radiation dose was kept as low as reasonably a chievable to obtain optimal diagnostic quality images. DICOM format image data is available electro nically for review and comparison. FINDINGS: There is no evidence for intracranial hemorrhage, mass effect, mass lesions, or edema. The visualize d bony structures appear intact. Moderate degree of brain atrophy is seen. Moderate periventricular white matter changes are seen nonspecific mostly consistent with chronic small vessel ischemic change s. There are no signs of acute infarction for technique. CONCLUSION: Chronic and small vessel ischemic changes without any evidence for acute hemorrhage o r mass effect. Jessa Reyna MD on November 22, 2016 at 20:21 Board Certified Radiologist. This report was verified electronically.
--- NOTE | 2016-11-22 20:34 | RADRPT ---
EXAM DATE/TIME: 11/22/2016 20:06 [facility] COMPARISON: CT ABDOMEN & PELVIS W/O CONTRAST, March 25, 2016, 1:30. CT ABDOMEN & PELVIS W/O CONTRAST, October, 18:51. INDICATIONS : Increased weakness per family. ORAL CONTRAST: No oral contrast ingested. RADIATION DOSE: 7.45 CTDIvol (mGy) MEDICAL HISTORY : Cardiovascular disease. Renal failure, chronic. Hypertension.ovarian cancer / chemo SURGICAL HISTORY : Appendectomy. Cholecystectomy. ENCOUNTER: Initial ACUITY: 1 day PAIN SCALE: Non-responsive LOCATION: abdomen TECHNIQUE: Volumetric scanning of the abdomen and pelvis was performed. Using automated exposure control and ad justment of the mA and/or kV according to patient size, radiation dose was kept as low as reasonably achievable to obtain optimal diagnostic quality images. DICOM format image data is available electro nically for review and comparison. FINDINGS: There is a subcutaneous nodule which is adherent to the abdominal wall musculature on the right side measures 1.9 cm, larger since the prior exam at which time it measured 1.6 cm. Pelvic masses are seen the largest one measures almost 10 cm in transverse diameter larger since the prior exam at [facility] time it measured 8.9 cm. There is moderate amount of stool throughout the colon. Chronic vascular calcifications are present involving the aorta, iliac arteries without any significant stenosis or an eurysmal dilatations for technique. There is an approximate 1.8 cm mass in the region of the head of the pancreas not significantly changed with shotty retroperitoneal lymph nodes there is moderate hydr onephrosis and hydroureter on the right side all the way down to the pelvis related to the above-ment ioned pelvic mass is not present on the older exam. The left kidney, adrenal, spleen and liver are un remarkable. CONCLUSION: 1. Enlargement of previously seen pelvic masses with development of moderate hydronephrosis in the ri ght kidney and underlying metastatic disease is suspected. 2. The subcutaneous nodule in right lower anterior abdominal wall is also larger suspicious for metas tatic disease. eJssa Reyna MD on November 22, 2016 at 20:25 Board Certified Radiologist. This report was verified electronically.
[2016-11-22] MEDS ORDERED: VANCOMYCIN INJ 1,000 MG in SODIUM CHLOR 0.9% 250 ML INJ 250 ML IV ONE (21:30)
[2016-11-22] MEDS ORDERED: PIPERACIL-TAZO 3.375 GM PREMIX 50 ML IV ONE (21:30)
--- NOTE | 2016-11-22 21:55 | PD ---
Data Data Last Documented VS Vital Signs Date Time Temp Pulse Resp B/P Pulse Ox O2 Delivery O2 Flow Rate FiO2 11/22/16 18:41 97 Room Air 11/22/16 18:37 99.6 100 28 143/72 Orders Electrocardiogram (11/22/16 18:37) Complete Blood Count With Diff (11/22/16 18:37) Comprehensive Metabolic Panel (11/22/16 18:37) Prothrombin Time / Inr (Pt) (11/22/16 18:37) Act Partial Throm Time (Ptt) (11/22/16 18:37) Lactic Acid Sepsis Protocol (11/22/16 18:37) Lipase (11/22/16 18:37) Troponin I (11/22/16 18:37) Urinalysis - C+S If Indicated (11/22/16 18:37) Influenzae A/B Antigen (11/22/16 18:37) Blood Culture (11/22/16 18:37) Chest, Single Ap (11/22/16 18:37) Ecg Monitoring (11/22/16 18:37) Iv Access Insert/Monitor (11/22/16 18:37) Oximetry (11/22/16 18:37) C Diff Toxin Pcr (11/22/16 18:37) Sodium Chlor 0.9% 1000 Ml Inj (Ns 1000 M (11/22/16 18:37) Type And Screen (11/22/16 18:37) Ct Brain W/O Iv Contrast(Rout) (11/22/16 ) Ct Abd/Pel W/O Iv Contrast (11/22/16 ) Cath For Specimen (11/22/16 20:36) Vancomycin Inj (Vancomycin Inj) (11/22/16 21:30) Piperacil-Tazo 3.375 Gm Premix (Zosyn 3. (11/22/16 21:30) Sodium Chlor 0.9% 1000 Ml Inj (Ns 1000 M (11/22/16 21:27) Labs Laboratory Tests Test 11/22/16 18:40 White Blood Count 17.7 TH/MM3 Red Blood Count 3.25 MIL/MM3 Hemoglobin 10.3 GM/DL Hematocrit 30.6 % Mean Corpuscular Volume 94.4 FL Mean Corpuscular Hemoglobin 31.7 PG Mean Corpuscular Hemoglobin 33.6 % Concent Red Cell Distribution Width 20.2 % Platelet Count 367 TH/MM3 Mean Platelet Volume 7.9 FL Neutrophils (%) (Auto) 86.3 % Lymphocytes (%) (Auto) 5.2 % Monocytes (%) (Auto) 7.6 % Eosinophils (%) (Auto) 0.1 % Basophils (%) (Auto) 0.8 % Neutrophils # (Auto) 15.3 TH/MM3 Lymphocytes # (Auto) 0.9 TH/MM3 Monocytes # (Auto) 1.3 TH/MM3 Eosinophils # (Auto) 0.0 TH/MM3 Basophils # (Auto) 0.1 TH/MM3 CBC Comment AUTO DIFF Prothrombin Time 12.3 SEC Prothromb Time International 1.1 RATIO Ratio Activated Partial 35.9 SEC Thromboplast Time Sodium Level 133 MEQ/L Potassium Level 4.6 MEQ/L Chloride Level 104 MEQ/L Carbon Dioxide Level 19.4 MEQ/L Anion Gap 10 MEQ/L Blood Urea Nitrogen 21 MG/DL Creatinine 2.12 MG/DL Estimat Glomerular Filtration 23 ML/MIN Rate Random Glucose 106 MG/DL Lactic Acid Level 1.3 mmol/L Calcium Level 9.0 MG/DL Total Bilirubin 0.6 MG/DL Aspartate Amino Transf 49 U/L (AST/SGOT) Alanine Aminotransferase 22 U/L (ALT/SGPT) Alkaline Phosphatase 92 U/L Troponin I LESS THAN 0.02 NG/ML Total Protein 7.5 GM/DL Albumin 2.7 GM/DL Lipase 40 U/L Blood Type O NEGATIVE Antibody Screen NEGATIVE MDM Supervised Visit with PATI: Yes Narrative Course I, Dr. Reza, have reviewed the advance practice practioner's documentation and am in agreement, met with the patient face to face, made the diagnosis, and the medical decision making was done by me. *My assessment and Findings: 75-year-old female with history of ovarian cancer and recent admission for C. difficile bacteremia, discharged to rehabilitation here with family for increasing altered mental status and confusion 1 day. Increasing weakness, lethargy. No shortness of breath. Patient has chronic abdominal pain, family states this is from her ovarian cancer and this is not any worse. Family states that she seems more pale appearing, dehydrated. She did have a recent blood transfusion secondary to anemia. Exam is unremarkable, she does have mild tenderness palpation in the low abdomen. Patient was initially tachypneic, but is not in any respiratory distress on exam. Differential includes UTI, bacteremia, electrolyte abnormality, symptomatic anemia, intra-abdominal pathology, and less likely recurrent C. difficile given lack of associated diarrhea. Patient was given IV fluids, empirically covered with vancomycin and Zosyn. Laboratory workup notable for new leukocytosis WBC 17.7. BUN 21/creatinine 1.21. CT of the brain unremarkable, chest x-ray unremarkable, CT abdomen and pelvis with increasing pelvic masses consistent with underlying metastatic disease. Urinalysis remains pending at the time this dictation the patient will be admitted for rule out sepsis. Critical Care Narrative Aggregate critical care time was 40 minutes. Time to perform other separately billable procedures was not included in the critical care time. My time did not include minutes spent treating any other patients simultaneously or on activities that did not directly contribute to the patient's treatment. The services I provided to this patient were to treat and/or prevent clinically significant deterioration that could result in: Cardiopulmonary decompensation, , disability I provided critical care services requiring my management, as noted below: Chart data review, documentation time, medication orders and management, vital sign assessments/reviewing monitor data, ordering and reviewing lab tests, ordering and interpreting/reviewing x-rays and diagnostic studies, care of the patient and discussion of the patient with the admitting physicians. Sepsis Criteria SIRS Criteria (2 or more): Heart rate over 90, RR > 20 or PaCO2 < 32, WBC > 44117, < 4000 or > 10% bands Sepsis Criteria (SIRS+source): Infect source susp/known Criteria Outcome: Meets SIRS criteria, Meets sepsis criteria Diagnosis Primary Impression: Sepsis Qualified Code: A41.9 - Sepsis, due to unspecified organism Additional Impressions: Acute on chronic renal insufficiency Altered mental status Qualified Code: R41.0 - Delirium Yolanda Reza MD Nov 22, 2016 21:55
[2016-11-22 21:58] LABS: BACTERIA, URINE MOD /hpf; BLOOD, URINE MOD (NEG); GLUCOSE,URINE NEG (NEG); GRANULAR CAST, URINE 22 /lpf; KETONE, URINE NEG (NEG); URINE COLOR YELLOW (YELLW/STRAW)
[2016-11-22 21:59] LABS: COMMENT (UR) CATH-CULTURE IND; CULTURE IF INDICATED CATH CULTURE IND; NITRITE,URINE POS (NEG)
[2016-11-22] MEDS ORDERED: LACTULOSE SYRUP 20 GM/30 ML CUP PO PRN (22:00)
[2016-11-22] MEDS ORDERED: ACETAMINOPHEN 325 MG TAB PO PRN (22:00)
[2016-11-22] MEDS ORDERED: SENNOSIDES 8.6 MG TAB PO PRN (22:00)
[2016-11-22] MEDS ORDERED: RESP: ALBUTEROL 2.5 MG/3 ML NEB (PRN) NEB (22:00)
[2016-11-22] MEDS: SODIUM CHLOR 0.9% 1000 ML INJ 1,000 ML IV SCH (22:00)
[2016-11-22] MEDS ORDERED: Vancomycin Consult Pharmacy 1 EA OTHER SCH (22:00)
[2016-11-22] MEDS ORDERED: ONDANSETRON HCL 4 MG/2 ML VIAL IVP PRN (22:00)
[2016-11-22] MEDS ORDERED: SODIUM CHLORIDE 0.9% FLUSH 10 ML FLUSH IV FLUSH PRN (22:00)
[2016-11-22] MEDS ORDERED: MAGNESIUM HYDROXIDE SUSP 30 ML CUP PO PRN (22:00)
[2016-11-22] MEDS ORDERED: BISACODYL 10 MG SUPP RECTAL PRN (22:00)
--- NOTE | 2016-11-22 22:02 | HHI.HP ---
HPI Service [facility] Primary Care Physician Diana Salgado MD Admission Diagnosis Altered mental status, sepsis, Ovarian cancer Diagnoses: (1) Sepsis Diagnosis: Principal (2) UTI (urinary tract infection) Diagnosis: Principal (3) Renal insufficiency Diagnosis: Principal (4) Hydronephrosis Diagnosis: Principal (5) H/O bacteremia Diagnosis: Principal (6) Ovarian cancer Diagnosis: Principal Travel History International Travel<30 Days: No Contact w/Intl Traveler <30 Da: No Traveled to Known Affected Are: No History of Present Illness This is a 75-year-old female with a PMH of Anxiety, Depression, Ovarian CA, COPD , CKD and HTN who was brought to the ER secondary to generalized weakness and altered mental status. Recent admit 10/23-10/31/16 w/ Sepsis secondary to C.Diff and Clostridium Bacteremia, s/p eval by ID w/ Vanc/Flagyl w/ completion of antibiotics. Pt had been doing well until recently, noted by to have increasing confusion and lethargy. On arrival, BP 127/61, HR 100, O2 sat 90% on RA, Temp 99.6. WBC 17.7. Creatinine 2.12, previously 1.37 on 11/12/16. Lactic Acid normal. INR 1.1. UA positive for UTI. CXR with no acute findings. CT Abd/Pelvis with enlargement of previously seen pelvic masses and development of moderate hydronephrosis and right kidney and underlying metastatic disease. S/p Blood/Urine Culture, Vanc/Zosyn in ER. Review of Systems Except as stated in HPI: all other systems reviewed are Neg ROS: 14 point review of systems otherwise negative. Past Family Social History Past Medical History PMH: Anxiety, Depression, Ovarian CA, COPD, CKD and HTN Past Surgical History PAST SURGICAL HISTORY: Appendectomy, Cholecystectomy, Hysterectomy, Cataract Surgery, Right Port Placement Allergies: Coded Allergies: Motrin (Verified Adverse Reaction, Intermediate, Nausea/Vomiting, 11/22/16) Family History PAST FAMILY HISTORY: Reviewed. No h/o DM or CAD Social History PAST SOCIAL HISTORY: Negative for alcohol, tobacco or drugs. Physical Exam Vital Signs Vital Signs Date Time Temp Pulse Resp B/P Pulse Ox O2 Delivery O2 Flow Rate FiO2 11/22/16 18:41 97 Room Air 11/22/16 18:37 99.6 100 28 143/72 96 Room Air 11/22/16 18:34 30 Room Air 11/22/16 18:24 100 44 127/61 90 Room Air Physical Exam PE: GENERAL: Elderly white female in no acute distress. HEENT: PERRLA, EOMI. No scleral icterus or conjunctival pallor. No lid lag or facial droop. CARDIOVASCULAR: Regular rate and rhythm. No obvious murmurs to auscultation. No chest tenderness to palpation. RESPIRATORY: No obvious rhonchi or wheezing. Clear to auscultation. Breath sounds equal bilaterally. GASTROINTESTINAL: Abdomen soft, non-tender, nondistended. BS normal. MUSCULOSKELETAL: Extremities without clubbing, cyanosis, or edema. No obvious deformities. NEUROLOGICAL: Awake, alert. No focal neurologic deficits. Moving both upper and lower extremities spontaneously. Laboratory Laboratory Tests Test 11/22/16 11/22/16 18:40 21:00 White Blood Count 17.7 Red Blood Count 3.25 Hemoglobin 10.3 Hematocrit 30.6 Mean Corpuscular Volume 94.4 Mean Corpuscular Hemoglobin 31.7 Mean Corpuscular Hemoglobin 33.6 Concent Red Cell Distribution Width 20.2 Platelet Count 367 Mean Platelet Volume 7.9 Neutrophils (%) (Auto) 86.3 Lymphocytes (%) (Auto) 5.2 Monocytes (%) (Auto) 7.6 Eosinophils (%) (Auto) 0.1 Basophils (%) (Auto) 0.8 Neutrophils # (Auto) 15.3 Lymphocytes # (Auto) 0.9 Monocytes # (Auto) 1.3 Eosinophils # (Auto) 0.0 Basophils # (Auto) 0.1 CBC Comment AUTO DIFF Prothrombin Time 12.3 Prothromb Time International 1.1 Ratio Activated Partial 35.9 Thromboplast Time Sodium Level 133 Potassium Level 4.6 Chloride Level 104 Carbon Dioxide Level 19.4 Anion Gap 10 Blood Urea Nitrogen 21 Creatinine 2.12 Estimat Glomerular Filtration 23 Rate Random Glucose 106 Lactic Acid Level 1.3 Calcium Level 9.0 Total Bilirubin 0.6 Aspartate Amino Transf 49 (AST/SGOT) Alanine Aminotransferase 22 (ALT/SGPT) Alkaline Phosphatase 92 Troponin I LESS THAN 0.02 Total Protein 7.5 Albumin 2.7 Lipase 40 Blood Type O NEGATIVE Antibody Screen NEGATIVE Urine Color YELLOW Urine Turbidity CLOUDY Urine pH 6.0 Urine Specific [place] 1.035 Urine Protein 100 Urine Glucose (UA) NEG Urine Ketones NEG Urine Occult Blood MOD Urine Nitrite POS Urine Bilirubin NEG Urine Urobilinogen LESS THAN 2.0 Urine Leukocyte Esterase LARGE Urine RBC 14 Urine WBC Urine WBC Clumps FEW Urine Bacteria MOD Urine Granular Casts 22 Microscopic Urinalysis Comment CATH-CULTURE IND Date/Time Procedure Status Source Growth 11/22/16 21:00 Urine Culture Received Urine Clean Catch Pending 11/22/16 18:49 Influenza Types A,B Antigen (PARAG) - Final Complete Nasal Washing NEGATIVE FOR FLU A AND B ANTIGEN.... 11/22/16 18:45 Aerobic Blood Culture Received Blood Peripheral Pending 11/22/16 18:45 Anaerobic Blood Culture Received Blood Peripheral Pending Result Diagram: 11/22/16 1840 11/22/16 1840 Assessment and Plan Problem List: (1) Sepsis ICD Code: A41.9 Status: Acute (2) UTI (urinary tract infection) ICD Code: N39.0 Status: Acute (3) Renal insufficiency ICD Code: N28.9 Status: Acute (4) Hydronephrosis ICD Code: N13.30 Status: Acute (5) Ovarian cancer ICD Code: C56.9 Status: Acute (6) H/O bacteremia ICD Code: Z87.898 Status: Acute Assessment and Plan A/P: 1. Sepsis: Temp 99.9, HR 100, RR 28, WBC 17.7, Source-UTI. S/p Blood/Urine Culture, Vanc/Zosyn in ER. Follow up cultures, continue IV Abx, IVF for hydration. 2. UTI: U/a w/ UTI, continue w/ IV Abx as above. 3. Hydronephrosis: CT Abd/Pelvis w/ enlargement of pelvic masses and moderate hydronephrosis, images reviewed by me. Follows w/ Dr. Arevalo as outpatient, off Chemo x5 wks secondary to recent hospitalization/illness. Monitor urine output. 4. Renal Insufficiency: Acute on Chronic. Creatinine 2.12, previous and 1.37 on 11/12/16. UA positive for UTI. Continue w/ IVF for hydration, repeat labs in am. 5. Ovarian CA: As above, CT Abd/Pelvis w/ enlargement of pelvic masses and metastatic disease, following w/ Dr. Arevalo as outpatient. 6. H/o Bacteremia: Recent admit 10/23-10/31/16 w/ Sepsis secondary to C Diff Colitis w/ Clostridium Bacteremia, s/p Vanc/Flagyl w/ completion of antibiotics. No recurrent symptoms. 7. DVT Prophylaxis: SCD/Teds. 8. Social work for d/c planning as needed. 9. Case discussed w/ ER physician at length. Physician Certification 2 Midnight Certification Type: Admission for Inpatient Services Order for Inpatient Services The services are ordered in accordance with Medicare regulations or non- Medicare payer requirements, as applicable. In the case of services not specified as inpatient-only, they are appropriately provided as inpatient services in accordance with the 2-midnight benchmark. Estimated LOS (days): 2 days is the estimated time the patient will need to remain in the hospital, assuming treatment plan goals are met and no additional complications. Post-Hospital Plan: Not yet determined Problem Qualifiers (1) Sepsis: Qualified Code: A41.9 - Sepsis, due to unspecified organism Cecily Romo MD Nov 22, 2016 22:02
[2016-11-22 22:07] LABS: PLATELET ESTIMATE SMEAR NORMAL (NORMAL); PLATELET MORPHOLOGY NORMAL (NORMAL); SCAN/DIFF AUTO DIFF CONFIRMED
[2016-11-22] MEDS: QUEtiapine FUMARATE 25 MG TAB PO SCH (22:15)
[2016-11-22] MEDS ORDERED: MORPHINE SULFATE 8 MG/ML INJ IV PUSH PRN (22:15)
[2016-11-22 23:00] VITALS: BP 118/59; PULSE 99; RESP 20; TEMP 98.3; O2SAT 93
[2016-11-22] MEDS ORDERED: VANCOMYCIN 500 MG/NS 100 ML IV ONE ×2 (23:00)
[2016-11-23] VITALS (7 sets, daily range): BP systolic 119–138; BP diastolic 68–79; PULSE 79–100; RESP 16–22; TEMP 96.9–101; O2SAT 92–95
[2016-11-23] MEDS: CILOSTAZOL 100 MG TAB PO SCH (06:17)
[2016-11-23] MEDS: SODIUM CHLOR 0.9% 1000 ML INJ 1,000 ML IV SCH ×2 (08:00→15:20)
[2016-11-23 08:14] LABS: AUTOMATED NEUTROPHIL # 11.8 TH/MM3 (1.8-7.7); BASOPHIL # 0.1 TH/MM3 (0-0.2); BASOPHIL % 0.7 % (0.0-2.0); EOSINOPHIL % 0.2 % (0.0-4.0); HEMATOCRIT 24.7 % (35.0-46.0); LYMPHOCYTE # 0.8 TH/MM3 (1.0-4.8); MEAN CELL VOLUME 96.1 FL (80.0-100.0); MEAN CORPUSCULAR HEMOGLOBIN 30.8 PG (27.0-34.0); MEAN CORPUSCULAR HGB CONC 32.1 % (32.0-36.0); MONO % 9.7 % (0.0-8.0); NEUT % 83.4 % (16.0-70.0); PLATELET COUNT 303 TH/MM3 (150-450); RED BLOOD COUNT 2.57 MIL/MM3 (4.00-5.30); RED CELL DISTRIBUTION WIDTH 19.9 % (11.6-17.2); WHITE BLOOD COUNT 14.2 TH/MM3 (4.0-11.0)
[2016-11-23 08:16] LABS: HEMO FLAGS AUTO DIFF
[2016-11-23 08:46] LABS: ALKALINE PHOSPHATASE 81 U/L (45-117); ALT (GPT) 18 U/L (10-53); ANION GAP 10 MEQ/L (5-15); AST (GOT) 30 U/L (15-37); BICARBONATE 15.1 MEQ/L (21.0-32.0); BLOOD UREA NITROGEN 19 MG/DL (7-18); CHLORIDE 113 MEQ/L (98-107); GLOMERULAR FILTRATION RATE 29 ML/MIN (>89); POTASSIUM 3.5 MEQ/L (3.5-5.1); SODIUM (NA) 138 MEQ/L (136-145); TOTAL BILIRUBIN ADULT 0.5 MG/DL (0.2-1.0)
--- NOTE | 2016-11-23 08:48 | HHI.PR ---
Subjective Remarks Febrile this morning to 101.0. Patient endorses chills at this time. Is lying in bed, states she feels terrible. Endorses weakness and general lethargy. Alert and oriented this morning. Objective Vitals Vital Signs Date Time Temp Pulse Resp B/P Pulse Ox O2 Delivery O2 Flow Rate FiO2 11/23/16 04:00 101.0 96 22 134/68 94 11/23/16 01:42 79 11/22/16 23:00 98.3 99 20 118/59 93 11/22/16 19:00 95 22 139/71 97 Room Air 11/22/16 18:41 97 Room Air 11/22/16 18:37 99.6 100 28 143/72 96 Room Air 11/22/16 18:34 30 Room Air 11/22/16 18:24 100 44 127/61 90 Room Air Result Diagram: 11/23/16 0721 11/22/16 1840 Objective Remarks Gen.: No acute distress Head: Normocephalic. Atraumatic. EENT: Pupils equal round and reactive to light. Nose without drainage. Airway intact. Throat without injection. Cardiovascular: Regular rate and rhythm. No murmurs, rubs or gallops. Respiratory: Lungs clear to auscultation bilaterally. No wheezes or rhonchi. Abdomen: Soft, nontender, nondistended. No peritoneal signs. Musculoskeletal: No gross deformities. No edema. Skin: No obvious rashes or erythema. Neuro: Sensory and motor grossly intact. Cranial nerves II through XII grossly intact. Psych: Appropriate mood and affect A/P Problem List: (1) Sepsis ICD Code: A41.9 Status: Acute (2) UTI (urinary tract infection) ICD Code: N39.0 Status: Acute (3) Renal insufficiency ICD Code: N28.9 Status: Acute (4) Hydronephrosis ICD Code: N13.30 Status: Acute (5) Ovarian cancer ICD Code: C56.9 Status: Acute (6) H/O bacteremia ICD Code: Z87.898 Status: Acute Assessment and Plan 1. Sepsis: Febrile overnight. Leukocytosis improving. SourceUTI. Continue Vanc/Zosyn. Blood cultures pending, will follow. IV fluids. 2. UTI: U/a w/ UTI, continue w/ IV Abx as above. 3. Hydronephrosis: CT Abd/Pelvis w/ enlargement of pelvic masses and moderate hydronephrosis. Follows w/ Dr. Arevalo as outpatient, off Chemo x5 wks secondary to recent hospitalization/illness. Monitor urine output. 4. Renal Insufficiency: Acute on Chronic. Creatinine 2.12, previous and 1.37 on 11/12/16. UA positive for UTI. Continue w/ IVF for hydration. Follow renal function. 5. Ovarian CA: As above, CT Abd/Pelvis w/ enlargement of pelvic masses and metastatic disease, following w/ Dr. Arevalo as outpatient. 6. H/o Bacteremia: Recent admit 10/23-10/31/16 w/ Sepsis secondary to C Diff Colitis w/ Clostridium Bacteremia, s/p Vanc/Flagyl w/ completion of antibiotics. No recurrent symptoms. C. difficile pending. 7. DVT Prophylaxis: SCD/Teds. 8. Social work for d/c planning as needed. Problem Qualifiers (1) Sepsis: Qualified Code: A41.9 - Sepsis, due to unspecified organism Melonie Cm MD R3 Nov 23, 2016 08:48
[2016-11-23 09:00] LABS: SCAN/DIFF AUTO DIFF CONFIRMED
[2016-11-23] MEDS: BUDESONIDE-FORMOTEROL 160/4.5 MCG INHALER INH SCH ×2 (10:20→21:29)
[2016-11-23] MEDS: buPROPion HCL 150 MG EXTENDED RELEASE TAB PO SCH (10:26)
[2016-11-23] MEDS: CYANOCOBALAMIN 1,000 MCG TAB PO SCH (10:26)
[2016-11-23] MEDS: QUEtiapine FUMARATE 25 MG TAB PO SCH ×2 (10:26→21:28)
[2016-11-23] MEDS: DOCUSATE SODIUM 50 MG/SENNA 8.6 MG TAB PO SCH ×2 (10:26→21:00)
[2016-11-23] MEDS: FERROUS SULFATE 325 MG (65 MG ELEMENTAL IRON) TAB PO SCH (10:27)
[2016-11-23] MEDS: CEFEPIME INJ 1,000 MG in SODIUM CHLORIDE 0.9% INJ 100 ML IV SCH (10:31)
[2016-11-23] MEDS: SODIUM CHLORIDE 0.9% FLUSH 10 ML FLUSH IV FLUSH SCH ×2 (10:33→21:29)
--- NOTE | 2016-11-23 12:37 | EKG ---
Date Performed: 11/22/2016 Time Performed: 18:34:00 PTAGE: 75 years EKG: SINUS TACHYCARDIA NONSPECIFIC T-WAVE ABNORMALITY Compared to prior tracing no significant c hange ABNORMAL RHYTHM ECG INTERPRETATION BASED ON A DEFAULT AGE OF 40 YEARS PREVIOUS TRACING : 10/23/2016 19.31 DOCTOR: Luis Ledezma Interpretating Date/Time 11/23/2016 12:33:49
[2016-11-23 12:51] LABS: C. DIFF EPI 027 PRESUMPTIVE NEGATIVE (NEGATIVE); C. DIFF TOXIN PCR NEGATIVE (NEGATIVE)
[2016-11-23] MEDS: ALPRAZolam 0.5 MG TAB PO PRN (15:18)
[2016-11-23] MEDS: ACETAMINOPHEN/HYDROcodone 325 MG/5 MG TAB PO PRN (19:47)
[2016-11-23] MEDS: MIRTAZAPINE 15 MG TAB PO SCH (21:28)
[2016-11-23] MEDS: ESZOPICLONE 3 MG TAB PO PRN (21:28)
[2016-11-24] VITALS (11 sets, daily range): BP systolic 115–150; BP diastolic 61–84; PULSE 72–98; RESP 16–20; TEMP 97.6–98.8; O2SAT 93–95
[2016-11-24] MEDS: SODIUM CHLOR 0.9% 1000 ML INJ 1,000 ML IV SCH ×3 (00:05→20:57)
[2016-11-24] MEDS: CILOSTAZOL 100 MG TAB PO SCH (05:26)
[2016-11-24] MEDS: SODIUM CHLORIDE 0.9% FLUSH 10 ML FLUSH IV FLUSH SCH ×2 (09:00→21:00)
[2016-11-24] MEDS: DOCUSATE SODIUM 50 MG/SENNA 8.6 MG TAB PO SCH ×2 (09:00→20:52)
[2016-11-24] MEDS: CYANOCOBALAMIN 1,000 MCG TAB PO SCH (09:14)
[2016-11-24] MEDS: ALPRAZolam 0.5 MG TAB PO PRN ×2 (09:14→20:53)
[2016-11-24] MEDS: QUEtiapine FUMARATE 25 MG TAB PO SCH ×2 (09:14→20:52)
[2016-11-24] MEDS: buPROPion HCL 150 MG EXTENDED RELEASE TAB PO SCH (09:14)
[2016-11-24] MEDS: CEFEPIME INJ 1,000 MG in SODIUM CHLORIDE 0.9% INJ 100 ML IV SCH (09:14)
[2016-11-24] MEDS: BUDESONIDE-FORMOTEROL 160/4.5 MCG INHALER INH SCH ×2 (09:14→20:52)
[2016-11-24] MEDS ORDERED: PNEUMOCOCCAL POLYVALENT INJ 25 MCG/0.5 ML SYR IM ONE (10:00)
[2016-11-24] MEDS: ACETAMINOPHEN/HYDROcodone 325 MG/5 MG TAB PO PRN ×2 (10:32→18:05)
--- NOTE | 2016-11-24 11:59 | HHI.PR ---
Subjective Remarks Follow-up sepsis/UTI 11/24/16-patient seen and examined, currently afebrile and complains of lower extremity weakness otherwise stable. Objective Vitals Vital Signs Date Time Temp Pulse Resp B/P Pulse Ox O2 Delivery O2 Flow Rate FiO2 11/24/16 08:00 98.3 72 18 138/75 95 11/24/16 04:05 90 11/24/16 03:22 97.6 89 20 143/74 94 11/24/16 00:14 88 11/24/16 00:12 98.6 93 20 115/61 93 11/23/16 20:33 98 11/23/16 20:24 98.4 100 20 138/69 92 11/23/16 16:00 97.0 94 18 119/79 94 11/23/16 12:00 96.9 88 16 120/74 95 I/O 11/23/16 11/23/16 11/23/16 11/24/16 11/24/16 11/24/16 07:00 15:00 23:00 07:00 15:00 23:00 Intake Total 360 ml 1245 ml 735 ml 240 ml Output Total 750 ml 500 ml 750 ml Balance -390 ml 745 ml -15 ml 240 ml Intake Oral 360 ml 240 ml IV Total 1245 ml 735 ml Output Urine Total 750 ml 500 ml 750 ml # Bowel Movements 4 2 2 Result Diagram: 11/23/1621 11/23/1621 Imaging Last Impressions Chest X-Ray 11/22/16 1837 Signed Impressions: Service Date/Time: Tuesday, November 22, 2016 18:54 - CONCLUSION: No acute cardiopulmonary disease. Jessa Reyna MD Head CT 11/22/16 0000 Signed Impressions: Service Date/Time: Tuesday, November 22, 2016 20:01 - CONCLUSION: Chronic and small vessel ischemic changes without any evidence for acute hemorrhage or mass effect. Jessa Reyna MD Abdomen/Pelvis CT 11/22/16 0000 Signed Impressions: Service Date/Time: Tuesday, November 22, 2016 20:06 - CONCLUSION: 1. Enlargement of previously seen pelvic masses with development of moderate hydronephrosis in the right kidney and underlying metastatic disease is suspected. 2. The subcutaneous nodule in right lower anterior abdominal wall is also larger suspicious for metastatic disease. Jessa Reyna MD Objective Remarks GENERAL: NAD SKIN: Warm and dry. HEAD: Normocephalic. EYES: No scleral icterus. No injection or drainage. NECK: Supple, trachea midline. No JVD or lymphadenopathy. CARDIOVASCULAR: Regular rate and rhythm without murmurs, gallops, or rubs. RESPIRATORY: Breath sounds equal bilaterally. No accessory muscle use. GASTROINTESTINAL: Abdomen soft, non-tender, nondistended. MUSCULOSKELETAL: No cyanosis, or edema. BACK: Nontender without obvious deformity. No CVA tenderness. A/P Problem List: (1) Sepsis ICD Code: A41.9 Status: Acute (2) UTI (urinary tract infection) ICD Code: N39.0 Status: Acute (3) Renal insufficiency ICD Code: N28.9 Status: Acute (4) Hydronephrosis ICD Code: N13.30 Status: Acute (5) Ovarian cancer ICD Code: C56.9 Status: Acute (6) H/O bacteremia ICD Code: Z87.898 Status: Acute Assessment and Plan 75-year-old female with 1. Sepsis: SourceUTI. Continue Vanc/Zosyn. Monitor final culture report. 2. UTI: U/a w/ UTI, continue w/ IV Abx as above. 3. Hydronephrosis: CT Abd/Pelvis w/ enlargement of pelvic masses and moderate hydronephrosis. Follows w/ Dr. Arevalo as outpatient, off Chemo x5 wks secondary to recent hospitalization/illness. Monitor urine output. 4. Renal Insufficiency: Acute on Chronic. Continue w/ IVF for hydration. Follow renal function. 5. Ovarian CA: As above, CT Abd/Pelvis w/ enlargement of pelvic masses and metastatic disease, following w/ Dr. Arevalo as outpatient. 6. H/o Bacteremia: Recent admit 10/23-10/31/16 w/ Sepsis secondary to C Diff Colitis w/ Clostridium Bacteremia, s/p Vanc/Flagyl w/ completion of antibiotics. No recurrent symptoms. C. difficile negative 7. DVT Prophylaxis: SCD/Teds. PT consult Problem Qualifiers (1) Sepsis: Qualified Code: A41.9 - Sepsis, due to unspecified organism Sharif Spaulding MD Nov 24, 2016 11:58
[2016-11-24] MEDS: MIRTAZAPINE 15 MG TAB PO SCH (20:53)
[2016-11-24] MEDS: ESZOPICLONE 3 MG TAB PO PRN (21:45)
[2016-11-25] VITALS (15 sets, daily range): BP systolic 125–168; BP diastolic 68–90; PULSE 84–97; RESP 16–18; TEMP 97–99; O2SAT 92–96
[2016-11-25] MEDS: ACETAMINOPHEN/HYDROcodone 325 MG/5 MG TAB PO PRN ×3 (04:43→18:14)
[2016-11-25] MEDS: SODIUM CHLOR 0.9% 1000 ML INJ 1,000 ML IV SCH (04:46)
[2016-11-25 05:04] LABS: AUTOMATED NEUTROPHIL # 7.2 TH/MM3 (1.8-7.7); BASOPHIL % 0.2 % (0.0-2.0); EOSINOPHIL # 0.1 TH/MM3 (0-0.4); EOSINOPHIL % 0.9 % (0.0-4.0); HEMATOCRIT 21.7 % (35.0-46.0); LYMPH % 9.7 % (9.0-44.0); LYMPHOCYTE # 0.9 TH/MM3 (1.0-4.8); MEAN CELL VOLUME 95.6 FL (80.0-100.0); MEAN CORPUSCULAR HEMOGLOBIN 32.3 PG (27.0-34.0); MEAN CORPUSCULAR HGB CONC 33.8 % (32.0-36.0); NEUT % 79.2 % (16.0-70.0); PLATELET COUNT 312 TH/MM3 (150-450); RED BLOOD COUNT 2.27 MIL/MM3 (4.00-5.30); RED CELL DISTRIBUTION WIDTH 19.5 % (11.6-17.2); WHITE BLOOD COUNT 9.1 TH/MM3 (4.0-11.0)
[2016-11-25 05:16] LABS: HEMO FLAGS AUTO DIFF
[2016-11-25 05:27] LABS: BICARBONATE 16.8 MEQ/L (21.0-32.0)
[2016-11-25] MEDS: CILOSTAZOL 100 MG TAB PO SCH (05:40)
[2016-11-25 07:00] LABS: OVALOCYTES 1+ (NORMAL); PLATELET ESTIMATE SMEAR NORMAL (NORMAL); PLATELET MORPHOLOGY NORMAL (NORMAL); SCAN/DIFF AUTO DIFF CONFIRMED
[2016-11-25] MEDS: DOCUSATE SODIUM 50 MG/SENNA 8.6 MG TAB PO SCH ×2 (09:00→21:49)
[2016-11-25] MEDS: SODIUM CHLORIDE 0.9% FLUSH 10 ML FLUSH IV FLUSH SCH ×2 (09:00→21:00)
[2016-11-25] MEDS: CYANOCOBALAMIN 1,000 MCG TAB PO SCH (09:11)
[2016-11-25] MEDS: QUEtiapine FUMARATE 25 MG TAB PO SCH ×2 (09:11→21:48)
[2016-11-25] MEDS: buPROPion HCL 150 MG EXTENDED RELEASE TAB PO SCH (09:11)
[2016-11-25] MEDS: BUDESONIDE-FORMOTEROL 160/4.5 MCG INHALER INH SCH ×2 (09:11→21:48)
[2016-11-25] MEDS: CEFEPIME INJ 1,000 MG in SODIUM CHLORIDE 0.9% INJ 100 ML IV SCH (09:11)
[2016-11-25] MEDS ORDERED: VANCOMYCIN INJ 750 MG in SODIUM CHLOR 0.9% 250 ML INJ 250 ML IV SCH (11:00)
--- NOTE | 2016-11-25 11:44 | HHI.PR ---
Subjective Remarks Follow-up sepsis/UTI 11/24/16-patient seen and examined, currently afebrile and complains of lower extremity weakness otherwise stable. 11/25/16-patient seen and examined, and complains of not feeling well as well as generalized weakness. Afebrile. Denies any diarrhea. H&H dropping. Objective Vitals Vital Signs Date Time Temp Pulse Resp B/P Pulse Ox O2 Delivery O2 Flow Rate FiO2 11/25/16 08:00 97.7 95 16 125/68 92 11/25/16 04:03 95 11/25/16 04:00 99.0 94 18 140/69 93 11/25/16 00:14 90 11/25/16 00:00 98.4 91 18 151/87 94 11/24/16 20:10 95 11/24/16 20:00 98.4 98 18 140/80 94 11/24/16 16:12 96 11/24/16 16:00 97.9 94 16 150/84 94 11/24/16 12:02 96 11/24/16 12:00 98.8 77 16 129/82 94 I/O 11/24/16 11/24/16 11/24/16 11/25/16 11/25/16 11/25/16 06:59 14:59 22:59 06:59 14:59 22:59 Intake Total 735 ml 480 ml 1575 ml 785 ml Output Total 750 ml 500 ml 450 ml 400 ml 250 ml Balance -15 ml -20 ml 1125 ml 385 ml -250 ml Intake Oral 480 ml IV Total 735 ml 1575 ml 785 ml Output Urine Total 750 ml 500 ml 450 ml 400 ml 250 ml # Bowel Movements 2 Result Diagram: 11/25/16 0440 11/25/16 0440 Imaging Last Impressions Chest X-Ray 11/22/16 1837 Signed Impressions: Service Date/Time: Tuesday, November 22, 2016 18:54 - CONCLUSION: No acute cardiopulmonary disease. Jessa Reyna MD Head CT 11/22/16 0000 Signed Impressions: Service Date/Time: Tuesday, November 22, 2016 20:01 - CONCLUSION: Chronic and small vessel ischemic changes without any evidence for acute hemorrhage or mass effect. Jessa Reyna MD Abdomen/Pelvis CT 11/22/16 0000 Signed Impressions: Service Date/Time: Tuesday, November 22, 2016 20:06 - CONCLUSION: 1. Enlargement of previously seen pelvic masses with development of moderate hydronephrosis in the right kidney and underlying metastatic disease is suspected. 2. The subcutaneous nodule in right lower anterior abdominal wall is also larger suspicious for metastatic disease. Jessa Reyna MD Objective Remarks GENERAL: NAD SKIN: Warm and dry. HEAD: Normocephalic. EYES: No scleral icterus. No injection or drainage. NECK: Supple, trachea midline. No JVD or lymphadenopathy. CARDIOVASCULAR: Regular rate and rhythm without murmurs, gallops, or rubs. RESPIRATORY: Breath sounds equal bilaterally. No accessory muscle use. GASTROINTESTINAL: Abdomen soft, non-tender, nondistended. MUSCULOSKELETAL: No cyanosis, or edema. BACK: Nontender without obvious deformity. No CVA tenderness. A/P Problem List: (1) Sepsis ICD Code: A41.9 Status: Acute (2) UTI (urinary tract infection) ICD Code: N39.0 Status: Acute (3) Renal insufficiency ICD Code: N28.9 Status: Acute (4) Hydronephrosis ICD Code: N13.30 Status: Acute (5) Ovarian cancer ICD Code: C56.9 Status: Acute (6) H/O bacteremia ICD Code: Z87.898 Status: Acute Assessment and Plan 75-year-old female with 1. Sepsis: SourceUTI. Currently on Vanc/cefepime however will discontinue Vanco and continue only cefepime. Monitor final culture report. 2. UTI: U/a w/ UTI, continue w/ IV Abx as above. Urine culture pending 3. Hydronephrosis: CT Abd/Pelvis w/ enlargement of pelvic masses and moderate hydronephrosis. Follows w/ Dr. Arevalo as outpatient, off Chemo x5 wks secondary to recent hospitalization/illness. Monitor urine output. 4. Renal Insufficiency: Acute on Chronic. Improving renal indices. Continue w / IVF for hydration. 5. Ovarian CA: As above, CT Abd/Pelvis w/ enlargement of pelvic masses and metastatic disease, following w/ Dr. Arevalo as outpatient. 6. H/o Bacteremia: Recent admit 10/23-10/31/16 w/ Sepsis secondary to C Diff Colitis w/ Clostridium Bacteremia, s/p Vanc/Flagyl w/ completion of antibiotics. No recurrent symptoms. C. difficile negative 7. Normochromic normocytic anemia: May be secondary to dilutional, however will check Hemoccult. Transfused 1 unit packed red blood cell today 11/25/16. Continue to monitor H&H 8. Hypokalemia: Give potassium 60 mEq 1 now 9. Metabolic acidosis; consider adding NAhCO3 to IVF 10. DVT Prophylaxis: SCD/Teds. PT consult Discharge Planning Not medically stable for discharge Problem Qualifiers (1) Sepsis: Qualified Code: A41.9 - Sepsis, due to unspecified organism Sharif Spaulding MD Nov 25, 2016 11:44
[2016-11-25] MEDS ORDERED: SODIUM CHLOR 0.9% 250 ML INJ 250 ML IV ONE (11:45)
[2016-11-25] MEDS ORDERED: ACETAMINOPHEN 325 MG TAB PO PRN (11:45)
[2016-11-25] MEDS ORDERED: POTASSIUM CHLORIDE 10 MEQ CONTROLLED RELEASE TAB PO ONE (11:45)
[2016-11-25] MEDS: MIRTAZAPINE 15 MG TAB PO SCH (21:49)
[2016-11-25] MEDS: ESZOPICLONE 3 MG TAB PO PRN (21:49)
[2016-11-26] VITALS (13 sets, daily range): BP systolic 124–180; BP diastolic 67–98; PULSE 69–103; RESP 16–20; TEMP 97.1–98.8; O2SAT 94–99
[2016-11-26] MEDS: ALPRAZolam 0.5 MG TAB PO PRN ×3 (00:52→19:58)
[2016-11-26] MEDS: ACETAMINOPHEN/HYDROcodone 325 MG/5 MG TAB PO PRN ×4 (00:55→18:00)
[2016-11-26] MEDS: SODIUM CHLOR 0.9% 1000 ML INJ 1,000 ML IV SCH (05:40)
[2016-11-26] MEDS: CILOSTAZOL 100 MG TAB PO SCH (05:40)
[2016-11-26 06:52] LABS: BICARBONATE 17.1 MEQ/L (21.0-32.0); POTASSIUM 4.4 MEQ/L (3.5-5.1)
[2016-11-26 07:08] LABS: AUTOMATED NEUTROPHIL # 8.8 TH/MM3 (1.8-7.7); BASOPHIL % 0.3 % (0.0-2.0); EOSINOPHIL # 0.1 TH/MM3 (0-0.4); LYMPH % 10.7 % (9.0-44.0); LYMPHOCYTE # 1.2 TH/MM3 (1.0-4.8); MEAN CELL VOLUME 94.9 FL (80.0-100.0); MEAN CORPUSCULAR HEMOGLOBIN 31.9 PG (27.0-34.0); MEAN CORPUSCULAR HGB CONC 33.6 % (32.0-36.0); MONO % 9.8 % (0.0-8.0); NEUT % 78.2 % (16.0-70.0); PLATELET COUNT 331 TH/MM3 (150-450); RED BLOOD COUNT 2.84 MIL/MM3 (4.00-5.30); RED CELL DISTRIBUTION WIDTH 19.4 % (11.6-17.2); WHITE BLOOD COUNT 11.2 TH/MM3 (4.0-11.0)
[2016-11-26 07:46] LABS: HEMO FLAGS AUTO DIFF
[2016-11-26] MEDS: CYANOCOBALAMIN 1,000 MCG TAB PO SCH (08:22)
[2016-11-26] MEDS: CEFEPIME INJ 1,000 MG in SODIUM CHLORIDE 0.9% INJ 100 ML IV SCH (08:22)
[2016-11-26] MEDS: QUEtiapine FUMARATE 25 MG TAB PO SCH ×2 (08:22→19:56)
[2016-11-26] MEDS: DOCUSATE SODIUM 50 MG/SENNA 8.6 MG TAB PO SCH ×2 (08:22→19:57)
[2016-11-26] MEDS: FERROUS SULFATE 325 MG (65 MG ELEMENTAL IRON) TAB PO SCH (08:22)
[2016-11-26] MEDS: buPROPion HCL 150 MG EXTENDED RELEASE TAB PO SCH (08:22)
[2016-11-26] MEDS: SODIUM CHLORIDE 0.9% FLUSH 10 ML FLUSH IV FLUSH SCH ×2 (08:22→19:57)
[2016-11-26] MEDS: BUDESONIDE-FORMOTEROL 160/4.5 MCG INHALER INH SCH ×2 (08:22→19:56)
[2016-11-26 09:26] LABS: BANDS 7 % (0-6); EOSINOPHILS 2 % (0-4); NEUTROPHIL # MANUAL DIFF 9.5 TH/MM3 (1.8-7.7); OVALOCYTES 1+ (NORMAL); POLYS (SEG NEUTROPHILS) 78 % (16-70); WBC DIFF SAMPLE 100
[2016-11-26 09:27] LABS: PLATELET ESTIMATE SMEAR NORMAL (NORMAL); PLATELET MORPHOLOGY NORMAL (NORMAL); SCAN/DIFF AUTO DIFF CONFIRMED
--- NOTE | 2016-11-26 15:38 | HHI.PR ---
Subjective Remarks Denies fevers, chills denies diarrhea denies rash denies nausea or vomiting sodium trending up Objective Vitals Vital Signs Date Time Temp Pulse Resp B/P Pulse Ox O2 Delivery O2 Flow Rate FiO2 11/26/16 12:05 103 11/26/16 12:00 98.5 102 20 136/76 94 11/26/16 08:00 96 11/26/16 08:00 98.4 101 18 163/79 94 11/26/16 05:00 97.1 94 20 159/91 95 11/26/16 04:15 94 11/26/16 01:55 18 11/26/16 00:45 98.8 99 20 180/98 99 11/26/16 00:15 97 11/25/16 20:15 98.3 84 18 168/90 95 11/25/16 20:00 94 11/25/16 16:47 97.9 85 16 146/79 94 11/25/16 16:07 91 11/25/16 16:00 97.9 85 16 146/79 94 I/O 11/25/16 11/25/16 11/25/16 11/26/16 11/26/16 11/26/16 07:00 15:00 23:00 07:00 15:00 23:00 Intake Total 785 ml 1570 ml 240 ml 930 ml Output Total 400 ml 450 ml Balance 385 ml 1120 ml 240 ml 930 ml Intake Oral 720 ml 240 ml IV Total 785 ml 850 ml 930 ml Output Urine Total 400 ml 450 ml # Voids 3 2 # Bowel Movements 1 2 Result Diagram: 11/26/16 0545 11/26/16 0545 Imaging Last Impressions Chest X-Ray 11/22/16 1837 Signed Impressions: Service Date/Time: Tuesday, November 22, 2016 18:54 - CONCLUSION: No acute cardiopulmonary disease. Jessa Reyna MD Head CT 11/22/16 0000 Signed Impressions: Service Date/Time: Tuesday, November 22, 2016 20:01 - CONCLUSION: Chronic and small vessel ischemic changes without any evidence for acute hemorrhage or mass effect. Jessa Reyna MD Abdomen/Pelvis CT 11/22/16 0000 Signed Impressions: Service Date/Time: Tuesday, November 22, 2016 20:06 - CONCLUSION: 1. Enlargement of previously seen pelvic masses with development of moderate hydronephrosis in the right kidney and underlying metastatic disease is suspected. 2. The subcutaneous nodule in right lower anterior abdominal wall is also larger suspicious for metastatic disease. Jessa Reyna MD Objective Remarks AAOx3 NAD Tenderness to palpation of hypogastrium clear lungs BL Medications and IVs Current Medications Medications (Trade) Dose Ordered Sig/Melissa Route Start Time Stop Time Status Last Admin Cefepime HCl 1000 mg/Sodium Chloride 100 ml @ 200 mls/hr Q24H IV 11/23/16 09:00 11/26/16 08:22 (NS 1000 ml Inj) 1,000 ml @ 40 mls/hr Q24H IV 11/22/16 22:00 11/26/16 05:40 (NS Flush) 2 ml UNSCH PRN IV FLUSH 11/22/16 22:00 11/25/16 04:38 (NS Flush) 2 ml BID IV FLUSH 11/23/16 09:00 11/24/16 21:00 (Zofran Inj) 4 mg Q6H PRN IVP 11/22/16 22:00 (Tylenol) 650 mg Q6H PRN PO 11/22/16 22:00 ([place] 5-325 Mg) 1 tab Q4H PRN PO 11/22/16 22:00 11/26/16 13:29 (Morphine Inj) 2 mg Q3H PRN IV PUSH 11/22/16 22:15 (Felicia-Colace) 1 tab BID PO 11/23/16 09:00 11/23/16 10:26 (Milk Of Magnesia Liq) 30 ml Q12H PRN PO 11/22/16 22:00 (Senokot) 17.2 mg Q12H PRN PO 11/22/16 22:00 (Dulcolax Supp) 10 mg DAILY PRN RECTAL 11/22/16 22:00 (Lactulose Liq) 30 ml DAILY PRN PO 11/22/16 22:00 (Xanax) 0.5 mg TID PRN PO 11/22/16 22:00 11/26/16 08:22 (Symbicort 160-4.5 Inh) 2 puff Q12HR INH 11/23/16 09:00 11/26/16 08:22 (Wellbutrin Xl 24 Hr) 150 mg DAILY PO 11/23/16 09:00 11/26/16 08:22 (Pletal) 200 mg DAILY@06 PO 11/23/16 06:00 11/26/16 05:40 (Vitamin B12) 1,000 mcg DAILY PO 11/23/16 09:00 11/26/16 08:22 (Lunesta) 3 mg HS PRN PO 11/22/16 22:00 11/25/16 21:49 (Remeron) 15 mg HS PO 11/23/16 21:00 11/25/16 21:49 (SEROquel) 25 mg DAILY PO 11/23/16 09:00 11/26/16 08:22 (Ferrous Sulfate) 325 mg Q72H PO 11/23/16 09:00 11/26/16 08:22 (SEROquel) 50 mg HS PO 11/22/16 22:15 11/25/16 21:48 A/P Problem List: (1) Sepsis ICD Code: A41.9 Status: Acute (2) UTI (urinary tract infection) ICD Code: N39.0 Status: Acute (3) Renal insufficiency ICD Code: N28.9 Status: Acute (4) Hydronephrosis ICD Code: N13.30 Status: Acute (5) Ovarian cancer ICD Code: C56.9 Status: Acute (6) H/O bacteremia ICD Code: Z87.898 Status: Acute (7) Hypernatremia ICD Code: E87.0 Status: Acute (8) Hyperchloremic metabolic acidosis ICD Code: E87.2 Status: Acute Assessment and Plan 1. Sepsis: Secondary to a urinary tract infection. Initially treated with vancomycin IV and IV cefepime. Vancomycin discontinued. Continue treatment with IV cefepime. Urine culture grew less than 10,000 CFU/ML. Sepsis improving, however patient still slightly tachycardic 2. UTI: U/a w/ UTI, continue w/ IV Abx as above. Urine culture as above. Will DC on Cefuroxime. 3. Hydronephrosis: CT Abd/Pelvis w/ enlargement of pelvic masses and moderate hydronephrosis. Follows w/ Dr. Arevalo as outpatient, off Chemo x5 wks secondary to recent hospitalization/illness. Monitor urine output. I will consult Dr Arevalo from [facility]/onc and urology given development of hydronephrosis of the right kidney which was not seen on previous CT scan of the abdomen and pelvis on and reviewed by me, and is likely being caused by compression of masses mentioned on CT. 4. KAMRYN: Acute on Chronic. Improving renal indices. Continue w/ IVF for hydration and continue to monitor BMP. 5. Ovarian CA: As above, CT Abd/Pelvis w/ enlargement of pelvic masses and metastatic disease, Consult [facility] onc - Dr arevalo. 6. H/o Bacteremia: Recent admit 10/23-10/31/16 w/ Sepsis secondary to C Diff Colitis w/ Clostridium Bacteremia, s/p Vanc/Flagyl w/ completion of antibiotics. No recurrent symptoms. C. difficile negative 7. Normochromic normocytic anemia: Hemoccult negative. Transfused 1 unit packed red blood cell today 11/25/16. Continue to monitor H&H 8. Hypokalemia: SP oral replacement. Potassium level is normal today. Continue to monitor BMP and replace potassium as needed. 9. Hyperchloremic metabolic acidosis. I will start the patient on lactated Ringer's. Discontinue normal saline. 10. Hypernatremia: Encourage oral intake of hypotonic fluids. I will discontinue normal saline and start the patient on Lactated Ringers. 10. DVT Prophylaxis: SCD/Teds, will add heparin SQ. PT consult Discharge Planning Continue to monitor in the medical floor. DC pending clinical improvement - [facility]/ onc consult. Problem Qualifiers (1) Sepsis: Qualified Code: A41.9 - Sepsis, due to unspecified organism Marc Meng MD Nov 26, 2016 15:38
[2016-11-26] MEDS ORDERED: SODIUM CHLORIDE 23.4% INJ 38.5 MEQ in WATER STERILE FOR INJ 1,000 ML IV SCH (15:45)
[2016-11-26] MEDS: LACTATED RINGER'S 1000 ML INJ 1,000 ML IV SCH (16:49)
--- NOTE | 2016-11-26 17:42 | PD.CONS ---
History of Present Illness [facility]/ONC Consult Requested By Dr. Dunn Reason for Consult ovarian cancer rt hydronephrosis Primary Care Physician Diana Salgado MD Diagnoses: (1) Hydronephrosis (2) UTI (urinary tract infection) (3) Pain (4) Ovarian cancer (5) Acute renal failure History of Present Illness This is a 75 year old with a diagnosis of stage 1 grade 3 ovarian cancer. She underwent surgery for resection of pelvic masses by Dr. Villa back in August 2015. During our initial consultation IV chemotherapy was recommended but due to patients poor performance status (she was in rehab at the time) she and her family declined treatment. Approximately six months later she started complaining of abdominal pain, CT scan was obtained by Dr. Ambrose that shown recurrent disease. Mrs. Bojorquez and her family followed up in the [facility] and single agent Carboplatin AUC 6 was recommended she is s/p 5 cycles. Her CA 125 was modestly elevated when she stated treatment at 64 and normalized to 17.9 obtained on 10/07/16. She has had a recent hospitalization of dehydration and c-diff back in October 2016. CT scan obtained in the hospital shown no regression or real progression of disease. Upon discharge she followed up in our office on November 12 and it was agreed upon to hopefully help her gain some strength back, she would take a break from treatment for a few weeks and then she would follow up with Dr. Arevalo for consideration of restarting Carboplatin, although he felt that changing her to single agent Taxol was an appropriate option as well. Mrs. Bojorquez's daughter tells me that last Jeremías Mrs. Bojorquez started acting more weak with confusion. She was complaining of abdominal pain and she was not eating or drinking much at all so they brought her into the hospital for evaluation. She was found to have a UTI and dehydration. CT scan obtained during this hospitalization shown progression or disease with right sided hydronephrosis. Urology has been consulted. Review of Systems Constitutional: COMPLAINS OF: Change in appetite Gastrointestinal: COMPLAINS OF: Abdominal pain, Anorexia Neurologic: COMPLAINS OF: Poor Balance Psychiatric: COMPLAINS OF: Confusion Past Family Social History Allergies: Coded Allergies: Motrin (Verified Adverse Reaction, Intermediate, Nausea/Vomiting, 11/22/16) Past Medical History anxiety hypertension lupus ovarian cancer stage 1 grade 3 Past Surgical History hysterectomy for benign process 1983 resection of pelvic masses 2016 cataract removal hernia repair 2009 infusa port placed Reported Medications per EMR Active Ordered Medications Current Medications Sodium Chloride 1,000 ml @ 1,000 mls/hr Q1H IV Last administered on 11/22/16 18:44; Start 11/22/16 at 18:37; Stop 11/22/16 at 19:36; Status DC Vancomycin HCl 1000 mg/Sodium Chloride 250 ml @ 250 mls/hr ONCE ONCE IV Last administered on 11/23/16 04:39; Start 11/22/16 at 21:30; Stop 11/22/16 at 22:29 ; Status DC Piperacillin Sod/ Tazobactam Sod 50 ml @ 100 mls/hr ONCE ONCE IV Last administered on 11/22/16 21:59; Start 11/22/16 at 21:30; Stop 11/22/16 at 21:59 ; Status DC Sodium Chloride 1,000 ml @ 1,000 mls/hr Q1H IV Last administered on 11/22/16 21:59; Start 11/22/16 at 21:27; Stop 11/22/16 at 22:26; Status DC Pharmacy Profile Note 0 ml @ 0 mls/hr UNSCH OTHER ; Start 11/22/16 at 22:00; Status Cancel Cefepime HCl 1000 mg/Sodium Chloride 100 ml @ 200 mls/hr Q24H IV Last administered on 11/26/16 08:22; Start 11/23/16 at 09:00 Sodium Chloride (NS 1000 ml Inj) 1,000 ml @ 40 mls/hr Q24H IV Last administered on 11/26/16 05:40; Start 11/22/16 at 22:00; Stop 11/26/16 at 15:38 ; Status DC Sodium Chloride (NS Flush) 2 ml UNSCH PRN IV FLUSH FLUSH AFTER USING IV ACCESS Last administered on 11/25/16 04:38; Start 11/22/16 at 22:00 Sodium Chloride (NS Flush) 2 ml BID IV FLUSH Last administered on 11/24/16 21: 00; Start 11/23/16 at 09:00 Ondansetron HCl (Zofran Inj) 4 mg Q6H PRN IVP NAUSEA OR VOMITING; Start at 22:00 Acetaminophen (Tylenol) 650 mg Q6H PRN PO FEVER/PAIN SCALE 1 TO 2; Start at 22:00 Acetaminophen/ Hydrocodone Bitart ([place] 5-325 Mg) 1 tab Q4H PRN PO PAIN SCALE 3 TO 5 Last administered on 11/26/16 13:29; Start 11/22/16 at 22:00 Morphine Sulfate (Morphine Inj) 2 mg Q3H PRN IV PUSH PAIN 6-10; Start 11/22/16 at 22:15 Senna/Docusate Sodium (Felicia-Colace) 1 tab BID PO Last administered on 10:26; Start 11/23/16 at 09:00 Magnesium Hydroxide (Milk Of Magnesia Liq) 30 ml Q12H PRN PO MILD - MODERATE CONSTIPATION; Start 11/22/16 at 22:00 Sennosides (Senokot) 17.2 mg Q12H PRN PO MODERATE - SEVERE CONSTIPATION; Start 11/22/16 at 22:00 Bisacodyl (Dulcolax Supp) 10 mg DAILY PRN RECTAL SEVERE CONSITIPATION; Start at 22:00 Lactulose (Lactulose Liq) 30 ml DAILY PRN PO SEVERE CONSITIPATION; Start at 22:00 Albuterol Sulfate (Albuterol Neb) 2.5 mg Q4HR NEB PRN NEB SHORTNESS OF BREATH; Start 11/22/16 at 22:00 Alprazolam (Xanax) 0.5 mg TID PRN PO ANXIETY Last administered on 11/26/16 08: 22; Start 11/22/16 at 22:00 Budesonide/ Formoterol Fumarate (Symbicort 160-4.5 Inh) 2 puff Q12HR INH Last administered on 11/26/16 08:22; Start 11/23/16 at 09:00 Bupropion HCl (Wellbutrin Xl 24 Hr) 150 mg DAILY PO Last administered on 08:22; Start 11/23/16 at 09:00 Cilostazol (Pletal) 200 mg DAILY@06 PO Last administered on 11/26/16 05:40; Start 11/23/16 at 06:00 Cyanocobalamin (Vitamin B12) 1,000 mcg DAILY PO Last administered on 11/26/16 08:22; Start 11/23/16 at 09:00 Eszopiclone (Lunesta) 3 mg HS PRN PO INSOMNIA Last administered on 11/25/16 21 :49; Start 11/22/16 at 22:00 Mirtazapine (Remeron) 15 mg HS PO Last administered on 11/25/16 21:49; Start 11/23/16 at 21:00 Quetiapine Fumarate (SEROquel) 25 mg DAILY PO Last administered on 11/26/16 08 :22; Start 11/23/16 at 09:00 Ferrous Sulfate (Ferrous Sulfate) 325 mg Q72H PO Last administered on 08:22; Start 11/23/16 at 09:00 Quetiapine Fumarate 50 mg 50 mg HS PO Last administered on 11/25/16 21:48; Start 11/22/16 at 22:15 Vancomycin HCl/ Sodium Chloride (Vancomycin Inj/ NS Inj) 100 ml @ 200 mls/hr ONCE ONCE IV Last administered on 11/23/16 06:18; Start 11/22/16 at 23:00; Stop 11/22/16 at 23:29; Status DC Pneumococcal Polyvalent Vaccine 25 mcg 25 mcg ONCE ONCE IM ; Start 11/24/16 at 10:00; Stop 11/24/16 at 10:01; Status DC Vancomycin HCl/ Sodium Chloride (Vancomycin Inj/ NS 250 ml Inj) 257.5 ml @ 250 mls/hr Q24H IV Last administered on 11/25/16 11:17; Start 11/25/16 at 11:00; Stop 11/25/16 at 11:50; Status DC Miscellaneous Information SPECIFIC LAB TO BE DRAWN:VANCOMYCIN TROUGH DATE TO... ONCE ONCE .XX ; Start 11/27/16 at 10:45; Stop 11/27/16 at 10:46; Status Cancel Potassium Chloride 60 meq 60 meq ONCE ONCE PO Last administered on 11/25/16 12:10; Start 11/25/16 at 11:45; Stop 11/25/16 at 11:57; Status DC Sodium Chloride (NS 250 ml Inj) 250 ml @ 15 mls/hr ONCE ONCE IV Last administered on 11/25/16 14:07; Start 11/25/16 at 11:45; Stop 11/26/16 at 04:24 ; Status DC Acetaminophen 650 mg 650 mg Q4H PRN PO SEE LABEL COMMENTS Last administered on 11/25/16 13:22; Start 11/25/16 at 11:45; Stop 11/25/16 at 15:46; Status DC Sodium Chloride 38.5 meq/Sterile Water 1,009.625 ml @ 84 mls/hr Q12H2M IV ; Start 11/26/16 at 15:45; Stop 11/26/16 at 16:03; Status DC Lactated Ringer's (Lr 1000 ml Inj) 1,000 ml @ 84 mls/hr [id number] IV Last administered on 11/26/16t 16:49; Start 11/26/16 at 16:15 Family History per EMR Social History lives with 3 children past smoker Physical Exam Vital Signs Vital Signs Date Time Temp Pulse Resp B/P Pulse Ox O2 Delivery O2 Flow Rate FiO2 11/26/16 12:05 103 11/26/16 12:00 98.5 102 20 136/76 94 11/26/16 08:00 96 11/26/16 08:00 98.4 101 18 163/79 94 11/26/16 05:00 97.1 94 20 159/91 95 11/26/16 04:15 94 11/26/16 01:55 18 11/26/16 00:45 98.8 99 20 180/98 99 11/26/16 00:15 97 11/25/16 20:15 98.3 84 18 168/90 95 11/25/16 20:00 94 Physical Exam GENERAL: frail in NAD SKIN: No rashes, ecchymoses or lesions. Cool and dry. HEAD: Atraumatic. Normocephalic. No temporal or scalp tenderness. EYES: Pupils equal round and reactive. Extraocular motions intact. No scleral icterus. No injection or drainage. NECK: Trachea midline. CARDIOVASCULAR: Regular rate and rhythm without murmurs, gallops, or rubs. RESPIRATORY: Clear to auscultation. Breath sounds equal bilaterally. No wheezes , rales, or rhonchi. GASTROINTESTINAL: generalized tenderness to palpation, tenderness to right flank , +BS x 4 MUSCULOSKELETAL: Extremities without clubbing, cyanosis, or edema. NEUROLOGICAL: Awake and alert. Laboratory Laboratory Tests Test 11/26/16 05:45 White Blood Count 11.2 Red Blood Count 2.84 Hemoglobin 9.1 Hematocrit 27.0 Mean Corpuscular Volume 94.9 Mean Corpuscular Hemoglobin 31.9 Mean Corpuscular Hemoglobin 33.6 Concent Red Cell Distribution Width 19.4 Platelet Count 331 Mean Platelet Volume 7.3 Neutrophils (%) (Auto) 78.2 Lymphocytes (%) (Auto) 10.7 Monocytes (%) (Auto) 9.8 Eosinophils (%) (Auto) 1.0 Basophils (%) (Auto) 0.3 Neutrophils # (Auto) 8.8 Lymphocytes # (Auto) 1.2 Monocytes # (Auto) 1.1 Eosinophils # (Auto) 0.1 Basophils # (Auto) 0.0 CBC Comment AUTO DIFF Differential Total Cells 100 Counted Neutrophils % (Manual) 78 Band Neutrophils % 7 Lymphocytes % 7 Monocytes % 6 Eosinophils % 2 Neutrophils # (Manual) 9.5 Differential Comment AUTO DIFF CONFIRMED Platelet Estimate NORMAL Platelet Morphology Comment NORMAL Ovalocytes 1+ Sodium Level 147 Potassium Level 4.4 Chloride Level 121 Carbon Dioxide Level 17.1 Anion Gap 9 Blood Urea Nitrogen 12 Creatinine 1.40 Estimat Glomerular Filtration 37 Rate Random Glucose 70 Calcium Level 8.1 Date/Time Procedure Status Source Growth 11/25/16 12:40 Stool Occult Blood (PARAG) - Final Complete Stool Stool HEMOCCULT NEGATIVE 11/22/16 21:00 Urine Culture - Final Complete Urine Clean Catch <10,000 CFU/ML GRAM NEGATIVE ABUNDIO 11/22/16 18:49 Influenza Types A,B Antigen ([facility]AG) - Final Complete Nasal Washing NEGATIVE FOR FLU A AND B ANTIGEN.... 11/22/16 18:45 Aerobic Blood Culture - Preliminary Resulted Blood Peripheral NO GROWTH IN 4 DAYS 11/22/16 18:45 Anaerobic Blood Culture - Preliminary Resulted Blood Peripheral NO GROWTH IN 4 DAYS Result Diagram: 11/26/16 0545 11/26/16 0545 Imaging Last Impressions Chest X-Ray 11/22/16 1837 Signed Impressions: Service Date/Time: Tuesday, November 22, 2016 18:54 - CONCLUSION: No acute cardiopulmonary disease. Jessa Reyna MD Head CT 11/22/16 0000 Signed Impressions: Service Date/Time: Tuesday, November 22, 2016 20:01 - CONCLUSION: Chronic and small vessel ischemic changes without any evidence for acute hemorrhage or mass effect. Jessa Reyna MD Abdomen/Pelvis CT 11/22/16 0000 Signed Impressions: Service Date/Time: Tuesday, November 22, 2016 20:06 - CONCLUSION: 1. Enlargement of previously seen pelvic masses with development of moderate hydronephrosis in the right kidney and underlying metastatic disease is suspected. 2. The subcutaneous nodule in right lower anterior abdominal wall is also larger suspicious for metastatic disease. Jessa Reyna MD Assessment and Plan Problem List: (1) Ovarian cancer Status: Chronic Plan: Palliative care consulted to help clarify goals Patient has poor performance status with worsening disease and is not a candidate for IV chemotherapy for this reason. I explained that although she may still desire treatment that her body can not tolerate treatment as the chemo would be more detrimental than helpful in her weak state. Her family would like her to go to rehab but I am not sure that she would qualify because she would not be able to tolerate extended periods of physical therapy. They are looking into a few options I believe that Gaurav stated she is not a candidate. (2) Hydronephrosis Status: Acute Plan: result of compression from increasing pelvic masses urology has been consulted (3) Pain Status: Chronic Plan: related to hydronephrosis and tumor burden palliative care consulted meds per EMR (4) UTI (urinary tract infection) Status: Acute Plan: ABX per EMR encourage hydration (5) Acute renal failure Status: Chronic Plan: improving with hydration hydronephrosis on the right per recent CT scan urology consulted Problem Qualifiers (1) Ovarian cancer: Qualified Code: C56.9 - Ovarian cancer, unspecified laterality Tomasa Maldonado Nov 26, 2016 17:42
[2016-11-26] MEDS: MIRTAZAPINE 15 MG TAB PO SCH (19:56)
[2016-11-26] MEDS: ESZOPICLONE 3 MG TAB PO PRN (19:56)
[2016-11-27] VITALS (11 sets, daily range): BP systolic 134–176; BP diastolic 77–101; PULSE 96–117; RESP 16–20; TEMP 97.3–98.7; O2SAT 94–99
[2016-11-27] MEDS: CILOSTAZOL 100 MG TAB PO SCH (06:28)
[2016-11-27] MEDS: LACTATED RINGER'S 1000 ML INJ 1,000 ML IV SCH ×2 (06:28→22:00)
[2016-11-27] MEDS: QUEtiapine FUMARATE 25 MG TAB PO SCH ×2 (08:11→20:02)
[2016-11-27] MEDS: CYANOCOBALAMIN 1,000 MCG TAB PO SCH (08:11)
[2016-11-27] MEDS: CEFEPIME INJ 1,000 MG in SODIUM CHLORIDE 0.9% INJ 100 ML IV SCH (08:11)
[2016-11-27] MEDS: buPROPion HCL 150 MG EXTENDED RELEASE TAB PO SCH (08:12)
[2016-11-27] MEDS: BUDESONIDE-FORMOTEROL 160/4.5 MCG INHALER INH SCH ×2 (08:12→20:01)
[2016-11-27] MEDS: SODIUM CHLORIDE 0.9% FLUSH 10 ML FLUSH IV FLUSH SCH ×2 (08:12→20:13)
[2016-11-27] MEDS: DOCUSATE SODIUM 50 MG/SENNA 8.6 MG TAB PO SCH ×2 (08:12→20:13)
[2016-11-27] MEDS ORDERED: PHARMACY ORDERED LAB ONE (10:45)
[2016-11-27] MEDS ORDERED: PILL SPLITTER OTHER PRN (10:45)
[2016-11-27] MEDS ORDERED: FUROSEMIDE 40 MG/4 ML VIAL ONE (11:22)
--- NOTE | 2016-11-27 11:57 | PD.CONS ---
Consult Service Palliative Care . Consult Requested By ADRIANE Tavarez/ Dr. Arevalo . Primary Care Physician Diana Salgado MD . Reason for Consultation a. To assist with evaluation and management of symptoms including: pain, anxiety, weakness. b. To assist medical decision maker(s) with: better understanding of current medical conditions; weighing benefits/burdens of medical treatment options; making medical treatment decisions. . HPI History of Present Illness Mrs. Bojorquez is a 75 year old female with past medical history of COPD (oxygen dependent), hypertension, anemia, migraines, anxiety/depression, and ovarian cancer. Patient was diagnosed with Stage 1 grade 3 ovarian cancer in August 2015 after resection of pelvis masses by Dr. Villa. Patient initially declined treatment due to performance status and rehab needs at the time. 6 months later she developed recurrent disease and was started on single agent Carboplatin AUC 6 (she completed 5 cycles). Her CA-125 was modestly elevated when she stated treatment at 64 and normalized to 17.9 with treatment. Previously admitted - 11/01/16 for neutropenia/sepsis. CT scan obtained in the hospital shown no regression or real progression of disease. Previously admitted 10/23/16- 11/01/16 for neutropenia/sepsis/ C. Diff. CT scan obtained in the hospital shown no regression or real progression of disease. Palliative care was consulted during that admission. Upon discharge she followed up with PROJECT TECHNICIAN Oncology on November 12, it was agreed to hopefully help her gain some strength back, she would take a break from treatment for a few weeks and then she would follow up with Dr. Arevalo for consideration of restarting Carboplatin, or changing her to single agent Taxol. Patient presented to [facility] ER on 11/22/16 with increased generalized weakness and altered mental status. Spouse indicated increased pain in the lower abdomen, rated 6/10, some relief with PRN Motrin. Denied N/V. Initial evaluation revealed: * VS: WBC 99.6, 100, 28, 143/72 * WBC 17.7, hemoglobin 10.3, hematocrit 30.6, platelets 367, neutrophils 86.3% * PT 12.3, INR 1.1, PTT 35.9 * Sodium 133, potassium 4.6, chloride 104, BUN 21, creatinine 2.12, GFR 23 * Lactic acid 1.3. * T. Bili 0.6, AST 49, ALT 22, Alk phos 92 * Troponin 7.5 * total protein 7.5, albumin 2.7 * Lipase 40 * CT abdomen/pelvis - enlargement of previously seen pelvic masses with development of moderate hydronephrosis in the right kidney and underlying metastatic disease is suspected, subcutaneous nodule in right lower anterior abdominal wall is also larger suspicious for metastatic disease. * CT head - Chronic and small vessel ischemic changes without any evidence for acute hemorrhage or mass effect. * CXR - no acute disease. * urinalysis - + leukocyte esterase, RBC and bacteria - culture indicated pending. * Hemoccult negative. Patient is admitted with sepsis, UTI, renal insufficiency, hydronephrosis and Ovarian cancer disease progression. Urology, Dr. Pastor has been consulted for hydronephrosis ordered renal scan, if obstruction will need double J stent. Recommendation to continue Cefepime. Renal scan negative for obstruction. Oncology reports patient is not a candidate for additional chemotherapy. Gaurav has declined her for rehab given cancer progression. Palliative care is consulted to assist with further clarification of goals. . Function/Cognitive Trajectory Ongoing decline, weakness and increased need for assistance with ADLs. . Review of Systems Constitutional: COMPLAINS OF: Fatigue, Weight loss, Change in appetite ( decreased), Pain (lower abdomen), Generalized weakness Respiratory: COMPLAINS OF: Shortness of breath Cardiovascular: COMPLAINS OF: Dyspnea on Exertion Gastrointestinal: COMPLAINS OF: Abdominal pain, Anorexia, Bloating Musculoskeletal: COMPLAINS OF: Joint pain Hematologic/Lymphatics: COMPLAINS OF: Bruising, History of transfusions Neurologic: COMPLAINS OF: Poor Balance Psychiatric: COMPLAINS OF: Anxiety, Depression Other ROS: early satiety Past Family Social History Coded Allergies: Motrin (Verified Adverse Reaction, Intermediate, Nausea/Vomiting, 11/22/16) Past Medical History Recurrent Ovarian Cancer with pelvic masses and lower abdominal wall SubQ nodule. COPD oxygen dependent CKD HTN anxiety depression arthritis History of incarcerated hernia post bilateral salpingo-oophorectomystatus post surgical repair anemia post transfusions . Past Surgical History Bilateral Salpingo oophorectomy August 2015. Appendectomy Cholecystectomy Hysterectomy 1982 Cataract Surgery Right Port Placement Left elbow surgery Shoulder surgery Cataract surgery Incarcerated hernia / small bowel repair . Reported Medications Reported Meds & Active Scripts Active Oxygen tank (Oxygen) 1 Ea Tank 2 Liter DARIANA.CANULA CONTINUOUS Oxygen Concentrator Portable Gaseous 2 L/min via Nasal Cannula Continuous For 99 months Ventolin Hfa 18 GM Inh (Albuterol Sulfate) 90 Mcg/Act Aer 2 Puff INH Q4H PRN Symbicort Inh (Budesonide/Formoterol Fumarate) 160-4.5 Mcg/Act Aero 2 Puff INH Q12HR Albuterol Neb (Albuterol Sulfate) 2.5 Mg/3 Ml Neb 2.5 Mg NEB Q4HR NEB PRN Nebulizer 1 Mis Mis 1 Ea .ROUTE DIRECTED Reported Ferrous Sulfate DR (Ferrous Sulfate) 325 Mg Tabdr 325 Mg PO EVERY 3RD DAY B-12 Tr (Cyanocobalamin) 1,000 Mcg Tab 1,000 Mcg PO DAILY Quetiapine (Quetiapine Fumarate) 25 Mg Tab 25 Mg PO DAILY Oxycodone-Acetaminophen 10-325 mg Tab 1 Tab PO BID PRN Alprazolam 0.5 Mg Tab 0.5 Mg PO TID PRN Atenolol 50 Mg Tab 75 Mg PO DAILY Quetiapine (Quetiapine Fumarate) 50 Mg Tab 50 Mg PO HS Eszopiclone 3 Mg Tab 3 Mg PO HS PRN Mirtazapine 15 Mg Tab 15 Mg PO HS Bupropion HCl ER 24 HR (Bupropion HCl) 150 Mg Tab 150 Mg PO DAILY Cilostazol 100 Mg Tab 200 Mg PO DAILY . Current Medications Medications (Trade) Dose Ordered Sig/Melissa Route Start Time Stop Time Status Last Admin (Maxipime Inj/NS Inj) 100 ml @ 200 mls/hr Q24H IV 11/23/16 09:00 11/27/16 08:11 (NS Flush) 2 ml UNSCH PRN IV FLUSH 11/22/16 22:00 11/25/16 04:38 (NS Flush) 2 ml BID IV FLUSH 11/23/16 09:00 11/24/16 21:00 (Zofran Inj) 4 mg Q6H PRN IVP 11/22/16 22:00 (Tylenol) 650 mg Q6H PRN PO 11/22/16 22:00 (Sunny Side 5-325 Mg) 1 tab Q4H PRN PO 11/22/16 22:00 11/26/16 18:00 (Morphine Inj) 2 mg Q3H PRN IV PUSH 11/22/16 22:15 (Felicia-Colace) 1 tab BID PO 11/23/16 09:00 11/23/16 10:26 (Milk Of Magnesia Liq) 30 ml Q12H PRN PO 11/22/16 22:00 (Senokot) 17.2 mg Q12H PRN PO 11/22/16 22:00 (Dulcolax Supp) 10 mg DAILY PRN RECTAL 11/22/16 22:00 (Lactulose Liq) 30 ml DAILY PRN PO 11/22/16 22:00 (Xanax) 0.5 mg TID PRN PO 11/22/16 22:00 11/26/16 19:58 (Symbicort 160-4.5 Inh) 2 puff Q12HR INH 11/23/16 09:00 11/27/16 08:12 (Wellbutrin Xl 24 Hr) 150 mg DAILY PO 11/23/16 09:00 11/27/16 08:12 (Pletal) 200 mg DAILY@06 PO 11/23/16 06:00 11/27/16 06:28 (Vitamin B12) 1,000 mcg DAILY PO 11/23/16 09:00 11/27/16 08:11 (Lunesta) 3 mg HS PRN PO 11/22/16 22:00 11/26/16 19:56 (Remeron) 15 mg HS PO 11/23/16 21:00 11/26/16 19:56 (SEROquel) 25 mg DAILY PO 11/23/16 09:00 11/27/16 08:11 (Ferrous Sulfate) 325 mg Q72H PO 11/23/16 09:00 11/26/16 08:22 Quetiapine Fumarate 50 mg 50 mg HS PO 11/22/16 22:15 11/26/16 19:56 (Lr 1000 ml Inj) 1,000 ml @ 84 mls/hr [id number] IV 11/26/16 16:15 11/27/16 06:28 (Tenormin) 75 mg DAILY PO 11/27/16 10:30 (Pill Splitter) 1 ea UNSCH PRN OTHER 11/27/16 10:45 . Family History Per patient's : Patient's mother is 93 years old, reportedly living independently in her own home in [place], possible dementia. Familial history of heart disease. . Substance Use Tobacco: Previous smoker, [id number] smoking history. Alcohol: Patient does not consume alcohol Prescription med abuse: None known Illicits: None known. . Psychosocial History Patient was born in [place]. She has been to her ([place]) for approximately 50 years; they moved to [place] approximately 10 years ago after retiring. Patient worked "here and there" while her children were growing up. After moving to [place], the patient worked at [employer] (unknown capacity). The patient and her have 2 adult sons and 1 adult daughter. Carol lives in [place], [place]. Both sons (Jadiel and Sal ) live in [place]. They have 8 grandchildren. . Spiritual/Cultural Factors Taoism reagan, unknown denomination. . Living Will: Never completed Health Care Surrogate: Never completed Durable Power of Client Relationship Consultant: Never completed Health Care Surrogate(s): Patient is currently capacitated to make her own health care decisions, recommended shared decision-making with her spouse given recent intermittent confusion. According to [place] statutes, health care proxy decision-making falls to the patient's spouse. . Documented care wishes: No written advance directives. . Today's verbally stated goals: No discussion regarding goals of care today as patient wishes for her spouse to be present during this conversation. Family/friends goals: Family meeting arranged 11/28/16 at 3 PM with PROJECT TECHNICIAN oncology, palliative care and family. Ethical and Legal Issues Patient is currently capacitated to make her own health care decisions, recommended shared decision-making with her spouse given recent intermittent confusion. According to [place] statutes, health care proxy decision-making falls to the patient's spouse. . Physical Exam Vital Signs Date Time Temp Pulse Resp B/P Pulse Ox O2 Delivery O2 Flow Rate FiO2 11/27/16 08:51 98.7 102 16 176/101 95 172/93 11/27/16 04:18 100 11/27/16 04:00 98.5 102 20 162/90 94 11/27/16 00:26 106 11/27/16 00:00 97.3 101 20 152/77 95 11/26/16 20:03 98 11/26/16 20:00 97.9 97 18 137/73 95 11/26/16 19:00 18 11/26/16 16:20 95 11/26/16 16:00 97.6 97 20 166/86 95 11/26/16 12:05 103 11/26/16 12:00 98.5 102 20 136/76 94 11/26/16 11/27/16 19:00 07:00 Intake Total 930 ml 480 ml Balance 930 ml 480 ml Intake Oral 480 ml IV Total 930 ml # Voids 2 6 Exam CONSTITUTIONAL/GENERAL: This is thin, frail patient in no acute distress. TUBES/LINES/DRAINS: right port. SKIN: No jaundice, rashes, or lesions. Ecchymoses on upper extremities. No wounds seen anteriorly. Skin temperature appropriate. Not diaphoretic. HEAD: Atraumatic. Normocephalic. EYES: Pupils equal and round and reactive. Extraocular motions intact. No scleral icterus. No injection or drainage. Fundi not examined. ENT: Hearing grossly normal. Nose without bleeding or purulent drainage. Throat without visible erythema, exudates, masses, or lesions. NECK: Trachea midline. Supple, nontender. No palpable thyroid enlargement or nodularity. CARDIOVASCULAR: tachycardic without murmurs, gallops, or rubs. No JVD. Peripheral pulses symmetric. RESPIRATORY/CHEST: Symmetric, unlabored respirations. Clear to auscultation. Diminished breath sounds bilaterally. GASTROINTESTINAL: Abdomen soft, tender in lower abdomen/pelvic region right greater than left, mildly distended. Palpable 1 2 cm hard nodule right lower quadrant. No guarding. Bowel sounds present. GENITOURINARY: Without palpable bladder distension. MUSCULOSKELETAL: Extremities without clubbing, cyanosis, or edema. No joint tenderness or effusion noted. No calf tenderness. No mottling or clubbing. LYMPHATICS: No palpable cervical or supraclavicular adenopathy. NEUROLOGICAL: Awake and alert. Tearful. Generalized weakness. Follows commands. Moves all extremities. PSYCHIATRIC: tearful, anxious. . Diagnostic Tests Laboratory Laboratory Tests Test 11/25/16 11/25/16 11/26/16 04:40 12:15 05:45 White Blood Count 9.1 TH/MM3 11.2 TH/MM3 (4.0-11.0) (4.0-11.0) Red Blood Count 2.27 MIL/MM3 2.84 MIL/MM3 (4.00-5.30) (4.00-5.30) Hemoglobin 7.3 GM/DL 9.1 GM/DL (11.6-15.3) (11.6-15.3) Hematocrit 21.7 % 27.0 % (35.0-46.0) (35.0-46.0) Mean Corpuscular Volume 95.6 FL 94.9 FL (80.0-100.0) (80.0-100.0) Mean Corpuscular Hemoglobin 32.3 PG 31.9 PG (27.0-34.0) (27.0-34.0) Mean Corpuscular Hemoglobin 33.8 % 33.6 % Concent (32.0-36.0) (32.0-36.0) Red Cell Distribution Width 19.5 % 19.4 % (11.6-17.2) (11.6-17.2) Platelet Count 312 TH/MM3 331 TH/MM3 (150-450) (150-450) Mean Platelet Volume 6.8 FL 7.3 FL (7.0-11.0) (7.0-11.0) Neutrophils (%) (Auto) 79.2 % 78.2 % (16.0-70.0) (16.0-70.0) Lymphocytes (%) (Auto) 9.7 % 10.7 % (9.0-44.0) (9.0-44.0) Monocytes (%) (Auto) 10.0 % 9.8 % (0.0-8.0) (0.0-8.0) Eosinophils (%) (Auto) 0.9 % (0.0-4.0) 1.0 % (0.0-4.0) Basophils (%) (Auto) 0.2 % (0.0-2.0) 0.3 % (0.0-2.0) Neutrophils # (Auto) 7.2 TH/MM3 8.8 TH/MM3 (1.8-7.7) (1.8-7.7) Lymphocytes # (Auto) 0.9 TH/MM3 1.2 TH/MM3 (1.0-4.8) (1.0-4.8) Monocytes # (Auto) 0.9 TH/MM3 1.1 TH/MM3 (0-0.9) (0-0.9) Eosinophils # (Auto) 0.1 TH/MM3 0.1 TH/MM3 (0-0.4) (0-0.4) Basophils # (Auto) 0.0 TH/MM3 0.0 TH/MM3 (0-0.2) (0-0.2) CBC Comment AUTO DIFF AUTO DIFF Differential Comment AUTO DIFF AUTO DIFF CONFIRMED CONFIRMED Platelet Estimate NORMAL NORMAL (NORMAL) (NORMAL) Platelet Morphology Comment NORMAL NORMAL (NORMAL) (NORMAL) Ovalocytes 1+ (NORMAL) 1+ (NORMAL) Sodium Level 146 MEQ/L 147 MEQ/L (136-145) (136-145) Potassium Level 3.0 MEQ/L 4.4 MEQ/L (3.5-5.1) (3.5-5.1) Chloride Level 119 MEQ/L 121 MEQ/L (98-107) (98-107) Carbon Dioxide Level 16.8 MEQ/L 17.1 MEQ/L (21.0-32.0) (21.0-32.0) Anion Gap 10 MEQ/L (5-15) 9 MEQ/L (5-15) Blood Urea Nitrogen 12 MG/DL (7-18) 12 MG/DL (7-18) Creatinine 1.48 MG/DL 1.40 MG/DL (0.50-1.00) (0.50-1.00) Estimat Glomerular Filtration 34 ML/MIN (>89) 37 ML/MIN (>89) Rate Random Glucose 92 MG/DL 70 MG/DL (74-106) (74-106) Calcium Level 7.9 MG/DL 8.1 MG/DL (8.5-10.1) (8.5-10.1) Random Vancomycin Level 10.3 COMMENT Blood Type O NEGATIVE Antibody Screen NEGATIVE Crossmatch Leukocyte-Reduced Red Blood Cells Blood Bank Comment Differential Total Cells 100 Counted Neutrophils % (Manual) 78 % (16-70) Band Neutrophils % 7 % (0-6) Lymphocytes % 7 % (9-44) Monocytes % 6 % (0-8) Eosinophils % 2 % (0-4) Neutrophils # (Manual) 9.5 TH/MM3 (1.8-7.7) Result Diagram: 11/26/16 0545 11/26/16 0545 Microbiology Microbiology Date/Time Procedure Status Source Growth 11/25/16 12:40 Stool Occult Blood (PARAG) - Final Complete Stool Stool HEMOCCULT NEGATIVE . Imaging Last Impressions Renal Scan w/Medication NM 11/27/16 1055 Signed Impressions: Service Date/Time: November 11:36 - CONCLUSION: No obstruction. Sharif Winston MD Chest X-Ray 11/22/16 1837 Signed Impressions: Service Date/Time: Tuesday, November 22, 2016 18:54 - CONCLUSION: No acute cardiopulmonary disease. Jessa Reyna MD Head CT 11/22/16 0000 Signed Impressions: Service Date/Time: Tuesday, November 22, 2016 20:01 - CONCLUSION: Chronic and small vessel ischemic changes without any evidence for acute hemorrhage or mass effect. Jessa Reyna MD Abdomen/Pelvis CT 11/22/16 0000 Signed Impressions: Service Date/Time: Tuesday, November 22, 2016 20:06 - CONCLUSION: 1. Enlargement of previously seen pelvic masses with development of moderate hydronephrosis in the right kidney and underlying metastatic disease is suspected. 2. The subcutaneous nodule in right lower anterior abdominal wall is also larger suspicious for metastatic disease. Jessa Reyna MD . Patient/Family Conference Present at Family Conference: Spoke with patient and her daughter at bedside. . Family Conference Time (mins): 30 Family Conference Location: Bedside Issues Discussed: * Palliative care role, purpose, approach * Patients general health, functional status, and cognitive changes in the months leading up to the current hospitalization * Patient/family understanding of the current medical problems - briefly, patient verbalizes fear of dying from disease * Palliative care contact information provided Arranged family meeting with palliative care and PROJECT TECHNICIAN oncology nurse practitioner , Tomasa Maldonado per family request 11/28/16 at 3 PM. Assessment and Plan Disease Oriented Problem List: (1) Pain (2) Ovarian cancer (3) H/O bacteremia (4) UTI (urinary tract infection) (5) Sepsis (6) Renal insufficiency (7) Hydronephrosis (8) Altered mental status Symptom Scale: (1) Weakness 0-10 Scale: Unable to quantify (2) Pain 0-10 Scale: 3 Pertinent Non-Medical Issues Psychosocial: to her ([place]) for approximately 50 years; they moved to [place] approximately 10 years ago after retiring. The patient and her have 2 adult sons and 1 adult daughter. Carol lives in [place], [place]. Both sons (Jadiel and Sal) live in [place]. They have 8 grandchildren. Spiritual: Taoism reagan, unknown denomination. Patient's spouse declined spiritual support stating "she will think we've given up on her and she is dying ". Legal: patient currently capacitated, recommend shared decision-making given recent confusion. Per [place] statutes, in the absence of written advanced directives healthcare proxy decision making falls to the patient's . Ethical issues impacting care: No known ethical or legal issues impacting care at this time. . Important Contacts Jadiel Bojorquez, spouse: [phone] or cell [phone] Carol Bojorquez, daughter: [phone] . Prognosis Patient is a 75-year-old female who was initially diagnosed diagnosed with ovarian cancer in 2016 after surgical resection of a pelvic mass showed ovarian cancer. Chemotherapy was recommended by Dr. Arevalo (PROJECT TECHNICIAN/ONC), but the patient's medical treatment goals were unclear at that time. She did not follow-up with Dr. Arevalo again until May,. Single agent carboplatin on started on completed chemotherapy in late Sep, 2016. Recent CT scan showed worsening of disease. Patient has not been strong enough for consideration of addition chemotherapy. no longer a candidate for treatment given continued functional decline and weight loss. Overall prognosis is poor. . Code Status: Full Code Plan * Decision Maker: Patient is currently capacitated to make her own health care decisions, recommended shared decision-making with her spouse given recent intermittent confusion. According to [place] statutes, health care proxy decision-making falls to the patient's spouse.. * FULL CODE * Palliative care meeting arranged with PROJECT TECHNICIAN oncology, palliative care and family on 11/28/16 at 3 PM. Nurse to notify family. * SYMPTOMS: Pain: lower abdominal pain worsening, currently relieved with PRN meds. Weakness: secondary to progressive ovarian cancer, repeat infections, general debility. * Palliative care number provided. * Palliative care will continue to follow throughout hospital course to assist with symptom management and clarification of goals as needed. Time Spent Total Floor Time (mins): 50 Face to Face Time (mins): 35 >50% Counseling/Coord of Care: Yes Thank you for the opportunity to participate in the care of Ms. Bojorquez. Attestation To help prompt me to consider important information that might be impacting today's encounter and assessment, information from prior notes written by myself or my colleagues may have been "brought forward" into today's note. My signature on this note, however, is an attestation that I personally performed the exam, history, and/or decision-making noted today, and, unless otherwise indicated, the interactions with patient, family, and staff as well as the review of records all occurred today. I also attest that the listed assessment and stated plan reflect my best clinical judgment today based on the combination of historical information, prior notes, and today's exam/ interactions. When time spent is documented, it refers only to time spent today by the signer, or if indicated, combined time spent today by collaborating physician/nurse practitioner. Destiny Zepeda Nov 27, 2016 11:35
--- NOTE | 2016-11-27 11:58 | MB ---
cc: LORELEIRAMÓN DATE OF CONSULTATION 11/27/2016 HISTORY OF PRESENT ILLNESS Ms. Trevizo is a pleasant 75-year-old female who was admitted with generalized weakness and an altered mental status. She had a CT scan of the abdomen and pelvis which showed a large pelvic mass consistent with her history of ovarian cancer with right hydronephrosis noted. She presently denies any flank pain or denies any nausea or vomiting. She denies any recent urinary tract infections. MEDICAL HISTORY Notable for - 1. Anxiety, depression. 2. Ovarian cancer. 3. COPD. 4. Chronic kidney disease. 5. Hypertension. PAST SURGICAL HISTORY 1. Appendectomy. 2. Cholecystectomy. 3. Hysterectomy. 4. Cataract removal. 5. Port placement. ALLERGIES SHE IS ALLERGIC TO MOTRIN FAMILY HISTORY Reviewed and noncontributory. SOCIAL HISTORY Negative for alcohol, tobacco or drug usage. REVIEW OF SYSTEMS All review of systems were reviewed and negative per the HPI. PHYSICAL EXAMINATION VITALS: Temperature 98.7, heart rate 102, respiratory rate 16, blood pressure is 176/101 today. Pulse ox is 95%. GENERAL: She is a thin 75-year-old female in no acute distress. HEENT: Normocephalic, atraumatic. Pupils equal, round, reactive to light and accommodation. Extraocular movements intact. No icterus is noted. CARDIOVASCULAR: Regular rate and rhythm. No murmurs or gallops are noted. CHEST: Clear to auscultation. ABDOMEN: Soft, nontender, nondistended. There is no CVA tenderness noted. EXTREMITIES: No cyanosis, clubbing or edema. NEUROLOGIC: Cranial nerves II-XII are intact. She is awake and alert. There is no focal deficit noted. LABORATORY DATA White count 11.2, hemoglobin 9.1, hematocrit 27.0, platelet count of 331. Sodium 147, potassium 4.4, chloride 121, CO2 of 17, BUN of 12, creatinine 1.4, glucose of 70. Urinalysis shows numerous white cells and 14 red cells, nitrite is positive. Urine culture presently shows less than 10,000 CFU with a few gram-negative rods noted. IMAGING STUDY CT scan of the abdomen and pelvis - Enlargement of the pelvic mass is noted with development of moderate hydronephrosis in the right kidney and underlying metastatic disease is suspected. Subcutaneous nodule on the right lower anterior abdominal wall is larger, suspicious for metastatic disease. ASSESSMENT A 75-year-old female with history of large pelvic mass causing some mild to moderate right hydronephrosis with slight elevation in the creatinine, presently at 1.4. RECOMMENDATIONS 1. We will recommend a renal scan to evaluate obstruction of the right kidney. If obstructed, will need a right double-J stent insertion. 2. Continue cefepime. 3. We will follow with you and make further recommendations after the renal scan is performed. Thank you for this consult and allowing me to participate in the care of this patient. Ramón SALGUERO/LYNNETTE /11:33 AM /11:48 AM
[2016-11-27] MEDS: ATENOLOL 50 MG TAB PO SCH (12:45)
[2016-11-27] MEDS: ACETAMINOPHEN/HYDROcodone 325 MG/5 MG TAB PO PRN (12:46)
--- NOTE | 2016-11-27 12:57 | HHI.PR ---
Subjective Remarks Denies any major complaints denies fevers/chills denies cp/sob BP noted to be elevated Objective Vitals Vital Signs Date Time Temp Pulse Resp B/P Pulse Ox O2 Delivery O2 Flow Rate FiO2 11/27/16 08:51 98.7 102 16 176/101 95 172/93 11/27/16 04:18 100 11/27/16 04:00 98.5 102 20 162/90 94 11/27/16 00:26 106 11/27/16 00:00 97.3 101 20 152/77 95 11/26/16 20:03 98 11/26/16 20:00 97.9 97 18 137/73 95 11/26/16 19:00 18 11/26/16 16:20 95 11/26/16 16:00 97.6 97 20 166/86 95 I/O 11/26/16 11/26/16 11/26/16 11/27/16 11/27/16 11/27/16 07:00 15:00 23:00 07:00 15:00 23:00 Intake Total 930 ml 480 ml Balance 930 ml 480 ml Intake Oral 480 ml IV Total 930 ml # Voids 2 4 4 Result Diagram: 11/26/16 0545 11/26/16 0545 Imaging Last Impressions Chest X-Ray 11/22/16 1837 Signed Impressions: Service Date/Time: Tuesday, November 22, 2016 18:54 - CONCLUSION: No acute cardiopulmonary disease. Jessa Reyna MD Head CT 11/22/16 0000 Signed Impressions: Service Date/Time: Tuesday, November 22, 2016 20:01 - CONCLUSION: Chronic and small vessel ischemic changes without any evidence for acute hemorrhage or mass effect. Jessa Reyna MD Abdomen/Pelvis CT 11/22/16 0000 Signed Impressions: Service Date/Time: Tuesday, November 22, 2016 20:06 - CONCLUSION: 1. Enlargement of previously seen pelvic masses with development of moderate hydronephrosis in the right kidney and underlying metastatic disease is suspected. 2. The subcutaneous nodule in right lower anterior abdominal wall is also larger suspicious for metastatic disease. Jessa Reyna MD Objective Remarks AAOx3 NAD Tenderness to palpation of hypogastrium clear lungs BL Medications and IVs Current Medications Medications (Trade) Dose Ordered Sig/Melissa Route Start Time Stop Time Status Last Admin (Maxipime Inj/NS Inj) 100 ml @ 200 mls/hr Q24H IV 11/23/16 09:00 11/27/16 08:11 (NS Flush) 2 ml UNSCH PRN IV FLUSH 11/22/16 22:00 11/25/16 04:38 (NS Flush) 2 ml BID IV FLUSH 11/23/16 09:00 11/24/16 21:00 (Zofran Inj) 4 mg Q6H PRN IVP 11/22/16 22:00 (Tylenol) 650 mg Q6H PRN PO 11/22/16 22:00 ([place] 5-325 Mg) 1 tab Q4H PRN PO 11/22/16 22:00 11/26/16 18:00 (Morphine Inj) 2 mg Q3H PRN IV PUSH 11/22/16 22:15 (Felicia-Colace) 1 tab BID PO 11/23/16 09:00 11/23/16 10:26 (Milk Of Magnesia Liq) 30 ml Q12H PRN PO 11/22/16 22:00 (Senokot) 17.2 mg Q12H PRN PO 11/22/16 22:00 (Dulcolax Supp) 10 mg DAILY PRN RECTAL 11/22/16 22:00 (Lactulose Liq) 30 ml DAILY PRN PO 11/22/16 22:00 (Xanax) 0.5 mg TID PRN PO 11/22/16 22:00 11/26/16 19:58 (Symbicort 160-4.5 Inh) 2 puff Q12HR INH 11/23/16 09:00 11/27/16 08:12 (Wellbutrin Xl 24 Hr) 150 mg DAILY PO 11/23/16 09:00 11/27/16 08:12 (Pletal) 200 mg DAILY@06 PO 11/23/16 06:00 11/27/16 06:28 (Vitamin B12) 1,000 mcg DAILY PO 11/23/16 09:00 11/27/16 08:11 (Lunesta) 3 mg HS PRN PO 11/22/16 22:00 11/26/16 19:56 (Remeron) 15 mg HS PO 11/23/16 21:00 11/26/16 19:56 (SEROquel) 25 mg DAILY PO 11/23/16 09:00 11/27/16 08:11 (Ferrous Sulfate) 325 mg Q72H PO 11/23/16 09:00 11/26/16 08:22 Quetiapine Fumarate 50 mg 50 mg HS PO 11/22/16 22:15 11/26/16 19:56 (Lr 1000 ml Inj) 1,000 ml @ 84 mls/hr [id number] IV 11/26/16 16:15 11/27/16 06:28 (Tenormin) 75 mg DAILY PO 11/27/16 10:30 (Pill Splitter) 1 ea UNSCH PRN OTHER 11/27/16 10:45 Urinary Catheter: No Vascular Central Line Catheter: No A/P Problem List: (1) Sepsis ICD Code: A41.9 Status: Acute (2) UTI (urinary tract infection) ICD Code: N39.0 Status: Acute (3) Renal insufficiency ICD Code: N28.9 Status: Acute (4) Hydronephrosis ICD Code: N13.30 Status: Acute (5) Ovarian cancer ICD Code: C56.9 Status: Chronic (6) H/O bacteremia ICD Code: Z87.898 Status: Acute (7) Hypernatremia ICD Code: E87.0 Status: Acute (8) Hyperchloremic metabolic acidosis ICD Code: E87.2 Status: Acute Assessment and Plan 1. Sepsis: Secondary to a urinary tract infection. Initially treated with vancomycin IV and IV cefepime. Vancomycin discontinued. Continue treatment with IV cefepime. Urine culture grew less than 10,000 CFU/ML. Sepsis improving, however patient still slightly tachycardic 2. UTI: U/a w/ UTI, continue w/ IV Abx as above. Urine culture as above. Will DC on Cefuroxime. 3. Hydronephrosis: CT Abd/Pelvis w/ enlargement of pelvic masses and moderate hydronephrosis. Follows w/ Dr. Arevalo as outpatient, off Chemo x5 wks secondary to recent hospitalization/illness. Monitor urine output. 11/[address] Freddie Pastor who recommended a renal scan to see if there is flow or absence of it and therefore an urgent need for a stent insertion. Will follow-up. 4. KAMRYN: Acute on Chronic. Improving renal indices. Continue w/ IVF for hydration and continue to monitor BMP. 5. Ovarian CA: As above, CT Abd/Pelvis w/ enlargement of pelvic masses and metastatic disease. Appreciate NEWS LIBRARIAN on recommendations. As per NEWS LIBRARIAN oncology documentation the patient has poor performance status with worsening disease and therefore is not a candidate for IV chemotherapy. Palliative care has been consulted. 6. H/o Bacteremia: Recent admit 10/23-10/31/16 w/ Sepsis secondary to C Diff Colitis w/ Clostridium Bacteremia, s/p Vanc/Flagyl w/ completion of antibiotics. No recurrent symptoms. C. difficile negative 7. Normochromic normocytic anemia: Hemoccult negative. Transfused 1 unit packed red blood cell today 11/25/16. Continue to monitor H&H 8. Hypokalemia: SP oral replacement. Potassium level is normal today. Continue to monitor BMP and replace potassium as needed. 9. Hyperchloremic metabolic acidosis. I will start the patient on lactated Ringer's. Discontinue normal saline. Labs pending 10. Hypernatremia: Encourage oral intake of hypotonic fluids. I will discontinue normal saline and start the patient on Lactated Ringers. Labs pending 10. DVT Prophylaxis: SCD/Teds, will add Lovenox SQ PT consult Discharge Planning Continue to monitor in the medical floor. DC pending clinical improvement - NEWS LIBRARIAN/ onc consult. Problem Qualifiers (1) Sepsis: Qualified Code: A41.9 - Sepsis, due to unspecified organism (2) Ovarian cancer: Qualified Code: C56.9 - Ovarian cancer, unspecified laterality Marc Meng MD Nov 27, 2016 12:57
[2016-11-27 13:23] LABS: MEAN CORPUSCULAR HEMOGLOBIN 31.9 PG (27.0-34.0); MEAN CORPUSCULAR HGB CONC 34.3 % (32.0-36.0); PLATELET COUNT 366 TH/MM3 (150-450); RED BLOOD COUNT 3.23 MIL/MM3 (4.00-5.30); RED CELL DISTRIBUTION WIDTH 18.6 % (11.6-17.2); REVIEW FLAG FINAL; WHITE BLOOD COUNT 13.6 TH/MM3 (4.0-11.0)
[2016-11-27 13:50] LABS: BICARBONATE 19.2 MEQ/L (21.0-32.0); POTASSIUM 3.5 MEQ/L (3.5-5.1)
--- NOTE | 2016-11-27 14:38 | RADRPT ---
EXAM DATE/TIME: 11/27/2016 11:36 [facility] COMPARISON: CT ABDOMEN & PELVIS W/O CONTRAST, November 22, 2016, 20:06. INDICATIONS : Abdominal pain. Right kidney obstruction. DOSE: 21.5 mCi Tc99m DTPA IV MEDICATION: 40 mg Lasix IV MEDICAL HISTORY : Chronic obstructive pulmonary disease. Hypertension. Renal failure, chronic. Ov rick cancer. SURGICAL HISTORY : Hysterectomy. Cholecystectomy. Appendectomy. ENCOUNTER: Initial ACUITY: 3 days PAIN SCALE: 3/10 LOCATION: Abdominal pain. TECHNIQUE: Dynamic images were performed in the posterior projection for a total of 28 minutes. FINDINGS: FLOW: There is symmetric arrival of bolus to both kidneys. There is homogeneous perfusion to bot h kidneys. EXCRETION: There is normal renal cortical transit time and normal rate of washout from the parenc hyma. Renal function is 53% on the right and 47% left. CONCLUSION: No obstruction. Sharif Winston MD on November 27, 2016 at 14:34 Board Certified Radiologist. This report was verified electronically.
[2016-11-27] MEDS: ENOXAPARIN SODIUM 30 MG/0.3 ML SYRINGE SQ SCH (15:12)
[2016-11-27] MEDS: ALPRAZolam 0.5 MG TAB PO PRN (17:47)
[2016-11-27] MEDS: MIRTAZAPINE 15 MG TAB PO SCH (20:02)
[2016-11-27] MEDS: ESZOPICLONE 3 MG TAB PO PRN (23:53)
[2016-11-28] VITALS (10 sets, daily range): BP systolic 125–162; BP diastolic 80–96; PULSE 88–98; RESP 17–20; TEMP 96.9–98.2; O2SAT 91–97
[2016-11-28] MEDS: ACETAMINOPHEN/HYDROcodone 325 MG/5 MG TAB PO PRN ×5 (01:39→18:43)
[2016-11-28] MEDS: CILOSTAZOL 100 MG TAB PO SCH (05:56)
[2016-11-28] MEDS: CEFEPIME INJ 1,000 MG in SODIUM CHLORIDE 0.9% INJ 100 ML IV SCH (08:28)
[2016-11-28] MEDS: QUEtiapine FUMARATE 25 MG TAB PO SCH ×2 (08:29→20:00)
[2016-11-28] MEDS: ATENOLOL 50 MG TAB PO SCH (08:29)
[2016-11-28] MEDS: buPROPion HCL 150 MG EXTENDED RELEASE TAB PO SCH (08:29)
[2016-11-28] MEDS: CYANOCOBALAMIN 1,000 MCG TAB PO SCH (08:29)
[2016-11-28] MEDS: DOCUSATE SODIUM 50 MG/SENNA 8.6 MG TAB PO SCH ×2 (08:30→20:00)
[2016-11-28] MEDS: BUDESONIDE-FORMOTEROL 160/4.5 MCG INHALER INH SCH ×2 (08:30→20:00)
[2016-11-28] MEDS: SODIUM CHLORIDE 0.9% FLUSH 10 ML FLUSH IV FLUSH SCH ×2 (08:30→20:00)
[2016-11-28] MEDS: ALPRAZolam 0.5 MG TAB PO PRN (08:33)
[2016-11-28] MEDS: LACTATED RINGER'S 1000 ML INJ 1,000 ML IV SCH (08:36)
--- NOTE | 2016-11-28 13:23 | HHI.PR ---
Subjective Remarks Patient feels very tired however denies cp/sob denies fevers/chills vital signs stable with resolved tachycardia Objective Vitals Vital Signs Date Time Temp Pulse Resp B/P Pulse Ox O2 Delivery O2 Flow Rate FiO2 11/28/16 12:21 89 11/28/16 08:09 93 11/28/16 08:00 96.9 88 18 159/87 97 11/28/16 04:00 96 11/28/16 04:00 97.7 93 17 125/83 97 11/28/16 00:03 97 11/28/16 00:00 97.2 98 18 162/96 94 11/27/16 20:06 96 11/27/16 20:00 97.8 96 18 151/85 95 11/27/16 16:00 97.8 98 16 164/78 99 11/27/16 15:15 98 I/O 11/27/16 11/27/16 11/27/16 11/28/16 11/28/16 11/28/16 06:59 14:59 22:59 06:59 14:59 22:59 Intake Total 896 ml 1407 ml Balance 896 ml 1407 ml Intake Oral 480 ml IV Total 416 ml 1407 ml # Voids 4 3 2 1 # Bowel Movements 2 Result Diagram: 11/27/16 1245 11/27/16 1245 Imaging Last Impressions Renal Scan w/Medication NM 11/27/16 1055 Signed Impressions: Service Date/Time: November 11:36 - CONCLUSION: No obstruction. Sharif Winston MD Chest X-Ray 11/22/16 1837 Signed Impressions: Service Date/Time: Tuesday, November 22, 2016 18:54 - CONCLUSION: No acute cardiopulmonary disease. Jessa Reyna MD Head CT 11/22/16 0000 Signed Impressions: Service Date/Time: Tuesday, November 22, 2016 20:01 - CONCLUSION: Chronic and small vessel ischemic changes without any evidence for acute hemorrhage or mass effect. Jessa Reyna MD Abdomen/Pelvis CT 11/22/16 0000 Signed Impressions: Service Date/Time: Tuesday, November 22, 2016 20:06 - CONCLUSION: 1. Enlargement of previously seen pelvic masses with development of moderate hydronephrosis in the right kidney and underlying metastatic disease is suspected. 2. The subcutaneous nodule in right lower anterior abdominal wall is also larger suspicious for metastatic disease. Jessa Reyna MD Objective Remarks AAOx3 NAD Tenderness to palpation of hypogastrium clear lungs BL Procedures none Medications and IVs Current Medications Medications (Trade) Dose Ordered Sig/Melissa Route Start Time Stop Time Status Last Admin (Maxipime Inj/NS Inj) 100 ml @ 200 mls/hr Q24H IV 11/23/16 09:00 11/28/16 08:28 (NS Flush) 2 ml UNSCH PRN IV FLUSH 11/22/16 22:00 11/25/16 04:38 (NS Flush) 2 ml BID IV FLUSH 11/23/16 09:00 11/24/16 21:00 (Zofran Inj) 4 mg Q6H PRN IVP 11/22/16 22:00 (Tylenol) 650 mg Q6H PRN PO 11/22/16 22:00 ([place] 5-325 Mg) 1 tab Q4H PRN PO 11/22/16 22:00 11/28/16 10:40 (Morphine Inj) 2 mg Q3H PRN IV PUSH 11/22/16 22:15 (Felicia-Colace) 1 tab BID PO 11/23/16 09:00 11/23/16 10:26 (Milk Of Magnesia Liq) 30 ml Q12H PRN PO 11/22/16 22:00 (Senokot) 17.2 mg Q12H PRN PO 11/22/16 22:00 (Dulcolax Supp) 10 mg DAILY PRN RECTAL 11/22/16 22:00 (Lactulose Liq) 30 ml DAILY PRN PO 11/22/16 22:00 (Xanax) 0.5 mg TID PRN PO 11/22/16 22:00 11/28/16 08:33 (Symbicort 160-4.5 Inh) 2 puff Q12HR INH 11/23/16 09:00 11/28/16 08:30 (Wellbutrin Xl 24 Hr) 150 mg DAILY PO 11/23/16 09:00 11/28/16 08:29 (Pletal) 200 mg DAILY@06 PO 11/23/16 06:00 11/28/16 05:56 (Vitamin B12) 1,000 mcg DAILY PO 11/23/16 09:00 11/28/16 08:29 (Lunesta) 3 mg HS PRN PO 11/22/16 22:00 11/27/16 23:53 (Remeron) 15 mg HS PO 11/23/16 21:00 11/27/16 20:02 (SEROquel) 25 mg DAILY PO 11/23/16 09:00 11/28/16 08:29 (Ferrous Sulfate) 325 mg Q72H PO 11/23/16 09:00 11/26/16 08:22 Quetiapine Fumarate 50 mg 50 mg HS PO 11/22/16 22:15 11/27/16 20:02 (Lr 1000 ml Inj) 1,000 ml @ 84 mls/hr [id number] IV 11/26/16 16:15 11/28/16 08:36 (Tenormin) 75 mg DAILY PO 11/27/16 10:30 11/28/16 08:29 (Pill Splitter) 1 ea UNSCH PRN OTHER 11/27/16 10:45 (Lovenox Inj) 30 mg Q24H SQ 11/27/16 14:00 11/27/16 15:12 Urinary Catheter: No Vascular Central Line Catheter: No A/P Problem List: (1) Sepsis ICD Code: A41.9 Status: Acute (2) UTI (urinary tract infection) ICD Code: N39.0 Status: Acute (3) Renal insufficiency ICD Code: N28.9 Status: Acute (4) Hydronephrosis ICD Code: N13.30 Status: Acute (5) Ovarian cancer ICD Code: C56.9 Status: Chronic (6) H/O bacteremia ICD Code: Z87.898 Status: Acute (7) Hypernatremia ICD Code: E87.0 Status: Acute (8) Hyperchloremic metabolic acidosis ICD Code: E87.2 Status: Acute Assessment and Plan 1. Sepsis: Secondary to a urinary tract infection. Initially treated with vancomycin IV and IV cefepime. Vancomycin discontinued. Continue treatment with IV cefepime. Urine culture grew less than 10,000 CFU/ML. Sepsis improving, however patient still slightly tachycardic 2. UTI: U/a w/ UTI, continue w/ IV Abx as above. Urine culture as above. Will DC on Cefuroxime. 3. Hydronephrosis: CT Abd/Pelvis w/ enlargement of pelvic masses and moderate hydronephrosis. Follows w/ Dr. Arevalo as outpatient, off Chemo x5 wks secondary to recent hospitalization/illness. Monitor urine output. 11/[address] Freddie Pastor who recommended a renal scan to see if there is flow or absence of it and therefore an urgent need for a stent insertion. Will follow-up. 11/28 negative renal scan. fu as an outpatient with urology. 4. KAMRYN on CKD stage III: Acute on Chronic. Improving renal indices. Continue w/ IVF for hydration and continue to monitor BMP. 5. Ovarian CA: As above, CT Abd/Pelvis w/ enlargement of pelvic masses and metastatic disease. Appreciate DEPARTMENTAL SECRETARY on recommendations. As per DEPARTMENTAL SECRETARY oncology documentation the patient has poor performance status with worsening disease and therefore is not a candidate for IV chemotherapy. Palliative care has been consulted. 11/28 there is a family meeting this afternoon with DEPARTMENTAL SECRETARY/onc and palliative care. will follow up on result of meeting. 6. H/o Bacteremia: Recent admit 10/23-10/31/16 w/ Sepsis secondary to C Diff Colitis w/ Clostridium Bacteremia, s/p Vanc/Flagyl w/ completion of antibiotics. No recurrent symptoms. C. difficile negative 7. Normochromic normocytic anemia: Hemoccult negative. Transfused 1 unit packed red blood cell today 11/25/16. Continue to monitor H&H 8. Hypokalemia: SP oral replacement. Potassium level is normal today. Continue to monitor BMP and replace potassium as needed. 9. Hyperchloremic metabolic acidosis. I will start the patient on lactated Ringer's. Discontinue normal saline. Labs pending 10. Hypernatremia: Resolved, continue LR for now. Encourage po intake of hypotonic fluids. 10. DVT Prophylaxis: SCD/Teds, will add Lovenox SQ PT consult Discharge Planning Continue to monitor in the medical floor. DC pending clinical improvement - DEPARTMENTAL SECRETARY/ onc consult. Problem Qualifiers (1) Sepsis: Qualified Code: A41.9 - Sepsis, due to unspecified organism (2) Ovarian cancer: Qualified Code: C56.9 - Ovarian cancer, unspecified laterality Marc Meng MD Nov 28, 2016 13:23
--- NOTE | 2016-11-28 14:41 | HHI.PR ---
Subjective Patient symptoms today Pt seen and examined. Renal scan shows no evidence of obstruction. Objective Vital Signs Vital Signs Date Time Temp Pulse Resp B/P Pulse Ox O2 Delivery O2 Flow Rate FiO2 11/28/16 12:21 89 11/28/16 12:00 97.4 88 18 143/80 93 11/28/16 08:09 93 11/28/16 08:00 96.9 88 18 159/87 97 11/28/16 04:00 96 11/28/16 04:00 97.7 93 17 125/83 97 11/28/16 00:03 97 11/28/16 00:00 97.2 98 18 162/96 94 11/27/16 20:06 96 11/27/16 20:00 97.8 96 18 151/85 95 11/27/16 16:00 97.8 98 16 164/78 99 11/27/16 15:15 98 Intake & Output 11/28/16 11/28/16 07:00 19:00 Intake Total 1407 ml 480 ml Balance 1407 ml 480 ml Intake Oral 480 ml IV Total 1407 ml # Voids 2 3 # Bowel Movements 1 Result Diagram: 11/27/16 1245 11/27/16 1245 Objective Remarks Abd:soft,nt,nd Neg. CVAT Medications and IVs Current Medications Medications (Trade) Dose Ordered Sig/Melissa Route Start Time Stop Time Status Last Admin (Maxipime Inj/NS Inj) 100 ml @ 200 mls/hr Q24H IV 11/23/16 09:00 11/28/16 08:28 (NS Flush) 2 ml UNSCH PRN IV FLUSH 11/22/16 22:00 11/25/16 04:38 (NS Flush) 2 ml BID IV FLUSH 11/23/16 09:00 11/24/16 21:00 (Zofran Inj) 4 mg Q6H PRN IVP 11/22/16 22:00 (Tylenol) 650 mg Q6H PRN PO 11/22/16 22:00 ([place] 5-325 Mg) 1 tab Q4H PRN PO 11/22/16 22:00 11/28/16 10:40 (Morphine Inj) 2 mg Q3H PRN IV PUSH 11/22/16 22:15 (Felicia-Colace) 1 tab BID PO 11/23/16 09:00 11/23/16 10:26 (Milk Of Magnesia Liq) 30 ml Q12H PRN PO 11/22/16 22:00 (Senokot) 17.2 mg Q12H PRN PO 11/22/16 22:00 (Dulcolax Supp) 10 mg DAILY PRN RECTAL 11/22/16 22:00 (Lactulose Liq) 30 ml DAILY PRN PO 11/22/16 22:00 (Xanax) 0.5 mg TID PRN PO 11/22/16 22:00 11/28/16 08:33 (Symbicort 160-4.5 Inh) 2 puff Q12HR INH 11/23/16 09:00 11/28/16 08:30 (Wellbutrin Xl 24 Hr) 150 mg DAILY PO 11/23/16 09:00 11/28/16 08:29 (Pletal) 200 mg DAILY@06 PO 11/23/16 06:00 11/28/16 05:56 (Vitamin B12) 1,000 mcg DAILY PO 11/23/16 09:00 11/28/16 08:29 (Lunesta) 3 mg HS PRN PO 11/22/16 22:00 11/27/16 23:53 (Remeron) 15 mg HS PO 11/23/16 21:00 11/27/16 20:02 (SEROquel) 25 mg DAILY PO 11/23/16 09:00 11/28/16 08:29 (Ferrous Sulfate) 325 mg Q72H PO 11/23/16 09:00 11/26/16 08:22 Quetiapine Fumarate 50 mg 50 mg HS PO 11/22/16 22:15 11/27/16 20:02 (Lr 1000 ml Inj) 1,000 ml @ 84 mls/hr [id number] IV 11/26/16 16:15 11/28/16 08:36 (Tenormin) 75 mg DAILY PO 11/27/16 10:30 11/28/16 08:29 (Pill Splitter) 1 ea UNSCH PRN OTHER 11/27/16 10:45 (Lovenox Inj) 30 mg Q24H SQ 11/27/16 14:00 11/27/16 15:12 Assessment and Plan Assessment and Plan 75 y.o female with h/o ovarian cancer and pelvic mass with mild right hydronephrosis without evidence of obstruction on renal scan. No need for intervention at this point in time. Call with questions and thank you for allowing me to participate in the care of this patient. Panda Pastor DO Nov 28, 2016 14:41
[2016-11-28] MEDS: ENOXAPARIN SODIUM 30 MG/0.3 ML SYRINGE SQ SCH (14:44)
--- NOTE | 2016-11-28 16:28 | PD.ONC.PN ---
Subjective Subjective Remarks Pt seen with family at bedside and with [facility] Pt reports that her pain is not completely controlled with current medication but using the Xanax helps. She is eating without nausea or vomiting Objective Data Date Time Temp Pulse Resp B/P Pulse Ox O2 Delivery O2 Flow Rate FiO2 11/28/16 12:21 89 11/28/16 12:00 97.4 88 18 143/80 93 11/28/16 08:09 93 11/28/16 08:00 96.9 88 18 159/87 97 11/28/16 04:00 96 11/28/16 04:00 97.7 93 17 125/83 97 11/28/16 00:03 97 11/28/16 00:00 97.2 98 18 162/96 94 11/27/16 20:06 96 11/27/16 20:00 97.8 96 18 151/85 95 11/28/16 11/28/16 11/28/16 07:00 15:00 23:00 Intake Total 1407 ml 1224 ml Balance 1407 ml 1224 ml Result Diagram: 11/27/16 1245 11/27/16 1245 Administered Medications Medications (Trade) Dose Ordered Sig/Melissa Route PRN Reason Start Time Stop Time Status Last Admin Dose Admin Cefepime HCl/ Sodium Chloride (Maxipime Inj/NS Inj) 100 ml @ 200 mls/hr Q24H IV 11/23/16 09:00 11/28/16 08:28 Sodium Chloride (NS Flush) 2 ml UNSCH PRN IV FLUSH FLUSH AFTER USING IV ACCESS 11/22/16 22:00 11/25/16 04:38 Sodium Chloride (NS Flush) 2 ml BID IV FLUSH 11/23/16 09:00 11/24/16 21:00 Acetaminophen/ Hydrocodone Bitart ([place] 5-325 Mg) 1 tab Q4H PRN PO PAIN SCALE 3 TO 5 11/22/16 22:00 11/28/16 14:45 Senna/Docusate Sodium (Felicia-Colace) 1 tab BID PO 11/23/16 09:00 11/23/16 10:26 Alprazolam (Xanax) 0.5 mg TID PRN PO ANXIETY 11/22/16 22:00 11/28/16 08:33 Budesonide/ Formoterol Fumarate (Symbicort 160-4.5 Inh) 2 puff Q12HR INH 11/23/16 09:00 11/28/16 08:30 Bupropion HCl (Wellbutrin Xl 24 Hr) 150 mg DAILY PO 11/23/16 09:00 11/28/16 08:29 Cilostazol (Pletal) 200 mg DAILY@06 PO 11/23/16 06:00 11/28/16 05:56 Cyanocobalamin (Vitamin B12) 1,000 mcg DAILY PO 11/23/16 09:00 11/28/16 08:29 Eszopiclone (Lunesta) 3 mg HS PRN PO INSOMNIA 11/22/16 22:00 11/27/16 23:53 Mirtazapine (Remeron) 15 mg HS PO 11/23/16 21:00 11/27/16 20:02 Quetiapine Fumarate (SEROquel) 25 mg DAILY PO 11/23/16 09:00 11/28/16 08:29 Ferrous Sulfate (Ferrous Sulfate) 325 mg Q72H PO 11/23/16 09:00 11/26/16 08:22 Quetiapine Fumarate 50 mg 50 mg HS PO 11/22/16 22:15 11/27/16 20:02 Lactated Ringer's (Lr 1000 ml Inj) 1,000 ml @ 84 mls/hr [id number] IV 11/26/16 16:15 11/28/16 08:36 Atenolol (Tenormin) 75 mg DAILY PO 11/27/16 10:30 11/28/16 08:29 Enoxaparin Sodium (Lovenox Inj) 30 mg Q24H SQ 11/27/16 14:00 11/28/16 14:44 Objective Remarks GENERAL: Frail, well-developed patient. SKIN: Warm and dry. HEAD: Normocephalic. EYES: No scleral icterus. No injection or drainage. NEUROLOGICAL: No obvious focal deficit. Awake, alert, and oriented x3. PSYCHIATRIC: Appropriate mood and affect; insight and judgment normal. Assessment/Plan Problem List: (1) Ovarian cancer Status: Chronic Plan: Extensive discussion with patient, family and Destiny from palliative care discussing of patient's current performance status, recent imaging and disease progression. It was explained to family that in her current state of poor performance status she would not be able to tolerate IV chemotherapy but if she should regain her strength then we could consider treatment, but with advancement of disease despite treatment, there would be a treatment change. Previously Dr. Arevalo had discussed with the family changing Carboplatin to weekly Taxol, so that is still a possibility. The patient and her family wishes for her to go to a rehab center to gain her strength back and then follow up in flarer/onc clinic for further discussion. We will support their discission, Event Attendant/Onc and Palliative Care will continue to follow through out hospitalization. The Fran expressed that she does want to be DNR/DNI. Problem Qualifiers (1) Ovarian cancer: Qualified Code: C56.9 - Ovarian cancer, unspecified laterality Tomasa Maldonado Nov 28, 2016 16:28
--- NOTE | 2016-11-28 17:40 | MB ---
cc: JC GRANT MD,IRENE Casey MD DATE OF CONSULTATION: 11/28/2016. REASON FOR CONSULTATION: Recurrent ovarian cancer. PHYSICIAN REQUESTING CONSULTATION: Dr. Jc Grant. HISTORY OF PRESENT ILLNESS: This patient is seen, evaluated by me, examined by me in conjunction with our nurse practitioner (ADRIANE Morales). I agree with her findings, assessment and plan of care. This individual was seen earlier but the [employer] biodiesel product development manager service was out of order, and this note is being entered now. This is a 75-year-old female who had a pelvic mass resected by Dr. Karely Ramon in August of 2015. She was seen in initial consultation but had a prolonged recovery and had some complications recovering from surgery and poor performance status. She was in a rehab facility. Chemotherapy was recommended but she and her family declined at that time. A number of months later she had new symptomatology. Her CT scan showed recurrent disease. CA-125 was only modestly elevated. She started treatment but normalized with single-agent carboplatin. In recent times however, there has been progression of disease. No longer improvement or stabilization and measurable disease on CT scan has progressed. She has had multiple hospitalizations for failure to thrive, dehydration, sepsis, poor performance status. She is admitted now for mental status changes, dehydration, urinary tract infection, possible sepsis and compromised renal function. Imaging again shows substantial measurable disease in the peritoneum and retroperitoneum more prominent than on prior scan. By the time I saw her, she had actually improved her mental status. She reports feeling better. Her sensorium was clear after IV hydration and correction of electrolytes, supportive care and antibiotics. PAST MEDICAL HISTORY, PAST SURGICAL HISTORY, MEDICATIONS, ALLERGIES, FAMILY HISTORY: All as documented in the chart and are reviewed. I do not have any new information to add to this. Renal scan shows no obstruction, 53% renal function on the right and 47% on the left. Chest x-ray shows no acute problem. Head CT scan shows small vessel ischemic changes chronic without acute hemorrhage or mass. CT scan of the abdomen and pelvis shows enlargement of the previously seen pelvis masses with development of moderate hydronephrosis in the right kidney and underlying metastatic disease is suspected as the etiology. There is also a subcutaneous nodule in the right lower anterior abdominal wall increased in size. The pelvic masses are multiple and the largest measures 10 cm. A 1.8 cm mass in the head of the pancreas is noted and is unchanged. There is some shotty retroperitoneal adenopathy. Blood cultures show no growth in five days. Urine less than 10,000 CFU. Flu antigen negative. Most recent labs: White count 13.6, hemoglobin and hematocrit 10.3/30. Platelet count 366,000. Electrolytes show BUN and creatinine of 14 and 1.49. INR 1.1. C. difficile negative. PHYSICAL EXAMINATION: VITAL SIGNS: Afebrile. Pulse 88 to 96. Blood pressure 125-159/83-87, 02 saturations are 97%. GENERAL: At the present time, she is alert and oriented x3,, lucid. She is out of bed and sitting in a chair in no acute distress. ABDOMEN: On abdominal exam, she has palpable masses within the peritoneal cavity as well as nodular abdominal wall. It is nontender and non-acute. These changes are consistent with known recurrent disease. Time was spent in discussion with her reviewing the findings in her case to-date. I am sorry she was feeling and needed to be admitted to the hospital but I am pleased to see that she has improved since the start of her hospitalization. Philosophically she seems to favor consideration of treatment for the underlying cancer although her level of insight and understanding seems to vacillate as there have been numerous prior discussions regarding the presence of recurrent disease contributing to her feeling poorly and attention then consistent with the findings on exam and on CT scan and yet at today's encounter she acted surprised to know that that was containers sales representative of cancer. Nevertheless, if she feels physically strong enough she is mentally and philosophically in favor of trying additional treatment. She is not ready to consider hospice care or to shift to palliative care only, although she is grateful for the supportive and palliative care available and provided. It is my understanding that later today there will be a family conference with Doris Bojorquez and her family as well as with the palliative care service and also to Tomasa FORREST from DOUBLING MACHINE OPERATOR oncology will be present in an effort with goals to try to answer questions and to formulate cohesive plan of followup and care. Thank you for the consultation. We will follow along in her care and look forward to seeing her back as scheduled in our office as an outpatient in approximately 1-1/2 to 2 weeks. MD ARLIN Ewing/ABDULAZIZ /4:15 PM /5:27 PM
--- NOTE | 2016-11-28 18:39 | HHI.HCPN ---
Reason for visit a. To assist with evaluation and management of symptoms including: anxiety. pain, weakness. b. To assist medical decision maker(s) with: better understanding of current medical conditions; weighing benefits/burdens of medical treatment options; making medical treatment decisions. . Subjective/Interval History Patient seen and examined on 7 E. Afebrile. Vital signs stable. No new labs or imaging. Patient continues to be for profoundly weak, having some difficulty even getting from bed to bedside commode. Decreased appetite. Intermittent abdominal/pelvic pain, rates are pain and average 7 8 reports some relief with [place] 5/320 524 hours PRN. She has had for doses in 24 hours. Patient desires a pain level 3 or less and indicates her pain does not go this low. Family is reluctant to consider medication changes at this time, encouraged use of PRN benzodiazepine in addition to PRN [place] in an effort to decrease anxiety/pain and family agrees. Patient reports relief of anxiety with alprazolam 0.5 TID PRN, she has only had doses in 24 hours. . Advance Directives Living Will: Never completed Health Care Surrogate: Never completed Durable Power of Sandwich Board Carrier: Never completed Advance Directive Specifics Health Care Surrogate(s): Patient is currently capacitated to make her own health care decisions, recommended shared decision-making with her spouse given recent intermittent confusion. According to [place] statutes, health care proxy decision-making falls to the patient's spouse. . Documented care wishes: No written advance directives. . Significant change in goals: NO CODE. [place] DNR signed by pt, needs MD signature. Goals remain aggressive short of NO CODE. Patient desires rehab placement and hope she will be strong enough to obtain additional chemotherapy in the future. . Objective Vital Signs Date Time Temp Pulse Resp B/P Pulse Ox O2 Delivery O2 Flow Rate FiO2 11/28/16 16:38 88 11/28/16 12:21 89 11/28/16 12:00 97.4 88 18 143/80 93 11/28/16 08:09 93 11/28/16 08:00 96.9 88 18 159/87 97 11/28/16 04:00 96 11/28/16 04:00 97.7 93 17 125/83 97 11/28/16 00:03 97 11/28/16 00:00 97.2 98 18 162/96 94 11/27/16 20:06 96 11/27/16 20:00 97.8 96 18 151/85 95 Intake & Output 11/28/16 11/28/16 07:00 19:00 Intake Total 1407 ml 1224 ml Balance 1407 ml 1224 ml Intake Oral 480 ml IV Total 1407 ml 744 ml # Voids 2 3 # Bowel Movements 1 Physical Exam CONSTITUTIONAL/GENERAL: This is thin, frail patient in no acute distress. TUBES/LINES/DRAINS: right port. SKIN: No jaundice, rashes, or lesions. Ecchymoses on upper extremities. No wounds seen anteriorly. Skin temperature appropriate. Not diaphoretic. ENT: Hearing grossly normal. Nose without bleeding or purulent drainage. Throat without visible erythema, exudates, masses, or lesions. NECK: Trachea midline. Supple, nontender. No palpable thyroid enlargement or nodularity. CARDIOVASCULAR: tachycardic without murmurs, gallops, or rubs. No JVD. Peripheral pulses symmetric. RESPIRATORY/CHEST: Symmetric, unlabored respirations. Clear to auscultation. Diminished breath sounds bilaterally. GASTROINTESTINAL: Abdomen soft, tender in lower abdomen/pelvic region right greater than left, mildly distended. Palpable 1 2 cm hard nodule right lower quadrant. No guarding. Bowel sounds present. GENITOURINARY: Without palpable bladder distension. MUSCULOSKELETAL: Extremities without clubbing, cyanosis, or edema. No mottling or clubbing. NEUROLOGICAL: Awake and alert. Generalized weakness. Follows commands. Moves all extremities. PSYCHIATRIC: anxious. . Diagnostic Tests Laboratory Laboratory Tests Test 11/26/16 11/27/16 05:45 12:45 White Blood Count 11.2 TH/MM3 13.6 TH/MM3 (4.0-11.0) (4.0-11.0) Red Blood Count 2.84 MIL/MM3 3.23 MIL/MM3 (4.00-5.30) (4.00-5.30) Hemoglobin 9.1 GM/DL 10.3 GM/DL (11.6-15.3) (11.6-15.3) Hematocrit 27.0 % 30.0 % (35.0-46.0) (35.0-46.0) Mean Corpuscular Volume 94.9 FL 93.0 FL (80.0-100.0) (80.0-100.0) Mean Corpuscular Hemoglobin 31.9 PG 31.9 PG (27.0-34.0) (27.0-34.0) Mean Corpuscular Hemoglobin 33.6 % 34.3 % Concent (32.0-36.0) (32.0-36.0) Red Cell Distribution Width 19.4 % 18.6 % (11.6-17.2) (11.6-17.2) Platelet Count 331 TH/MM3 366 TH/MM3 (150-450) (150-450) Mean Platelet Volume 7.3 FL 7.2 FL (7.0-11.0) (7.0-11.0) Neutrophils (%) (Auto) 78.2 % (16.0-70.0) Lymphocytes (%) (Auto) 10.7 % (9.0-44.0) Monocytes (%) (Auto) 9.8 % (0.0-8.0) Eosinophils (%) (Auto) 1.0 % (0.0-4.0) Basophils (%) (Auto) 0.3 % (0.0-2.0) Neutrophils # (Auto) 8.8 TH/MM3 (1.8-7.7) Lymphocytes # (Auto) 1.2 TH/MM3 (1.0-4.8) Monocytes # (Auto) 1.1 TH/MM3 (0-0.9) Eosinophils # (Auto) 0.1 TH/MM3 (0-0.4) Basophils # (Auto) 0.0 TH/MM3 (0-0.2) CBC Comment AUTO DIFF Differential Total Cells 100 Counted Neutrophils % (Manual) 78 % (16-70) Band Neutrophils % 7 % (0-6) Lymphocytes % 7 % (9-44) Monocytes % 6 % (0-8) Eosinophils % 2 % (0-4) Neutrophils # (Manual) 9.5 TH/MM3 (1.8-7.7) Differential Comment AUTO DIFF CONFIRMED Platelet Estimate NORMAL (NORMAL) Platelet Morphology Comment NORMAL (NORMAL) Ovalocytes 1+ (NORMAL) Sodium Level 147 MEQ/L 143 MEQ/L (136-145) (136-145) Potassium Level 4.4 MEQ/L 3.5 MEQ/L (3.5-5.1) (3.5-5.1) Chloride Level 121 MEQ/L 113 MEQ/L (98-107) (98-107) Carbon Dioxide Level 17.1 MEQ/L 19.2 MEQ/L (21.0-32.0) (21.0-32.0) Anion Gap 9 MEQ/L (5-15) 11 MEQ/L (5-15) Blood Urea Nitrogen 12 MG/DL (7-18) 14 MG/DL (7-18) Creatinine 1.40 MG/DL 1.49 MG/DL (0.50-1.00) (0.50-1.00) Estimat Glomerular Filtration 37 ML/MIN (>89) 34 ML/MIN (>89) Rate Random Glucose 70 MG/DL 103 MG/DL (74-106) (74-106) Calcium Level 8.1 MG/DL 8.7 MG/DL (8.5-10.1) (8.5-10.1) Result Diagram: 11/27/16 1245 11/27/16 1245 Microbiology Microbiology Date/Time Procedure Status Source Growth 11/25/16 12:40 Stool Occult Blood (PARAG) - Final Complete Stool Stool HEMOCCULT NEGATIVE Imaging Last Impressions Renal Scan w/Medication NM 11/27/16 1055 Signed Impressions: Service Date/Time: November 11:36 - CONCLUSION: No obstruction. Sharif Winston MD Chest X-Ray 11/22/16 1837 Signed Impressions: Service Date/Time: Tuesday, November 22, 2016 18:54 - CONCLUSION: No acute cardiopulmonary disease. Jessa Reyna MD Head CT 11/22/16 0000 Signed Impressions: Service Date/Time: Tuesday, November 22, 2016 20:01 - CONCLUSION: Chronic and small vessel ischemic changes without any evidence for acute hemorrhage or mass effect. Jessa Reyna MD Abdomen/Pelvis CT 11/22/16 0000 Signed Impressions: Service Date/Time: Tuesday, November 22, 2016 20:06 - CONCLUSION: 1. Enlargement of previously seen pelvic masses with development of moderate hydronephrosis in the right kidney and underlying metastatic disease is suspected. 2. The subcutaneous nodule in right lower anterior abdominal wall is also larger suspicious for metastatic disease. Jessa Reyna MD Assessment and Plan Disease Oriented Problem List: (1) Pain (2) Ovarian cancer (3) H/O bacteremia (4) UTI (urinary tract infection) (5) Sepsis (6) Renal insufficiency (7) Hydronephrosis (8) Altered mental status Symptom Scale: (1) Weakness 0-10 Scale: Unable to quantify (2) Pain 0-10 Scale: 3 Pertinent Non-Medical Issues Psychosocial: to her ([place]) for approximately 50 years; they moved to [place] approximately 10 years ago after retiring. The patient and her have 2 adult sons and 1 adult daughter. Carol lives in [place], [place]. Both sons (Jadiel and Sal) live in [place]. They have 8 grandchildren. Spiritual: Quaker reagan, unknown denomination. Patient's spouse declined spiritual support stating "she will think we've given up on her and she is dying ". Legal: patient currently capacitated, recommend shared decision-making given recent confusion. Per [place] statutes, in the absence of written advanced directives healthcare proxy decision making falls to the patient's . Ethical issues impacting care: No known ethical or legal issues impacting care at this time. . Important Contacts Jadiel Bojorquez, spouse: [phone] or cell [phone] Carol Bojorquez, daughter: [phone] . Prognosis Patient is a 75-year-old female who was initially diagnosed diagnosed with ovarian cancer in 2016 after surgical resection of a pelvic mass showed ovarian cancer. Chemotherapy was recommended by Dr. Arevalo (DIETARY ASSISTANT/ONC), but the patient's medical treatment goals were unclear at that time. She did not follow-up with Dr. Arevalo again until May,. Single agent carboplatin on started on completed chemotherapy in late Sep, 2016. Recent CT scan showed worsening of disease. Patient has not been strong enough for consideration of addition chemotherapy. no longer a candidate for treatment given continued functional decline and weight loss. Overall prognosis is poor. . Code Status: No Code Plan * Decision Maker: Patient is currently capacitated to make her own health care decisions, recommended shared decision-making with her spouse given recent intermittent confusion. According to [place] statutes, health care proxy decision-making falls to the patient's spouse.. * NO CODE - patient desires NO CODE. She signed [place] Do Not Resuscitate - nurses left [place] DNR order on chart for attending signature. * Palliative care meeting DIETARY ASSISTANT oncology, palliative care and family (pt, spouse and daughter). In summary, goals remain aggressive short of NO CODE. Patient desires rehab placement in hopes that she will be able to get strong enough to get 2nd line chemotherapy. * SYMPTOMS: Pain: Intermittent abdominal/pelvic pain, rates are pain and average 7 8 reports some relief with [place] 5/320 524 hours PRN. She has had for doses in 24 hours. Patient desires a pain level 3 or less and indicates her pain does not go this low. Family is reluctant to consider medication changes at this time, encouraged use of PRN benzodiazepine in addition to PRN [place] in an effort to decrease anxiety/pain and family agrees. Anxiety: Patient reports relief of anxiety with alprazolam 0.5 TID PRN, she has only had doses in 24 hours. Weakness: secondary to progressive ovarian cancer, repeat infections, general debility. * Palliative care number provided. * Palliative care will continue to follow throughout hospital course to assist with symptom management and clarification of goals as needed. Time Spent Total Floor Time (mins): 60 Face to Face Time (mins): 45 >50% Counseling/Coord of Care: Yes Destiny Zepeda Nov 28, 2016 18:39
[2016-11-28] MEDS: MIRTAZAPINE 15 MG TAB PO SCH (20:00)
[2016-11-28 20:12] LABS: HEMATOCRIT 30.1 % (35.0-46.0); MEAN CELL VOLUME 93.4 FL (80.0-100.0); MEAN CORPUSCULAR HEMOGLOBIN 31.3 PG (27.0-34.0); MEAN CORPUSCULAR HGB CONC 33.5 % (32.0-36.0); PLATELET COUNT 376 TH/MM3 (150-450); RED BLOOD COUNT 3.22 MIL/MM3 (4.00-5.30); RED CELL DISTRIBUTION WIDTH 18.5 % (11.6-17.2); REVIEW FLAG FINAL
[2016-11-28 20:41] LABS: POTASSIUM 3.1 MEQ/L (3.5-5.1)
[2016-11-28] MEDS: ESZOPICLONE 3 MG TAB PO PRN (21:04)
[2016-11-29] VITALS (7 sets, daily range): BP systolic 146–161; BP diastolic 78–88; PULSE 84–95; RESP 16–20; TEMP 97.6–99; O2SAT 92–95
[2016-11-29] MEDS: ACETAMINOPHEN/HYDROcodone 325 MG/5 MG TAB PO PRN ×4 (02:49→18:58)
[2016-11-29 05:15] LABS: AUTOMATED NEUTROPHIL # 8.5 TH/MM3 (1.8-7.7); BASOPHIL % 0.3 % (0.0-2.0); EOSINOPHIL # 0.3 TH/MM3 (0-0.4); EOSINOPHIL % 2.6 % (0.0-4.0); HEMATOCRIT 27.8 % (35.0-46.0); LYMPH % 12.7 % (9.0-44.0); LYMPHOCYTE # 1.5 TH/MM3 (1.0-4.8); MEAN CELL VOLUME 93.2 FL (80.0-100.0); MEAN CORPUSCULAR HEMOGLOBIN 31.8 PG (27.0-34.0); MEAN CORPUSCULAR HGB CONC 34.1 % (32.0-36.0); MONO % 9.7 % (0.0-8.0); NEUT % 74.7 % (16.0-70.0); PLATELET COUNT 370 TH/MM3 (150-450); RED BLOOD COUNT 2.98 MIL/MM3 (4.00-5.30); WHITE BLOOD COUNT 11.4 TH/MM3 (4.0-11.0)
[2016-11-29 05:21] LABS: HEMO FLAGS DIFF FINAL
[2016-11-29 05:40] LABS: ANION GAP 10 MEQ/L (5-15); AST (GOT) 17 U/L (15-37); BICARBONATE 21.3 MEQ/L (21.0-32.0); BLOOD UREA NITROGEN 15 MG/DL (7-18); CHLORIDE 110 MEQ/L (98-107); GLOMERULAR FILTRATION RATE 34 ML/MIN (>89); SODIUM (NA) 141 MEQ/L (136-145)
[2016-11-29 05:41] LABS: ALT (GPT) 15 U/L (10-53)
[2016-11-29 05:44] LABS: ALKALINE PHOSPHATASE 84 U/L (45-117); TOTAL BILIRUBIN ADULT 0.4 MG/DL (0.2-1.0)
[2016-11-29] MEDS: CILOSTAZOL 100 MG TAB PO SCH (06:02)
[2016-11-29] MEDS: SODIUM CHLORIDE 0.9% FLUSH 10 ML FLUSH IV FLUSH SCH ×2 (09:00→20:29)
[2016-11-29] MEDS: DOCUSATE SODIUM 50 MG/SENNA 8.6 MG TAB PO SCH ×2 (09:00→20:29)
[2016-11-29] MEDS: FERROUS SULFATE 325 MG (65 MG ELEMENTAL IRON) TAB PO SCH (09:08)
[2016-11-29] MEDS: CEFEPIME INJ 1,000 MG in SODIUM CHLORIDE 0.9% INJ 100 ML IV SCH (09:08)
[2016-11-29] MEDS: ATENOLOL 50 MG TAB PO SCH (09:09)
[2016-11-29] MEDS: CYANOCOBALAMIN 1,000 MCG TAB PO SCH (09:09)
[2016-11-29] MEDS: buPROPion HCL 150 MG EXTENDED RELEASE TAB PO SCH (09:09)
[2016-11-29] MEDS: QUEtiapine FUMARATE 25 MG TAB PO SCH ×2 (09:09→20:27)
[2016-11-29] MEDS: LACTATED RINGER'S 1000 ML INJ 1,000 ML IV SCH (09:11)
[2016-11-29] MEDS: BUDESONIDE-FORMOTEROL 160/4.5 MCG INHALER INH SCH ×2 (09:12→20:28)
[2016-11-29] MEDS ORDERED: POTASSIUM CHLORIDE 10 MEQ CONTROLLED RELEASE TAB PO ONE (11:00)
[2016-11-29] MEDS: ENOXAPARIN SODIUM 30 MG/0.3 ML SYRINGE SQ SCH (13:04)
--- NOTE | 2016-11-29 13:18 | HHI.PR ---
Subjective Remarks Patient states she feels tired. Denies fevers chills Denies chest pain or shortness of breath Objective Vitals Vital Signs Date Time Temp Pulse Resp B/P Pulse Ox O2 Delivery O2 Flow Rate FiO2 11/29/16 12:27 98.1 91 20 147/83 93 11/29/16 08:00 98.6 90 19 156/83 93 11/29/16 04:00 98.7 84 17 146/84 92 11/29/16 04:00 92 11/29/16 00:00 95 11/29/16 00:00 97.6 90 17 151/78 92 11/28/16 20:00 97.7 92 17 145/81 91 11/28/16 20:00 92 11/28/16 16:38 88 11/28/16 16:00 98.2 88 20 155/87 93 I/O 11/28/16 11/28/16 11/28/16 11/29/16 11/29/16 11/29/16 07:00 15:00 23:00 07:00 15:00 23:00 Intake Total 1407 ml 1224 ml 1238 ml Balance 1407 ml 1224 ml 1238 ml Intake Oral 480 ml IV Total 1407 ml 744 ml 1238 ml # Voids 1 3 1 # Bowel Movements 1 1 Result Diagram: 11/29/16 0400 11/29/16 0400 Imaging Last Impressions Renal Scan w/Medication NM 11/27/16 1055 Signed Impressions: Service Date/Time: November 11:36 - CONCLUSION: No obstruction. Sharif Winston MD Chest X-Ray 11/22/16 1837 Signed Impressions: Service Date/Time: Tuesday, November 22, 2016 18:54 - CONCLUSION: No acute cardiopulmonary disease. Jessa Reyna MD Head CT 11/22/16 0000 Signed Impressions: Service Date/Time: Tuesday, November 22, 2016 20:01 - CONCLUSION: Chronic and small vessel ischemic changes without any evidence for acute hemorrhage or mass effect. Jessa Reyna MD Abdomen/Pelvis CT 11/22/16 0000 Signed Impressions: Service Date/Time: Tuesday, November 22, 2016 20:06 - CONCLUSION: 1. Enlargement of previously seen pelvic masses with development of moderate hydronephrosis in the right kidney and underlying metastatic disease is suspected. 2. The subcutaneous nodule in right lower anterior abdominal wall is also larger suspicious for metastatic disease. Jessa Reyna MD Objective Remarks AAOx3 NAD Tenderness to palpation of hypogastrium clear lungs BL Procedures none Medications and IVs Current Medications Medications (Trade) Dose Ordered Sig/Melissa Route Start Time Stop Time Status Last Admin (Maxipime Inj/NS Inj) 100 ml @ 200 mls/hr Q24H IV 11/23/16 09:00 11/29/16 09:08 (NS Flush) 2 ml UNSCH PRN IV FLUSH 11/22/16 22:00 11/25/16 04:38 (NS Flush) 2 ml BID IV FLUSH 11/23/16 09:00 11/24/16 21:00 (Zofran Inj) 4 mg Q6H PRN IVP 11/22/16 22:00 (Tylenol) 650 mg Q6H PRN PO 11/22/16 22:00 ([place] 5-325 Mg) 1 tab Q4H PRN PO 11/22/16 22:00 11/29/16 09:09 (Morphine Inj) 2 mg Q3H PRN IV PUSH 11/22/16 22:15 (Felicia-Colace) 1 tab BID PO 11/23/16 09:00 11/23/16 10:26 (Milk Of Magnesia Liq) 30 ml Q12H PRN PO 11/22/16 22:00 (Senokot) 17.2 mg Q12H PRN PO 11/22/16 22:00 (Dulcolax Supp) 10 mg DAILY PRN RECTAL 11/22/16 22:00 (Lactulose Liq) 30 ml DAILY PRN PO 11/22/16 22:00 (Xanax) 0.5 mg TID PRN PO 11/22/16 22:00 11/28/16 08:33 (Symbicort 160-4.5 Inh) 2 puff Q12HR INH 11/23/16 09:00 11/29/16 09:12 (Wellbutrin Xl 24 Hr) 150 mg DAILY PO 11/23/16 09:00 11/29/16 09:09 (Pletal) 200 mg DAILY@06 PO 11/23/16 06:00 11/29/16 06:02 (Vitamin B12) 1,000 mcg DAILY PO 11/23/16 09:00 11/29/16 09:09 (Lunesta) 3 mg HS PRN PO 11/22/16 22:00 11/28/16 21:04 (Remeron) 15 mg HS PO 11/23/16 21:00 11/28/16 20:00 (SEROquel) 25 mg DAILY PO 11/23/16 09:00 11/29/16 09:09 (Ferrous Sulfate) 325 mg Q72H PO 11/23/16 09:00 11/29/16 09:08 Quetiapine Fumarate 50 mg 50 mg HS PO 11/22/16 22:15 11/28/16 20:00 (Lr 1000 ml Inj) 1,000 ml @ 84 mls/hr [id number] IV 11/26/16 16:15 11/29/16 09:11 (Tenormin) 75 mg DAILY PO 11/27/16 10:30 11/29/16 09:09 (Pill Splitter) 1 ea UNSCH PRN OTHER 11/27/16 10:45 (Lovenox Inj) 30 mg Q24H SQ 11/27/16 14:00 11/29/16 13:04 A/P Problem List: (1) Sepsis ICD Code: A41.9 Status: Acute (2) UTI (urinary tract infection) ICD Code: N39.0 Status: Acute (3) Renal insufficiency ICD Code: N28.9 Status: Acute (4) Hydronephrosis ICD Code: N13.30 Status: Acute (5) Ovarian cancer ICD Code: C56.9 Status: Chronic (6) H/O bacteremia ICD Code: Z87.898 Status: Acute (7) Hypernatremia ICD Code: E87.0 Status: Acute (8) Hyperchloremic metabolic acidosis ICD Code: E87.2 Status: Acute Assessment and Plan 1. Sepsis: Secondary to a urinary tract infection. Initially treated with vancomycin IV and IV cefepime. Vancomycin discontinued. Continue treatment with IV cefepime. Urine culture grew less than 10,000 CFU/ML. Sepsis improving, however patient still slightly tachycardic 2. UTI: U/a w/ UTI, continue w/ IV Abx as above. Urine culture as above. Will DC on Cefuroxime. 3. Hydronephrosis: CT Abd/Pelvis w/ enlargement of pelvic masses and moderate hydronephrosis. Follows w/ Dr. Arevalo as outpatient, off Chemo x5 wks secondary to recent hospitalization/illness. Monitor urine output. 11/[address] Freddie Pastor who recommended a renal scan to see if there is flow or absence of it and therefore an urgent need for a stent insertion. Will follow-up. 11/28 negative renal scan. fu as an outpatient with urology. 4. KAMRYN on CKD stage III: Acute on Chronic. Improving renal indices. Continue w/ IVF for hydration and continue to monitor BMP. 5. Ovarian CA: As above, CT Abd/Pelvis w/ enlargement of pelvic masses and metastatic disease. Appreciate CASKET INSPECTOR on recommendations. As per CASKET INSPECTOR oncology documentation the patient has poor performance status with worsening disease and therefore is not a candidate for IV chemotherapy. Palliative care has been consulted. 11/28 there is a family meeting this afternoon with CASKET INSPECTOR/onc and palliative care. will follow up on result of meeting. 11/29 the patient is no code. Still aggressive treatment. 6. H/o Bacteremia: Recent admit 10/23-10/31/16 w/ Sepsis secondary to C Diff Colitis w/ Clostridium Bacteremia, s/p Vanc/Flagyl w/ completion of antibiotics. No recurrent symptoms. C. difficile negative 7. Normochromic normocytic anemia: Hemoccult negative. Transfused 1 unit packed red blood cell today 11/25/16. Continue to monitor H&H 8. Hypokalemia: SP oral replacement. Potassium level is normal today. Continue to monitor BMP and replace potassium as needed. 9. Hyperchloremic metabolic acidosis. Saline induced. Normal saline was discontinued and LR was started. Hyperchloremic acidosis has resolved. Discontinue LR. 10. Hypernatremia: Resolved, continue LR for now. Encourage po intake of hypotonic fluids. 10. DVT Prophylaxis: SCD/Teds, will add Lovenox SQ PT consult Discharge Planning The patient is medically cleared to be discharged. Discharge order will be placed when rehab place confirmed. Problem Qualifiers (1) Sepsis: Qualified Code: A41.9 - Sepsis, due to unspecified organism (2) Ovarian cancer: Qualified Code: C56.9 - Ovarian cancer, unspecified laterality Marc Meng MD Nov 29, 2016 13:18
[2016-11-29] MEDS: MIRTAZAPINE 15 MG TAB PO SCH (20:26)
[2016-11-29] MEDS: ALPRAZolam 0.5 MG TAB PO PRN (20:26)
[2016-11-29] MEDS: CEFUROXIME AXETIL 500 MG TAB PO SCH (20:27)
[2016-11-29] MEDS: ESZOPICLONE 3 MG TAB PO PRN (21:36)
[2016-11-30] VITALS: BP 144/94; PULSE 93; RESP 17; TEMP 98.1; O2SAT 95
[2016-11-30] MEDS: ACETAMINOPHEN/HYDROcodone 325 MG/5 MG TAB PO PRN ×3 (02:31→14:21)
[2016-11-30 03:00] VITALS: BP 162/92; PULSE 98; RESP 19; TEMP 99.3; O2SAT 96
[2016-11-30 04:00] VITALS: BP 162/92; PULSE 98; RESP 19; TEMP 99.3; O2SAT 96
[2016-11-30] MEDS: CILOSTAZOL 100 MG TAB PO SCH (05:55)
[2016-11-30 06:39] LABS: HEMATOCRIT 26.4 % (35.0-46.0); MEAN CELL VOLUME 94.6 FL (80.0-100.0); MEAN CORPUSCULAR HEMOGLOBIN 31.4 PG (27.0-34.0); MEAN CORPUSCULAR HGB CONC 33.2 % (32.0-36.0); PLATELET COUNT 362 TH/MM3 (150-450); RED BLOOD COUNT 2.78 MIL/MM3 (4.00-5.30); RED CELL DISTRIBUTION WIDTH 18.9 % (11.6-17.2); REVIEW FLAG FINAL; WHITE BLOOD COUNT 11.3 TH/MM3 (4.0-11.0)
[2016-11-30 06:49] LABS: BICARBONATE 20.5 MEQ/L (21.0-32.0); MAGNESIUM 1.2 MG/DL (1.5-2.5); POTASSIUM 3.4 MEQ/L (3.5-5.1)
[2016-11-30 08:00] VITALS: BP 164/95; PULSE 94; RESP 20; TEMP 98.4; O2SAT 93
[2016-11-30] MEDS: DOCUSATE SODIUM 50 MG/SENNA 8.6 MG TAB PO SCH (09:00)
[2016-11-30] MEDS: BUDESONIDE-FORMOTEROL 160/4.5 MCG INHALER INH SCH (09:00)
[2016-11-30] MEDS: ATENOLOL 50 MG TAB PO SCH (09:00)
[2016-11-30] MEDS: buPROPion HCL 150 MG EXTENDED RELEASE TAB PO SCH (09:16)
[2016-11-30] MEDS: SODIUM CHLORIDE 0.9% FLUSH 10 ML FLUSH IV FLUSH SCH (09:17)
[2016-11-30] MEDS: CYANOCOBALAMIN 1,000 MCG TAB PO SCH (09:17)
[2016-11-30] MEDS: QUEtiapine FUMARATE 25 MG TAB PO SCH (09:17)
[2016-11-30] MEDS: CEFUROXIME AXETIL 500 MG TAB PO SCH (09:24)
[2016-11-30] MEDS ORDERED: ATENOLOL 25 MG TAB PO ONE (10:45)
[2016-11-30] MEDS ORDERED: POTASSIUM CHLORIDE 10 MEQ CONTROLLED RELEASE TAB PO ONE (11:00)
[2016-11-30] MEDS ORDERED: CEFU1TAB20 PO (12:21)
[2016-11-30] MEDS ORDERED: HYDR-3516 PO (12:21)
[2016-11-30] MEDS ORDERED: ATEN100T PO (12:21)
--- NOTE | 2016-11-30 12:21 | HHI.DCPOC ---
Discharge Care Plan Diagnosis: (1) Sepsis (2) UTI (urinary tract infection) (3) Hypernatremia (4) Hyperchloremic metabolic acidosis (5) Acute renal failure (6) Ovarian cancer (7) Pain (8) Weakness (9) Hydronephrosis Goals to Promote Your Health * To prevent worsening of your condition and complications * To maintain your health at the optimal level Directions to Meet Your Goals Take your medications as prescribed Follow your dietary instruction Follow activity as directed Keep your appointments as scheduled Take your immunizations and boosters as scheduled If your symptoms worsen call your PCP, if no PCP go to Urgent Care Center or Emergency Room Smoking is Dangerous to Your Health. Avoid second hand smoke Call the 24-hour hour crisis hotline for domestic abuse at Marc Meng MD Nov 30, 2016 12:21
[2016-11-30 12:33] VITALS: BP 152/88; PULSE 93; RESP 20; TEMP 97.8; O2SAT 94
[2016-11-30] MEDS: ENOXAPARIN SODIUM 30 MG/0.3 ML SYRINGE SQ SCH (14:00)
[2016-12-01] MEDS ORDERED: ATENOLOL 100 MG TAB PO SCH (09:00)
== END 2016-11-30 15:28 | DRG 872 ==
LOC: NEPE 18:22 → NEDA 21:57 → HOCB 22:55
PROVIDERS: ADMIT Hospitalist; ATTEND Hospitalist
PROC: 30233N1 Transfusion of Nonautologous Red Blood Cells into Peripheral Vein, Percutaneous Approach (ICD-10-PCS; principal; 2016-11-25)
DX: A41.9 Sepsis, unspecified organism (principal); N17.9 Acute kidney failure, unspecified; E87.0 Hyperosmolality and hypernatremia; E87.2 Acidosis; C79.89 Secondary malignant neoplasm of other specified sites; N13.30 Unspecified hydronephrosis; C56.9 Malignant neoplasm of unspecified ovary; E86.0 Dehydration; I12.9 Hypertensive chronic kidney disease with stage 1 through stage 4 chronic kidney disease, or unspecified chronic kidney disease; N39.0 Urinary tract infection, site not specified; D64.9 Anemia, unspecified; J44.9 Chronic obstructive pulmonary disease, unspecified; N18.3 Chronic kidney disease, stage 3 (moderate); M19.90 Unspecified osteoarthritis, unspecified site; F41.9 Anxiety disorder, unspecified; E87.6 Hypokalemia; Z66 Do not resuscitate; F32.9 Major depressive disorder, single episode, unspecified; Z92.21 Personal history of antineoplastic chemotherapy; Z92.3 Personal history of irradiation; Z87.891 Personal history of nicotine dependence; Z90.710 Acquired absence of both cervix and uterus; Z99.81 Dependence on supplemental oxygen
CPT/HCPCS: 36430; 51702; 70450; 71010; 74176; 78708; 80048; 80053; 80202; 81001; 82272; 83605; 83690; 83735; 84100; 84484; 85025; 85027; 85610; 85730; 86850; 86900; 86901; 86920; 87040; 87086; 87493; 87804; 93005; 96360; A9539; J0692; J1650; J1940; J2543; J3370; J7030; J7050; J7120; P9016

== ENCOUNTER 2016-12-28 21:22 | Emergency (ER) | payer MEDICARE, BC ==
[~2016-12-28 21:22] MED LIST changes: +ALPR0.5T3 PO; -ALPR1TAB3 PO; +ATEN100T PO; -ATEN50TA PO; +CEFU1TAB20 PO; +FERR325T2 PO; +HYDR-3516 PO; -METR-1 PO; -OXYC-395 PO; +QUET1TAB7 PO; -VANC500I3 PO; -WOMETAB5 PO; +[UNRECOGNIZED DRUG - CODE] PO
[2016-12-28 21:27] VITALS: BP 115/61; PULSE 100; RESP 20; TEMP 101.5; O2SAT 98
== END 2016-12-28 23:59 | disposition left against medical advice (07) ==
LOC: NED 21:22
DX: Z02.89 Encounter for other administrative examinations (principal); Z53.21 Procedure and treatment not carried out due to patient leaving prior to being seen by health care provider
CPT/HCPCS: 99281

== ENCOUNTER 2016-12-28 22:27 | Inpatient (IN) | payer MEDICARE, BC ==
[~2016-12-28] VITALS: Ht 157.5 cm; Wt 56.0 kg
[2016-12-28 22:39] VITALS: BP 113/62; PULSE 103; RESP 30; TEMP 99.6; O2SAT 91
[2016-12-28 23:36] VITALS: RESP 16; TEMP 99.6; O2SAT 88
[2016-12-28] MEDS ORDERED: SODIUM CHLOR 0.9% 1000 ML INJ 1,000 ML IV SCH (23:44)
[2016-12-28] MEDS ORDERED: ONDANSETRON HCL 4 MG/2 ML VIAL IVP ONE (23:45)
[2016-12-28] MEDS ORDERED: CEFEPIME INJ 1,000 MG in SODIUM CHLORIDE 0.9% INJ 100 ML IV ONE (23:45)
[2016-12-28] MEDS ORDERED: PIPERACIL-TAZO 3.375 GM PREMIX 50 ML IV ONE (23:45)
[2016-12-28] MEDS ORDERED: SODIUM CHLORIDE 0.9% FLUSH 10 ML FLUSH IV FLUSH PRN (23:45)
[2016-12-28 23:57] VITALS: BP 114/77; PULSE 94; RESP 24; TEMP 99.2; O2SAT 97
[2016-12-29] VITALS (15 sets, daily range): BP systolic 64–137; BP diastolic 64–73; PULSE 85–96; RESP 17–28; TEMP 98.3–99.2; O2SAT 92–97
--- NOTE | 2016-12-29 00:26 | PD ---
HPI Chief Complaint: Complaint Time Seen by Provider: 23:44 Travel History International Travel<30 days: No Contact w/Intl Traveler<30days: No Traveled to known affect area: No History of Present Illness HPI 76-year-old female with history of ovarian cancer under the care of Dr. Arevalo anxiety depression COPD chronic kidney disease hypertension and recurrent urinary tract infection infection with recent hospitalizations for sepsis UTI and C. difficile bacteremia returns for generalized weakness fever vomiting and poor oral intake. History is provided primarily by her although the patient is able to offer some history. Patient is ill-appearing and weak but does not appear to have any significant change in mentation. Patient was recently discharged from rehabilitation facility to home over the past couple of weeks and has been on oral Cipro for urinary tract infection. states patient continues to have loose soft stool poor oral intake and then today started having vomiting. Patient has had no productive cough congestion or shortness of breath. There is been no chest pain. Patient has been having assistance with home health with minimal activity but today was not able to get up out of bed to do her typical activity. Patient is currently not undergoing any chemotherapy. Patient did not receive any radiation therapy or surgery regarding her ovarian cancer. Patient also has had no pleuritic chest pain or hemoptysis. PFSH Past Medical History Narrative Medical Anxiety depression ovarian cancer COPD chronic kidney disease hypertension sepsis recurrent UTI C. difficile pelvic mass with hydronephrosis appendectomy cholecystectomy hysterectomy [id number]; nursing notes reviewed Arthritis: Yes (Neck, shoulder, back) Asthma: No Anxiety: Yes Depression: Yes Heart Rhythm Problems: No Cancer: Yes (Ovarian Cancer) Cardiovascular Problems: Yes High Cholesterol: No Chemotherapy: Yes Chest Pain: No Congestive Heart Failure: No COPD: Yes Cerebrovascular Accident: No Diabetes: No Diminished Hearing: No Endocrine: No Gastrointestinal Disorders: Yes GERD: Yes Genitourinary: No Headaches: Yes Hiatal Hernia: No Heparin Induced Thrombocytopen: No Hypertension: Yes Immune Disorder: No Implanted Vascular Access Dvce: Yes Kidney Stones: No Musculoskeletal: Yes Neurologic: No Psychiatric: Yes Respiratory: Yes Immunizations Current: Yes Migraines: No Radiation Therapy: No Renal Failure: Yes Seizures: No Sickle Cell Disease: No Sleep Apnea: No Thyroid Disease: No Ulcer: No Tetanus Vaccination: Unknown Influenza Vaccination: Yes ?: Not Menopausal: Yes : 3 Para: 3 Past Surgical History Abdominal Surgery: Yes (ruptured stomach) AICD: No Appendectomy: Yes Arteriovenous Shunt: No Cardiac Surgery: No Cholecystectomy: Yes Ear Surgery: No Endocrine Surgery: No Eye Surgery: Yes (cataract monica) Genitourinary Surgery: No Gynecologic Surgery: Yes (hysterectomy, tubes tied, ovaries removed) Hysterectomy: Yes Insulin Pump: No Joint Replacement: No Oral Surgery: No Pacemaker: No Thoracic Surgery: No Other Surgery: Yes (PORT PLACEMENT- RIGHT) Social History Alcohol Use: No Tobacco Use: No (QUIT 1 1/2 YR AGO) Substance Use: No Allergies-Medications (Allergen,Severity, Reaction): Coded Allergies: ibuprofen (Unverified Adverse Reaction, Intermediate, Nausea/Vomiting, ) Reported Meds & Prescriptions Reported Meds & Active Scripts Active Hydrocodone-Acetaminophen 5-325 mg Tab 1 Tab PO Q4H PRN Atenolol 100 Mg Tab 100 Mg PO DAILY Oxygen tank (Oxygen) 1 Ea Tank 2 Liter DARIANA.CANULA CONTINUOUS Oxygen Concentrator Portable Gaseous 2 L/min via Nasal Cannula Continuous For 99 months Ventolin Hfa 18 GM Inh (Albuterol Sulfate) 90 Mcg/Act Aer 2 Puff INH Q4H PRN Albuterol Neb (Albuterol Sulfate) 2.5 Mg/3 Ml Neb 2.5 Mg NEB Q4HR NEB PRN Reported Ferrous Sulfate DR (Ferrous Sulfate) 325 Mg Tabdr 325 Mg PO EVERY 3RD DAY B-12 Tr (Cyanocobalamin) 1,000 Mcg Tab 1,000 Mcg PO DAILY Alprazolam 0.5 Mg Tab 0.5 Mg PO TID PRN Quetiapine (Quetiapine Fumarate) 50 Mg Tab 50 Mg PO HS Eszopiclone 3 Mg Tab 3 Mg PO HS PRN Mirtazapine 15 Mg Tab 15 Mg PO HS Bupropion HCl ER 24 HR (Bupropion HCl) 150 Mg Tab 150 Mg PO DAILY Cilostazol 100 Mg Tab 200 Mg PO DAILY Review of Systems Except as stated in HPI: all other systems reviewed are Neg General / Constitutional: Positive: Fever, No: Chills HENT: No: Congestion Cardiovascular: No: Chest Pain or Discomfort Respiratory: No: Cough, Shortness of Breath Gastrointestinal: Positive: Nausea, Vomiting, Diarrhea, No: Abdominal Pain Genitourinary: Positive: Decreased Urinary Output, No: Flank Pain Musculoskeletal: No: Myalgias, Arthralgias Skin: No Rash Neurologic: Positive: Weakness Psychiatric: No: Anxiety Hematologic/Lymphatic: No: Easy Bruising Physical Exam Narrative GENERAL: Well-developed ill-appearing female in no acute distress no respiratory distress SKIN: Warm and dry. HEAD: Normocephalic. EYES: No scleral icterus. No injection or drainage. NECK: Supple, trachea midline. No JVD or lymphadenopathy. CARDIOVASCULAR: Regular rate and rhythm without murmurs, gallops, or rubs. RESPIRATORY: Breath sounds equal bilaterally. No accessory muscle use. GASTROINTESTINAL: Abdomen soft, non-tender, suprapubic mass/firmness to palpation without tenderness guarding or rebound, nondistended. MUSCULOSKELETAL: No cyanosis, bilateral mild pedal edema. BACK: Nontender without obvious deformity. No CVA tenderness. Data Data Last Documented VS Vital Signs Date Time Temp Pulse Resp B/P (MAP) Pulse Ox O2 Delivery O2 Flow Rate FiO2 12/28/16 23:46 18 12/28/16 23:36 99.6 88 12/28/16 22:39 103 113/62 (79) Orders Orders Complete Blood Count With Diff (12/28/16 23:44) Comprehensive Metabolic Panel (12/28/16 23:44) Lipase (12/28/16 23:44) Lactic Acid (12/28/16 23:44) Prothrombin Time / Inr (Pt) (12/28/16 23:44) Act Partial Throm Time (Ptt) (12/28/16 23:44) Urinalysis - C+S If Indicated (12/28/16 23:44) Iv Access Insert/Monitor (12/28/16 23:44) Ecg Monitoring (12/28/16 23:44) Oximetry (12/28/16 23:44) Ondansetron Inj (Zofran Inj) (12/28/16 23:45) Sodium Chlor 0.9% 1000 Ml Inj (Ns 1000 M (12/28/16 23:44) Sodium Chloride 0.9% Flush (Ns Flush) (12/28/16 23:45) Electrocardiogram (12/28/16 23:44) Chest, Single Ap (12/28/16 23:44) C Diff Toxin Pcr (12/28/16 23:44) Enteric Path (Stool) (12/28/16 23:44) Blood Culture (12/28/16 23:44) Magnesium (Mg) (12/28/16 23:44) Cefepime Inj (Maxipime Inj) (12/28/16 23:45) Piperacil-Tazo 3.375 Gm Premix (Zosyn 3. (12/28/16 23:45) Cath For Specimen (12/29/16 00:25) Urine Culture (12/29/16 00:18) Piperacil-Tazo 3.375 Gm Premix (Zosyn 3. (12/29/16 05:45) Lactobacillus Acidophilus (Lactinex) (12/29/16 09:00) Basic Metabolic Panel (Bmp) (12/30/16 06:00) Complete Blood Count With Diff (12/30/16 06:00) Magnesium (Mg) (12/30/16 06:00) Albuterol Neb (Albuterol Neb) (12/29/16 02:00) Alprazolam (Xanax) (12/29/16 02:00) Atenolol (Tenormin) (12/29/16 09:00) Bupropion Xl 24 Hr (Wellbutrin Xl 24 Hr) (12/29/16 09:00) Cilostazol (Pletal) (12/29/16 09:00) Cyanocobalamin (Vitamin B12) (12/29/16 09:00) Eszopiclone (Lunesta) (12/29/16 02:00) Acetamin-Hydrocod 325-5 Mg ([place] 5-325 (12/29/16 02:00) Mirtazapine (Remeron) (12/29/16 21:00) (Nf) Ferrous Sulfate (12/29/16 02:00) (Nf) Quetiapine (12/29/16 21:00) Admit Order (Ed Use Only) (12/29/16 ) ^ Saline Lock (12/29/16 01:53) Resp Oxygen Dariana C Titrat 1-4 L (12/29/16 ) Notify Dr: Other (12/29/16 01:53) Sodium Chloride 0.9% Flush (Ns Flush) (12/29/16 09:00) Labs Laboratory Tests Test 12/28/16 23:55 12/29/16 00:18 Lactic Acid Level 1.0 mmol/L White Blood Count 16.2 TH/MM3 Red Blood Count 3.08 MIL/MM3 Hemoglobin 9.1 GM/DL Hematocrit 27.7 % Mean Corpuscular Volume 89.9 FL Mean Corpuscular Hemoglobin 29.5 PG Mean Corpuscular Hemoglobin Concent 32.8 % Red Cell Distribution Width 18.9 % Platelet Count 333 TH/MM3 Mean Platelet Volume 8.1 FL Neutrophils (%) (Auto) 88.7 % Lymphocytes (%) (Auto) 4.1 % Monocytes (%) (Auto) 7.0 % Eosinophils (%) (Auto) 0.1 % Basophils (%) (Auto) 0.1 % Neutrophils # (Auto) 14.4 TH/MM3 Lymphocytes # (Auto) 0.7 TH/MM3 Monocytes # (Auto) 1.1 TH/MM3 Eosinophils # (Auto) 0.0 TH/MM3 Basophils # (Auto) 0.0 TH/MM3 CBC Comment AUTO DIFF Differential Total Cells Counted 100 Neutrophils % (Manual) 87 % Band Neutrophils % 5 % Lymphocytes % 6 % Monocytes % 2 % Neutrophils # (Manual) 14.9 TH/MM3 Differential Comment FINAL DIFF MANUAL Platelet Estimate NORMAL Platelet Morphology Comment NORMAL Urine Collection Type CATH Urine Color YELLOW Urine Turbidity MOD Urine pH 5.0 Urine Specific [place] 1.018 Urine Protein 30 mg/dL Urine Glucose (UA) NEG mg/dL Urine Ketones NEG mg/dL Urine Occult Blood TRACE Urine Nitrite NEG Urine Bilirubin NEG Urine Leukocyte Esterase LARGE Urine RBC 4-9 /hpf Urine WBC INNUM /hpf Urine WBC Clumps FEW Urine Squamous Epithelial Cells 0-5 /hpf Urine Amorphous Sediment FEW Urine Bacteria FEW /hpf Urine Hyaline Casts 0-2 /lpf Urine Fine Granular Casts 3-5 /lpf Urine Mucus FEW /lpf Microscopic Urinalysis Comment CATH-CULTURE IND Blood Urea Nitrogen 45 MG/DL Creatinine 3.00 MG/DL Random Glucose 125 MG/DL Total Protein 7.0 GM/DL Albumin 2.7 GM/DL Calcium Level 9.1 MG/DL Magnesium Level 2.0 MG/DL Alkaline Phosphatase 148 U/L Aspartate Amino Transf (AST/SGOT) 17 U/L Alanine Aminotransferase (ALT/SGPT) 11 U/L Total Bilirubin 0.5 MG/DL Sodium Level 132 MEQ/L Potassium Level 4.0 MEQ/L Chloride Level 97 MEQ/L Carbon Dioxide Level 22.9 MEQ/L Anion Gap 12 MEQ/L Estimat Glomerular Filtration Rate 15 ML/MIN Lipase 52 U/L [facility] Medical Decision Making Medical Screen Exam Complete: Yes Emergency Medical Condition: Yes Medical Record Reviewed: Yes Interpretation(s) EKG: Normal sinus rhythm rate [address] elevation or injury pattern or ectopy noted Differential Diagnosis Febrile illness, sepsis, UTI, pneumonia, bacteremia, failed outpatient therapy, C. difficile, bowel obstruction Narrative Course IV access obtained specimens collected and sent for resulting patient currently with cefepime and vancomycin Patient with service criteria and by heart rate and respiratory rate as well as noted to have elevated white count urinalysis also abnormal consistent with sepsis and also meets severe sepsis criteria based on acutely worsening renal function. Patient's lactic acid is 1.0, not elevated Patient given bolus of normal saline and continued on supplemental oxygen (as is needed at bedtime per ) Patient's case discussed with on-call [facility] MD Dr Pedersen Sepsis Criteria SIRS Criteria (2 or more): Heart rate over 90, RR > 20 or PaCO2 < 32, WBC > 51933, < 4000 or > 10% bands Sepsis Criteria (SIRS+source): Infect source susp/known (urine) Severe Sepsis (+one): Acute Oliguria/Renal Failure Physician Communication Physician Communication discussed with Dr Pedersen Diagnosis Primary Impression: UTI (urinary tract infection) Qualified Codes: N39.0 - Urinary tract infection, site not specified Additional Impressions: Sepsis Qualified Codes: A41.9 - Sepsis, unspecified organism Acute on chronic renal insufficiency Admitting Information Admitting Physician Requests: Admit Sophia Sy MD Dec 29, 2016 00:26
[2016-12-29 00:34] LABS: AUTOMATED NEUTROPHIL # 14.4 TH/MM3 (1.8-7.7); BASOPHIL % 0.1 % (0.0-2.0); BLOOD, URINE TRACE (NEG); EOSINOPHIL % 0.1 % (0.0-4.0); GLUCOSE,URINE NEG (NEG); HEMATOCRIT 27.7 % (35.0-46.0); KETONE, URINE NEG (NEG); LYMPH % 4.1 % (9.0-44.0); LYMPHOCYTE # 0.7 TH/MM3 (1.0-4.8); MEAN CELL VOLUME 89.9 FL (80.0-100.0); MEAN CORPUSCULAR HEMOGLOBIN 29.5 PG (27.0-34.0); MEAN CORPUSCULAR HGB CONC 32.8 % (32.0-36.0); NEUT % 88.7 % (16.0-70.0); NITRITE,URINE NEG (NEG); PLATELET COUNT 333 TH/MM3 (150-450); RED BLOOD COUNT 3.08 MIL/MM3 (4.00-5.30); RED CELL DISTRIBUTION WIDTH 18.9 % (11.6-17.2); WHITE BLOOD COUNT 16.2 TH/MM3 (4.0-11.0)
[2016-12-29 00:38] LABS: HEMO FLAGS AUTO DIFF
--- NOTE | 2016-12-29 00:46 | RADRPT ---
EXAM DATE/TIME: 12/28/2016 23:52 [facility] COMPARISON: CHEST SINGLE AP, November 22, 2016, 18:54. INDICATIONS : Shortness of breath. MEDICAL HISTORY : Hypertension. Chronic obstructive pulmonary disease. Carcinoma, ovarian. SURGICAL HISTORY : Port placement. ENCOUNTER: Initial ACUITY: 1 day PAIN SCORE: Non-responsive. LOCATION: Bilateral chest FINDINGS: A single view of the chest demonstrates linear atelectasis and scarring at the bases. No effusion. No pneumothorax. [id number] tip is in the superior vena cava. Mild scoliosis. CONCLUSION: 1. Linear atelectasis or scarring at the bases. No effusion or pneumothorax. No significant change co mpared with November 22. Merrick Chairez MD on December 29, 2016 at 0:42 Board Certified Radiologist. This report was verified electronically.
[2016-12-29 00:47] LABS: CHLORIDE 97 MEQ/L (98-107); SODIUM (NA) 132 MEQ/L (136-145)
[2016-12-29 00:51] LABS: ANION GAP 12 MEQ/L (5-15); BICARBONATE 22.9 MEQ/L (21.0-32.0); BLOOD UREA NITROGEN 45 MG/DL (7-18)
[2016-12-29 00:53] LABS: METHOD OF COLLECTION CATH; URINE COLOR YELLOW (YELLW/STRAW)
[2016-12-29 00:54] LABS: ALT (GPT) 11 U/L (10-53); AST (GOT) 17 U/L (15-37); GLOMERULAR FILTRATION RATE 15 ML/MIN (>89); MUCUS URINE FEW /lpf (OCC); SQUAMOUS EPITHELIAL CELL URINE 0-5 /hpf (0-5)
[2016-12-29 00:55] LABS: TOTAL BILIRUBIN ADULT 0.5 MG/DL (0.2-1.0); WBC, URINE INNUM /hpf (0-5)
[2016-12-29 00:56] LABS: ALKALINE PHOSPHATASE 148 U/L (45-117); BACTERIA, URINE FEW /hpf
[2016-12-29 00:57] LABS: COMMENT (UR) CATH-CULTURE IND; CULTURE IF INDICATED CATH CULTURE IND; HYALINE CAST, URINE 0-2 /lpf (RARE)
[2016-12-29 01:24] LABS: BANDS 5 % (0-6); NEUTROPHIL # MANUAL DIFF 14.9 TH/MM3 (1.8-7.7); POLYS (SEG NEUTROPHILS) 87 % (16-70); WBC DIFF SAMPLE 100
[2016-12-29 01:25] LABS: PLATELET ESTIMATE SMEAR NORMAL (NORMAL); PLATELET MORPHOLOGY NORMAL (NORMAL); SCAN/DIFF FINAL DIFF MANUAL
[2016-12-29] MEDS ORDERED: ESZOPICLONE 3 MG TAB PO PRN (02:00)
[2016-12-29] MEDS ORDERED: SODIUM CHLORIDE 0.9% FLUSH 10 ML FLUSH IVF PRN (02:00)
[2016-12-29] MEDS ORDERED: RESP: ALBUTEROL 2.5 MG/3 ML NEB (PRN) NEB (02:00)
[2016-12-29 02:29] LABS: APTT (PATIENT) 35.4 SEC (24.3-30.1); INTERNATIONAL NORMALIZED RATIO 1.1 RATIO; PROTHROMBIN TIME - PATIENT 12.5 SEC (9.8-11.6)
--- NOTE | 2016-12-29 03:37 | RADRPT ---
EXAM DATE/TIME: 12/29/2016 02:40 [facility] COMPARISON: No previous studies available for comparison. INDICATIONS : Vomiting. MEDICAL HISTORY : Cardiovascular disease. Renal failure, chronic. Hypertension. Carcinoma, ovarian. SURGICAL HISTORY : Appendectomy. Cholecystectomy. ENCOUNTER: Initial ACUITY: 1 day PAIN SCORE: Non-responsive. LOCATION: abdomen, all quadrants. FINDINGS: Mild basal atelectasis. There is some gaseous distention of small bowel. Differential diagnosis inclu jorge ileus or early obstruction. Air and stool also present in the colon. No free air. CONCLUSION: 1. Gaseous distention of small bowel. Differential diagnosis includes ileus or early obstruction. Merrick Chairez MD on December 29, 2016 at 3:33 Board Certified Radiologist. This report was verified electronically.
[2016-12-29] MEDS: ONDANSETRON HCL 4 MG/2 ML VIAL IV PUSH PRN ×2 (06:52→13:05)
--- NOTE | 2016-12-29 07:47 | EKG ---
Date Performed: 12/29/2016 Time Performed: 00:21:34 PTAGE: 76 years EKG: Sinus rhythm NONSPECIFIC ST DEPRESSION ABNORMAL ECG PREVIOUS TRACING : 11/22/2016 18.34 No significant change from previous tracing noted. DOCTOR: Ronald Ruiz Interpretating Date/Time 12/29/2016 07:45:15
[2016-12-29] MEDS: PIPERACIL-TAZO 2.25 GM PREMIX 50 ML IV SCH ×2 (08:52→15:19)
[2016-12-29] MEDS: buPROPion HCL 75 MG TAB PO SCH ×2 (08:52→20:56)
[2016-12-29] MEDS: SODIUM CHLORIDE 0.9% FLUSH 10 ML FLUSH IV FLUSH SCH ×2 (08:52→20:56)
[2016-12-29] MEDS: CYANOCOBALAMIN 1,000 MCG TAB PO SCH (08:52)
[2016-12-29] MEDS: LACTOBACILLUS ACIDOPHILUS TAB PO SCH ×3 (08:52→18:08)
[2016-12-29] MEDS: CILOSTAZOL 100 MG TAB PO SCH (08:52)
[2016-12-29] MEDS: ATENOLOL 100 MG TAB PO SCH (08:52)
[2016-12-29] MEDS: SODIUM CHLOR 0.9% 1000 ML INJ 1,000 ML IV SCH ×2 (08:53→22:20)
[2016-12-29 09:29] LABS: AUTOMATED NEUTROPHIL # 15.1 TH/MM3 (1.8-7.7); BASOPHIL % 0.3 % (0.0-2.0); EOSINOPHIL % 0.1 % (0.0-4.0); LYMPH % 3.9 % (9.0-44.0); LYMPHOCYTE # 0.6 TH/MM3 (1.0-4.8); MEAN CELL VOLUME 88.3 FL (80.0-100.0); MEAN CORPUSCULAR HEMOGLOBIN 29.7 PG (27.0-34.0); MEAN CORPUSCULAR HGB CONC 33.6 % (32.0-36.0); MONO % 4.7 % (0.0-8.0); PLATELET COUNT 348 TH/MM3 (150-450); RED BLOOD COUNT 3.29 MIL/MM3 (4.00-5.30); RED CELL DISTRIBUTION WIDTH 18.9 % (11.6-17.2); WHITE BLOOD COUNT 16.5 TH/MM3 (4.0-11.0)
[2016-12-29 09:38] LABS: HEMO FLAGS DIFF FINAL
[2016-12-29 09:57] LABS: POTASSIUM 3.7 MEQ/L (3.5-5.1)
[2016-12-29 10:03] LABS: BICARBONATE 23.9 MEQ/L (21.0-32.0); MAGNESIUM 1.8 MG/DL (1.5-2.5)
--- NOTE | 2016-12-29 10:13 | HHI.HP ---
[facility] Service [facility] Primary Care Physician Diana Salgado MD Admission Diagnosis UTI; sepsis; acute on chronic renal insufficiency Diagnoses: Travel History International Travel<30 Days: No Contact w/Intl Traveler <30 Da: No Traveled to Known Affected Are: No History of Present Illness This is a pleasant but unfortunate 76-year-old female with past medical history of ovarian cancer status post bilateral salpingo-oophorectomy in August 2015, currently under the care of Dr. Arevalo. She's had multiple hospitalizations for failure to thrive, sepsis. She was admitted to the hospital last month with C. difficile colitis and actually had clostridium and her blood in October. CT of the abdomen in November showed progression of the pelvic masses with development of moderate hydronephrosis in the right kidney disease with metastatic disease been suspected as the etiology. At that time she underwent a renal scintigraphy which showed no obstruction, and she was recommended to follow-up with urology Dr. Pastor. Due to her poor functional status the patient was not a candidate for chemotherapy. Palliative care was consulted and the patient elected to be DO NOT RESUSCITATE however her other goals remained aggressive. The patient was discharged to [facility] and states that she was discharged home last week. She returns to the hospital now with 2 day history of nausea and vomiting, poor oral intake and generalized weakness. The patient states that she was not ambulating at the [facility] or at home. The patient denies any loose stools. The patient denies fever although a fever was reported by the emergency department physician. The patient states she does not have abdominal pain unless someone presses on her abdomen. She had been being treated for urinary tract infection in the outpatient setting with Cipro. Her nurse states that she did have a small episode of emesis this morning. The patient states that her urine output has been normal. She had a bowel movement overnight but the nurse was unable to tell me what the consistency was. Again the patient denies diarrhea home. Review of Systems ROS Limitations: Poor Historian Constitutional: COMPLAINS OF: Weight loss, DENIES: Fever, Chills Eyes: DENIES: Blurred vision, Diplopia Ears, nose, mouth, throat: DENIES: Throat pain, Hoarseness Respiratory: DENIES: Cough, Shortness of breath Cardiovascular: DENIES: Chest pain, Palpitations Gastrointestinal: COMPLAINS OF: Abdominal pain, Nausea, Vomiting, DENIES: Black stools, Bloody stools, Diarrhea Genitourinary: DENIES: Hematuria, Dysuria Musculoskeletal: DENIES: Stiffness, Joint Swelling Integumentary: DENIES: Pruritus, Rash Hematologic/lymphatic: DENIES: Lymphadenopathy Neurologic: DENIES: Abnormal gait, Headache Psychiatric: DENIES: Anxiety, Confusion Past Family Social History Past Medical History Progressive Ovarian Cancer with pelvic masses and suspected metastatic disease, and a subcutaneous nodule in the right lower anterior abdominal wall Right hydronephrosis secondary to ureteral compression from the pelvic mass Recent C. difficile colitis and bacteremia COPD oxygen dependent Chronic kidney disease stage III HTN anxiety depression Insomnia arthritis anemia with history of blood transfusions Past Surgical History Bilateral Salpingo oophorectomy August 2015. Appendectomy Cholecystectomy Hysterectomy 1982 Cataract Surgery Right Port Placement Left elbow surgery Shoulder surgery Cataract surgery Incarcerated hernia / small bowel repair Reported Medications Allergies Coded Allergies Type Severity Reaction Last Updated Verified ibuprofen Adverse Reaction Intermediate Nausea/Vomiting 12/28/16 No Active Scripts Medications Dose Route/Sig Max Daily Dose Days Date Category Dose Instructions Hydrocodone-Acetaminophen 5-325 mg Tab 1 Tab PO Q4H PRN 11/30/16 Rx Atenolol 100 Mg Tab 100 Mg PO DAILY 11/30/[address] (Ferrous Sulfate) 325 Mg Tabdr 325 Mg PO EVERY 3RD DAY 11/22/16 Reported B-12 Tr (Cyanocobalamin) 1,000 Mcg Tab 1,000 Mcg PO DAILY 11/22/16 Reported Alprazolam 0.5 Mg Tab 0.5 Mg PO TID PRN 11/22/16 Reported Quetiapine (Quetiapine Fumarate) 50 Mg Tab 50 Mg PO HS 10/23/16 Reported Oxygen tank (Oxygen) 1 Ea Tank 2 Liter DARIANA.CANULA CONTINUOUS 06/27/16 Rx Oxygen Concentrator Portable Gaseous 2 L/min via Nasal Cannula Continuous For 99 months Ventolin Hfa 18 GM Inh (Albuterol Sulfate) 90 Mcg/Act Aer 2 Puff INH Q4H PRN 06/27/16 Rx Albuterol Neb (Albuterol Sulfate) 2.5 Mg/3 Ml Neb 2.5 Mg NEB Q4HR NEB PRN 03/27/16 Rx Eszopiclone 3 Mg Tab 3 Mg PO HS PRN 03/24/16 Reported Mirtazapine 15 Mg Tab 15 Mg PO HS 03/24/16 Reported Bupropion HCl ER 24 HR (Bupropion HCl) 150 Mg Tab 150 Mg PO DAILY 03/24/16 Reported Cilostazol 100 Mg Tab 200 Mg PO DAILY 03/24/16 Reported Allergies: Coded Allergies: ibuprofen (Unverified Adverse Reaction, Intermediate, Nausea/Vomiting, ) Family History Mother reportedly has dementia. Social History She lives with her . She does have a [id number] history of smoking but has quit. Physical Exam Vital Signs Vital Signs Date Time Temp Pulse Resp B/P (MAP) Pulse Ox O2 Delivery O2 Flow Rate FiO2 12/29/16 08:10 96 Nasal Cannula 3.00 12/29/16 08:05 98.3 93 18 114/70 (85) 93 12/29/16 06:00 90 12/29/16 05:00 12/29/16 04:45 99.0 92 17 111/68 (82) 95 Nasal Cannula 3.00 12/29/16 03:55 94 18 136/73 (94) 96 Nasal Cannula 3.00 12/29/16 02:55 99.2 94 18 122/64 (83) 97 Nasal Cannula 3.00 12/29/16 02:13 95 Nasal Cannula 3.00 12/29/16 01:58 99.0 96 22 136/73 (94) 96 Nasal Cannula 3.00 12/29/16 00:57 94 24 137/69 (91) 95 Nasal Cannula 3.00 12/29/16 00:27 99.2 94 23 114/70 (85) 95 Nasal Cannula 3.00 12/28/16 23:57 99.2 94 24 114/77 (89) 97 12/28/16 23:46 18 12/28/16 23:36 99.6 16 88 12/28/16 22:39 99.6 103 30 113/62 (79) 91 Physical Exam GENERAL: Chronically ill-appearing lean and cachectic female patient in no apparent distress. SKIN: Warm and dry. HEAD: Normocephalic. EYES: No scleral icterus. No injection or drainage. NECK: Supple, trachea midline. No JVD or lymphadenopathy. CARDIOVASCULAR: Regular rate and rhythm without murmurs, gallops, or rubs. RESPIRATORY: Breath sounds equal and clear bilaterally. No accessory muscle use. GASTROINTESTINAL: Tenderness in the suprapubic abdomen. Bowel sounds normal. nondistended. EXTREMITIES: 1+ edema in the right lower extremity. NEUROLOGICAL: Awake, alert, and oriented x 3. Generalized weakness. Laboratory Laboratory Tests Test 12/28/16 23:55 12/29/16 00:18 12/29/16 01:52 12/29/16 06:30 Lactic Acid Level 1.0 White Blood Count 16.2 Red Blood Count 3.08 Hemoglobin 9.1 Hematocrit 27.7 Mean Corpuscular Volume 89.9 Mean Corpuscular Hemoglobin 29.5 Mean Corpuscular Hemoglobin Concent 32.8 Red Cell Distribution Width 18.9 Platelet Count 333 Mean Platelet Volume 8.1 Neutrophils (%) (Auto) 88.7 Lymphocytes (%) (Auto) 4.1 Monocytes (%) (Auto) 7.0 Eosinophils (%) (Auto) 0.1 Basophils (%) (Auto) 0.1 Neutrophils # (Auto) 14.4 Lymphocytes # (Auto) 0.7 Monocytes # (Auto) 1.1 Eosinophils # (Auto) 0.0 Basophils # (Auto) 0.0 CBC Comment AUTO DIFF Differential Total Cells Counted 100 Neutrophils % (Manual) 87 Band Neutrophils % 5 Lymphocytes % 6 Monocytes % 2 Neutrophils # (Manual) 14.9 Differential Comment FINAL DIFF MANUAL Platelet Estimate NORMAL Platelet Morphology Comment NORMAL Urine Collection Type CATH Urine Color YELLOW Urine Turbidity MOD Urine pH 5.0 Urine Specific [place] 1.018 Urine Protein 30 Urine Glucose (UA) NEG Urine Ketones NEG Urine Occult Blood TRACE Urine Nitrite NEG Urine Bilirubin NEG Urine Leukocyte Esterase LARGE Urine RBC 4-9 Urine WBC INNUM Urine WBC Clumps FEW Urine Squamous Epithelial Cells 0-5 Urine Amorphous Sediment FEW Urine Bacteria FEW Urine Hyaline Casts 0-2 Urine Fine Granular Casts 3-5 Urine Mucus FEW Microscopic Urinalysis Comment CATH-CULTURE IND Blood Urea Nitrogen 45 Creatinine 3.00 Random Glucose 125 Total Protein 7.0 Albumin 2.7 Calcium Level 9.1 Magnesium Level 2.0 Alkaline Phosphatase 148 Aspartate Amino Transf (AST/SGOT) 17 Alanine Aminotransferase (ALT/SGPT) 11 Total Bilirubin 0.5 Sodium Level 132 Potassium Level 4.0 Chloride Level 97 Carbon Dioxide Level 22.9 Anion Gap 12 Estimat Glomerular Filtration Rate 15 Lipase 52 Prothrombin Time 12.5 Prothromb Time International Ratio 1.1 Activated Partial Thromboplast Time 35.4 Test 12/29/16 09:10 White Blood Count 16.5 Red Blood Count 3.29 Hemoglobin 9.8 Hematocrit 29.0 Mean Corpuscular Volume 88.3 Mean Corpuscular Hemoglobin 29.7 Mean Corpuscular Hemoglobin Concent 33.6 Red Cell Distribution Width 18.9 Platelet Count 348 Mean Platelet Volume 7.8 Neutrophils (%) (Auto) 91.0 Lymphocytes (%) (Auto) 3.9 Monocytes (%) (Auto) 4.7 Eosinophils (%) (Auto) 0.1 Basophils (%) (Auto) 0.3 Neutrophils # (Auto) 15.1 Lymphocytes # (Auto) 0.6 Monocytes # (Auto) 0.8 Eosinophils # (Auto) 0.0 Basophils # (Auto) 0.0 CBC Comment DIFF FINAL Differential Comment Blood Urea Nitrogen 41 Creatinine 2.70 Random Glucose 115 Calcium Level 8.6 Phosphorus Level 4.1 Magnesium Level 1.8 Sodium Level 137 Potassium Level 3.7 Chloride Level 102 Carbon Dioxide Level 23.9 Anion Gap 11 Estimat Glomerular Filtration Rate 17 Date/Time Source Procedure Growth Status 12/28/16 23:58 Blood Peripheral Aerobic Blood Culture Pending Received 12/28/16 23:58 Blood Peripheral Anaerobic Blood Culture Pending Received 12/29/16 06:30 Stool Stool Pending Received 12/29/16 00:18 Urine Catheterized Urine Urine Culture Pending Received Result Diagram: 12/29/16 0910 12/29/16 0910 Caprini VTE Risk Assessment Caprini VTE Risk Assessment: Mod/High Risk (score >= 2) Caprini Risk Assessment Model Point Value = 1 Point Value = 2 Point Value = 3 Point Value = 5 Age 41-60 Minor surgery BMI > 25 kg/m2 Swollen legs Varicose veins or History of unexplained or recurrent spontaneous Oral contraceptives or hormone replacement Sepsis (< 1 month) Serious lung disease, including pneumonia (< 1 month) Abnormal pulmonary function Acute myocardial infarction Congestive heart failure (< 1 month) History of inflammatory bowel disease Medical patient at bed rest Age 61-74 Arthroscopic surgery Major open surgery (> 45 min) Laparoscopic surgery (> 45 min) Malignancy Confined to bed (> 72 hours) Immobilizing plaster cast Central venous access Age >= 75 History of VTE Family history of VTE Factor V Leiden Prothrombin [id number] Lupus anticoagulant Anticardiolipin antibodies Elevated serum homocysteine Heparin-induced thrombocytopenia Other congenital or acquired thrombophilia Stroke (< 1 month) Elective arthroplasty Hip, pelvis, or leg fracture Acute spinal cord injury (< 1 month) Prophylaxis Regimen Total Risk Factor Score Risk Level Prophylaxis Regimen 0-1 Low Early ambulation 2 Moderate Order ONE of the following: *Sequential Compression Device (SCD) *Heparin 5000 units SQ BID 3-4 Higher Order ONE of the following medications: *Heparin 5000 units SQ TID *Enoxaparin/Lovenox 40 mg SQ daily (WT < 150 kg, CrCl > 30 mL/min) *Enoxaparin/Lovenox 30 mg SQ daily (WT < 150 kg, CrCl > 10-29 mL/min) *Enoxaparin/Lovenox 30 mg SQ BID (WT < 150 kg, CrCl > 30 mL/min) AND/OR *Sequential Compression Device (SCD) 5 or more Highest Order ONE of the following medications: *Heparin 5000 units SQ TID (Preferred with Epidurals) *Enoxaparin/Lovenox 40 mg SQ daily (WT < 150 kg, CrCl > 30 mL/min) *Enoxaparin/Lovenox 30 mg SQ daily (WT < 150 kg, CrCl > 10-29 mL/min) *Enoxaparin/Lovenox 30 mg SQ BID (WT < 150 kg, CrCl > 30 mL/min) AND *Sequential Compression Device (SCD) Assessment and Plan Problem List: (1) Chronic respiratory failure ICD Code: J96.10 - Chronic respiratory failure, unspecified whether with hypoxia or hypercapnia Status: Chronic (2) Hyponatremia ICD Code: E87.1 - Hypo-osmolality and hyponatremia Status: Resolved (3) Nausea and vomiting ICD Code: R11.2 - Nausea with vomiting, unspecified Status: Acute (4) Moderate malnutrition ICD Code: E44.0 - Moderate protein-calorie malnutrition Status: Chronic (5) Ovarian cancer ICD Code: C56.9 - Malignant neoplasm of unspecified ovary Status: Chronic (6) UTI (urinary tract infection) ICD Code: N39.0 - Urinary tract infection, site not specified Status: Acute (7) Hydronephrosis ICD Code: N13.30 - Unspecified hydronephrosis Status: Chronic (8) Acute renal failure ICD Code: N17.9 - Acute kidney failure, unspecified Status: Acute (9) Weakness ICD Code: R53.1 - Weakness Status: Acute (10) COPD (chronic obstructive pulmonary disease) ICD Code: J44.9 - Chronic obstructive pulmonary disease, unspecified Status: Chronic (11) Anemia ICD Code: D64.9 - Anemia, unspecified Status: Chronic (12) KAMRYN (acute kidney injury) ICD Code: N17.9 - Acute kidney failure, unspecified Status: Acute (13) Weakness ICD Code: R53.1 - Weakness Status: Acute (14) Decreased appetite ICD Code: R63.0 - Anorexia Status: Acute Assessment and Plan -Acute kidney injury on chronic kidney disease - likely secondary to dehydration with the nausea vomiting and poor oral intake, continue IV fluids. I will check a renal ultrasound given that she has known right hydronephrosis with a normal renal scintigraphy last month. -Nausea vomiting and dehydration. Continue IV fluids with Zofran. If vomiting continues may need to repeat abdominal CT scan. -Possible UTI - continue Zosyn with Lactinex. Follow-up urine culture. Follow- up blood cultures. -Progressive Ovarian Cancer with pelvic masses and suspected metastatic disease , and a subcutaneous nodule in the right lower anterior abdominal wall - followed by Dr. Arevalo. The patient currently is not a candidate for chemotherapy due to her poor functional status. -Right hydronephrosis secondary to ureteral compression from the pelvic mass -Recent C. difficile colitis and bacteremia - stool has been sent to check for C. difficile, the patient denies having any diarrhea. -Leukocytosis. Rule out sepsis. Follow-up urine culture and blood culture. -Hypovolemic hyponatremia, resolved. -Moderate malnutrition. Add ensure shakes. -COPD oxygen dependent - continue 3 L O2 via nasal cannula. -Chronic kidney disease stage III -HTN - hold atenolol at this time as she is normotensive. -Anemia with history of blood transfusions - continue ferrous sulfate. -anxiety and depression - continue Remeron and bupropion and Xanax as per home doses. -Insomnia - continue Lunesta and Seroquel. -Right lower extremity edema. We'll check a Doppler ultrasound to rule out DVT. -CODE STATUS DO NOT RESUSCITATE. The patient states that ideally she would like to improve to be able to go on chemotherapy however she realizes this is not likely. Will reconsult palliative care. She is an appropriate hospice candidate. Currently she does not have pain symptoms will continue Lortab as needed. -DVT prophylaxis with Lovenox. Problem Qualifiers (1) UTI (urinary tract infection): Qualified Codes: N39.0 - Urinary tract infection, site not specified Aylin Monzon MD Dec 29, 2016 10:13
[2016-12-29] MEDS ORDERED: ENOXAPARIN SODIUM 30 MG/0.3 ML SYRINGE SQ SCH (11:00)
[2016-12-29] MEDS ORDERED: ENOXAPARIN SODIUM 40 MG/0.4 ML SYRINGE SQ SCH (11:00)
[2016-12-29 11:43] LABS: C. DIFF EPI 027 PRESUMPTIVE NEGATIVE (NEGATIVE)
--- NOTE | 2016-12-29 13:05 | RADRPT ---
EXAM DATE/TIME: 12/29/2016 12:09 [facility] COMPARISON: No previous studies available for comparison. EXTERNAL COMPARISON : INDICATIONS : Bilateral leg swelling. MEDICAL HISTORY : Gastroesophageal reflux disease. Chronic obstructive pulmonary disease. Hypertension. UTI. Renal fail ure. Arthritis. Ovarian cancer. SURGICAL HISTORY : Appendectomy.Cholecystectomy. Hysterectomy.Elbow surgery. Shoulder surgery. Port placement. Chemother apy. ENCOUNTER: Subsequent ACUITY: 1 day PAIN SCORE: 0/10 LOCATION: Bilateral legs. TECHNIQUE: Venous ultrasound of the left and right leg was performed from the inguinal ligament to the proximal calf. Real-time, color Doppler and spectral tracing, compression and augmentation techniques were us ed. FINDINGS: RIGHT LEG: There is nonocclusive thrombus in the common femoral vein, superficial femoral vein, popliteal vein a nd peroneal vein. LEFT LEG: There is nonocclusive thrombus in the femoral vein and popliteal vein. CONCLUSION: 1. Nonocclusive thrombus in each lower extremity. Sharif Winston MD on December 29, 2016 at 12:59 Board Certified Radiologist. This report was verified electronically.
--- NOTE | 2016-12-29 13:18 | RADRPT ---
EXAM DATE/TIME: 12/29/2016 12:28 [facility] COMPARISON: CT ABDOMEN & PELVIS W/O CONTRAST, November 22, 2016, 20:06. EXTERNAL COMPARISON : [facility], CT ABDOMEN & PELVIS W/ & W/O CONTRAST, October 22, 2016 INDICATIONS : Hydronephrosis. MEDICAL HISTORY : Hypertension. Chronic obstructive pulmonary disease. Gastroesophageal reflux disease. UTI. Renal fail ure. Arthritis. Ovarian cancer. SURGICAL HISTORY : Appendectomy. Cholecystectomy. Hysterectomy. Elbow surgery. Shoulder surgery. Port placement. Chemoth erapy. ENCOUNTER: Initial ACUITY: 1 day PAIN SCORE: 0/10 LOCATION: Bilateral flank MEASUREMENTS: RIGHT KIDNEY: 7.7 x 4.9 x 3.8 cm LEFT KIDNEY: 7.9 x 5.2 x 4.5 cm FINDINGS: There is bilateral renal hydronephrosis, greater on the right. Kidneys are increased in echogenicity which can be seen with medical renal disease. Pelvic mass noted measuring 13.7 x 1 x 10.0 cm. The the re is some fluid filled bowel noted. CONCLUSION: 1. Pelvic mass causing bilateral hydronephrosis greater on the right. 2. Kidneys are slightly echogenic which can be seen with medical renal disease. Sharif Winston MD on December 29, 2016 at 13:08 Board Certified Radiologist. This report was verified electronically.
--- NOTE | 2016-12-29 13:36 | PD.CONS ---
Consult Service Palliative Care Consult Requested By [facility] Physician Diana Salgado MD Reason for Consultation a. To assist with evaluation and management of symptoms including:ovarian cancer, multiple hospitalization b. To assist medical decision maker(s) with: better understanding of current medical conditions; weighing benefits/burdens of medical treatment options; making medical treatment decisions. HPI History of Present Illness Patient is a 75-year-old seen by palliative care in past hospitalizations. She has a past medical history of COPD, hypertension, anemia, migraines, anxiety/ depression, and ovarian cancer.Patient was diagnosed with Stage 1 grade 3 ovarian cancer in August 2015 after resection of pelvis masses by Dr. Villa. Patient initially declined treatment due to performance status and rehab needs at the time. 6 months later she developed recurrent disease and was started on single agent Carboplatin AUC 6 (she completed 5 cycles). Her CA-125 was modestly elevated when she stated treatment at 64 and normalized to 17.9 with treatment. Previously admitted 10/23/16- 11/01/16 for neutropenia/sepsis. CT scan obtained in the hospital shown no regression or real progression of disease. Previously admitted 10/23/16- 11/01/16 for neutropenia/sepsis/ C. Diff. CT scan obtained in the hospital shown no regression or real progression of disease. She was seen by palliative care during that admission her goals of care was: To follow up with DEPARTMENT OF SOCIOLOGY CHAIR Oncology on November 12, it was agreed to hopefully help her gain some strength back, she would take a break from treatment for a few weeks and then she would follow up with Dr. Arevalo for consideration of restarting Carboplatin, or changing her to single agent Taxol. Patient came back to [facility] on 11/22/2016 for generalized weakness and altered mental status. She also has increase pain in the lower abdomen.Patient is admitted with sepsis, UTI, renal insufficiency, hydronephrosis and Ovarian cancer disease progression. Urology, Dr. Pastor has been consulted for hydronephrosis ordered renal scan, if obstruction will need double J stent. Recommendation to continue Cefepime. Renal scan negative for obstruction. Oncology reports patient is not a candidate for additional chemotherapy. [facility] has declined her for rehab given cancer progression. Palliative care again was consulted to assist with further clarification of goals. Palliative care arrange for a meeting with gynecology, palliative care and family on 11/28/2016. Meeting was held, goals remain aggressive short of NO CODE. Patient desires rehab placement in hopes that she will be able to get strong enough to get 2nd line chemotherapy. 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 Patient was recently discharged from rehabilitation facility and has been on oral Cipro for urinary tract infection. state patient continued to have loose soft stool, and poor oral intake. It has progressed to vomiting. In the ER: * Temperature is 101.5, pulse is 100, respirations 20, pulse ox is 98% on room air * WBC is 16.2, H&H is 9.1 and 27.7, platelet is 333 * Sodium is 132, potassium is 4.0, chloride is 97, bicarbonate is 22.9, BUN is 45, creatinine is 3.0 * PT is 12.5, INR is 1.1, PTT is 35.4 * Chest x-ray shows linear atelectasis or scarring at the bases. No effusion or pneumothorax. No significant change compared with November 22. * Lower extremity ultrasound was positive for DVT * Renal Ultrasound show hydronephrosis R>L due to masses. * Abdominal x-ray shows gaseous distention of small bowel. Differential diagnosis includes ileus or early obstruction Patient admitted to hospitalist services. Patient is given IV fluids. Zosyn and lactamases continued. Blood cultures obtained. Urine cultures obtained. Stool cultures obtained. Patient maintains DNR. Palliative care was consulted to review goals of care again.Pt denies pain, just fatigued. Pt state currently she has no nausea, but had it this morning. Pt, pt's , and children all are present. I updated pt, family on pt's lab and clinical condition. I emphasize, it is not unsually that pt functionally cannot undergo further chemothearapy or treatment due to side effects or functional status. Brought up the option of hospice again, and that it is available to patient. Patient, and especially family are reluctant, and would want to make it to see Dr. Arevalo this Thursday. I state, there is a possiblity that pt could not make it due to hospitalization. They state if she could not make it, they would be amenable to another consult with Dr. Arevalo, if she cannot be discharge on time. Function/Cognitive Trajectory Ongoing decline, weakness and increased need for assistance with ADLs. Patient has been in and out of the hospital, was just discharged from rehabilitation but continued to be weak. Review of Systems Constitutional: COMPLAINS OF: Fever, Weight gain Respiratory: COMPLAINS OF: Shortness of breath Gastrointestinal: COMPLAINS OF: Abdominal pain, Diarrhea Musculoskeletal: COMPLAINS OF: Joint pain Neurologic: COMPLAINS OF: Poor Balance Psychiatric: COMPLAINS OF: Anxiety, Depression Past Family Social History Coded Allergies: ibuprofen (Unverified Adverse Reaction, Intermediate, Nausea/Vomiting, ) Past Medical History Progressive Ovarian Cancer with pelvic masses and suspected metastatic disease, and a subcutaneous nodule in the right lower anterior abdominal wall Right hydronephrosis secondary to ureteral compression from the pelvic mass Recent C. difficile colitis and bacteremia COPD oxygen dependent Chronic kidney disease stage III HTN anxiety depression Insomnia arthritis anemia with history of blood transfusions Past Surgical History Bilateral Salpingo oophorectomy August 2015. Appendectomy Cholecystectomy Hysterectomy 1982 Cataract Surgery Right Port Placement Left elbow surgery Shoulder surgery Cataract surgery Incarcerated hernia / small bowel repair Reported Medications Ferrous Sulfate DR (Ferrous Sulfate) 325 Mg Tabdr 325 Mg PO EVERY 3RD DAY B-12 Tr (Cyanocobalamin) 1,000 Mcg Tab 1,000 Mcg PO DAILY Quetiapine (Quetiapine Fumarate) 25 Mg Tab 25 Mg PO DAILY Oxycodone-Acetaminophen 10-325 mg Tab 1 Tab PO BID PRN Alprazolam 0.5 Mg Tab 0.5 Mg PO TID PRN Atenolol 50 Mg Tab 75 Mg PO DAILY Quetiapine (Quetiapine Fumarate) 50 Mg Tab 50 Mg PO HS Eszopiclone 3 Mg Tab 3 Mg PO HS PRN Mirtazapine 15 Mg Tab 15 Mg PO HS Bupropion HCl ER 24 HR (Bupropion HCl) 150 Mg Tab 150 Mg PO DAILY Cilostazol 100 Mg Tab 200 Mg PO DAILY Current Medications Medications (Trade) Dose Ordered Sig/Melissa Route Start Time Stop Time Status Last Admin Piperacillin Sod/ Tazobactam Sod 50 ml @ 100 mls/hr Q8H IV 12/29/16 08:00 12/29/16 08:52 (Lactinex) 1 tab TID PO 12/29/16 09:00 12/29/16 12:04 (Albuterol Neb) 2.5 mg Q4HR NEB PRN NEB 12/29/16 02:00 (Xanax) 0.5 mg TID PRN PO 12/29/16 02:00 (Tenormin) 100 mg DAILY PO 12/29/16 09:00 12/29/16 08:52 (Wellbutrin) 75 mg BID PO 12/29/16 09:00 12/29/16 08:52 (Pletal) 200 mg DAILY PO 12/29/16 09:00 12/29/16 08:52 (Vitamin B12) 1,000 mcg DAILY PO 12/29/16 09:00 12/29/16 08:52 (Lunesta) 3 mg HS PRN PO 12/29/16 02:00 ([place] 5-325 Mg) 1 tab Q4H PRN PO 12/29/16 02:00 (Remeron) 15 mg HS PO 12/29/16 21:00 (Ferrous Sulfate) 325 mg Q72H PO 12/30/16 09:00 (SEROquel) 50 mg HS PO 12/29/16 21:00 (NS Flush) 2 ml BID IV FLUSH 12/29/16 09:00 12/29/16 08:52 (NS Flush) 2 ml UNSCH PRN IVF 12/29/16 02:00 (Zofran Inj) 4 mg Q6HR PRN IV PUSH 12/29/16 06:30 12/29/16 06:52 Sodium Chloride 1,000 ml @ 84 mls/hr [id number] IV 12/29/16 08:45 12/29/16 08:53 (Lovenox Inj) 30 mg Q24H SQ 12/29/16 11:00 12/29/16 11:38 Family History Per patient's : Patient's mother is 93 years old, reportedly living independently in her own home in [place], possible dementia. Familial history of heart disease. Substance Use Tobacco: Previous smoker, [id number] smoking history. Alcohol: Patient does not consume alcohol Prescription med abuse: None known Illicits: None known. Psychosocial History Patient was born in [place]. She has been to her ([place]) for approximately 50 years; they moved to [place] approximately 10 years ago after retiring. Patient worked "here and there" while her children were growing up. After moving to [place], the patient worked at [employer] (unknown capacity). The patient and her have 2 adult sons and 1 adult daughter. Carol lives in [place], [place]. Both sons (Jadiel and Sal ) live in [place]. They have 8 grandchildren. . Spiritual/Cultural Factors Religion reagan, unknown denomination. Living Will: Never completed Health Care Surrogate: Never completed (PT/INR completed) Physical Exam Vital Signs Date Time Temp Pulse Resp B/P (MAP) Pulse Ox O2 Delivery O2 Flow Rate FiO2 12/29/16 12:03 98.7 89 20 107/67 (80) 93 12/29/16 08:10 96 Nasal Cannula 3.00 12/29/16 08:05 98.3 93 18 114/70 (85) 93 12/29/16 08:05 93 12/29/16 06:00 90 12/29/16 05:00 12/29/16 04:45 99.0 92 17 111/68 (82) 95 Nasal Cannula 3.00 12/29/16 03:55 94 18 136/73 (94) 96 Nasal Cannula 3.00 12/29/16 02:55 99.2 94 18 122/64 (83) 97 Nasal Cannula 3.00 12/29/16 02:13 95 Nasal Cannula 3.00 12/29/16 01:58 99.0 96 22 136/73 (94) 96 Nasal Cannula 3.00 12/29/16 00:57 94 24 137/69 (91) 95 Nasal Cannula 3.00 12/29/16 00:27 99.2 94 23 114/70 (85) 95 Nasal Cannula 3.00 12/28/16 23:57 99.2 94 24 114/77 (89) 97 12/28/16 23:46 18 12/28/16 23:36 99.6 16 88 12/28/16 22:39 99.6 103 30 113/62 (79) 91 Exam CONSTITUTIONAL/GENERAL: This is a frail lady. SKIN: No jaundice, rashes, or lesions. Ecchymoses on upper extremities. No wounds seen anteriorly. Skin temperature appropriate. Not diaphoretic. HEAD: Atraumatic. Normocephalic. EYES: Pupils equal and round and reactive. Extraocular motions intact. No scleral icterus. No injection or drainage. Fundi not examined. ENT: Hearing grossly normal. Nose without bleeding or purulent drainage. Throat without visible erythema, exudates, masses, or lesions. NECK: Trachea midline. Supple, nontender. No palpable thyroid enlargement or nodularity. CARDIOVASCULAR: Regular rate and rhythm without murmurs, gallops, or rubs. RESPIRATORY/CHEST: Symmetric, unlabored respirations. Clear to auscultation. Breath sounds equal bilaterally. No wheezes, rales, or rhonchi. GASTROINTESTINAL: Abdomen soft, some tenderness on palpation, nondistended. No hepato-splenomegaly, or palpable masses. No guarding. Bowel sounds present. GENITOURINARY: Without palpable bladder distension. Ball catheter in place. MUSCULOSKELETAL: 1+ edema bilaterally. No joint tenderness or effusion noted. No calf tenderness. No mottling or clubbing. LYMPHATICS: No palpable cervical or supraclavicular adenopathy. NEUROLOGICAL: Awake and alert. Motor and sensory grossly within normal limits. Follows commands. Cognitively sharp. Moves all extremities. PSYCHIATRIC: No obvious anxiety/depression. no apparent hallucinations or other psychotic thought process. Diagnostic Tests Laboratory Laboratory Tests Test 12/28/16 23:55 12/29/16 00:18 12/29/16 01:52 12/29/16 06:30 Lactic Acid Level 1.0 mmol/L (0.4-2.0) White Blood Count 16.2 TH/MM3 (4.0-11.0) Red Blood Count 3.08 MIL/MM3 (4.00-5.30) Hemoglobin 9.1 GM/DL (11.6-15.3) Hematocrit 27.7 % (35.0-46.0) Mean Corpuscular Volume 89.9 FL (80.0-100.0) Mean Corpuscular Hemoglobin 29.5 PG (27.0-34.0) Mean Corpuscular Hemoglobin Concent 32.8 % (32.0-36.0) Red Cell Distribution Width 18.9 % (11.6-17.2) Platelet Count 333 TH/MM3 (150-450) Mean Platelet Volume 8.1 FL (7.0-11.0) Neutrophils (%) (Auto) 88.7 % (16.0-70.0) Lymphocytes (%) (Auto) 4.1 % (9.0-44.0) Monocytes (%) (Auto) 7.0 % (0.0-8.0) Eosinophils (%) (Auto) 0.1 % (0.0-4.0) Basophils (%) (Auto) 0.1 % (0.0-2.0) Neutrophils # (Auto) 14.4 TH/MM3 (1.8-7.7) Lymphocytes # (Auto) 0.7 TH/MM3 (1.0-4.8) Monocytes # (Auto) 1.1 TH/MM3 (0-0.9) Eosinophils # (Auto) 0.0 TH/MM3 (0-0.4) Basophils # (Auto) 0.0 TH/MM3 (0-0.2) CBC Comment AUTO DIFF Differential Total Cells Counted 100 Neutrophils % (Manual) 87 % (16-70) Band Neutrophils % 5 % (0-6) Lymphocytes % 6 % (9-44) Monocytes % 2 % (0-8) Neutrophils # (Manual) 14.9 TH/MM3 (1.8-7.7) Differential Comment FINAL DIFF MANUAL Platelet Estimate NORMAL (NORMAL) Platelet Morphology Comment NORMAL (NORMAL) Urine Collection Type CATH Urine Color YELLOW (YELLW/STRAW) Urine Turbidity MOD (CLEAR) Urine pH 5.0 (5.0-8.5) Urine Specific [place] 1.018 (1.002-1.035) Urine Protein 30 mg/dL (NEG-TRACE) Urine Glucose (UA) NEG mg/dL (NEG) Urine Ketones NEG mg/dL (NEG) Urine Occult Blood TRACE (NEG) Urine Nitrite NEG (NEG) Urine Bilirubin NEG (NEG) Urine Leukocyte Esterase LARGE (NEG) Urine RBC 4-9 /hpf (0-3) Urine WBC INNUM /hpf (0-5) Urine WBC Clumps FEW (NONE) Urine Squamous Epithelial Cells 0-5 /hpf (0-5) Urine Amorphous Sediment FEW Urine Bacteria FEW /hpf (NONE) Urine Hyaline Casts 0-2 /lpf (RARE) Urine Fine Granular Casts 3-5 /lpf (NONE) Urine Mucus FEW /lpf (OCC) Microscopic Urinalysis Comment CATH-CULTURE IND Blood Urea Nitrogen 45 MG/DL (7-18) Creatinine 3.00 MG/DL (0.50-1.00) Random Glucose 125 MG/DL (74-106) Total Protein 7.0 GM/DL (6.4-8.2) Albumin 2.7 GM/DL (3.4-5.0) Calcium Level 9.1 MG/DL (8.5-10.1) Magnesium Level 2.0 MG/DL (1.5-2.5) Alkaline Phosphatase 148 U/L (45-117) Aspartate Amino Transf (AST/SGOT) 17 U/L (15-37) Alanine Aminotransferase (ALT/SGPT) 11 U/L (10-53) Total Bilirubin 0.5 MG/DL (0.2-1.0) Sodium Level 132 MEQ/L (136-145) Potassium Level 4.0 MEQ/L (3.5-5.1) Chloride Level 97 MEQ/L (98-107) Carbon Dioxide Level 22.9 MEQ/L (21.0-32.0) Anion Gap 12 MEQ/L (5-15) Estimat Glomerular Filtration Rate 15 ML/MIN (>89) Lipase 52 U/L (73-393) Prothrombin Time 12.5 SEC (9.8-11.6) Prothromb Time International Ratio 1.1 RATIO Activated Partial Thromboplast Time 35.4 SEC (24.3-30.1) Stool C. difficile Toxin (PCR) POSITIVE (NEGATIVE) Stl C. difficile Toxin Epiderm 027 PRESUMPTIVE NEGATIVE Test 12/29/16 09:10 White Blood Count 16.5 TH/MM3 (4.0-11.0) Red Blood Count 3.29 MIL/MM3 (4.00-5.30) Hemoglobin 9.8 GM/DL (11.6-15.3) Hematocrit 29.0 % (35.0-46.0) Mean Corpuscular Volume 88.3 FL (80.0-100.0) Mean Corpuscular Hemoglobin 29.7 PG (27.0-34.0) Mean Corpuscular Hemoglobin Concent 33.6 % (32.0-36.0) Red Cell Distribution Width 18.9 % (11.6-17.2) Platelet Count 348 TH/MM3 (150-450) Mean Platelet Volume 7.8 FL (7.0-11.0) Neutrophils (%) (Auto) 91.0 % (16.0-70.0) Lymphocytes (%) (Auto) 3.9 % (9.0-44.0) Monocytes (%) (Auto) 4.7 % (0.0-8.0) Eosinophils (%) (Auto) 0.1 % (0.0-4.0) Basophils (%) (Auto) 0.3 % (0.0-2.0) Neutrophils # (Auto) 15.1 TH/MM3 (1.8-7.7) Lymphocytes # (Auto) 0.6 TH/MM3 (1.0-4.8) Monocytes # (Auto) 0.8 TH/MM3 (0-0.9) Eosinophils # (Auto) 0.0 TH/MM3 (0-0.4) Basophils # (Auto) 0.0 TH/MM3 (0-0.2) CBC Comment DIFF FINAL Differential Comment Blood Urea Nitrogen 41 MG/DL (7-18) Creatinine 2.70 MG/DL (0.50-1.00) Random Glucose 115 MG/DL (74-106) Calcium Level 8.6 MG/DL (8.5-10.1) Phosphorus Level 4.1 MG/DL (2.5-4.9) Magnesium Level 1.8 MG/DL (1.5-2.5) Sodium Level 137 MEQ/L (136-145) Potassium Level 3.7 MEQ/L (3.5-5.1) Chloride Level 102 MEQ/L (98-107) Carbon Dioxide Level 23.9 MEQ/L (21.0-32.0) Anion Gap 11 MEQ/L (5-15) Estimat Glomerular Filtration Rate 17 ML/MIN (>89) Result Diagram: 12/29/16 0910 12/29/16 0910 Microbiology Microbiology Date/Time Source Procedure Growth Status 12/28/16 23:58 Blood Peripheral Aerobic Blood Culture Pending Received 12/28/16 23:58 Blood Peripheral Anaerobic Blood Culture Pending Received 12/28/16 23:53 Blood Peripheral Aerobic Blood Culture Pending Received 12/28/16 23:53 Blood Peripheral Anaerobic Blood Culture Pending Received 12/29/16 06:30 Stool Stool Pending Received 12/29/16 00:18 Urine Catheterized Urine Urine Culture Pending Received Patient/Family Conference Present at Family Conference: , son, and daughter. Family Conference Time (mins): 30 Family Conference Location: Bedside Issues Discussed: * Palliative care role, purpose, approach * Additional medical, psychosocial, and spiritual history * Patients general health, functional status, and cognitive changes in the months leading up to the current hospitalization * Patient/family understanding of the current medical problems * Patient/family understanding of prognosis * Patients goals of care as best understood from advance directives and/or conversations and/or values * Current medical treatment options and benefits/burdens of those options * Likely scenarios comparing ongoing aggressive care with a transition to comfort measures only * Questions answered to the best of my ability * Palliative care contact information provided Assessment and Plan Disease Oriented Problem List: (1) Ovarian cancer Comment: Scan in did show enlargment of previously seen pelvic masses with development of moderate hydroenphrosis in the right kidney. Subcutaneous nodule in the right lower anterior abdominal wall is also larger suspicious for metastatic disease. (2) Clostridium difficile diarrhea (3) COPD (chronic obstructive pulmonary disease) (4) KAMRYN (acute kidney injury) (5) UTI (urinary tract infection) Symptom Scale: Pertinent Non-Medical Issues Psychosocial: Spiritual: Legal: Ethical issues impacting care: Important Contacts Jadiel Bojorquez, spouse: [phone] or cell [phone] Carol Bojorquez, daughter: [phone] Prognosis Patient is a 75-year-old female who was initially diagnosed diagnosed with ovarian cancer in 2016 after surgical resection of a pelvic mass showed ovarian cancer. Chemotherapy was recommended by Dr. Arevalo (DEPARTMENT OF SOCIOLOGY CHAIR/ONC), but the patient's medical treatment goals were unclear at that time. She did not follow-up with Dr. Arevalo again until May,. Single agent carboplatin on started on completed chemotherapy in late Sep, 2016. Recent CT scan showed worsening of disease. Patient has not been strong enough for consideration of addition chemotherapy. no longer a candidate for treatment given continued functional decline and weight loss. Overall prognosis is poor. . Code Status: No Code Plan == Decision maker. has capacity but recommend shared decision making with spouse given intermitten confusion in the past. == Code- DNR. == Goals of care.Pt, pt's , and children all are present. I updated pt , family on pt's lab and clinical condition. Reviewed imaging. I emphasize, it is not unusual that pt functionally cannot undergo further chemotherapy or treatment due to side effects and/or functional status. Brought up the option of hospice again, and that it is available to patient. Patient, and especially family are reluctant, and would want to make it to see Dr. Arevalo this Thursday. I state, there is a possiblity that pt could not make it due to hospitalization. They state if pt could not make it to appoint., they would be amenable to another consult with Dr. Arevalo, if pt cannot be discharge on time. Appears they want to speak with Dr. Arevalo. == symptoms: Pain - denies pain currently nausea- multifactorial uti, and hydronephrosis. prn available. == palliative care will f/u as needed. Thank you for the opportunity to participate in the care of Ms. Bojorquez. Attestation To help prompt me to consider important information that might be impacting today's encounter and assessment, information from prior notes written by myself or my colleagues may have been "brought forward" into today's note. My signature on this note, however, is an attestation that I personally performed the exam, history, and/or decision-making noted today, and, unless otherwise indicated, the interactions with patient, family, and staff as well as the review of records all occurred today. I also attest that the listed assessment and stated plan reflect my best clinical judgment today based on the combination of historical information, prior notes, and today's exam/ interactions. When time spent is documented, it refers only to time spent today by the signer, or if indicated, combined time spent today by collaborating physician/nurse practitioner. Sha Rosas MD Dec 29, 2016 13:36
[2016-12-29] MEDS ORDERED: HEPARIN SODIUM - IV 10,000 UNITS/10 ML VIAL IV PRN ×2 (15:15)
[2016-12-29] MEDS: HEPARIN 25,000 UNITS-D5W 250 ML - PREMIX IV SCH (15:55)
[2016-12-29] MEDS: MIRTAZAPINE 15 MG TAB PO SCH (20:55)
[2016-12-29] MEDS: QUEtiapine FUMARATE 25 MG TAB PO SCH (20:56)
--- NOTE | 2016-12-29 22:20 | MB ---
cc: CHERYL DUONG MD DATE OF CONSULTATION 12/29/16 DATE OF 1940 REASON FOR CONSULTATION Bilateral lower extremity deep venous thromboses in a patient with recurrent ovarian carcinoma. CHIEF COMPLAINT Mrs. Bojorquez reports developing abdominal pain, worsening appetite, nausea and vomiting and generalized fatigue. She has also noticed lower extremity edema for the past 3 days. HISTORY OF PRESENT ILLNESS Mrs. Bojorquez is a 76-year-old female with a history of recurrent ovarian carcinoma. Her diagnosis was established in September of 2015. She has been under the care of Dr. Ioana Arevalo who treated her with surgical resection followed by systemic chemotherapy using a [place] doublet. She had initially responded well to the treatment but had been struggling with failure to thrive, worsening nutrition, worsening performance status and recurrent hospitalizations as of late. Over the past few months she had even discussed the role of hospice/end-of-life care with her gynecologic oncologist, however, at that time had elected to pursue additional disease directed therapy. Mrs. Bojorquez was most recently hospitalized at [place] with a complicated urinary tract infection in November of 2016. She was discharged from the hospital to an inpatient rehab facility where she spent almost 2 weeks. She was discharged home about 3 days ago and after returning home she began to report increasing abdominal pain, nausea and began to vomit. Her felt he was unable to care for her at home and brought her in. She also seemed to be somewhat lethargic to him. Upon presentation to the emergency department here to [facility], she underwent imaging studies of the abdomen which revealed gaseous distension of the small bowel concerning for early ileus or obstruction. Because she also had bilateral lower extremity edema she underwent ultrasound Doppler studies which indicated nonocclusive thrombosis in each lower extremity. The hematology service has been asked to see the patient for further workup and management of the lower extremity deep venous thromboses. She is presently on a heparin infusion. PAST MEDICAL HISTORY 1. Recurrent ovarian carcinoma. 2. COPD. 3. Hypertension. 4. Anxiety/depression. 5. Adult failure to thrive. 6. Malnutrition. 7. Generalized frailty. PAST SURGICAL HISTORY Bilateral salpingo-oophorectomy in September of 2015. Appendectomy. Cholecystectomy. Hysterectomy. Cataract surgeries. Port placement on the right side. FAMILY HISTORY Mom is living, she is [id number]. Likely has dementia. Father is . SOCIAL HISTORY The patient lives at home with her . She is originally from [place]. She formerly smoked, she had a 55 pack year history of smoking. She does not drink alcohol and denies illicit drugs. ALLERGIES IBUPROFEN. MEDICATIONS Current inpatient medications: 1. Heparin infusion per protocol. 2. Zosyn 2.5 grams IV q. 8 hours. 3. Sodium chloride 84 cc/hour. 4. Alprazolam 0.5 milligrams p.o. t.i.d. as needed for anxiety. 5. Atenolol 100 milligrams p.o. x1. 6. Ferrous sulfate 325 milligrams p.o. q. 72 hours. 7. Lactobacillus one tablet p.o. t.i.d. 8. Remeron 15 milligrams p.o. q.h.s. 9. Zofran 4 milligrams IV q.6 hours as needed for nausea and vomiting. 10. Seroquel 50 milligrams p.o. q. h.s. REVIEW OF SYSTEMS 13-point review of systems is obtained, the following are the pertinent positives: CONSTITUTIONAL: Fatigue, weakness, loss of appetite and weight loss. She denies fevers, chills. HEENT: Denies headaches, blurry vision, she reports difficulty swallowing. RESPIRATORY: Reports difficulty breathing with minimal exertion, denies chest pain, PND, orthopnea, denies angina-like chest pain. GI: Reports abdominal distension, tenderness, nausea, denies vomiting, denies hematochezia or melena. : Denies dysuria, hematuria, urinary incontinence. ASSESSMENT DIRECTOR: Reports feeling generally weak. MUSCULOSKELETAL: Reports feeling generally weak, reports chronic lower back pain. PHYSICAL EXAMINATION VITAL SIGNS: Temperature 98.4 degrees Fahrenheit, heart rate 85 beats a minute, respiratory rate 18, blood pressure 111/68, O2 sats 98% on 3 liters nasal cannula. GENERAL APPEARANCE: Mrs. Bojorquez is an elderly lady, she is laying in bed in no acute distress. Her is at bedside. She is generally frail and cachectic appearing. HEENT: Head atraumatic, normocephalic, conjunctive re non-pale, sclerae are anicteric, EOMI, PERRLA, oral exam no pharyngeal erythema. NECK: No palpable cervical or supraclavicular lymphadenopathy. RESPIRATORY EXAM: Decreased bibasilar breath sounds, poor inflammatory effort, prolonged expiratory phase. CARDIOVASCULAR: Regular rate and rhythm, S1-S2. No obvious murmurs, rubs or gallops. ABDOMINAL EXAM: Protuberant, tender to even light palpation and percussion. No definite organ enlargement noted. LOWER EXTREMITIES: No pretibial edema or calf tenderness. ASSESSMENT DIRECTOR: No focal, sensory, motor deficits. LABORATORY FINDINGS Blood work dated 12/29/2016: WBC count 16.5, hemoglobin 9.8 gm/dl, hematocrit 29%, MCV 88, platelet count 350, absolute neutrophil count 15. Chemistries: Sodium 137, potassium 3.7, chloride 102, bicarb 24, BUN 41, creatinine 2.7, EGFR 17, random glucose was 115, calcium 8.6, magnesium 1.8, phosphorus 4.1. Alkaline phosphatase 148, ALT 11, AST 17, total bilirubin 0.5, magnesium 2. IMAGING STUDIES Ultrasound Doppler studies of the lower extremities indicate nonocclusive thrombosis in each lower extremity. In the right leg there is a nonocclusive thrombus in the common femoral vein, superficial femoral vein and popliteal vein. Left leg nonocclusive thrombus in the femoral vein and popliteal vein. ASSESSMENT Mrs. Bojorquez is a 76-year-old female with multiple medical issues. She has relapsed ovarian carcinoma and had been discussing resumption of palliative systemic chemotherapy with Dr. Arevalo; her gynecologic oncologist. Unfortunately, Mrs. Bojorquez has had progressive failure to thrive over the past few weeks and because of this has been in and out of hospitals and other health care facilities including inpatient rehab. Most recently she developed urinary tract infection and required inpatient hospitalization followed by outpatient rehab. She has developed progressive failure to thrive and protein calorie malnutrition over the past few months. Her ECOG performance status is at best a 3 at baseline and is presently closer to 4. She presented to [facility] after being discharged from her inpatient rehab just 3 days prior. She was increasingly weak, frail and unable to keep down oral intake. She had also been experiencing increasing abdominal pain and distension. In addition to the above-noted complaints she had developed lower extremity edema on both sides. Upon presentation to the hospital she was noted on x-ray abdomen to have possible early obstruction/ileus. Ultrasound Doppler studies of the lower extremities indicate bilateral nonocclusive deep venous thromboses involving both proximal and distal veins. RECOMMENDATIONS 1. Bilateral lower extremity deep venous thromboses: These are provoked by her underlying malignancy; relapsed ovarian carcinoma. Additionally, lack of mobility and recent hospitalizations are also likely contributing factors. At this point I would recommend continuing therapeutic anticoagulation with heparin. I would recommend aiming for a PTT of between 40 and 50 seconds. She may be transitioned to warfarin after 48 hours of anticoagulation with heparin. I would start her at a relatively low dose of warfarin at approximately 2 milligrams daily given her poor oral intake. 2. Recurrent/relapsed ovarian carcinoma: The patient had previously expressed her desire to pursue additional palliative chemotherapy with Dr. Arevalo. Unfortunately, I find the patient to have a very high degree of frailty and an extremely poor performance status. I suspect Dr. Arevalo would like to discuss palliative care and comfort oriented care going forward, especially given the patient's recent decline and acute medical issues. The hematology service will follow along periodically while she is in the hospital. MD BREANN Hugo/MARY /6:34 PM /9:53 PM
[2016-12-29 22:24] LABS: APTT (PATIENT) 62.3 SEC (24.3-30.1)
[2016-12-30] VITALS (13 sets, daily range): BP systolic 102–141; BP diastolic 48–79; PULSE 80–90; RESP 21–35; TEMP 98.6–99; O2SAT 92–98
[2016-12-30] MEDS: PIPERACIL-TAZO 2.25 GM PREMIX 50 ML IV SCH ×3 (02:09→16:00)
[2016-12-30 05:29] LABS: AUTOMATED NEUTROPHIL # 12.9 TH/MM3 (1.8-7.7); EOSINOPHIL % 0.2 % (0.0-4.0); HEMATOCRIT 25.4 % (35.0-46.0); LYMPH % 5.2 % (9.0-44.0); LYMPHOCYTE # 0.7 TH/MM3 (1.0-4.8); MEAN CELL VOLUME 89.4 FL (80.0-100.0); MEAN CORPUSCULAR HGB CONC 33.5 % (32.0-36.0); MONO % 4.6 % (0.0-8.0); PLATELET COUNT 317 TH/MM3 (150-450); RED BLOOD COUNT 2.84 MIL/MM3 (4.00-5.30); RED CELL DISTRIBUTION WIDTH 19.3 % (11.6-17.2); WHITE BLOOD COUNT 14.3 TH/MM3 (4.0-11.0)
[2016-12-30 05:39] LABS: HEMO FLAGS DIFF FINAL
[2016-12-30 05:47] LABS: POTASSIUM 3.1 MEQ/L (3.5-5.1)
[2016-12-30 05:51] LABS: BICARBONATE 21.9 MEQ/L (21.0-32.0); MAGNESIUM 1.6 MG/DL (1.5-2.5)
[2016-12-30 08:15] LABS: APTT (PATIENT) 53.8 SEC (24.3-30.1)
[2016-12-30] MEDS: LACTOBACILLUS ACIDOPHILUS TAB PO SCH ×3 (09:02→18:59)
[2016-12-30] MEDS: CYANOCOBALAMIN 1,000 MCG TAB PO SCH (09:02)
[2016-12-30] MEDS: buPROPion HCL 75 MG TAB PO SCH ×2 (09:02→22:07)
[2016-12-30] MEDS: ATENOLOL 100 MG TAB PO SCH (09:03)
[2016-12-30] MEDS: POTASSIUM CHLOR 10 MEQ PREMIX 100 ML IV SCH ×3 (09:03→11:31)
[2016-12-30] MEDS: CILOSTAZOL 100 MG TAB PO SCH (09:03)
[2016-12-30] MEDS: FERROUS SULFATE 325 MG (65 MG ELEMENTAL IRON) TAB PO SCH (09:04)
[2016-12-30] MEDS: SODIUM CHLORIDE 0.9% FLUSH 10 ML FLUSH IV FLUSH SCH ×2 (09:04→22:08)
[2016-12-30] MEDS: metroNIDAZOLE 500 MG TAB PO SCH ×3 (09:09→22:07)
--- NOTE | 2016-12-30 09:23 | HHI.PR ---
Subjective Remarks The patient states she feels fine. She specifically denies any abdominal pain vomiting or diarrhea. I confirmed with her nurse she has not had any diarrhea. Doppler ultrasound was positive for bilateral DVTs and the patient was started on heparin. Oncology notes reviewed. Abdominal x-ray shows ileus versus developing obstruction. Patient is agreeable to abdominal CT scan. Renal ultrasound showed bilateral hydronephrosis. Objective Vitals Vital Signs Date Time Temp Pulse Resp B/P (MAP) Pulse Ox O2 Delivery O2 Flow Rate FiO2 12/30/16 04:00 98.8 84 31 106/54 (71) 96 12/30/16 04:00 84 12/30/16 00:00 99.0 82 23 98 12/30/16 00:00 82 12/29/16 20:20 94 Nasal Cannula 3.00 12/29/16 20:00 90 12/29/16 20:00 98.6 86 28 111/64 (80) 92 12/29/16 16:00 85 12/29/16 16:00 98.4 85 18 111/68 (82) 96 12/29/16 12:05 89 12/29/16 12:03 98.7 89 20 107/67 (80) 93 I/O 12/29/16 12/29/16 12/29/16 12/30/16 12/30/16 12/30/16 07:00 15:00 23:00 07:00 15:00 23:00 Intake Total 1150 ml 50 ml 2046 ml 50 ml Output Total 200 ml Balance 950 ml 50 ml 2046 ml 50 ml Intake IV Total 1150 ml 50 ml 2046 ml 50 ml Emesis 200 ml # Voids 1 2 1 # Bowel Movements 2 1 Result Diagram: 12/30/168 12/30/16427 Objective Remarks GENERAL: Chronically ill-appearing lean and cachectic female patient in no apparent distress. SKIN: Warm and dry. HEAD: Normocephalic. EYES: No scleral icterus. No injection or drainage. NECK: Supple, trachea midline. No JVD or lymphadenopathy. CARDIOVASCULAR: Regular rate and rhythm without murmurs, gallops, or rubs. RESPIRATORY: Breath sounds equal and clear bilaterally. No accessory muscle use. GASTROINTESTINAL: Tenderness in the suprapubic abdomen. Bowel sounds normal. nondistended. EXTREMITIES: 1+ edema in the right lower extremity. NEUROLOGICAL: Awake, alert, and oriented x 3. Generalized weakness. A/P Problem List: (1) Chronic respiratory failure ICD Code: J96.10 - Chronic respiratory failure, unspecified whether with hypoxia or hypercapnia Status: Chronic (2) Hyponatremia ICD Code: E87.1 - Hypo-osmolality and hyponatremia Status: Resolved (3) Nausea and vomiting ICD Code: R11.2 - Nausea with vomiting, unspecified Status: Acute (4) Moderate malnutrition ICD Code: E44.0 - Moderate protein-calorie malnutrition Status: Chronic (5) Ovarian cancer ICD Code: C56.9 - Malignant neoplasm of unspecified ovary Status: Chronic (6) UTI (urinary tract infection) ICD Code: N39.0 - Urinary tract infection, site not specified Status: Acute (7) Hydronephrosis ICD Code: N13.30 - Unspecified hydronephrosis Status: Chronic (8) Acute renal failure ICD Code: N17.9 - Acute kidney failure, unspecified Status: Acute (9) Weakness ICD Code: R53.1 - Weakness Status: Acute (10) COPD (chronic obstructive pulmonary disease) ICD Code: J44.9 - Chronic obstructive pulmonary disease, unspecified Status: Chronic (11) Anemia ICD Code: D64.9 - Anemia, unspecified Status: Chronic (12) KAMRYN (acute kidney injury) ICD Code: N17.9 - Acute kidney failure, unspecified Status: Acute (13) Weakness ICD Code: R53.1 - Weakness Status: Acute (14) Decreased appetite ICD Code: R63.0 - Anorexia Status: Acute Assessment and Plan -Acute kidney injury on chronic kidney disease - likely secondary to dehydration with the nausea vomiting and poor oral intake, may be a component of obstruction as well. Continue IV fluids. Renal ultrasound showing bilateral hydronephrosis secondary to compression from masses. We'll consult urology. -Bilateral DVTs. Continue heparin drip and transition to Coumadin after 48 hours (tomorrow) of heparin drip, will start with low-dose Coumadin 2 mg as per hematology recommendations. -Nausea vomiting and dehydration. Resolved. Continue IV fluids with Zofran. Abdominal x-ray showed ileus versus possible developing obstruction, will check abdominal pelvis CT without IV contrast. -Possible UTI - continue Zosyn with Lactinex. Follow-up urine culture. Follow- up blood cultures. -Progressive Ovarian Cancer with pelvic masses and suspected metastatic disease , and a subcutaneous nodule in the right lower anterior abdominal wall - followed by Dr. Arevalo. The patient currently is not a candidate for chemotherapy due to her poor functional status. Consult Dr. Arevalo as the patient is unlikely to make her appointment tomorrow. -Right hydronephrosis secondary to ureteral compression from the pelvic mass - now with bilateral hydronephrosis -Recent C. difficile colitis and bacteremia - stool was positive for C. difficile, the patient denies having any diarrhea, so I am not sure if this is a true infection, consult infectious disease for opinion on this and the leukocytosis and UTI. -Leukocytosis. Rule out sepsis. Follow-up urine culture and blood culture. -Hypovolemic hyponatremia, resolved. -Moderate malnutrition. Continue ensure shakes. -COPD oxygen dependent - continue 3 L O2 via nasal cannula. -Chronic kidney disease stage III -HTN - hold atenolol at this time as she is normotensive. -Anemia with history of blood transfusions - continue ferrous sulfate. -anxiety and depression - continue Remeron and bupropion and Xanax as per home doses. -Insomnia - continue Lunesta and Seroquel. -CODE STATUS DO NOT RESUSCITATE. The patient states that ideally she would like to improve to be able to go on chemotherapy however she realizes this is not likely. Will reconsult palliative care. She is an appropriate hospice candidate however family and patient are reluctant to proceed with hospice at this time and request consultation with Dr. Arevalo. Currently she does not have pain symptoms will continue Lortab as needed. -DVT prophylaxis with Lovenox. Problem Qualifiers (1) UTI (urinary tract infection): Qualified Codes: N39.0 - Urinary tract infection, site not specified Aylin Monzon MD Dec 30, 2016 09:23
[2016-12-30] MEDS ORDERED: DIATRIZOATE MEGLUM/DIATRIZOATE SOD 9 ML CUP PO ONE (11:00)
[2016-12-30] MEDS: SODIUM CHLOR 0.9% 1000 ML INJ 1,000 ML IV SCH (11:31)
[2016-12-30] MEDS: ACETAMINOPHEN/HYDROcodone 325 MG/5 MG TAB PO PRN (11:42)
[2016-12-30] MEDS: ONDANSETRON HCL 4 MG/2 ML VIAL IV PUSH PRN ×2 (12:45→18:59)
--- NOTE | 2016-12-30 16:02 | HHI.HCPN ---
Reason for visit a. To assist with evaluation and management of symptoms including:ovarian cancer, multiple hospitalization b. To assist medical decision maker(s) with: better understanding of current medical conditions; weighing benefits/burdens of medical treatment options; making medical treatment decisions. Subjective/Interval History Pt endorses pain 6/10 at the abdomen. Pt vomited and could not tolerate pain. is struggling with pt's decline. Pt ask me about her prognosis. I told her I worry as the medical worry that functionally you will not be able to tolerate further therapy. I told them without treatment I suspect prognosis is weeks to months. Reviewed the dvt, the uti, the hydronephrosis. says, "yes but all those things have nothing do do with the cancer." I told him, it does, and explained hypercoagulability, the masses causing comprimise the the kidney, and uti. struggling and is upset. I told them I am sorry I do not have better news. Pt and amenable to have iv dilaudid available in case pt is nauseated again and needs pain controlled. Appreciative of visit. They are awaiting for Dr. Arevalo. Family/friend interactions see above. Advance Directives Living Will: Never completed Health Care Surrogate: Never completed (PT/INR completed) Objective Vital Signs Date Time Temp Pulse Resp B/P (MAP) Pulse Ox O2 Delivery O2 Flow Rate FiO2 12/30/16 10:00 86 12/30/16 10:00 88 23 116/64 (81) 95 12/30/16 09:01 86 12/30/16 09:01 86 24 102/59 (73) 96 12/30/16 09:00 88 24 104/48 (66) 95 12/30/16 09:00 88 12/30/16 08:00 88 12/30/16 08:00 88 22 93 12/30/16 07:00 98.6 90 23 95 12/30/16 07:00 90 12/30/16 04:00 98.8 84 31 106/54 (71) 96 12/30/16 04:00 84 12/30/16 00:00 99.0 82 23 98 12/30/16 00:00 82 12/29/16 20:20 94 Nasal Cannula 3.00 12/29/16 20:00 90 12/29/16 20:00 98.6 86 28 111/64 (80) 92 12/29/16 16:00 85 12/29/16 16:00 98.4 85 18 111/68 (82) 96 Intake & Output 12/30/16 12/30/16 07:00 19:00 Intake Total 2046 ml Balance 2046 ml Intake IV Total 2046 ml # Voids 2 # Bowel Movements 2 Physical Exam CONSTITUTIONAL/GENERAL: This is a frail pt, appears fatigued. SKIN: No jaundice, rashes, or lesions. Ecchymoses on upper extremities. No wounds seen anteriorly. Skin temperature appropriate. Not diaphoretic. HEAD: Atraumatic. Normocephalic. EYES: . Extraocular motions intact. No scleral icterus. No injection or drainage. Fundi not examined. ENT: Hearing grossly normal. Nose without bleeding or purulent drainage. Throat without visible erythema, exudates, masses, or lesions. NECK: Trachea midline. Supple, nontender. No palpable thyroid enlargement or nodularity. CARDIOVASCULAR: Regular rate and rhythm without murmurs, gallops, or rubs. No JVD. Peripheral pulses symmetric. RESPIRATORY/CHEST: Symmetric, unlabored respirations. Clear to auscultation. Breath sounds equal bilaterally. No wheezes, rales, or rhonchi. GASTROINTESTINAL: Abdomen soft, some tenderness on palpation, nondistended. No hepato-splenomegaly, or palpable masses. No guarding. Bowel sounds present. GENITOURINARY: Without palpable bladder distension. Ball catheter in place. MUSCULOSKELETAL: Extremities edema bilaterally. LYMPHATICS: No palpable cervical or supraclavicular adenopathy. NEUROLOGICAL: Awake and alert. Motor and sensory grossly within normal limits. Follows commands. Cognitively sharp. Moves all extremities. PSYCHIATRIC: No obvious anxiety/depression. no apparent hallucinations or other psychotic thought process. Diagnostic Tests Laboratory Laboratory Tests Test 12/28/16 23:55 12/29/16 00:18 12/29/16 01:52 12/29/16 06:30 Lactic Acid Level 1.0 mmol/L (0.4-2.0) White Blood Count 16.2 TH/MM3 (4.0-11.0) Red Blood Count 3.08 MIL/MM3 (4.00-5.30) Hemoglobin 9.1 GM/DL (11.6-15.3) Hematocrit 27.7 % (35.0-46.0) Mean Corpuscular Volume 89.9 FL (80.0-100.0) Mean Corpuscular Hemoglobin 29.5 PG (27.0-34.0) Mean Corpuscular Hemoglobin Concent 32.8 % (32.0-36.0) Red Cell Distribution Width 18.9 % (11.6-17.2) Platelet Count 333 TH/MM3 (150-450) Mean Platelet Volume 8.1 FL (7.0-11.0) Neutrophils (%) (Auto) 88.7 % (16.0-70.0) Lymphocytes (%) (Auto) 4.1 % (9.0-44.0) Monocytes (%) (Auto) 7.0 % (0.0-8.0) Eosinophils (%) (Auto) 0.1 % (0.0-4.0) Basophils (%) (Auto) 0.1 % (0.0-2.0) Neutrophils # (Auto) 14.4 TH/MM3 (1.8-7.7) Lymphocytes # (Auto) 0.7 TH/MM3 (1.0-4.8) Monocytes # (Auto) 1.1 TH/MM3 (0-0.9) Eosinophils # (Auto) 0.0 TH/MM3 (0-0.4) Basophils # (Auto) 0.0 TH/MM3 (0-0.2) CBC Comment AUTO DIFF Differential Total Cells Counted 100 Neutrophils % (Manual) 87 % (16-70) Band Neutrophils % 5 % (0-6) Lymphocytes % 6 % (9-44) Monocytes % 2 % (0-8) Neutrophils # (Manual) 14.9 TH/MM3 (1.8-7.7) Differential Comment FINAL DIFF MANUAL Platelet Estimate NORMAL (NORMAL) Platelet Morphology Comment NORMAL (NORMAL) Urine Collection Type CATH Urine Color YELLOW (YELLW/STRAW) Urine Turbidity MOD (CLEAR) Urine pH 5.0 (5.0-8.5) Urine Specific [place] 1.018 (1.002-1.035) Urine Protein 30 mg/dL (NEG-TRACE) Urine Glucose (UA) NEG mg/dL (NEG) Urine Ketones NEG mg/dL (NEG) Urine Occult Blood TRACE (NEG) Urine Nitrite NEG (NEG) Urine Bilirubin NEG (NEG) Urine Leukocyte Esterase LARGE (NEG) Urine RBC 4-9 /hpf (0-3) Urine WBC INNUM /hpf (0-5) Urine WBC Clumps FEW (NONE) Urine Squamous Epithelial Cells 0-5 /hpf (0-5) Urine Amorphous Sediment FEW Urine Bacteria FEW /hpf (NONE) Urine Hyaline Casts 0-2 /lpf (RARE) Urine Fine Granular Casts 3-5 /lpf (NONE) Urine Mucus FEW /lpf (OCC) Microscopic Urinalysis Comment CATH-CULTURE IND Blood Urea Nitrogen 45 MG/DL (7-18) Creatinine 3.00 MG/DL (0.50-1.00) Random Glucose 125 MG/DL (74-106) Total Protein 7.0 GM/DL (6.4-8.2) Albumin 2.7 GM/DL (3.4-5.0) Calcium Level 9.1 MG/DL (8.5-10.1) Magnesium Level 2.0 MG/DL (1.5-2.5) Alkaline Phosphatase 148 U/L (45-117) Aspartate Amino Transf (AST/SGOT) 17 U/L (15-37) Alanine Aminotransferase (ALT/SGPT) 11 U/L (10-53) Total Bilirubin 0.5 MG/DL (0.2-1.0) Sodium Level 132 MEQ/L (136-145) Potassium Level 4.0 MEQ/L (3.5-5.1) Chloride Level 97 MEQ/L (98-107) Carbon Dioxide Level 22.9 MEQ/L (21.0-32.0) Anion Gap 12 MEQ/L (5-15) Estimat Glomerular Filtration Rate 15 ML/MIN (>89) Lipase 52 U/L (73-393) Prothrombin Time 12.5 SEC (9.8-11.6) Prothromb Time International Ratio 1.1 RATIO Activated Partial Thromboplast Time 35.4 SEC (24.3-30.1) Stool C. difficile Toxin (PCR) POSITIVE (NEGATIVE) Stl C. difficile Toxin Epiderm 027 PRESUMPTIVE NEGATIVE Test 12/29/16 09:10 12/29/16 22:01 12/30/16 04:28 12/30/16 07:30 White Blood Count 16.5 TH/MM3 (4.0-11.0) 14.3 TH/MM3 (4.0-11.0) Red Blood Count 3.29 MIL/MM3 (4.00-5.30) 2.84 MIL/MM3 (4.00-5.30) Hemoglobin 9.8 GM/DL (11.6-15.3) 8.5 GM/DL (11.6-15.3) Hematocrit 29.0 % (35.0-46.0) 25.4 % (35.0-46.0) Mean Corpuscular Volume 88.3 FL (80.0-100.0) 89.4 FL (80.0-100.0) Mean Corpuscular Hemoglobin 29.7 PG (27.0-34.0) 30.0 PG (27.0-34.0) Mean Corpuscular Hemoglobin Concent 33.6 % (32.0-36.0) 33.5 % (32.0-36.0) Red Cell Distribution Width 18.9 % (11.6-17.2) 19.3 % (11.6-17.2) Platelet Count 348 TH/MM3 (150-450) 317 TH/MM3 (150-450) Mean Platelet Volume 7.8 FL (7.0-11.0) 8.0 FL (7.0-11.0) Neutrophils (%) (Auto) 91.0 % (16.0-70.0) 90.0 % (16.0-70.0) Lymphocytes (%) (Auto) 3.9 % (9.0-44.0) 5.2 % (9.0-44.0) Monocytes (%) (Auto) 4.7 % (0.0-8.0) 4.6 % (0.0-8.0) Eosinophils (%) (Auto) 0.1 % (0.0-4.0) 0.2 % (0.0-4.0) Basophils (%) (Auto) 0.3 % (0.0-2.0) 0.0 % (0.0-2.0) Neutrophils # (Auto) 15.1 TH/MM3 (1.8-7.7) 12.9 TH/MM3 (1.8-7.7) Lymphocytes # (Auto) 0.6 TH/MM3 (1.0-4.8) 0.7 TH/MM3 (1.0-4.8) Monocytes # (Auto) 0.8 TH/MM3 (0-0.9) 0.7 TH/MM3 (0-0.9) Eosinophils # (Auto) 0.0 TH/MM3 (0-0.4) 0.0 TH/MM3 (0-0.4) Basophils # (Auto) 0.0 TH/MM3 (0-0.2) 0.0 TH/MM3 (0-0.2) CBC Comment DIFF FINAL DIFF FINAL Differential Comment Blood Urea Nitrogen 41 MG/DL (7-18) 39 MG/DL (7-18) Creatinine 2.70 MG/DL (0.50-1.00) 2.50 MG/DL (0.50-1.00) Random Glucose 115 MG/DL (74-106) 92 MG/DL (74-106) Calcium Level 8.6 MG/DL (8.5-10.1) 8.0 MG/DL (8.5-10.1) Phosphorus Level 4.1 MG/DL (2.5-4.9) Magnesium Level 1.8 MG/DL (1.5-2.5) 1.6 MG/DL (1.5-2.5) Sodium Level 137 MEQ/L (136-145) 138 MEQ/L (136-145) Potassium Level 3.7 MEQ/L (3.5-5.1) 3.1 MEQ/L (3.5-5.1) Chloride Level 102 MEQ/L (98-107) 103 MEQ/L (98-107) Carbon Dioxide Level 23.9 MEQ/L (21.0-32.0) 21.9 MEQ/L (21.0-32.0) Anion Gap 11 MEQ/L (5-15) 13 MEQ/L (5-15) Estimat Glomerular Filtration Rate 17 ML/MIN (>89) 19 ML/MIN (>89) Activated Partial Thromboplast Time 62.3 SEC (24.3-30.1) 53.8 SEC (24.3-30.1) Result Diagram: 12/30/168 12/30/168 Microbiology Microbiology Date/Time Source Procedure Growth Status 12/28/16 23:58 Blood Peripheral Aerobic Blood Culture - Preliminary NO GROWTH IN 1 DAY Resulted 12/28/16 23:58 Blood Peripheral Anaerobic Blood Culture - Preliminary NO GROWTH IN 1 DAY Resulted 12/28/16 23:53 Blood Peripheral Aerobic Blood Culture - Preliminary NO GROWTH IN 1 DAY Resulted 12/28/16 23:53 Blood Peripheral Anaerobic Blood Culture - Preliminary NO GROWTH IN 1 DAY Resulted 12/29/16 06:30 Stool Stool - Final NO ENTERIC PATHOGENS DETECTED BY PCR... Complete 12/29/16 00:18 Urine Catheterized Urine Urine Culture - Preliminary NO GROWTH IN 24 HOURS. Resulted Imaging Last Impressions Renal Ultrasound 12/29/16 0000 Signed Impressions: Service Date/Time: Thursday, December 29, 2016 12:28 - CONCLUSION: 1. Pelvic mass causing bilateral hydronephrosis greater on the right. 2. Kidneys are slightly echogenic which can be seen with medical renal disease. Sharif Winston MD Lower Extremity Ultrasound 12/29/16 0000 Signed Impressions: Service Date/Time: Thursday, December 29, 2016 12:09 - CONCLUSION: 1. Nonocclusive thrombus in each lower extremity. Sharif Winston MD Abdomen X-Ray 12/29/16 0000 Signed Impressions: Service Date/Time: Thursday, December 29, 2016 02:40 - CONCLUSION: 1. Gaseous distention of small bowel. Differential diagnosis includes ileus or early obstruction. Merrick Chairez MD Chest X-Ray 12/28/16 [id number] Signed Impressions: Service Date/Time: Wednesday, December 28, 2016 23:52 - CONCLUSION: 1. Linear atelectasis or scarring at the bases. No effusion or pneumothorax. No significant change compared with November 22. Merrick Chairez MD Assessment and Plan Disease Oriented Problem List: (1) Ovarian cancer Comment: Scan in did show enlargment of previously seen pelvic masses with development of moderate hydroenphrosis in the right kidney. Subcutaneous nodule in the right lower anterior abdominal wall is also larger suspicious for metastatic disease. (2) Clostridium difficile diarrhea (3) COPD (chronic obstructive pulmonary disease) (4) KAMRYN (acute kidney injury) (5) UTI (urinary tract infection) Symptom Scale: Pertinent Non-Medical Issues Psychosocial: Spiritual: Legal: Ethical issues impacting care: Important Contacts Jadiel Bojorquez, spouse: [phone] or cell [phone] Carol Bojorquez, daughter: [phone] Prognosis Patient is a 75-year-old female who was initially diagnosed diagnosed with ovarian cancer in 2016 after surgical resection of a pelvic mass showed ovarian cancer. Chemotherapy was recommended by Dr. Arevalo (STATE APPELLATE CLERK/ONC), but the patient's medical treatment goals were unclear at that time. She did not follow-up with Dr. Arevalo again until May,. Single agent carboplatin on started on completed chemotherapy in late Sep, 2016. Recent CT scan showed worsening of disease. Patient has not been strong enough for consideration of addition chemotherapy. no longer a candidate for treatment given continued functional decline and weight loss. Overall prognosis is poor. . Code Status: No Code Plan == Decision maker. pt has capacity but recommend shared decision making with spouse given intermittent confusion in the past. == Code- DNR. == Goals of care. is struggling with pt's decline. Pt ask me about her prognosis. I told her I worry as the medical worry that functionally you will not be able to tolerate further therapy. I told them without treatment I suspect prognosis is weeks to months. Reviewed the dvt, the uti, the hydronephrosis. says, "yes but all those things have nothing do do with the cancer." I told him, it does, and explained hypercoagulability, the masses causing comprimise the the kidney, and uti. struggling and is upset and the conversation. I told them I am sorry I do not have better news. Pt and amenable to have iv dilaudid available in case pt is nauseated again and needs pain controlled. Appreciative of visit. They are awaiting for Dr. Arevalo. == symptoms: Pain - PO norco, and iv dilaudid prn available, Reviwed with family in which they are amenable. Pt say she does not like morphine. == nausea- multifactorial uti, and hydronephrosis. prn available. == palliative care will f/u as needed. For now goals are aggressive short of resuscitation. I have offered hospice to them. They are awaiting for Dr. Arevalo. It is possible goals remains aggressive even after Dr. Arevalo visit. Attestation To help prompt me to consider important information that might be impacting today's encounter and assessment, information from prior notes written by myself or my colleagues may have been "brought forward" into today's note. My signature on this note, however, is an attestation that I personally performed the exam, history, and/or decision-making noted today, and, unless otherwise indicated, the interactions with patient, family, and staff as well as the review of records all occurred today. I also attest that the listed assessment and stated plan reflect my best clinical judgment today based on the combination of historical information, prior notes, and today's exam/ interactions. When time spent is documented, it refers only to time spent today by the signer, or if indicated, combined time spent today by collaborating physician/nurse practitioner. Sha Rosas MD Dec 30, 2016 16:02
[2016-12-30] MEDS: HYDROmorphone HCL PF 1 MG/ML VIAL IV PUSH PRN (16:06)
--- NOTE | 2016-12-30 17:54 | MB ---
cc: MAYELIN MUNIZ MD DATE OF CONSULTATION: 12/30/2016 REASON FOR CONSULTATION: 1. Bilateral hydronephrosis secondary to extrinsic compression. 2. Acute renal failure 3. History UTI HISTORY OF PRESENT ILLNESS: Miss Bojorquez is a 76-year-old female with history of recurrent ovarian carcinoma initially diagnosed in September 2015. She is under the care of Dr. Ioana Arevalo who treated her for surgical resection followed by systemic chemotherapy. She initially responded to treatment but has a recently been struggling with failure for worsening nutrition was performed, assess and require hospitalization over the last few months. She was recently hospitalized in [place] with a <<1:01>> she made in November 2016, at that time she has no right-sided hydronephrosis. Dr. Pastor was consulted and order Lasix renogram which showed a obstruction on the right side. She was discharged to an inpatient rehab facility where she spent almost two weeks recovering and then she was discharged home about three days ago and after returning home she was given a report of increasing abdominal pain, nausea and vomiting. She says she was brought to the ER by her . Once in the emergency room she underwent imaging studies of her abdomen which revealed gastric distention of her small bowel which is concerning for possible ileus or small bowel obstruction. She was also noted to have bilateral extremity edema and a Doppler ultrasound study which showed DVT initial lower extremity. Workup also was found to have elevated creatinine of 3.0 on presentation the renal ultrasound was done which showed bilateral hydronephrosis. However at close to 24 hours her creatinine has improved down to 245 with a BUN of 39. Currently she denies any flank pain, nausea, vomiting, fevers, dysuria, hematuria at this time. She is currently on a heparin infusion for bilateral extremity DVTs. She denies history of the kidney stones or genitourinary malignancies in the past. PAST MEDICAL HISTORY Significant for recurrent ovarian carcinoma Chronic obstructive pulmonary disease. Hypertension. Bilateral nephrosis Malnutrition. Failure thrive and PAST SURGICAL HISTORY Bilateral salpingo-oophorectomy in 2016, Appendectomy Cholecystectomy Hysterectomy Cataract surgery FAMILY HISTORY: Mother is currently alive at 93-year-old. Father is denies family history of genitourinary metastasis or urolithiasis SOCIAL HISTORY: Socially. The patient was home with her . She has a 55 pack-year history of smoking, denies alcohol or illicit drugs. ALLERGIES IBUPROFEN MEDICATIONS Medications include 1. Atenolol 100 mg p.o. daily. 2. Remeron 50 mg p.o. q.h.s. 3. Zofran 400 mg IV 6 hours as needed for nausea, vomiting, 4. Seroquel 50 mg p.o. 5. Ativan 0.5 mg p.o. t.i.d. as needed for anxiety. 6. Zosyn 2.5 grams mg IV q.8 h 7. Heparin infusion. 8. Ferrous sulfate 325 mg p.o. q.72 h. REVIEW OF SYSTEMS A 13 point review of systems was obtained and following are the pertinent positives. CONSTITUTIONAL: She is fatigued, weak, just had weight loss. HEAD, EYES, EARS, NOSE, AND THROAT: Denies headaches. Appears to have had some difficulty swallowing. RESPIRATORY: Difficulty with minimal exertion. Denies chest pain, orthopnea. GASTROINTESTINAL: She has reported some bloating, but denies hematochezia or melena. CENTRAL NERVOUS SYSTEM: Reports feeling generally weak. MUSCULOSKELTAL: Chronic back pain and generally weak. PHYSICAL EXAMINATION: VITAL SIGNS: Temperature 98.6, pulse 88, respiratory 23, BLOOD PRESSURE 160/64, Satting 95% on room air. IN GENERAL: She is alert and oriented x3. No apparent distress A pleasant cooperative elderly lady appears stated age. She is generally frail and slightly cathectic appearing. HEAD, EYES, EARS, NOSE, AND THROAT: Head is normocephalic, atraumatic. Eyes: Extra ocular muscles intact. Pupils equal, round and reactive to light. NECK: The neck is supple. Trachea is midline. No lymphadenopathy. RESPIRATORY: Nonlabored respirations and no wheezes, rales or rhonchi. CARDIOVASCULAR SYSTEM: Regular rate and rhythm, No murmurs, gallops or rubs. ABDOMEN: The abdomen is soft, tender to light palpation and protuberant. No mass palpated. GENITOURINARY: No CVA tenderness. PELVIC EXAMINATION: Not indicated at this time. EXTREMITIES: No clubbing, cyanosis or edema. PSYCHIATRIC: Psych, flat affect. CENTRAL NERVOUS SYSTEM: No focal sensory motor defects. SKIN: No ulcers or rashes visible. The skin is pink and moist. LABORATORY Sodium 138, potassium 2.1, chloride, 103, bicarb 21.9, BUN 39, creatinine 2.50, GFR 19, calcium 8.0 lactic acid 1.0, white count 14.3, hemoglobin 8.3, hematocrit 25.4, platelet count 317. Urine showed trace blood, large leukocyte esterase. Culture currently pending. IMAGING STUDIES Renal ultrasound images reviewed per radiologist report the patient has bilateral hydronephrosis. ASSESSMENT AND PLAN: The patient is a 76-year-old female with recurrent metastatic ovarian carcinoma with bilateral hydronephrosis secondary to extrinsic compression and acute renal failure. PLAN I had a long discussion with the patient and her three kids, I discussed that the pelvic masses are likely the cause of her bilateral hydronephrosis leading to her renal failure. I discussed deep treatment options with her including decompression with cystoscopy, bilateral ureteral stent placement versus bilateral percutaneous nephrostomy tubes versus watchful waiting. Based on the patients overall clinical status and the likelihood that her disease progresses I think her best option would be to have nephrostomy tubes placed by the interventional radiologist as it requires a very light sedation and minimal discomfort to the patient, as well as well as the tube will continue to keep draining and not clog off as compared with likelihood of the ureteral stents. She likely would have to have her heparin infusion held for approximately 6 to 8 hours to have the tube placed by the interventional radiologist. The family would like to discuss with her and her before making a decision which I think is very reasonable at this time. For now I recommend she continue with IV hydration which I think is very reasonable at this time. For now I recommend continued IV hydration, next we will continue the heparin infusion per Hematology/Oncology. Please call if you have any questions, we will follow up with you. Mayelin Muniz MD EMChacho/rachael /4:57 PM /5:19 PM
--- NOTE | 2016-12-30 18:01 | RADRPT ---
EXAM DATE/TIME: 12/30/2016 17:42 [facility] COMPARISON: CT ABDOMEN & PELVIS W/O CONTRAST, November 22, 2016, 20:06. INDICATIONS : Evaluate for obstruction. Lower abdominal pain. ORAL CONTRAST: Partial prescribed oral contrast ingested. RADIATION DOSE: 5.50 CTDIvol (mGy) MEDICAL HISTORY : Hypertension. Chronic obstructive pulmonary disease. Gastroesophageal reflux disease.Ovarian cancer. Renal failure. SURGICAL HISTORY : Appendectomy. Hysterectomy. ENCOUNTER: Initial ACUITY: 1 day PAIN SCALE: 0/10 LOCATION: abdomen/pelvis TECHNIQUE: Volumetric scanning of the abdomen and pelvis was performed. Using automated exposure control and ad justment of the mA and/or kV according to patient size, radiation dose was kept as low as reasonably achievable to obtain optimal diagnostic quality images. DICOM format image data is available electro nically for review and comparison. FINDINGS: There is coronary artery calcification, and bilateral lower lobe atelectatic changes are present. Une nhanced appearance of the liver, spleen, pancreas, adrenal glands are unremarkable. There is moderate hydronephrosis present bilaterally with hydroureter seen. Atherosclerotic calcification of the aorta and iliac vessels identified. Urinary bladder is displaced anteriorly by a lobulated soft tissue mas s which is noted superior to the vagina extending up into the upper pelvis and surrounding the sigmoi d colon. This is a change from previous studies with increase in size of the masses. The dominant mas s measures 11.1 x 10.1 cm in transverse and AP dimension. Lobular mass extending into the right upper pelvis measures 6.7 x 5.1 cm in transverse and AP dimension. This is intimately associated with the sigmoid colon. There is a subcutaneous mass in the right lower quadrant abutting the anterior abdomin al wall focally measuring 2.2 x 1.9 cm, increased previous study. There is also a mass involving the rectus which are on the right measuring 3.9 x 2-3 cm. The gallbladder is distended. There are multipl e dilated loops of small bowel present, however a discrete transition point is not visualized. No dis crete lytic or blastic lesions. CONCLUSION: 1. Interval development of multiple dilated loops of small bowel concerning for least partial small b owel obstruction. A well-defined transition point is not seen. 2. Progression of metastatic disease with increase in size of subcutaneous and right rectus masses, o r peroneal nodule in the right lower quadrant measuring 1.3 cm, not mentioned above, and lobular pelv ic soft tissue mass is intimately associated with the sigmoid colon, subcentimeter retroperitoneal ad enopathy and bilateral hydronephrosis. Johnny Tirado MD on December 30, 2016 at 17:54 Board Certified Radiologist. This report was verified electronically.
[2016-12-30] MEDS: QUEtiapine FUMARATE 25 MG TAB PO SCH (22:07)
[2016-12-30] MEDS: MIRTAZAPINE 15 MG TAB PO SCH (22:08)
[2016-12-31] VITALS (21 sets, daily range): BP systolic 117–151; BP diastolic 62–83; PULSE 68–82; RESP 14–21; TEMP 97.8–98; O2SAT 92–98
[2016-12-31] MEDS: ONDANSETRON HCL 4 MG/2 ML VIAL IV PUSH PRN ×2 (00:52→09:39)
[2016-12-31] MEDS: PIPERACIL-TAZO 2.25 GM PREMIX 50 ML IV SCH ×3 (00:52→17:06)
[2016-12-31] MEDS: SODIUM CHLOR 0.9% 1000 ML INJ 1,000 ML IV SCH ×3 (02:37→16:49)
[2016-12-31 05:21] LABS: AUTOMATED NEUTROPHIL # 12.1 TH/MM3 (1.8-7.7); BASOPHIL % 0.1 % (0.0-2.0); EOSINOPHIL # 0.1 TH/MM3 (0-0.4); EOSINOPHIL % 0.7 % (0.0-4.0); LYMPH % 4.4 % (9.0-44.0); LYMPHOCYTE # 0.6 TH/MM3 (1.0-4.8); MEAN CELL VOLUME 89.3 FL (80.0-100.0); MEAN CORPUSCULAR HEMOGLOBIN 29.5 PG (27.0-34.0); MEAN CORPUSCULAR HGB CONC 33.1 % (32.0-36.0); MONO % 5.4 % (0.0-8.0); NEUT % 89.4 % (16.0-70.0); PLATELET COUNT 373 TH/MM3 (150-450); RED BLOOD COUNT 3.02 MIL/MM3 (4.00-5.30); RED CELL DISTRIBUTION WIDTH 19.3 % (11.6-17.2); WHITE BLOOD COUNT 13.5 TH/MM3 (4.0-11.0)
[2016-12-31 05:43] LABS: HEMO FLAGS DIFF FINAL
[2016-12-31 06:04] LABS: BICARBONATE 21.8 MEQ/L (21.0-32.0)
[2016-12-31 06:19] LABS: POTASSIUM 2.8 MEQ/L (3.5-5.1)
[2016-12-31] MEDS ORDERED: POTASSIUM CHLORIDE 25 MEQ EFFERVESCENT TAB PO ONE (06:30)
[2016-12-31] MEDS: HYDROmorphone HCL PF 1 MG/ML VIAL IV PUSH PRN ×4 (07:02→17:43)
--- NOTE | 2016-12-31 07:30 | MB ---
cc: IRENE MATHUR MD,KAYLYNN KNIGHT,AYLIN PETERSON,MAYELIN LOPEZ,BHAVIN DUONG,HCERYL FRAUSTO DATE OF CONSULTATION 12/31/2016 REASON FOR CONSULTATION REQUESTING PHYSICIAN Aylin Knight MD REASON FOR CONSULTATION Recurrent ovarian cancer. HISTORY This is a 76-year-old female who is known to us with recurrent ovarian cancer that has been resistant to recent treatment with [place] based chemotherapy. There was an initial response to single-agent carboplatin. There has been evidence of progressive disease on exam and imaging. She has had a series of hospitalizations and medical problems that have precluded her performance status getting strong enough to consider treatment in recent times. Problems have included sepsis, Clostridium difficile, and urinary tract infections. She is now admitted with diminished renal function, small bowel obstruction, deep vein thrombosis, associated with poor oral intake, inability to consistently tolerate liquids or solids associated with weight loss, weakness and fatigue. She also had neutropenia and profound yael even from single-agent chemotherapy. At the time of the most recent outpatient encounter when we met with her family in our office on November 12, it was agreed that she was feeling too weak and performance status was diminished such that additional treatment at that time was not recommended. If treatment were to be restarted, the decision was made in favor of single-agent carboplatin largely because she knew what to expect and family knew what to expect regarding how she would tolerate that. We are going to dose reduce her because she had grade 4 thrombocytopenia even on single-agent carboplatin. If treatment were to be changed, we would recommended weekly dose reduced Taxol infusion. We are going to see her back in a few weeks to reassess. In the interim, we are going to continue with periodic IV fluids and electrolyte repletion. She has not made satisfactory progress and treatment has not yet been reinitiated. She admitted now in the hospital with aforementioned problems. I am grateful for the excellent care provided by all parties involved. Our meeting today was an extensive discussion were I reiterated again the difficult nature of her situation, the underlying cancer showing no recent response to chemotherapy and imaging suggesting that there may be progression of disease on clinical exam and with respect to her overall status it is consistent with progressive disease. I explained that the CT scan on December 30, in addition to the small bowel obstruction, shows progression of metastatic disease with increasing measurable disease in the subcutaneous and right rectus regions, as well as peritoneal nodules, soft tissue mass in the pelvis with pressure on surrounding structures including the colon and the ureters and also retroperitoneal adenopathy, bilateral hydronephrosis is noted. I explained that all of the problems that she is having now are either directly or indirectly related to the underlying cancer and it is improbable that additional treatment would provide any significant or sustained response. Furthermore, it is improbable that she would have a performance status strong enough to ever consider treatment as the treatment itself has deleterious side effects. Palliative care is involved and she has a do not resuscitate, do not intubate (DNR/DNI) order already established. She is very insightful and has been giving this much thought. She does not want to suffer. She states that she knows she can win this miranda. She does not want to take treatment that will make her feel even worse, especially if there is a little chance of overall benefit. She is concerned that she feels as though she is letting her family down especially her if she were to consider hospice and she does not want them to think that she is giving up. We are going to meet with her and daughter later this morning in our office. They will meet with our nurse practitioner (Tomasa Maldonado) I will try to speak to them myself as well summarizing the findings and reiterating our concerns and letting them know we are available to support in any way possible, but I think that maximizing palliative care and shifting toward hospice care is appropriate given the present set of circumstances. Further discussion ensued, questions were answered. She feels as though she is getting excellent care here and other than requesting pain medicine at this immediate point, she believes she is getting what she needs overall. She is grateful for the care provided and grateful for the time spent in discussion with her this morning. ASSESSMENT 1. Recurrent ovarian cancer, progressive disease despite treatment and/or due to inability to take treatment because of poor performance status and complex medical problems. 2. Extensive discussion as summarized above. PLAN 1. Continue present management, provide supportive care to treat in reversed the reversible problems. 2. We will meet with her family in our office later this morning with ongoing discussions and encouragement to consider meeting with the hospice team to find out what resources are available and what services can be provided when the field of time is right. ADDENDUM On exam, she is quite awake and lucid this morning, uncomfortable, chronically ill, but in no acute distress. Her abdomen is distended. There is some tenderness in the right lower quadrant with mild rebound tenderness. Bowel sounds are hypoactive. There is palpable tumor within the peritoneum within the central pelvic mass, as well as nodularity throughout the peritoneum that seems more prominent than on prior exam. These findings are also shared with Doris Bojorquez who is aware as she can tell the difference herself also. MD ARLIN Ewing/LEORA /6:52 AM /7:13 AM
[2016-12-31] MEDS: POTASSIUM CHLOR 20 MEQ PREMIX 100 ML IV SCH ×2 (08:30→08:32)
[2016-12-31] MEDS: SODIUM CHLORIDE 0.9% FLUSH 10 ML FLUSH IV FLUSH SCH ×2 (08:31→21:00)
[2016-12-31] MEDS: LACTOBACILLUS ACIDOPHILUS TAB PO SCH ×3 (08:31→17:06)
[2016-12-31] MEDS: buPROPion HCL 75 MG TAB PO SCH ×2 (08:31→21:12)
[2016-12-31] MEDS: ATENOLOL 100 MG TAB PO SCH (08:31)
[2016-12-31] MEDS: CYANOCOBALAMIN 1,000 MCG TAB PO SCH (08:31)
[2016-12-31] MEDS: CILOSTAZOL 100 MG TAB PO SCH (08:31)
--- NOTE | 2016-12-31 08:36 | PD.CONS ---
History of Present Illness Service Infectious disease Consult Requested By Dr Monzon Reason for Consult Dr Birttney Bean Primary Care Physician Diana Salgado MD Diagnoses: (1) Clostridium difficile infection (2) Renal insufficiency (3) Sepsis (4) UTI (urinary tract infection) (5) Ovarian cancer Past Family Social History Allergies: Coded Allergies: ibuprofen (Unverified Adverse Reaction, Intermediate, Nausea/Vomiting, ) Physical Exam Vital Signs Vital Signs Date Time Temp Pulse Resp B/P (MAP) Pulse Ox O2 Delivery O2 Flow Rate FiO2 12/31/16 04:00 76 20 97 12/31/16 04:00 82 12/31/16 00:00 82 12/31/16 00:00 82 18 96 12/30/16 20:00 96 Nasal Cannula 3.00 12/30/16 20:00 82 12/30/16 20:00 80 21 95 12/30/16 16:00 86 12/30/16 16:00 88 23 116/64 (81) 95 12/30/16 15:00 84 12/30/16 15:00 84 35 141/79 (99) 95 12/30/16 14:00 82 12/30/16 14:00 82 24 115/65 (82) 95 12/30/16 13:00 84 27 107/67 (80) 92 12/30/16 13:00 84 12/30/16 12:00 86 12/30/16 12:00 86 26 131/69 (89) 95 12/30/16 10:00 86 12/30/16 10:00 88 23 116/64 (81) 95 12/30/16 09:01 86 12/30/16 09:01 86 24 102/59 (73) 96 12/30/16 09:00 88 24 104/48 (66) 95 12/30/16 09:00 88 Physical Exam GENERAL: This is a chronically ill patient, in no apparent distress. SKIN: No rashes, ecchymoses or lesions. Cool and dry. HEAD: Atraumatic. Normocephalic. No temporal or scalp tenderness. EYES: Pupils equal round and reactive. Extraocular motions intact. No scleral icterus. No injection or drainage. ENT: Nose without bleeding, purulent drainage or septal hematoma. Throat without erythema, tonsillar hypertrophy or exudate. Uvula midline. Airway patent. NECK: Trachea midline. No JVD or lymphadenopathy. Supple, nontender, no meningeal signs. CARDIOVASCULAR: Regular rate and rhythm without murmurs, gallops, or rubs. RESPIRATORY: Breath sounds equal bilaterally. No wheezes, rales, or rhonchi. GASTROINTESTINAL: Abdomen soft, -tender, some distension No hepato-splenomegaly , Palpable mass felt No guarding. MUSCULOSKELETAL: Extremities without clubbing, cyanosis, or edema. No joint tenderness, effusion, or edema noted. No calf tenderness. Negative Homans sign bilaterally. NEUROLOGICAL: Awake and alert. Cranial nerves II through XII intact. Motor and sensory grossly within normal limits. Five out of 5 muscle strength in all muscle groups. Normal speech. Laboratory Laboratory Tests Test 12/31/16 04:45 White Blood Count 13.5 Red Blood Count 3.02 Hemoglobin 8.9 Hematocrit 27.0 Mean Corpuscular Volume 89.3 Mean Corpuscular Hemoglobin 29.5 Mean Corpuscular Hemoglobin Concent 33.1 Red Cell Distribution Width 19.3 Platelet Count 373 Mean Platelet Volume 7.8 Neutrophils (%) (Auto) 89.4 Lymphocytes (%) (Auto) 4.4 Monocytes (%) (Auto) 5.4 Eosinophils (%) (Auto) 0.7 Basophils (%) (Auto) 0.1 Neutrophils # (Auto) 12.1 Lymphocytes # (Auto) 0.6 Monocytes # (Auto) 0.7 Eosinophils # (Auto) 0.1 Basophils # (Auto) 0.0 CBC Comment DIFF FINAL Differential Comment Blood Urea Nitrogen 34 Creatinine 2.40 Random Glucose 99 Calcium Level 8.0 Sodium Level 139 Potassium Level 2.8 Chloride Level 104 Carbon Dioxide Level 21.8 Anion Gap 13 Estimat Glomerular Filtration Rate 20 Date/Time Source Procedure Growth Status 12/28/16 23:58 Blood Peripheral Aerobic Blood Culture - Preliminary NO GROWTH IN 1 DAY Resulted 12/28/16 23:58 Blood Peripheral Anaerobic Blood Culture - Preliminary NO GROWTH IN 1 DAY Resulted 12/29/16 06:30 Stool Stool - Final NO ENTERIC PATHOGENS DETECTED BY PCR... Complete 12/29/16 00:18 Urine Catheterized Urine Urine Culture - Preliminary NO GROWTH IN 24 HOURS. Resulted Result Diagram: 12/31/16 0445 12/31/16 0445 Assessment and Plan Problem List: (1) Sepsis ICD Codes: A41.9 - Sepsis, unspecified organism Status: Acute Plan: Follow blood cultures Source could be C diff &/or UTI Continue IV Zosyn for now Stop the PO Flagyl ( pt with severe nausea) Start Vancomycin 250 mg po qid (2) Clostridium difficile infection ICD Codes: B96.89 - Other specified bacterial agents as the cause of diseases classified elsewhere Status: Acute (3) UTI (urinary tract infection) ICD Codes: N39.0 - Urinary tract infection, site not specified Status: Acute Plan: Follow Urine culture (4) Acute on chronic renal insufficiency ICD Codes: N28.9 - Disorder of kidney and ureter, unspecified; N18.9 - Chronic kidney disease, unspecified Status: Acute (5) Ovarian cancer ICD Codes: C56.9 - Malignant neoplasm of unspecified ovary Status: Chronic Plan: Oncology notes reviewed Problem Qualifiers (1) Sepsis: Qualified Codes: A41.9 - Sepsis, unspecified organism (2) UTI (urinary tract infection): Qualified Codes: N39.0 - Urinary tract infection, site not specified Brittney Bean MD Dec 31, 2016 08:35
[2016-12-31] MEDS: VANCOMYCIN 500 MG VIAL (FOR ORAL USE ONLY) PO SCH ×4 (09:00→21:12)
[2016-12-31] MEDS ORDERED: MAGNESIUM SULFATE 1 GM PREMIX 100 ML IV ONE (10:30)
[2016-12-31 10:54] LABS: APTT (PATIENT) 45.4 SEC (24.3-30.1)
[2016-12-31] MEDS ORDERED: ESZOPICLONE 1 MG TAB PO PRN (12:45)
[2016-12-31] MEDS: PROMETHAZINE INJ 25 MG/ML VIAL IM PRN ×2 (13:45→17:43)
--- NOTE | 2016-12-31 13:48 | MB ---
cc: KANCHAN BHAKTA DATE OF CONSULTATION: 12/31/2016 REASON FOR CONSULTATION 1. Recurrent ovarian cancer. 2. Additional discussion. HISTORY OF PRESENT ILLNESS This is a 76-year-old female who is well-known to the [facility]. She has a diagnosis of recurrent ovarian cancer. Her last treatment was on October 09, 2016. Unfortunately she does have resistant disease to the most recent [place]-based chemotherapy and with most recent hospitalization imaging she has had progression of disease. DISCUSSION It is notable that Dr. Arevalo did meet with Mrs. Bojorquez at the bedside today in [facility] where he had an extensive discussion with her, reviewing most recent imaging, laboratory work, her current medical condition and problems which include sepsis C. difficile infection, possible urinary tract infection, diminished renal function, small bowel obstruction, DVT and poor performance status. As a link to Dr. Arevalo's consult note I met with Mr. Bojorquez, both of their sons and their daughter, Carol, today in our [facility] oncology clinic in the [facility], and again reviewed most recent imaging. CT scan that was obtained yesterday showed progression of disease with multiple dilated loops of small bowel concerning for at least a partial small bowel obstruction, progression of metastatic disease with increased in size of subcutaneous and right rectus masses, peritoneal nodule, lobular pelvic soft tissue masses, also commented on retroperitoneal adenopathy and bilateral hydronephrosis. I reviewed with them that despite her desire to try to beat this cancer and despite treatment, the cancer has gotten ahead of us and at this point Dr. Arevalo does not feel that she would be able to get ahead of this cancer. He had an extensive discussion with Mrs. Bojorquez this morning and reviewed everything with her. She wishes to be comfortable and no longer have any treatment that could possibly make her feel sicker. She does not want to disappoint her and her family or have them feel that she is giving up, but she wishes to have more supportive care at this point. I did explain the conversation that Dr. Arevalo had with Mrs. Bojorquez this morning to her family. They were aware that Dr. Arevalo did see her this morning as they have also seen her and they are in agreement to have a Hospice consult. They are unsure at this time if they wish for her to go to one of the care centers, but they do understand that may be her best option as she really does require 24-hour care and she really cannot care for herself at all. They did ask me if they felt that percutaneous nephrostomy tubes would be a good idea. I expressed that my concern is her going under any type of anesthesia. I really do not believe that she would be able to tolerate it. It would also open another avenue of infection. Percutaneous nephrostomy tubes can be painful, although pain can be controlled again this would still add to the discomfort that she is having. I did explain that in Hospice she would no loner get IV fluids, she would just be taking in the p.o. that she can. I explained that they would keep her comfortable, try to control nausea and vomiting, and if she were to go to one of the care centers Hospice would let them remain at her bedside for as long as they wished to. Mr. Bojorquez also asked me how much longer we believe that she will last at this point. I stated it is hard to determine, everybody is very different but with the disease process and how much she has declined since her last treatment in October my best and most educated guess would probably be more weeks than months. Certainly I wish that we had better news for them and understand with a difficult decision this can be for the family and for the patient, but I believe taking steps towards Hospice care really is the best that we can do for her in order to keep her as comfortable as possible for the days to weeks that she has remaining. Discussion ensued. The family stated understanding. There were very grateful and thankful for the conversation today as they were able to come to our office and talk with us. They also expressed that they are very happy that Dr. Arevalo was able to talk and have an extensive discussion with Mrs. Bojorquez this morning. It was very helpful to her. I expressed to the family that for Dr. Arevalo, having that extended time with her was meaningful for him as well. If at any time they need us we will be more than happy to help them out as much as we can. I will contact Hospice today and put in an order for Hospice consult. The family does request that they are present with Mrs. Bojorquez when Hospice comes to initially consult with them so I will express that to the admissions personnel. ASSESSMENT 1. Recurrent ovarian cancer, progression of disease despite treatment. 2. Extensive discussion. PLAN I did place an order for Hospice today. I called the Hospice center and expressed that the family wanted to be present when the Hospice nurse came by to talk with Mrs. Bojorquez. I also had an extensive discussion with Dr. Arevalo after my meeting today and he was is in agreement with the conversation that I had with the Maryellen's today and supports their decision to talk with Hospice. DEBBIE Morales/CARLOS /1:01 PM /1:28 PM MANSI
[2016-12-31] MEDS: MIRTAZAPINE 15 MG TAB PO SCH (21:10)
[2016-12-31] MEDS: QUEtiapine FUMARATE 25 MG TAB PO SCH (21:11)
[2016-12-31] MEDS: HEPARIN 25,000 UNITS-D5W 250 ML - PREMIX IV SCH (21:41)
--- NOTE | 2016-12-31 23:51 | HHI.PR ---
Subjective Remarks pt seen this morning. Says she is feeling all right, however has had some nausea and vomiting this morning. Did not sleep well overnight. She does report abdominal pain continues. Objective Vital Signs Date Time Temp Pulse Resp B/P (MAP) Pulse Ox O2 Delivery O2 Flow Rate FiO2 12/31/16 22:30 97 Nasal Cannula 3.00 12/31/16 18:13 17 12/31/16 18:00 72 16 143/81 (101) 96 12/31/16 17:00 72 15 149/80 (103) 94 12/31/16 16:00 76 12/31/16 16:00 70 17 151/79 (103) 97 12/31/16 15:00 97.9 72 16 124/75 (91) 98 12/31/16 14:00 72 14 136/78 (97) 96 12/31/16 13:00 72 19 151/82 (105) 98 12/31/16 12:00 76 12/31/16 12:00 97.9 72 20 140/75 (96) 97 12/31/16 12:00 72 12/31/16 09:00 78 19 130/72 (91) 95 12/31/16 08:45 78 18 97 12/31/16 08:31 78 17 149/83 (105) 97 12/31/16 08:30 76 21 96 12/31/16 08:15 76 19 97 12/31/16 08:00 76 12/31/16 08:00 97.8 76 20 96 12/31/16 08:00 76 20 96 12/31/16 08:00 94 Nasal Cannula 3.00 12/31/16 04:00 76 20 97 12/31/16 04:00 82 12/31/16 00:00 82 12/31/16 00:00 82 18 96 I/O 12/31/16 12/31/16 12/31/16 01/01/17 01/01/17 01/01/17 07:00 15:00 23:00 07:00 15:00 23:00 Intake Total 1434 ml 1302 ml Balance 1434 ml 1302 ml Intake IV Total 1434 ml 1302 ml # Voids 1 Result Diagram: 12/31/16 0445 12/31/16 0445 Objective Remarks GENERAL: lying in bed. Sleeping, wakes up for exam. No acute distress. SKIN: Warm and dry. HEAD: Normocephalic. EYES: No scleral icterus. No injection or drainage. NECK: Supple, trachea midline. No JVD. CARDIOVASCULAR: Regular rate and rhythm without murmurs, gallops, or rubs. RESPIRATORY: Breath sounds equal bilaterally. No accessory muscle use. GASTROINTESTINAL: Abdomen soft, non-tender, nondistended. MUSCULOSKELETAL: No cyanosis, or edema. BACK: Nontender without obvious deformity. No CVA tenderness. A/P Assessment and Plan ==12/31/16========= Patient family to talk with hospice. Pain medication increased for continued abdominal pain. Antiemetics ordered for nausea. Continue to monitor. //Acute kidney injury on chronic kidney disease - likely secondary to dehydration with the nausea vomiting and poor oral intake, may be a component of obstruction as well. Continue IV fluids. Renal ultrasound showing bilateral hydronephrosis secondary to compression from masses. ---s/p urology eval- consider nephrostomy tubes //BL DVTs. - Heparin drip. //Nausea vomiting and dehydration. Resolved. Continue IV fluids with Zofran. Abdominal x-ray showed ileus versus possible developing obstruction, will check abdominal pelvis CT without IV contrast. //Possible UTI - -Antibiotics as per infectious disease. //Progressive Ovarian Cancer with pelvic masses and suspected metastatic disease , and a subcutaneous nodule in the right lower anterior abdominal wall - followed by Dr. Arevalo. The patient currently is not a candidate for chemotherapy due to her poor functional status. -Appreciate Dr. Dayton Powell assistance. //Right hydronephrosis secondary to ureteral compression from the pelvic mass - now with bilateral hydronephrosis //Recent C. difficile colitis and bacteremia - stool was positive for C. difficile, the patient denies having any diarrhea, so I am not sure if this is a true infection, consult infectious disease for opinion on this and the leukocytosis and UTI. //Leukocytosis. Rule out sepsis. Follow-up urine culture and blood culture. //Hypovolemic hyponatremia, resolved. //Moderate malnutrition. Continue ensure shakes. //COPD oxygen dependent - continue 3 L O2 via nasal cannula. //Chronic kidney disease stage III //HTN - hold atenolol at this time as she is normotensive. //Anemia with history of blood transfusions - continue ferrous sulfate. //anxiety and depression - continue Remeron and bupropion and Xanax as per home doses. //Insomnia - continue Lunesta and Seroquel. //CODE STATUS DO NOT RESUSCITATE. The patient states that ideally she would like to improve to be able to go on chemotherapy however she realizes this is not likely. Will reconsult palliative care. She is an appropriate hospice candidate however family and patient are reluctant to proceed with hospice at this time and request consultation with Dr. Arevalo. Currently she does not have pain symptoms will continue Lortab as needed. //DVT prophylaxis with heparin gtt Mehdi Isaac MD Dec 31, 2016 23:51
[2017-01-01] VITALS (10 sets, daily range): BP systolic 114–150; BP diastolic 61–76; PULSE 66–74; RESP 16–21; TEMP 97.8–98; O2SAT 93–99
[2017-01-01] MEDS: PIPERACIL-TAZO 2.25 GM PREMIX 50 ML IV SCH (00:35)
[2017-01-01] MEDS: ACETAMINOPHEN/HYDROcodone 325 MG/5 MG TAB PO PRN ×3 (04:35→16:26)
[2017-01-01] MEDS: SODIUM CHLOR 0.9% 1000 ML INJ 1,000 ML IV SCH ×2 (04:39→17:20)
[2017-01-01 04:59] LABS: APTT (PATIENT) 68.6 SEC (24.3-30.1)
[2017-01-01 08:07] LABS: BICARBONATE 19.7 MEQ/L (21.0-32.0)
[2017-01-01 08:25] LABS: AUTOMATED NEUTROPHIL # 11.8 TH/MM3 (1.8-7.7); BASOPHIL # 0.1 TH/MM3 (0-0.2); BASOPHIL % 0.7 % (0.0-2.0); EOSINOPHIL # 0.1 TH/MM3 (0-0.4); EOSINOPHIL % 0.7 % (0.0-4.0); HEMATOCRIT 25.6 % (35.0-46.0); LYMPH % 7.4 % (9.0-44.0); MEAN CELL VOLUME 90.4 FL (80.0-100.0); MEAN CORPUSCULAR HEMOGLOBIN 30.2 PG (27.0-34.0); MEAN CORPUSCULAR HGB CONC 33.4 % (32.0-36.0); MONO % 5.5 % (0.0-8.0); NEUT % 85.7 % (16.0-70.0); PLATELET COUNT 353 TH/MM3 (150-450); RED BLOOD COUNT 2.84 MIL/MM3 (4.00-5.30); RED CELL DISTRIBUTION WIDTH 19.9 % (11.6-17.2); WHITE BLOOD COUNT 13.8 TH/MM3 (4.0-11.0)
[2017-01-01 08:27] LABS: HEMO FLAGS DIFF FINAL
[2017-01-01] MEDS: HYDROmorphone HCL PF 1 MG/ML VIAL IV PUSH PRN ×2 (08:34→14:06)
[2017-01-01] MEDS: LACTOBACILLUS ACIDOPHILUS TAB PO SCH ×3 (08:35→18:00)
[2017-01-01] MEDS: CILOSTAZOL 100 MG TAB PO SCH (08:35)
[2017-01-01] MEDS: CYANOCOBALAMIN 1,000 MCG TAB PO SCH (08:35)
[2017-01-01] MEDS: buPROPion HCL 75 MG TAB PO SCH ×2 (08:35→22:00)
[2017-01-01] MEDS: ATENOLOL 100 MG TAB PO SCH (08:35)
[2017-01-01] MEDS: PROMETHAZINE INJ 25 MG/ML VIAL IM PRN ×2 (08:36→14:06)
[2017-01-01] MEDS: ALPRAZolam 0.5 MG TAB PO PRN (08:39)
--- NOTE | 2017-01-01 08:39 | HHI.IDPN ---
Subjective Subjective Remarks Feels weak Nausea controlled. Had a formed bowel movement last night No dysuria Antibiotics IV Zosyn , PO Vancomycin Lines Port Past Medical History Ovarian Ca C diff with bacteremia in October 2016 Allergies: Coded Allergies: ibuprofen (Unverified Adverse Reaction, Intermediate, Nausea/Vomiting, ) Review of Systems Constitutional Constitutional: Fatigue, Weakness Constitutional Remarks No fever , chills Objective . Vital Signs Date Time Temp Pulse Resp B/P (MAP) Pulse Ox O2 Delivery O2 Flow Rate FiO2 01/01/17 04:00 74 01/01/17 04:00 97.8 74 19 138/71 (93) 93 01/01/17 02:00 70 01/01/17 00:00 98.0 70 16 114/63 (80) 97 01/01/17 00:00 70 12/31/16 23:00 70 16 117/62 (80) 97 12/31/16 22:30 97 Nasal Cannula 3.00 12/31/16 22:00 68 16 144/72 (96) 96 12/31/16 21:00 72 16 138/75 (96) 92 12/31/16 20:00 98.0 72 16 135/74 (94) 98 12/31/16 20:00 73 12/31/16 19:00 72 14 140/76 (97) 96 12/31/16 18:13 17 12/31/16 18:00 72 16 143/81 (101) 96 12/31/16 17:00 72 15 149/80 (103) 94 12/31/16 16:00 76 12/31/16 16:00 70 17 151/79 (103) 97 12/31/16 15:00 97.9 72 16 124/75 (91) 98 12/31/16 14:00 72 14 136/78 (97) 96 12/31/16 13:00 72 19 151/82 (105) 98 12/31/16 12:00 76 12/31/16 12:00 97.9 72 20 140/75 (96) 97 12/31/16 12:00 72 12/31/16 09:00 78 19 130/72 (91) 95 12/31/16 08:45 78 18 97 . Laboratory Tests Test 12/31/16 04:45 01/01/17 04:15 White Blood Count 13.5 TH/MM3 13.8 TH/MM3 Red Blood Count 3.02 MIL/MM3 2.84 MIL/MM3 Hemoglobin 8.9 GM/DL 8.6 GM/DL Hematocrit 27.0 % 25.6 % Mean Corpuscular Volume 89.3 FL 90.4 FL Mean Corpuscular Hemoglobin 29.5 PG 30.2 PG Mean Corpuscular Hemoglobin Concent 33.1 % 33.4 % Red Cell Distribution Width 19.3 % 19.9 % Platelet Count 373 TH/MM3 353 TH/MM3 Mean Platelet Volume 7.8 FL 8.4 FL Neutrophils (%) (Auto) 89.4 % 85.7 % Lymphocytes (%) (Auto) 4.4 % 7.4 % Monocytes (%) (Auto) 5.4 % 5.5 % Eosinophils (%) (Auto) 0.7 % 0.7 % Basophils (%) (Auto) 0.1 % 0.7 % Neutrophils # (Auto) 12.1 TH/MM3 11.8 TH/MM3 Lymphocytes # (Auto) 0.6 TH/MM3 1.0 TH/MM3 Monocytes # (Auto) 0.7 TH/MM3 0.8 TH/MM3 Eosinophils # (Auto) 0.1 TH/MM3 0.1 TH/MM3 Basophils # (Auto) 0.0 TH/MM3 0.1 TH/MM3 CBC Comment DIFF FINAL DIFF FINAL Differential Comment Laboratory Tests Test 12/31/16 04:45 01/01/17 04:15 Blood Urea Nitrogen 34 MG/DL 31 MG/DL Creatinine 2.40 MG/DL 2.30 MG/DL Random Glucose 99 MG/DL 82 MG/DL Calcium Level 8.0 MG/DL 8.0 MG/DL Sodium Level 139 MEQ/L 141 MEQ/L Potassium Level 2.8 MEQ/L 3.0 MEQ/L Chloride Level 104 MEQ/L 108 MEQ/L Carbon Dioxide Level 21.8 MEQ/L 19.7 MEQ/L Anion Gap 13 MEQ/L 13 MEQ/L Estimat Glomerular Filtration Rate 20 ML/MIN 21 ML/MIN Physical Exam GENERAL: This is a chronically ill patient, SKIN: No rashes, ecchymoses or lesions. Cool and dry. HEAD: Atraumatic. Normocephalic. No temporal or scalp tenderness. EYES: Pupils equal round and reactive. Extraocular motions intact. No scleral icterus. No injection or drainage. ENT: Nose without bleeding, purulent drainage or septal hematoma. Throat without erythema, tonsillar hypertrophy or exudate. Uvula midline. Airway patent. NECK: Trachea midline. No JVD or lymphadenopathy. Supple, nontender, no meningeal signs. CARDIOVASCULAR: Regular rate and rhythm without murmurs, gallops, or rubs. RESPIRATORY: Breath sounds equal bilaterally. No wheezes, rales, or rhonchi. GASTROINTESTINAL: Abdomen soft, -tender, some distension No hepato-splenomegaly , Palpable mass felt No guarding. MUSCULOSKELETAL: Extremities without clubbing, cyanosis, or edema. No joint tenderness, effusion, or edema noted. No calf tenderness. Negative Homans sign bilaterally. NEUROLOGICAL: Awake and alert. Cranial nerves II through XII intact. Motor and sensory grossly within normal limits. Five out of 5 muscle strength in all muscle groups. Normal speech. Assessment & Plan Diagnosis: (1) Sepsis ICD Codes: A41.9 - Sepsis, unspecified organism Status: Acute Plan: Follow blood cultures- so far negative Urine culture is negative- stop Zosyn Continue Vancomycin 250 mg po qid (2) Clostridium difficile infection ICD Codes: B96.89 - Other specified bacterial agents as the cause of diseases classified elsewhere Status: Acute (3) UTI (urinary tract infection) ICD Codes: N39.0 - Urinary tract infection, site not specified Status: Acute Plan: Follow Urine culture- negative so hold Zosyn (4) Acute on chronic renal insufficiency ICD Codes: N28.9 - Disorder of kidney and ureter, unspecified; N18.9 - Chronic kidney disease, unspecified Status: Acute (5) Ovarian cancer ICD Codes: C56.9 - Malignant neoplasm of unspecified ovary Status: Chronic Plan: Oncology notes reviewed Problem Qualifiers (1) Sepsis: Qualified Codes: A41.9 - Sepsis, unspecified organism (2) UTI (urinary tract infection): Qualified Codes: N39.0 - Urinary tract infection, site not specified Brittney Bean MD Jan 01, 2017 08:39
[2017-01-01] MEDS: VANCOMYCIN 500 MG VIAL (FOR ORAL USE ONLY) PO SCH ×4 (08:40→22:00)
[2017-01-01] MEDS: SODIUM CHLORIDE 0.9% FLUSH 10 ML FLUSH IV FLUSH SCH ×2 (08:40→21:00)
[2017-01-01] MEDS: MIRTAZAPINE 15 MG TAB PO SCH (22:00)
[2017-01-01] MEDS: QUEtiapine FUMARATE 25 MG TAB PO SCH (22:00)
--- NOTE | 2017-01-01 22:52 | HHI.PR ---
Subjective Remarks pt seen this afternoon around 1 PM. Patient says she is feeling all right. Reports pain is better controlled now. Discussed with family at bedside. We' ll liberalize diet to regular. Discussed with hospice. Possible discharge to hospice care center tomorrow. Objective Vital Signs Date Time Temp Pulse Resp B/P (MAP) Pulse Ox O2 Delivery O2 Flow Rate FiO2 01/01/17 16:01 70 20 150/76 (100) 98 01/01/17 12:01 68 18 99 01/01/17 12:01 68 18 134/68 (90) 99 01/01/17 08:48 97 Nasal Cannula 3.00 01/01/17 08:00 72 20 116/61 (79) 94 01/01/17 04:00 74 01/01/17 04:00 97.8 74 19 138/71 (93) 93 01/01/17 02:00 70 01/01/17 00:00 98.0 70 16 114/63 (80) 97 01/01/17 00:00 70 12/31/16 23:00 70 16 117/62 (80) 97 I/O 12/31/16 12/31/16 12/31/16 01/01/17 01/01/17 01/01/17 07:00 15:00 23:00 07:00 15:00 23:00 Intake Total 1434 ml 1302 ml 100 ml 448 ml 1156 ml Balance 1434 ml 1302 ml 100 ml 448 ml 1156 ml Intake Oral 100 ml 60 ml IV Total 1434 ml 1302 ml 388 ml 1156 ml # Voids 1 1 2 # Bowel Movements 1 1 1 Result Diagram: 01/01/17 0415 01/01/17 0415 Objective Remarks GENERAL: patient sitting up in bed. Resting, wakes up for exam. SKIN: Warm and dry. HEAD: Normocephalic. EYES: No scleral icterus. No injection or drainage. NECK: Supple, trachea midline. No JVD. CARDIOVASCULAR: Regular rate and rhythm without murmurs, gallops, or rubs. RESPIRATORY: Breath sounds equal bilaterally. No accessory muscle use. GASTROINTESTINAL: Abdomen soft, non-tender, nondistended. MUSCULOSKELETAL: No cyanosis, or edema. BACK: Nontender without obvious deformity. No CVA tenderness. A/P Assessment and Plan potassium replaced again. Patient family to talk with hospice. Pain medication increased for continued abdominal pain. Antiemetics ordered for nausea. Continue to monitor.potassium replaced. -Acute kidney injury on chronic kidney disease - likely secondary to dehydration with the nausea vomiting and poor oral intake, may be a component of obstruction as well. Continue IV fluids. Renal ultrasound showing bilateral hydronephrosis secondary to compression from masses. We'll consult urology. -Bilateral DVTs. Continue heparin drip and transition to Coumadin after 48 hours (tomorrow) of heparin drip, will start with low-dose Coumadin 2 mg as per hematology recommendations. -Nausea vomiting and dehydration. Resolved. Continue IV fluids with Zofran. Abdominal x-ray showed ileus versus possible developing obstruction, will check abdominal pelvis CT without IV contrast. -Possible UTI - continue Zosyn with Lactinex. Follow-up urine culture. Follow- up blood cultures. -Progressive Ovarian Cancer with pelvic masses and suspected metastatic disease , and a subcutaneous nodule in the right lower anterior abdominal wall - followed by Dr. Arevalo. The patient currently is not a candidate for chemotherapy due to her poor functional status. Consult Dr. Arevalo as the patient is unlikely to make her appointment tomorrow. -Right hydronephrosis secondary to ureteral compression from the pelvic mass - now with bilateral hydronephrosis -Recent C. difficile colitis and bacteremia - stool was positive for C. difficile, the patient denies having any diarrhea, so I am not sure if this is a true infection, consult infectious disease for opinion on this and the leukocytosis and UTI. -Leukocytosis. Rule out sepsis. Follow-up urine culture and blood culture. -Hypovolemic hyponatremia, resolved. -Moderate malnutrition. Continue ensure shakes. -COPD oxygen dependent - continue 3 L O2 via nasal cannula. -Chronic kidney disease stage III -HTN - hold atenolol at this time as she is normotensive. -Anemia with history of blood transfusions - continue ferrous sulfate. -anxiety and depression - continue Remeron and bupropion and Xanax as per home doses. -Insomnia - continue Lunesta and Seroquel. -CODE STATUS DO NOT RESUSCITATE. The patient states that ideally she would like to improve to be able to go on chemotherapy however she realizes this is not likely. Will reconsult palliative care. She is an appropriate hospice candidate however family and patient are reluctant to proceed with hospice at this time and request consultation with Dr. Arevalo. Currently she does not have pain symptoms will continue Lortab as needed. -DVT prophylaxis with Lovenox. Mehdi Isaac MD Jan 01, 2017 22:52
[2017-01-01] MEDS: POTASSIUM CHLOR 10 MEQ PREMIX 100 ML IV SCH (23:09)
[2017-01-02] VITALS (7 sets, daily range): BP systolic 99–146; BP diastolic 56–74; PULSE 72–75; RESP 14–22; TEMP 97.7–98; O2SAT 96–98
[2017-01-02] MEDS: POTASSIUM CHLOR 10 MEQ PREMIX 100 ML IV SCH ×2 (00:23→03:05)
[2017-01-02] MEDS: HEPARIN 25,000 UNITS-D5W 250 ML - PREMIX IV SCH (04:13)
[2017-01-02 05:17] LABS: POTASSIUM 3.4 MEQ/L (3.5-5.1)
[2017-01-02 05:22] LABS: BICARBONATE 18.9 MEQ/L (21.0-32.0); MAGNESIUM 1.6 MG/DL (1.5-2.5)
[2017-01-02 05:23] LABS: APTT (PATIENT) 71.1 SEC (24.3-30.1)
[2017-01-02] MEDS: ACETAMINOPHEN/HYDROcodone 325 MG/5 MG TAB PO PRN ×2 (05:23→12:18)
[2017-01-02 05:29] LABS: AUTOMATED NEUTROPHIL # 13.5 TH/MM3 (1.8-7.7); BASOPHIL % 0.1 % (0.0-2.0); EOSINOPHIL # 0.1 TH/MM3 (0-0.4); EOSINOPHIL % 0.9 % (0.0-4.0); HEMATOCRIT 26.6 % (35.0-46.0); LYMPH % 5.7 % (9.0-44.0); LYMPHOCYTE # 0.9 TH/MM3 (1.0-4.8); MEAN CELL VOLUME 90.3 FL (80.0-100.0); MEAN CORPUSCULAR HEMOGLOBIN 29.9 PG (27.0-34.0); MEAN CORPUSCULAR HGB CONC 33.2 % (32.0-36.0); MONO % 7.1 % (0.0-8.0); NEUT % 86.2 % (16.0-70.0); PLATELET COUNT 384 TH/MM3 (150-450); RED BLOOD COUNT 2.95 MIL/MM3 (4.00-5.30); RED CELL DISTRIBUTION WIDTH 19.5 % (11.6-17.2); WHITE BLOOD COUNT 15.6 TH/MM3 (4.0-11.0)
[2017-01-02] MEDS: HYDROmorphone HCL PF 1 MG/ML VIAL IV PUSH PRN (05:40)
[2017-01-02 05:46] LABS: HEMO FLAGS DIFF FINAL
[2017-01-02] MEDS: SODIUM CHLOR 0.9% 1000 ML INJ 1,000 ML IV SCH (09:19)
[2017-01-02] MEDS: VANCOMYCIN 500 MG VIAL (FOR ORAL USE ONLY) PO SCH (09:32)
[2017-01-02] MEDS: LACTOBACILLUS ACIDOPHILUS TAB PO SCH (09:33)
[2017-01-02] MEDS: ATENOLOL 100 MG TAB PO SCH (09:33)
[2017-01-02] MEDS: FERROUS SULFATE 325 MG (65 MG ELEMENTAL IRON) TAB PO SCH (09:33)
[2017-01-02] MEDS: CILOSTAZOL 100 MG TAB PO SCH (09:33)
[2017-01-02] MEDS: CYANOCOBALAMIN 1,000 MCG TAB PO SCH (09:33)
[2017-01-02] MEDS: buPROPion HCL 75 MG TAB PO SCH (09:34)
[2017-01-02] MEDS: PROMETHAZINE INJ 25 MG/ML VIAL IM PRN (09:49)
[2017-01-02] MEDS: SODIUM CHLORIDE 0.9% FLUSH 10 ML FLUSH IV FLUSH SCH (09:53)
[2017-01-02] MEDS ORDERED: DO NOT ADM ANY ANTICOAGULANT DRUGS OTHER PRN (10:45)
--- NOTE | 2017-01-02 10:46 | HHI.PR ---
Subjective Remarks seen this morning. She feels well. Says pain is controlled. Objective Vital Signs Date Time Temp Pulse Resp B/P (MAP) Pulse Ox O2 Delivery O2 Flow Rate FiO2 01/02/17 08:00 97.8 74 14 125/67 (86) 98 01/02/17 07:57 96 Nasal Cannula 3.00 01/02/17 04:00 72 01/02/17 04:00 98.0 72 22 123/65 (84) 96 01/02/17 00:17 75 01/02/17 00:00 98.0 74 22 99/56 (70) 97 01/01/17 22:00 66 19 147/72 (97) 99 01/01/17 20:00 73 01/01/17 20:00 98.0 70 21 140/74 (96) 97 01/01/17 19:28 97 Nasal Cannula 3.00 01/01/17 16:01 70 20 150/76 (100) 98 01/01/17 12:01 68 18 99 01/01/17 12:01 68 18 134/68 (90) 99 I/O 01/01/17 01/01/17 01/01/17 01/02/17 01/02/17 01/02/17 07:00 15:00 23:00 07:00 15:00 23:00 Intake Total 448 ml 1156 ml 460 ml 918 ml Balance 448 ml 1156 ml 460 ml 918 ml Intake Oral 60 ml 160 ml IV Total 388 ml 1156 ml 300 ml 918 ml # Voids 2 4 # Bowel Movements 1 1 1 Result Diagram: 01/02/17 0435 01/02/17 0435 Objective Remarks GENERAL:pt lying in bed. Sleeping, wakes up for exam. No acute distress. Exam unchanged. SKIN: Warm and dry. HEAD: Normocephalic. EYES: No scleral icterus. No injection or drainage. NECK: Supple, trachea midline. No JVD. CARDIOVASCULAR: Regular rate and rhythm without murmurs, gallops, or rubs. RESPIRATORY: Breath sounds equal bilaterally. No accessory muscle use. GASTROINTESTINAL: Abdomen soft, non-tender, nondistended. MUSCULOSKELETAL: No cyanosis, or edema. BACK: Nontender without obvious deformity. No CVA tenderness. A/P Assessment and Plan ==01/01/17========= Start Coumadin for bilateral DVTs. Hypokalemia. Potassium 3.4. Replaced again. //Acute kidney injury on chronic kidney disease - likely secondary to dehydration with the nausea vomiting and poor oral intake, may be a component of obstruction as well. Continue IV fluids. Renal ultrasound showing bilateral hydronephrosis secondary to compression from masses. ---s/p urology eval- consider nephrostomy tubes //BL DVTs. -heme ff Heparin drip. //Nausea vomiting and dehydration. Resolved. Continue IV fluids with Zofran. Abdominal x-ray showed ileus versus possible developing obstruction, will check abdominal pelvis CT without IV contrast. //Possible UTI - -Antibiotics as per infectious disease. //Progressive Ovarian Cancer with pelvic masses and suspected metastatic disease , and a subcutaneous nodule in the right lower anterior abdominal wall - followed by Dr. Arevalo. The patient currently is not a candidate for chemotherapy due to her poor functional status. -Appreciate Dr. Dayton Powell assistance. //Right hydronephrosis secondary to ureteral compression from the pelvic mass - now with bilateral hydronephrosis //Recent C. difficile colitis and bacteremia - stool was positive for C. difficile, the patient denies having any diarrhea, so I am not sure if this is a true infection, consult infectious disease for opinion on this and the leukocytosis and UTI. //Leukocytosis. Rule out sepsis. Follow-up urine culture and blood culture. //Hypovolemic hyponatremia, resolved. //Moderate malnutrition. Continue ensure shakes. //COPD oxygen dependent - continue 3 L O2 via nasal cannula. //Chronic kidney disease stage III //HTN - hold atenolol at this time as she is normotensive. //Anemia with history of blood transfusions - continue ferrous sulfate. //anxiety and depression - continue Remeron and bupropion and Xanax as per home doses. //Insomnia - continue Lunesta and Seroquel. //CODE STATUS DO NOT RESUSCITATE. The patient states that ideally she would like to improve to be able to go on chemotherapy however she realizes this is not likely. Will reconsult palliative care. She is an appropriate hospice candidate however family and patient are reluctant to proceed with hospice at this time and request consultation with Dr. Arevalo. Currently she does not have pain symptoms will continue Lortab as needed. //DVT prophylaxis with heparin gtt Discharge Planning Possible discharge to hospice today. Mehdi Isaac MD Jan 02, 2017 10:46
[2017-01-02] MEDS ORDERED: POTASSIUM CHLORIDE 10 MEQ CONTROLLED RELEASE TAB PO ONE (12:00)
[2017-01-02] MEDS: ALPRAZolam 0.5 MG TAB PO PRN (12:18)
--- NOTE | 2017-01-02 13:48 | HHI.IDPN ---
Subjective Subjective Remarks Feels weak Nausea controlled. Had a formed bowel movement last night No dysuria Antibiotics IV Zosyn , PO Vancomycin Lines [place] Past Medical History Ovarian Ca C diff with bacteremia in October 2016 Allergies: Coded Allergies: ibuprofen (Unverified Adverse Reaction, Intermediate, Nausea/Vomiting, ) Objective . Vital Signs Date Time Temp Pulse Resp B/P (MAP) Pulse Ox O2 Delivery O2 Flow Rate FiO2 01/02/17 12:00 72 01/02/17 12:00 97.7 72 22 146/74 (98) 97 01/02/17 10:00 72 01/02/17 08:00 75 01/02/17 08:00 97.8 74 14 125/67 (86) 98 01/02/17 07:57 96 Nasal Cannula 3.00 01/02/17 04:00 72 01/02/17 04:00 98.0 72 22 123/65 (84) 96 01/02/17 00:17 75 01/02/17 00:00 98.0 74 22 99/56 (70) 97 01/01/17 22:00 66 19 147/72 (97) 99 01/01/17 20:00 73 01/01/17 20:00 98.0 70 21 140/74 (96) 97 01/01/17 19:28 97 Nasal Cannula 3.00 01/01/17 16:01 70 20 150/76 (100) 98 01/02/17 01/02/17 01/03/17 14:59 22:59 06:59 Intake Total 918 ml Balance 918 ml IV Total 918 ml . Laboratory Tests Test 01/01/17 04:15 01/02/17 04:35 White Blood Count 13.8 TH/MM3 15.6 TH/MM3 Red Blood Count 2.84 MIL/MM3 2.95 MIL/MM3 Hemoglobin 8.6 GM/DL 8.8 GM/DL Hematocrit 25.6 % 26.6 % Mean Corpuscular Volume 90.4 FL 90.3 FL Mean Corpuscular Hemoglobin 30.2 PG 29.9 PG Mean Corpuscular Hemoglobin Concent 33.4 % 33.2 % Red Cell Distribution Width 19.9 % 19.5 % Platelet Count 353 TH/MM3 384 TH/MM3 Mean Platelet Volume 8.4 FL 8.0 FL Neutrophils (%) (Auto) 85.7 % 86.2 % Lymphocytes (%) (Auto) 7.4 % 5.7 % Monocytes (%) (Auto) 5.5 % 7.1 % Eosinophils (%) (Auto) 0.7 % 0.9 % Basophils (%) (Auto) 0.7 % 0.1 % Neutrophils # (Auto) 11.8 TH/MM3 13.5 TH/MM3 Lymphocytes # (Auto) 1.0 TH/MM3 0.9 TH/MM3 Monocytes # (Auto) 0.8 TH/MM3 1.1 TH/MM3 Eosinophils # (Auto) 0.1 TH/MM3 0.1 TH/MM3 Basophils # (Auto) 0.1 TH/MM3 0.0 TH/MM3 CBC Comment DIFF FINAL DIFF FINAL Differential Comment Laboratory Tests Test 01/01/17 04:15 01/02/17 04:35 Blood Urea Nitrogen 31 MG/DL 28 MG/DL Creatinine 2.30 MG/DL 2.00 MG/DL Random Glucose 82 MG/DL 89 MG/DL Calcium Level 8.0 MG/DL 7.6 MG/DL Sodium Level 141 MEQ/L 142 MEQ/L Potassium Level 3.0 MEQ/L 3.4 MEQ/L Chloride Level 108 MEQ/L 111 MEQ/L Carbon Dioxide Level 19.7 MEQ/L 18.9 MEQ/L Anion Gap 13 MEQ/L 12 MEQ/L Estimat Glomerular Filtration Rate 21 ML/MIN 24 ML/MIN Albumin 1.8 GM/DL Phosphorus Level 3.1 MG/DL Magnesium Level 1.6 MG/DL Physical Exam GENERAL: This is a chronically ill patient, SKIN: No rashes, ecchymoses or lesions. Cool and dry. HEAD: Atraumatic. Normocephalic. No temporal or scalp tenderness. EYES: Pupils equal round and reactive. Extraocular motions intact. No scleral icterus. No injection or drainage. ENT: Nose without bleeding, purulent drainage or septal hematoma. Throat without erythema, tonsillar hypertrophy or exudate. Uvula midline. Airway patent. NECK: Trachea midline. No JVD or lymphadenopathy. Supple, nontender, no meningeal signs. CARDIOVASCULAR: Regular rate and rhythm without murmurs, gallops, or rubs. RESPIRATORY: Breath sounds equal bilaterally. No wheezes, rales, or rhonchi. GASTROINTESTINAL: Abdomen soft, -tender, some distension No hepato-splenomegaly , Palpable mass felt No guarding. MUSCULOSKELETAL: Extremities without clubbing, cyanosis, or edema. No joint tenderness, effusion, or edema noted. No calf tenderness. Negative Homans sign bilaterally. NEUROLOGICAL: Awake and alert. Cranial nerves II through XII intact. Motor and sensory grossly within normal limits. Five out of 5 muscle strength in all muscle groups. Normal speech. Rose Iglesias [facility] Jan 02, 2017 13:48
[2017-01-02] MEDS ORDERED: ENOXAPARIN SODIUM 60 MG/0.6 ML SYRINGE SQ ONE (14:00)
[2017-01-02] MEDS ORDERED: WARFARIN SOD 2 MG TAB PO SCH (16:00)
--- NOTE | 2017-01-05 16:29 | HHI.DS ---
Discharge Summary Admission Date Dec 29, 2016 at 01:54 Discharge Date: Jan 02, 2017 Admitting Diagnosis UTI; sepsis; acute on chronic renal insufficiency (1) Chronic respiratory failure ICD Code: J96.10 - Chronic respiratory failure, unspecified whether with hypoxia or hypercapnia Status: Chronic (2) Hyponatremia ICD Code: E87.1 - Hypo-osmolality and hyponatremia Status: Resolved (3) Nausea and vomiting ICD Code: R11.2 - Nausea with vomiting, unspecified Status: Acute (4) Moderate malnutrition ICD Code: E44.0 - Moderate protein-calorie malnutrition Status: Chronic (5) Ovarian cancer ICD Code: C56.9 - Malignant neoplasm of unspecified ovary Status: Chronic (6) UTI (urinary tract infection) ICD Code: N39.0 - Urinary tract infection, site not specified Status: Acute (7) Hydronephrosis ICD Code: N13.30 - Unspecified hydronephrosis Status: Chronic (8) Acute renal failure ICD Code: N17.9 - Acute kidney failure, unspecified Status: Acute (9) Weakness ICD Code: R53.1 - Weakness Status: Acute (10) COPD (chronic obstructive pulmonary disease) ICD Code: J44.9 - Chronic obstructive pulmonary disease, unspecified Status: Chronic (11) Anemia ICD Code: D64.9 - Anemia, unspecified Status: Chronic (12) KAMRYN (acute kidney injury) ICD Code: N17.9 - Acute kidney failure, unspecified Status: Acute (13) Weakness ICD Code: R53.1 - Weakness Status: Acute (14) Decreased appetite ICD Code: R63.0 - Anorexia Status: Acute Procedures No invasive procedures performed Brief History - From Admission This is a pleasant but unfortunate 76-year-old female with past medical history of ovarian cancer status post bilateral salpingo-oophorectomy in August 2015, currently under the care of Dr. Arevalo. She's had multiple hospitalizations for failure to thrive, sepsis. She was admitted to the hospital last month with C. difficile colitis and actually had clostridium and her blood in October. CT of the abdomen in November showed progression of the pelvic masses with development of moderate hydronephrosis in the right kidney disease with metastatic disease been suspected as the etiology. At that time she underwent a renal scintigraphy which showed no obstruction, and she was recommended to follow-up with urology Dr. Pastor. Due to her poor functional status the patient was not a candidate for chemotherapy. Palliative care was consulted and the patient elected to be DO NOT RESUSCITATE however her other goals remained aggressive. The patient was discharged to senior living facility and states that she was discharged home last week. She returns to the hospital now with 2 day history of nausea and vomiting, poor oral intake and generalized weakness. The patient states that she was not ambulating at the senior living facility or at home. The patient denies any loose stools. The patient denies fever although a fever was reported by the emergency department physician. The patient states she does not have abdominal pain unless someone presses on her abdomen. She had been being treated for urinary tract infection in the outpatient setting with Cipro. Her nurse states that she did have a small episode of emesis this morning. The patient states that her urine output has been normal. She had a bowel movement overnight but the nurse was unable to tell me what the consistency was. Again the patient denies diarrhea home. CBC/BMP: 01/02/17 0435 01/02/17 0435 Imaging Last Impressions Abdomen/Pelvis CT 12/30/16 0000 Signed Impressions: Service Date/Time: Friday, December 30, 2016 17:42 - CONCLUSION: 1. Interval development of multiple dilated loops of small bowel concerning for least partial small bowel obstruction. A well-defined transition point is not seen. 2. Progression of metastatic disease with increase in size of subcutaneous and right rectus masses, or peroneal nodule in the right lower quadrant measuring 1.3 cm, not mentioned above, and lobular pelvic soft tissue mass is intimately associated with the sigmoid colon, subcentimeter retroperitoneal adenopathy and bilateral hydronephrosis. Johnny Tirado MD Renal Ultrasound 12/29/16 0000 Signed Impressions: Service Date/Time: Thursday, December 29, 2016 12:28 - CONCLUSION: 1. Pelvic mass causing bilateral hydronephrosis greater on the right. 2. Kidneys are slightly echogenic which can be seen with medical renal disease. Sharif Winston MD Lower Extremity Ultrasound 12/29/16 0000 Signed Impressions: Service Date/Time: Thursday, December 29, 2016 12:09 - CONCLUSION: 1. Nonocclusive thrombus in each lower extremity. Sharif Winston MD Abdomen X-Ray 12/29/16 0000 Signed Impressions: Service Date/Time: Thursday, December 29, 2016 02:40 - CONCLUSION: 1. Gaseous distention of small bowel. Differential diagnosis includes ileus or early obstruction. Merrick Chairez MD Chest X-Ray 12/28/16 2344 Signed Impressions: Service Date/Time: Wednesday, December 28, 2016 23:52 - CONCLUSION: 1. Linear atelectasis or scarring at the bases. No effusion or pneumothorax. No significant change compared with November 22. Merrick Chairez MD PE at Discharge GENERAL: Chronically ill-appearing lean and cachectic female patient in no apparent distress. SKIN: Warm and dry. HEAD: Normocephalic. EYES: No scleral icterus. No injection or drainage. NECK: Supple, trachea midline. No JVD or lymphadenopathy. CARDIOVASCULAR: Regular rate and rhythm without murmurs, gallops, or rubs. RESPIRATORY: Breath sounds equal and clear bilaterally. No accessory muscle use. GASTROINTESTINAL: Tenderness in the suprapubic abdomen. Bowel sounds normal. nondistended. EXTREMITIES: 1+ edema in the right lower extremity. NEUROLOGICAL: Awake, alert, and oriented x 3. Generalized weakness. Hospital Course Patient admitted with acute kidney injury on chronic kidney disease, nausea, dehydration, secondary to aggressive ovarian cancer. Patient was treated with IV fluids. Imaging above noted possible small bowel obstruction, however patient maintained bowel movements. Patient was also found to have bilateral DVTs, placed on heparin drip, with transition to warfarin, bridging with Lovenox at discharge. 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 Prognosis poor. Hospice consult ordered, and after discussion with family, patient and family opted for hospice care. Patient was discharged to hospice care center. For problem-based summary for most recent progress note, please see below. ==01/02/17========= Start Coumadin for bilateral DVTs. Hypokalemia. Potassium 3.4. Replaced again. //Acute kidney injury on chronic kidney disease - likely secondary to dehydration with the nausea vomiting and poor oral intake, may be a component of obstruction as well. Continue IV fluids. Renal ultrasound showing bilateral hydronephrosis secondary to compression from masses. ---s/p urology eval- consider nephrostomy tubes //BL DVTs. -heme ff Heparin drip. //Nausea vomiting and dehydration. Resolved. Continue IV fluids with Zofran. Abdominal x-ray showed ileus versus possible developing obstruction, will check abdominal pelvis CT without IV contrast. //Possible UTI - -Antibiotics as per infectious disease. //Progressive Ovarian Cancer with pelvic masses and suspected metastatic disease , and a subcutaneous nodule in the right lower anterior abdominal wall - followed by Dr. Arevalo. The patient currently is not a candidate for chemotherapy due to her poor functional status. -Appreciate Dr. Dayton Powell assistance. //Right hydronephrosis secondary to ureteral compression from the pelvic mass - now with bilateral hydronephrosis //Recent C. difficile colitis and bacteremia - stool was positive for C. difficile, the patient denies having any diarrhea, so I am not sure if this is a true infection, consult infectious disease for opinion on this and the leukocytosis and UTI. //Leukocytosis. Rule out sepsis. Follow-up urine culture and blood culture. //Hypovolemic hyponatremia, resolved. //Moderate malnutrition. Continue ensure shakes. //COPD oxygen dependent - continue 3 L O2 via nasal cannula. //Chronic kidney disease stage III //HTN - hold atenolol at this time as she is normotensive. //Anemia with history of blood transfusions - continue ferrous sulfate. //anxiety and depression - continue Remeron and bupropion and Xanax as per home doses. //Insomnia - continue Lunesta and Seroquel. //CODE STATUS DO NOT RESUSCITATE. The patient states that ideally she would like to improve to be able to go on chemotherapy however she realizes this is not likely. Will reconsult palliative care. She is an appropriate hospice candidate however family and patient are reluctant to proceed with hospice at this time and request consultation with Dr. Arevalo. Currently she does not have pain symptoms will continue Lortab as needed. //DVT prophylaxis with heparin gtt Pt Condition on Discharge: Stable Discharge Disposition: Hospice/ Home Discharge Time: > 30 minutes Discharge Instructions DIET: Follow Instructions for: As Tolerated, No Restrictions Activities you can perform: Regular-No Restrictions Mehdi Isaac MD Jan 05, 2017 16:29
== END 2017-01-02 14:06 | disposition hospice, inpatient (51) | DRG 872 ==
LOC: PHED 22:27 → PHEDA 12-29 01:54 → PHICU 12-29 05:03
PROVIDERS: ADMIT Internal Medicine; ATTEND Internal Medicine
DX: A41.9 Sepsis, unspecified organism (principal); N17.9 Acute kidney failure, unspecified; J96.10 Chronic respiratory failure, unspecified whether with hypoxia or hypercapnia; A04.7 Enterocolitis due to Clostridium difficile; R64 Cachexia; E44.0 Moderate protein-calorie malnutrition; C78.6 Secondary malignant neoplasm of retroperitoneum and peritoneum; I82.413 Acute embolism and thrombosis of femoral vein, bilateral; N39.0 Urinary tract infection, site not specified; C56.9 Malignant neoplasm of unspecified ovary; I82.433 Acute embolism and thrombosis of popliteal vein, bilateral; E87.1 Hypo-osmolality and hyponatremia; N13.39 Other hydronephrosis; D69.6 Thrombocytopenia, unspecified; N18.3 Chronic kidney disease, stage 3 (moderate); Z99.81 Dependence on supplemental oxygen; J44.9 Chronic obstructive pulmonary disease, unspecified; D64.9 Anemia, unspecified; I12.9 Hypertensive chronic kidney disease with stage 1 through stage 4 chronic kidney disease, or unspecified chronic kidney disease; F32.9 Major depressive disorder, single episode, unspecified; F41.9 Anxiety disorder, unspecified; K21.9 Gastro-esophageal reflux disease without esophagitis; G43.909 Migraine, unspecified, not intractable, without status migrainosus; Z66 Do not resuscitate; G47.00 Insomnia, unspecified; Z87.891 Personal history of nicotine dependence; R62.7 Adult failure to thrive; Z68.22 Body mass index [BMI] 22.0-22.9, adult; Z51.5 Encounter for palliative care; E86.0 Dehydration; E87.6 Hypokalemia
CPT/HCPCS: 71010; 74020; 74176; 76775; 80048; 80053; 80069; 81001; 83605; 83690; 83735; 84100; 85007; 85025; 85027; 85610; 85730; 87040; 87086; 87493; 87506; 93005; 93970; 96361; 96365; 96367; 96375; J0692; J1170; J1644; J1650; J2405; J2543; J2550; J3475; J3480; J7030; P9612; Q9963